=== PATIENT | male | born 1960 | race African-American/Black ===

== ENCOUNTER → 2017-01-24 | Outpatient (CLI) | payer OTHER ==
[2017-01-24 12:46] LABS: CHOLESTEROL 147.03 mg/dL (0-200); Direct HDL 52 mg/dL (>40); TRIGLYCERIDES 119 mg/dL (<150)
[2017-01-24 12:57] LABS: DIRECT LDL 60 mg/dL (<100)
== END ==
LOC: OD 10:57
PROVIDERS: ATTEND Family Medicine
DX: E11.9 Type 2 diabetes mellitus without complications (principal); R79.9 Abnormal finding of blood chemistry, unspecified; E78.00 Pure hypercholesterolemia, unspecified; E03.4 Atrophy of thyroid (acquired)
CPT/HCPCS: 36415; 80061; 82565; 83036; 84443

== ENCOUNTER → 2017-06-09 | Outpatient (CLI) | payer OTHER ==
[2017-06-09 13:18] LABS: HEMATOCRIT 37.1 % (37.9-51.0); HEMOGLOBIN 12.5 g/dL (13.5-17.0); MEAN CORPUSCULAR HGB CONC 33.7 g/dL (32.0-36.0); MEAN CORPUSCULAR VOLUME 89 fl (80-97); PLATELET COUNT 119 10^3/uL (150-450); RED BLOOD COUNT 4.17 10^6/uL (4.35-5.55); RED CELL DISTRIBUTION WIDTH 15.3 % (11.5-14.0); WHITE BLOOD COUNT 6.4 10^3/uL (4.0-10.5)
== END ==
LOC: OD 12:20
PROVIDERS: ATTEND Family Medicine
DX: E11.9 Type 2 diabetes mellitus without complications (principal); R79.9 Abnormal finding of blood chemistry, unspecified
CPT/HCPCS: 36415; 83036; 85027

== ENCOUNTER → 2018-04-17 | Outpatient (CLI) | payer OTHER ==
[2018-04-17 08:41] LABS: ALANINE AMINOTRANSFERASE 27 U/L (21-72); ALBUMIN 3.3 g/dL (3.5-5.0); ALKALINE PHOSPHATASE 92 U/L (38-126); ANION GAP 8 (5-19); ASPARTATE AMINO TRANSFERASE 41 U/L (17-59); BILIRUBIN,DIRECT 0.4 mg/dL (0.0-0.4); BILIRUBIN,TOTAL 0.4 mg/dL (0.2-1.3); BLOOD UREA NITROGEN 18 mg/dL (7-20); CARBON DIOXIDE 24 mmol/L (22-30); CHLORIDE 112 mmol/L (98-107); CHOLESTEROL 134.43 mg/dL (0-200); GLUCOSE 48 mg/dL (75-110); POTASSIUM 4.7 mmol/L (3.6-5.0); SODIUM 143.7 mmol/L (137-145); TOTAL PROTEIN 6.9 g/dL (6.3-8.2); TRIGLYCERIDES 88 mg/dL (<150)
[2018-04-17 08:52] LABS: DIRECT LDL 58 mg/dL (<100)
== END ==
LOC: OD 07:22
PROVIDERS: ATTEND Family Medicine
DX: E11.22 Type 2 diabetes mellitus with diabetic chronic kidney disease (principal)
CPT/HCPCS: 36415; 80053; 80061; 83036

== ENCOUNTER 2018-11-17 09:16 | Emergency (ER) | payer OTHER ==
[2018-11-17] MEDS ORDERED: DEXAMETHASONE SOD PHOS INJ 10 MG/1 ML VIAL IM ONE (10:03)
[2018-11-17] MEDS ORDERED: KETOROLAC TROMETHAMINE 60 MG/2 ML SDV IM ONE (10:03)
--- NOTE | 2018-11-17 10:29 | ER Document Report ---
HPI - HPI Time Seen by Provider: 11/17/18 09:28 Pain Level: 5 Context: Patient is a 58-year-old male who presents the emergency department with a chief complaint of pain in his sacral area, left hip, left knee, and left ankle pain. He states that he has had his symptoms for the past week, but dated to the nursing staff that he has had this for the past 2 days. Denies any injury. He states that it is a pulling and burning sensation. 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 He does not use his legs to pick things up. He is currently on insulin, lisinopril, gabapentin, and pantoprazole. Denies any loss of bladder or bowel function. He does have a history of IV drug abuse, but this was 30 years ago. He has not had any problems since. - ROS Systems Reviewed and Negative: Yes All other systems reviewed and negative - CONSTITUTIONAL Constitutional: DENIES: Fever, Chills - RESPIRATORY Respiratory: DENIES: Trouble Breathing - GASTROINTESTINAL Gastrointestinal: DENIES: Abdominal Pain - REPRODUCTIVE Reproductive: DENIES: : - MUSCULOSKELETAL Musculoskeletal: REPORTS: Extremity pain - Left hip, left knee, left ankl. DENIES: Back Pain - DERM Skin Color: Normal Skin Problems: None Past Medical History - Social History Smoking Status: Current Every Day Smoker Frequency of alcohol use: None Drug Abuse: None Family History: Arthritis, CAD, DM, Hyperlipidemia, Hypertension, Malignancy Patient has suicidal ideation: No Patient has homicidal ideation: No - Past Medical History Cardiac Medical History: Reports: Hx Hypertension, Hx Heart Murmur Endocrine Medical History: Reports: Hx Diabetes Mellitus Type 2 Renal/ Medical History: Reports: Hx Renal Insufficiency. Denies: Hx Peritoneal Dialysis GI Medical History: Reports: Hx Gastroesophageal Reflux Disease, Hx Irritable Bowel - with constipation linzess works but $ jeff be-, Hx Colonoscopy, Hx Endoscopy Musculoskeletal Medical History: Denies Hx Systemic Lupus Erythematosus Psychiatric Medical History: Reports: Hx Depression Past Surgical History: Reports: Hx Appendectomy, Hx Cholecystectomy. Denies: Hx Pacemaker - Immunizations Hx Diphtheria, Pertussis, Tetanus Vaccination: Yes Vertical Provider Document - CONSTITUTIONAL Agree With Documented VS: Yes Exam Limitations: No Limitations General Appearance: No Apparent Distress - INFECTION CONTROL TRAVEL OUTSIDE OF THE [place] IN LAST 30 DAYS: No - HEENT HEENT: Atraumatic, Normocephalic, PERRLA - NECK Neck: Normal Inspection - RESPIRATORY Respiratory: No Respiratory Distress - CARDIOVASCULAR Cardiovascular: Regular Rate, Regular Rhythm Pulses: Normal: Radial - MUSCULOSKELETAL/EXTREMETIES Musculoskeletal/Extremeties: FROM, Tender - Left knee, left sacral area - NEURO Level of Consciousness: Awake, Alert, Appropriate Motor/Sensory: No Motor Deficit, No Sensory Deficit - DERM Integumentary: Warm, Dry, No Rash Course - Re-evaluation Re-evalutation: 11/17/18 The patient's x-ray of his hip shows arthrosis. He does have arthritis, therefore this is the most likely cause of his pain. His pain may be shooting down his left leg down to his knee and his foot. He will follow-up with orthopedics. I have advised him to take Tylenol 1000 mg every 6 hours. He will follow-up with his primary care provider. No vascular compromise noted. Capillary refill less than 3 seconds. I have a very low suspicion for a ep idural abscess, as the patient has not used IV drugs for a very long time. I do not suspect suspect cancer. X-rays are consistent with the patient's pain that he is feeling. His pain is most likely due to his arthritis. Follow-up precautions were given. Verbal discharge instructions were given to the patient. They verbalized understanding. They are stable for discharge. - Vital Signs Vital signs: Temp Pulse Resp BP Pulse Ox 98.5 F 78 18 154/73 H 100 11/17/18 09:20 11/17/18 09:20 11/17/18 09:20 11/17/18 09:20 11/17/18 09:20 Discharge - Discharge Clinical Impression: Arthritis, Left hip pain Left knee pain Qualifiers: Chronicity: acute Qualified Code(s): M25.562 - Pain in left knee Left ankle pain Qualifiers: Chronicity: acute Qualified Code(s): M25.572 - Pain in left ankle and joints of left foot Condition: Stable Disposition: HOME, SELF-CARE Instructions: Pain Medication Injection ([facility]) Additional Instructions: You were seen today in the emergency department for pain in your left hip, left knee, and left ankle. Your pain in your hip is related to your arthritis. Your left knee and left ankle x-rays are normal. Please follow-up with orthopedic doctor below. You can take Tylenol 1000 mg every 6 hours for your pain. Please follow-up with your primary care provider to see if you have other options for pain medication. Forms: Return to Work Referrals: GERALD HAMILTON MD [Primary Care Provider] - Follow up in 3-5 days MARIN TORO MD [ACTIVE STAFF] - Follow up in 3-5 days
--- NOTE | 2018-11-17 10:47 | RADIOLOGY REPORT (SQ) ---
EXAM DESCRIPTION: ANKLE LEFT COMPLETE COMPLETED DATE/TIME: 11/17/2018 10:37 am REASON FOR STUDY: ankle pain COMPARISON: None. NUMBER OF VIEWS: Three views. TECHNIQUE: AP, lateral, and oblique radiographic images acquired of the left ankle. LIMITATIONS: None. FINDINGS: MINERALIZATION: Normal. BONES: No acute fracture or dislocation. No worrisome bone lesions. JOINTS: No effusions. SOFT TISSUES: No soft tissue swelling. No foreign body. OTHER: No other significant finding. IMPRESSION: NEGATIVE STUDY OF THE LEFT ANKLE. NO RADIOGRAPHIC EVIDENCE OF ACUTE INJURY. TECHNICAL DOCUMENTATION: JOB ID: [id number] [email or web address] All Rights Reserved Reading location - IP/workstation name: [email or web address]
--- NOTE | 2018-11-17 10:48 | RADIOLOGY REPORT (SQ) ---
EXAM DESCRIPTION: KNEE LEFT 4 VIEW COMPLETED DATE/TIME: 11/17/2018 10:37 am REASON FOR STUDY: knee pain COMPARISON: None. NUMBER OF VIEWS: Four views. TECHNIQUE: AP, lateral, and both oblique radiographic images acquired of the left knee. LIMITATIONS: None. FINDINGS: MINERALIZATION: Normal. BONES: No acute fracture or dislocation. No worrisome bone lesions. JOINT: No effusion. SOFT TISSUES: No soft tissue swelling. No radio-opaque foreign body. OTHER: No other significant finding. IMPRESSION: No fracture or dislocation of the left knee. Joint spaces are preserved. TECHNICAL DOCUMENTATION: JOB ID: [id number] [employer]- All Rights Reserved Reading location - IP/workstation name: [email or web address]
--- NOTE | 2018-11-17 10:56 | RADIOLOGY REPORT (SQ) ---
EXAM DESCRIPTION: HIP LEFT AP/LATERAL COMPLETED DATE/TIME: 11/17/2018 10:37 am REASON FOR STUDY: hip pain COMPARISON: None. NUMBER OF VIEWS: Two views. TECHNIQUE: AP pelvis and additional frog-leg view of the left hip. LIMITATIONS: None. FINDINGS: MINERALIZATION: Normal. LEFT HIP: No fracture or dislocation. No worrisome bone lesions. Corticated ossicles about the supe rior acetabular margin. RIGHT HIP: No fracture or dislocation. No worrisome bone lesions. PUBIS AND ISCHIUM: No fracture. PELVIS: No fracture. SACRUM: No fracture or dislocation. No worrisome bone lesions. SOFT TISSUES: No findings. OTHER: No other significant finding. IMPRESSION: No fracture or dislocation of the left hip. Corticated ossicles about the superior acet abular margin, likely degenerative in nature and related to mild arthrosis. Please note that plain r adiographs are insensitive for hip or pelvic fracture; recommend CT or MRI to more sensitively evalua te if fracture is suspected. TECHNICAL DOCUMENTATION: JOB ID: [id number] [employer]- All Rights Reserved Reading location - IP/workstation name: [email or web address]
[2018-11-17 11:14] VITALS: BP 159/84
== END 2018-11-17 11:14 | disposition home or self-care (01) ==
LOC: ER 09:16
DX: M16.12 Unilateral primary osteoarthritis, left hip (principal); M25.562 Pain in left knee; M25.572 Pain in left ankle and joints of left foot; M25.552 Pain in left hip; M53.3 Sacrococcygeal disorders, not elsewhere classified; E11.9 Type 2 diabetes mellitus without complications; Z79.4 Long term (current) use of insulin; I10 Essential (primary) hypertension; K21.9 Gastro-esophageal reflux disease without esophagitis; Z79.899 Other long term (current) drug therapy; F17.200 Nicotine dependence, unspecified, uncomplicated
CPT/HCPCS: 99283; 96372; 73610; 73502; 73564; J1885; J1100

== ENCOUNTER 2019-02-03 09:58 | Outpatient (CLI) | payer OTHER ==
[~2019-02-03 09:58] MED LIST: FERUMOXYTOL 510 MG in NORMAL SALINE 100 ML IV PRN; NORMAL SALINE 250 ML IV PRN
[2019-02-03 11:35] VITALS: BP 172/80
== END 2019-02-03 11:36 | disposition home or self-care (01) ==
LOC: II 09:58 → 5TH 10:01 → II 11:36
PROVIDERS: ATTEND Internal Medicine Hematology & Oncology
PROC: 3E033GC Introduction of Other Therapeutic Substance into Peripheral Vein, Percutaneous Approach (ICD-10-PCS; principal; 2019-02-03)
DX: D50.9 Iron deficiency anemia, unspecified (principal); K90.9 Intestinal malabsorption, unspecified
CPT/HCPCS: 96365; Q0138; J7050

== ENCOUNTER 2019-02-10 09:47 | Outpatient (CLI) | payer OTHER ==
[~2019-02-10 09:47] MED LIST changes: +FERUMOXYTOL (NON-ESRD) 510 MG/NS 100 ML IV PRN; -FERUMOXYTOL 510 MG in NORMAL SALINE 100 ML IV PRN
[2019-02-10 10:32] VITALS: BP 160/80
== END 2019-02-10 11:07 | disposition home or self-care (01) ==
LOC: II 09:47 → 5TH 09:48 → II 11:07
PROVIDERS: ATTEND Internal Medicine Hematology & Oncology
PROC: 3E033GC Introduction of Other Therapeutic Substance into Peripheral Vein, Percutaneous Approach (ICD-10-PCS; principal; 2019-02-10)
DX: D50.9 Iron deficiency anemia, unspecified (principal); K90.9 Intestinal malabsorption, unspecified
CPT/HCPCS: 96365; Q0138; J7050

== ENCOUNTER → 2019-05-20 | Outpatient (CLI) | payer OTHER ==
[2019-05-20 09:24] LABS: ALBUMIN 3.5 g/dL (3.5-5.0); ALKALINE PHOSPHATASE 90 U/L (38-126); ANION GAP 12 (5-19); ASPARTATE AMINO TRANSFERASE 58 U/L (17-59); BILIRUBIN,DIRECT 0.4 mg/dL (0.0-0.4); BILIRUBIN,TOTAL 0.5 mg/dL (0.2-1.3); BLOOD UREA NITROGEN 26 mg/dL (7-20); CALCIUM 9.3 mg/dL (8.4-10.2); CARBON DIOXIDE 18 mmol/L (22-30); CHLORIDE 110 mmol/L (98-107); POTASSIUM 4.7 mmol/L (3.6-5.0); TOTAL PROTEIN 7.1 g/dL (6.3-8.2)
[2019-05-20 09:28] LABS: GLUCOSE 56 mg/dL (75-110)
== END ==
LOC: OD 08:13
PROVIDERS: ATTEND Family Medicine
DX: B18.2 Chronic viral hepatitis C (principal); I10 Essential (primary) hypertension; E11.9 Type 2 diabetes mellitus without complications
CPT/HCPCS: 36415; 80053; 83036

== ENCOUNTER 2019-05-29 10:53 | Emergency (ER) | payer OTHER ==
[2019-05-29] MEDS ORDERED: PROCHLORPERAZINE EDISYLATE INJ 10 MG/2 ML VIAL IV ONE (11:07)
[2019-05-29] MEDS ORDERED: KETOROLAC TROMETHAMINE INJ/PF 30 MG/1 ML SDV IV ONE (11:08)
[2019-05-29] MEDS ORDERED: NORMAL SALINE 1000 ML 1,000 ML IV ONE (11:08)
--- NOTE | 2019-05-29 11:09 | ER Document Report ---
ED Medical Screen (RME) - General Chief Complaint: Abdominal Pain Stated Complaint: HEADACHE, ABDOMINAL PAIN Time Seen by Provider: 05/29/19 11:03 Primary Care Provider: GERALD HAMILTON MD [Primary Care Provider] - Follow up as needed Mode of Arrival: Ambulatory Information source: Patient Notes: 5-year-old male patient presents emergency department chief complaint of headache and abdominal cramping. Patient reports symptoms have been ongoing for the last 2 to 3 days. Reports headache has been intermittent. States this morning it came on with a gradual onset and is located across the front of his head. He denies any photophobia or phonophobia. He denies any nausea, vomiting but reports occasional diarrhea. Exam: Patient alert, oriented, answering all questions appropriately, no acute distress noted. Abdomen soft, nontender. I have greeted and performed a rapid initial assessment of this patient. A comprehensive ED assessment and evaluation of the patient, analysis of test results and completion of the medical decision making process will be conducted by additional ED providers. I have specifically instructed the patient or family members with the patient to immediately return to any nursing staff should anything change in the patient's condition or with their chief complaint. TRAVEL OUTSIDE OF THE [place] IN LAST 30 DAYS: No - Related Data Allergies/Adverse Reactions: shellfish derived [Shellfish Derived] Allergy (Unknown, Verified 11/17/18 09:16) michael Allergy (Uncoded 11/17/18 09:16) Home Medications: Metformin, Lisinopril, insulin novalin 70/30, prednisone, meloxicam, gabapentin, atorvastatin Past Medical History - Past Medical History Cardiac Medical History: Reports: Hx Hypertension, Hx Heart Murmur Pulmonary Medical History: Denies: Hx Tuberculosis Neurological Medical History: Denies: Hx Seizures Endocrine Medical History: Reports: Hx Diabetes Mellitus Type 2 Renal/ Medical History: Reports: Hx Renal Insufficiency. Denies: Hx Peritoneal Dialysis GI Medical History: Reports: Hx Gastroesophageal Reflux Disease, Hx Irritable Joseph wel - with constipation linzess works but $ may be-, Hx Colonoscopy, Hx Endoscopy Musculoskeltal Medical History: Denies Hx Systemic Lupus Erythematosus Psychiatric Medical History: Reports: Hx Depression Past Surgical History: Reports: Hx Appendectomy, Hx Cholecystectomy. Denies: Hx Pacemaker - Immunizations Hx Diphtheria, Pertussis, Tetanus Vaccination: Yes Physical Exam - Vital signs Vitals: Temp Pulse Resp BP Pulse Ox 97.8 F 74 20 176/78 H 99 05/29/19 11:01 05/29/19 11:01 05/29/19 11:01 05/29/19 11:01 05/29/19 11:01 Course - Vital Signs Vital signs: Temp Pulse Resp BP Pulse Ox 97.8 F 74 20 176/78 H 99 05/29/19 11:01 05/29/19 11:01 05/29/19 11:01 05/29/19 11:01 05/29/19 11:01 Doctor's Discharge - Discharge Referrals: GERALD HAMILTON MD [Primary Care Provider] - Follow up as needed
[2019-05-29 11:48] LABS: ABSOLUTE EOSINOPHILS # (AUTO) 0.1 10^3/uL (0.0-0.6); ABSOLUTE LYMPHOCYTES (AUTO) 1.8 10^3/uL (0.5-4.7); ABSOLUTE MONOCYTES (AUTO) 0.3 10^3/uL (0.1-1.4); ABSOLUTE NEUT (AUTO) 1.8 10^3/uL (1.7-8.2); EOSINOPHILS % (AUTO) 2.8 % (0-6); HEMATOCRIT 33.6 % (37.9-51.0); HEMOGLOBIN 11.2 g/dL (13.5-17.0); LYMPHOCYTES % (AUTO) 43.9 % (13-45); MEAN CORPUSCULAR HEMOGLOBIN 30.7 pg (27.0-33.4); MEAN CORPUSCULAR HGB CONC 33.3 g/dL (32.0-36.0); MEAN CORPUSCULAR VOLUME 92 fl (80-97); MONOCYTES % (AUTO) 7.8 % (3-13); PLATELET COUNT 119 10^3/uL (150-450); RED BLOOD COUNT 3.65 10^6/uL (4.35-5.55); RED CELL DISTRIBUTION WIDTH 14.3 % (11.5-14.0); SEGMENTED NEUTROPHILS % (AUTO) 44.5 % (42-78); TOTAL CELLS COUNTED % (AUTO) 100 %
[2019-05-29 12:04] LABS: ALBUMIN 3.3 g/dL (3.5-5.0); ALKALINE PHOSPHATASE 91 U/L (38-126); ANION GAP 8 (5-19); ASPARTATE AMINO TRANSFERASE 49 U/L (17-59); BILIRUBIN,DIRECT 0.4 mg/dL (0.0-0.4); BILIRUBIN,TOTAL 0.4 mg/dL (0.2-1.3); BLOOD UREA NITROGEN 20 mg/dL (7-20); CALCIUM 8.6 mg/dL (8.4-10.2); CARBON DIOXIDE 21 mmol/L (22-30); CHLORIDE 111 mmol/L (98-107); GLUCOSE 86 mg/dL (75-110); POTASSIUM 4.1 mmol/L (3.6-5.0)
--- NOTE | 2019-05-29 12:24 | RADIOLOGY REPORT (SQ) ---
EXAM DESCRIPTION: CT HEAD WITHOUT COMPLETED DATE/TIME: 05/29/2019 11:59 am REASON FOR STUDY: headache COMPARISON: 2015 TECHNIQUE: Axial images acquired through the brain without intravenous contrast. Images reviewed wi th bone, brain and subdural windows. Additional sagittal and coronal reconstructions were generated. Images stored on PACS. All CT scanners at this facility use dose modulation, iterative reconstruction, and/or weight based d osing when appropriate to reduce radiation dose to as low as reasonably achievable (ALARA). [facility]: Dose Right [facility]: CareDose [facility]: Dose Right [facility]: Teradose 4D [facility]: Smart B[facility] RADIATION DOSE: CT Rad equipment meets quality standard of care and radiation dose reduction techniq ues were employed. CTDIvol: 53.2 mGy. DLP: 991 mGy-cm. mGy. LIMITATIONS: None. FINDINGS: VENTRICLES: Slight progressive dilatation of the ventricles. This may be related atrophy. No extra-axial hemorrhage or mass, however. CEREBRUM: No masses. No hemorrhage. No midline shift. No evidence for acute infarction. Mild small vessel disease is likely present. CEREBELLUM: No masses. No hemorrhage. No alteration of density. No evidence for acute infarction. EXTRAAXIAL SPACES: No fluid collections. No masses. ORBITS AND GLOBE: No intra- or extraconal masses. Normal contour of globe without masses. CALVARIUM: No fracture. PARANASAL SINUSES: No fluid or mucosal thickening. SOFT TISSUES: No mass or hematoma. OTHER: No other significant finding. IMPRESSION: 1. Suspect mild atrophy and small vessel disease having developed since 2014. No acute intracranial abnormality evident. EVIDENCE OF ACUTE STROKE: NO. COMMENT: Quality ID # [id number]: Final reports with documentation of one or more dose reduction techniques (e.g., Automated exposure control, adjustment of the mA and/or kV according to patient size, use of iterative reconstruction technique) TECHNICAL DOCUMENTATION: JOB ID: [id number] [email or web address]- All Rights Reserved Reading location - IP/workstation name: [email or web address]
[2019-05-29 12:56] LABS: APPEARANCE,URINE CLEAR; BILIRUBIN,URINE NEGATIVE (NEGATIVE); COLOR,URINE YELLOW; GLUCOSE, URINE NEGATIVE (NEGATIVE); KETONES,URINE NEGATIVE (NEGATIVE); LEUKOCYTE ESTERASE,URINE NEGATIVE (NEGATIVE); NITRITE,URINE NEGATIVE (NEGATIVE); PROTEIN,URINE >=500 mg/dL (NEGATIVE); URINE SPECIFIC GRAVITY 1.014; UROBILINOGEN,URINE NEGATIVE mg/dL (<2.0)
--- NOTE | 2019-05-29 13:35 | ER Document Report ---
ED General - General Chief Complaint: Headache Stated Complaint: HEADACHE, ABDOMINAL PAIN Time Seen by Provider: 05/29/19 11:03 Primary Care Provider: GERALD HAMILTON MD [Primary Care Provider] - Follow up in 3-5 days Mode of Arrival: Ambulatory Notes: 59-year-old male with history of hypertension presents with frontal headache and abdominal cramping since yesterday. Patient describes headache as gradual in onset and intermittent. Associated photophobia. Patient also states he had "a little bit of diarrhea." Patient denies nausea/vomiting, constipation, fever, chest pain, shortness of breath, visual changes, abdominal pain. TRAVEL OUTSIDE OF THE [place] IN LAST 30 DAYS: No - Related Data Allergies/Adverse Reactions: shellfish derived [Shellfish Derived] Allergy (Unknown, Verified 11/17/18 09:16) michael Allergy (Uncoded 11/17/18 09:16) Home Medications: Metformin, Lisinopril, insulin novalin 70/30, prednisone, meloxicam, gabapentin, atorvastatin Past Medical History - General Information source: Patient - Social History Smoking Status: Unknown if Ever Smoked Family History: Arthritis, CAD, DM, Hyperlipidemia, Hypertension, Malignancy Patient has suicidal ideation: No Patient has homicidal ideation: No - Past Medical History Cardiac Medical History: Reports: Hx Hypertension, Hx Heart Murmur Pulmonary Medical History: Denies: Hx Tuberculosis Neurological Medical History: Denies: Hx Seizures Endocrine Medical History: Reports: Hx Diabetes Mellitus Type 2 Renal/ Medical History: Reports: Hx Renal Insufficiency. Denies: Hx Peritoneal Dialysis GI Medical History: Reports: Hx Gastroesophageal Reflux Disease, Hx Irritable Bowel - with constipation linzess works but $ may-, Hx Colonoscopy, Hx Endoscopy Musculoskeletal Medical History: Denies Hx Systemic Lupus Erythematosus Psychiatric Medical History: Reports: Hx Depression Past Surgical History: Reports: Hx Appendectomy, Hx Cholecystectomy. Denies: Hx Pacemaker - Immunizations Hx Diphtheria, Pertussis, Tetanus Vaccination: Yes Review of Systems - Review of Systems Notes: Constitutional: Negative for fever. HENT: Negative for sore throat. Eyes: Negative for visual changes. Cardiovascular: Negative for chest pain. Respiratory: Negative for shortness of breath. Gastrointestinal: Positive for abdominal cramping and diarrhea. Negative for abdominal pain, vomiting or constipation. Genitourinary: Negative for dysuria. Musculoskeletal: Negative for back pain. Skin: Negative for rash. Neurological: Positive for headaches. Negative for weakness or numbness. 10 point ROS negative except as marked above and in HPI. Physical Exam - Vital signs Vitals: Temp Pulse Resp BP Pulse Ox 97.8 F 74 20 176/78 H 99 05/29/19 11:01 05/29/19 11:01 05/29/19 11:01 05/29/19 11:01 05/29/19 11:01 - Notes Notes: GENERAL: Well-appearing, well-nourished and in no acute distress. HEAD: Atraumatic, normocephalic. EYES: Pupils equal round and reactive to light, extraocular movements intact, sclera anicteric, conjunctiva are normal. NECK: Normal range of motion, supple without lymphadenopathy or JVD. LUNGS: Breath sounds clear to auscultation bilaterally and equal. No wheezes rales or rhonchi. HEART: Regular rate and rhythm without murmurs, rubs or gallops. ABDOMEN: Soft, nontender. No guarding, no rebound. No masses appreciated. EXTREMITIES: Normal range of motion, no pitting or edema. No clubbing or cyanosis. NEUROLOGICAL: Cranial nerves II through XII grossly intact. Normal speech, normal gait. PERRLA. EOM intact. No facial droop. No tongue deviation. [place] Applicator strength equal bilaterally. Sensory intact bilaterally. Upper and lower extremity strength equal bilaterally. PSYCH: Normal mood, normal affect. SKIN: Warm, Dry, normal turgor, no rashes or lesions noted. Course - Re-evaluation Re-evalutation: 05/29/19 15-year-old male presents with frontal headache and abdominal cramping with diarrhea that started yesterday. Presentation of headache that appears to be most consistent with tension versus migrainous type headache. Headache was not maximal in onset, patient has no focal neurologic deficits, no nuchal rigidity, vital signs within normal limits, no papilledema, and patient is overall well in appearance. Based on clinical history and examination I do not suspect an acute subarachnoid hemorrhage, dural venous sinus thrombosis, acute meningitis, or intercranial mass. CT head neg for acute pathology. Given my low clinical suspicion for any acute life-threatening etiology, I do not feel advanced neuro imaging or laboratory testing is indicated at this time. Will proceed with headache cocktail and reassess. Abdomen soft, nontender, no guarding, no rebound. CBC, CMP, lipase reassuring. Pt is nontoxic, well appearing. Pt's headache resolved with headache cocktail. Pt was hypertensive. Discussed all results with pt. Strict return precautions given. Pt voices understanding and agrees with plan of care. - Vital Signs Vital signs: Temp Pulse Resp BP Pulse Ox 97.5 F 62 14 174/94 H 98 05/29/19 13:44 05/29/19 13:44 05/29/19 13:44 05/29/19 13:44 05/29/19 13:44 - Laboratory Result Diagrams: 05/29/19 11:34 05/29/19 11:34 Laboratory results interpreted by me: 05/29/19 05/29/19 05/29/19 11:34 11:34 12:38 RBC 3.65 L Hgb 11.2 L Hct 33.6 L RDW 14.3 H Plt Count 119 L Chloride 111 H Carbon Dioxide 21 L Creatinine 1.26 H Est GFR (MDRD) Non-Af 58 L Albumin 3.3 L Lipase 308.2 H Urine Protein >=500 H Urine Blood SMALL H Discharge - Discharge Clinical Impression: Abdominal cramping Headache Qualifiers: Headache type: unspecified Headache chronicity pattern: acute headache Intractability: not intractable Qualified Code(s): R51 - Headache Diarrhea Qualifiers: Diarrhea type: unspecified type Qualified Code(s): R19.7 - Diarrhea, unspecified Condition: Stable Disposition: HOME, SELF-CARE Instructions: Abdominal Pain ([facility]), Intravenous Compazine for Headaches ([facility]), Headache ([facility]), Toradol Injection ([facility]) Additional Instructions: Your work-up today was reassuring. Please follow-up with your primary care doctor in 3 to 5 days. Your blood pressure was high today. Return to ER for any worsening symptoms, including worsening headache, abdominal pain, nausea/vomiting, diarrhea, constipation, blood in your vomit or in stool, burning well pain, back pain, visual changes, chest pain, shortness of breath, or any other symptoms that are concerning to you. Forms: Return to Work Referrals: GERALD HAMILTON MD [Primary Care Provider] - Follow up in 3-5 days
[2019-05-29 13:48] VITALS: BP 174/94
== END 2019-05-29 13:50 | disposition home or self-care (01) ==
LOC: ER 10:53
DX: R10.9 Unspecified abdominal pain (principal); R51 Headache; R19.7 Diarrhea, unspecified; H53.149 Visual discomfort, unspecified; Z79.899 Other long term (current) drug therapy; I10 Essential (primary) hypertension; E11.9 Type 2 diabetes mellitus without complications
CPT/HCPCS: 99284; 96361; 96374; 96375; 36415; 83690; 85025; 80053; 81001; 70450; J1885; J0780; J7030

== ENCOUNTER 2019-06-15 00:34 | Inpatient (IN) | payer OTHER ==
[2019-06-15] MEDS ORDERED: NORMAL SALINE 1000 ML 1,000 ML IV ONE ×4 (00:50→04:02)
--- NOTE | 2019-06-15 00:59 | ER Document Report ---
ED General - General Chief Complaint: High Blood Sugar Stated Complaint: HIGH BLOOD SUGAR Time Seen by Provider: 06/15/19 00:50 Primary Care Provider: GERALD HAMILTON MD [Primary Care Provider] - Follow up as needed TRAVEL OUTSIDE OF THE [place] IN LAST 30 DAYS: No - HPI Notes: Patient is a 59-year-old male with a known history of diabetes who presents to the emergency department for evaluation of altered mental status. He was last seen well at 6 PM. He was found later combative and nearly unresponsive. EMS picked him up, he was found to have a high blood sugar at that time. There is some question as to whether or not the patient has been taking his medications. The patient is unable to offer me any sort of history at this time. - Related Data Allergies/Adverse Reactions: shellfish derived [Shellfish Derived] Allergy (Unknown, Verified 11/17/18 09:16) michael Allergy (Uncoded 11/17/18 09:16) Home Medications: List reviewed from last visit Past Medical History - General Information source: [facility] Records - Social History Smoking Status: Unknown if Ever Smoked Family History: Arthritis, CAD, DM, Hyperlipidemia, Hypertension, Malignancy - Past Medical History Cardiac Medical History: Reports: Hx Hypercholesterolemia, Hx Hypertension, Hx Heart Murmur Pulmonary Medical History: Denies: Hx Tuberculosis Neurological Medical History: Denies: Hx Seizures Endocrine Medical History: Reports: Hx Diabetes Mellitus Type 2 Renal/ Medical History: Reports: Hx Renal Insufficiency. Denies: Hx Peritoneal Dialysis GI Medical History: Reports: Hx Gastroesophageal Reflux Disease, Hx Irritable Bowel - with constipation linzess works but $ may-, Hx Colonoscopy, Hx Endoscopy Musculoskeletal Medical History: Denies Hx Systemic Lupus Erythematosus Psychiatric Medical History: Reports: Hx Depression Past Surgical History: Reports: Hx Appendectomy, Hx Cholecystectomy. Denies: Hx Pacemaker - Immunizations Hx Diphtheria, Pertussis, Tetanus Vaccination: Yes Review of Systems - Review of Systems -: Yes ROS unobtainable due to patient's medical condition Physical Exam - Vital signs Vitals: Pulse Ox 100 06/15/19 00:55 - Notes Notes: This is a 59-year-old male who appears his stated age in a mild amount of distress. He is agitated and altered. GCS 10. Vital signs reviewed, please refer to chart. Head is normocephalic, atraumatic. Pupils equal round, reactive to light. Tongue is dry. Neck is supple without meningismus. Heart is regular rate and rhythm. Lungs are clear to auscultation bilaterally. Abdomen is soft, nontender, normoactive bowel sounds throughout. Extremities without cyanosis, clubbing. Posterior calves are nontender. Peripheral pulses are equal. Skin is warm and dry. Course - Re-evaluation Re-evalutation: 06/15/19 00:57 Patient presents to the emergency department for evaluation. He has a history of diabetes, there is some concern about whether or not he is being compliant with his medications. I am concerned about the possibility of DKA. The patient is very altered, would not keep still. Decision was made to start with soft restraints. Order was placed. We will continue to monitor. 06/15/19 04:54 Laboratory investigations were obtained. Patient's blood sugar was over 900. He is not acidotic, and his findings are most consistent with hyperosmolar hyperglycemic state. He continues to be altered. He was found to be febrile. Cultures and lactic were ordered. He is given IV fluids. Urinalysis unremarkable for signs of infection. Influenza swab negative. Chest x-ray int erpreted by myself without the radiologist showing a left lingular pneumonia. However, given this patient's altered mental status and fever, I was concerned about the possibility of meningitis. Lumbar puncture was attempted. Please see separate procedure note. CSF was not obtained, but patient was started empirically on antibiotics to cover for this. During the course of his stay the patient's heart rate would intermittently spike. He started in the 80s and 90s. He would have progressively longer periods of sinus tachycardia. I do not have a clear etiology for this. In regards to his blood pressure, the patient was treated with labetalol with little effect. He was then started on hydralazine with little effect. At this point I do not have a clear etiology for this either. I will speak with filing machine operator regarding admission. 06/15/19 05:20 At this juncture I do not have a clear etiology in regards to this patient's symptoms. Despite my interpretation of a lingular pneumonia on this patient, radiology disagrees. He is otherwise covered for pneumonia with ceftriaxone and Zithromax. He is further given vancomycin. He is covered for dosing of meningitis, CSF was not obtained. I spoke with Fernando Lozano, then Dr. Emelyn Myers in regards to this patient. He was accepted to the ICU. - Vital Signs Vital signs: Temp Pulse Resp BP Pulse Ox 102.3 F H 155 H 21 H 207/101 H 96 06/15/19 03:49 06/15/19 03:35 06/15/19 03:49 06/15/19 03:49 06/15/19 03:49 - Laboratory Result Diagrams: 06/15/19 02:27 06/15/19 02:27 Laboratory results interpreted by me: 06/15/19 06/15/19 06/15/19 02:27 02:27 02:27 RBC 3.86 L Hgb 11.9 L Hct 36.4 L Plt Count 125 L Seg Neutrophils % 80.7 H VBG HCO3 19.8 L Sodium 130.8 L Potassium 5.3 H Chloride 96 L Carbon Dioxide 20 L BUN 21 H Creatinine 1.81 H Est GFR ( Amer) 47 L Est GFR (MDRD) Non-Af 38 L Glucose 929 H* Serum Osmolality Urine Protein Urine Glucose (UA) Urine Ketones Urine Blood 06/15/19 06/15/19 02:27 03:59 RBC Hgb Hct Plt Count Seg Neutrophils % VBG HCO3 Sodium Potassium Chloride Carbon Dioxide BUN Creatinine Est GFR ( Amer) Est GFR (MDRD) Non-Af Glucose Serum Osmolality 323 H Urine Protein >=500 H Urine Glucose (UA) >=500 H Urine Ketones TRACE H Urine Blood SMALL H - Diagnostic Test Radiology reviewed: Image reviewed Radiology results interpreted by me: 06/15/19 04:58 Interpreted by myself, without the aid of a radiologist, showing a left lingular pneumonia - EKG Interpretation by Me Additional EKG results interpreted by me: 06/15/19 04:59 Initial EKG shows sinus mechanism with rate of 79 bpm. Normal axis and intervals. LVH with strain versus lateral ischemia. This is different from prior study performed in September 2014. Repeat EKG revealed a sinus tachycardia with LVH and T wave changes in the lateral leads concerning for ischemia versus strain. Procedures - Central Line Left Femoral Time completed: 02:00 Consent obtained: No - No family present, emergency override Central line pre-insertion: Sterile PPE donned, Chloraprep applied, Sterile drapes applied Central line lumen type: Triple Anesthetic type: 1% Lidocaine mL's of anesthesia: 4 Ultrasound guided: Yes Line secured with sutures: Yes Central line post-insertion: Blood return from lumens, Biopatch applied, Joaquin tured, Sterile dressing applied Number of attempts: 1 Complications: No Notes: 06/15/19 02:23 The area was prepped and draped in the usual sterile fashion. Ultrasound guidance was used, sterilely, to identify both the femoral artery and femoral vein. The ideal place for cannulation was noted. The area was anesthetized with 1% lidocaine. The femoral vein was cannulated, syringe was withdrawn. Guidewire was advanced. A small triston at the skin was made at the site of the guidewire. This was done using an 11 blade. Dilator was advanced and good venous blood return came back. The central line was placed over the guidewire, maintaining hands on the guidewire during the course of this process. He to lumen was flushed and tested, there was a small adjustment as there was difficulty obtaining blood from the central lumen. After adjustment all lumens april and flushed clearly. Ultrasound was then reapplied to verify venous placement. No pulsatile blood. The skin was further anesthetized with another 1% lidocaine injection of 1 mL, then using 0 silk, the line was sewn into place. Biopatch and sterile dressing applied. - Lumbar Puncture Lumbar puncture Consent obtained: No Lumbar puncture pre-procedure: Sterile PPE donned, Chloraprep applied, Sterile drapes applied Patient position: Lying Needle size: 22 Lumbar puncture location: L3-L4 Anesthetic type: 1% Lidocaine mL's of anesthetic: 4 Number of attempts: 2 Complications: No Notes: 06/15/19 05:19 Area was prepped and draped in usual sterile fashion. The top of the iliac crest was palpated, the L3-L4 space identified. The area was anesthetized with 1% lidocaine. Using a 22-gauge Quincke spinal needle, I did attempt to enter the space. On first attempt I did encounter bone. The needle was withdrawn. On second attempt I do believe I entered the space, but there was blood noted at the hub of the needle, no fluid was obtained. The stylette was in place for all placements and removal of the spinal needle. The needle was withdrawn without difficulty. The area was bandaged. No significant bleeding. Patient patient tolerated well. Critical Care Note - Critical Care Note Total time excluding time spent on procedures (mins): 65 Discharge - Discharge Clinical Impression: Hyperosmolar (nonketotic) coma, Fever, Altered mental status, Hypertension, intermittent tachydardia Condition: Stable Disposition: ADMITTED INPATIENT Admitting Provider: Dr. Myers Unit Admitted: ICU Referrals: GERALD HAMILTON MD [Primary Care Provider] - Follow up as needed
[2019-06-15] MEDS ORDERED: ACETAMINOPHEN 650 MG SUPP.RECT PR ONE (02:43)
[2019-06-15] MEDS ORDERED: LABETALOL HCL INJ 20 MG/4 ML DISP.SYRIN IV ONE ×2 (02:43→03:31)
[2019-06-15] MEDS ORDERED: ONDANSETRON HCL INJ/PF 4 MG/2 ML SDV IV ONE ×2 (02:48→06:00)
[2019-06-15] MEDS ORDERED: ONDANSETRON HCL INJ/PF 4 MG/2 ML SDV ONE (02:48)
[2019-06-15 03:13] LABS: ABSOLUTE BASOPHILS # (AUTO) 0.1 10^3/uL (0.0-0.2); ABSOLUTE LYMPHOCYTES (AUTO) 1.2 10^3/uL (0.5-4.7); ABSOLUTE MONOCYTES (AUTO) 0.3 10^3/uL (0.1-1.4); ABSOLUTE NEUT (AUTO) 6.9 10^3/uL (1.7-8.2); BASOPHILS % (AUTO) 0.9 % (0-2); EOSINOPHILS % (AUTO) 0.3 % (0-6); HEMATOCRIT 36.4 % (37.9-51.0); HEMOGLOBIN 11.9 g/dL (13.5-17.0); LYMPHOCYTES % (AUTO) 14.3 % (13-45); MEAN CORPUSCULAR HEMOGLOBIN 30.8 pg (27.0-33.4); MEAN CORPUSCULAR HGB CONC 32.6 g/dL (32.0-36.0); MEAN CORPUSCULAR VOLUME 94 fl (80-97); MONOCYTES % (AUTO) 3.8 % (3-13); PLATELET COUNT 125 10^3/uL (150-450); RED BLOOD COUNT 3.86 10^6/uL (4.35-5.55); SEGMENTED NEUTROPHILS % (AUTO) 80.7 % (42-78); TOTAL CELLS COUNTED % (AUTO) 100 %; VENOUS BLOOD BASE EXCESS -5.7 mmol/L; VENOUS BLOOD HCO3 19.8 mmol/L (20-32); VENOUS BLOOD PH 7.32 (7.30-7.42); WHITE BLOOD COUNT 8.6 10^3/uL (4.0-10.5)
[2019-06-15 03:25] LABS: ALBUMIN 3.5 g/dL (3.5-5.0); ALKALINE PHOSPHATASE 117 U/L (38-126); ANION GAP 15 (5-19); ASPARTATE AMINO TRANSFERASE 30 U/L (17-59); BILIRUBIN,DIRECT 0.3 mg/dL (0.0-0.4); BILIRUBIN,TOTAL 0.6 mg/dL (0.2-1.3); BLOOD UREA NITROGEN 21 mg/dL (7-20); CALCIUM 9.1 mg/dL (8.4-10.2); CARBON DIOXIDE 20 mmol/L (22-30); CHLORIDE 96 mmol/L (98-107); POTASSIUM 5.3 mmol/L (3.6-5.0); TOTAL PROTEIN 6.6 g/dL (6.3-8.2)
[2019-06-15 03:26] LABS: APPEARANCE,URINE CLEAR; BILIRUBIN,URINE NEGATIVE (NEGATIVE); COLOR,URINE STRAW; GLUCOSE, URINE >=500 mg/dL (NEGATIVE); KETONES,URINE TRACE mg/dL (NEGATIVE); LEUKOCYTE ESTERASE,URINE NEGATIVE (NEGATIVE); NITRITE,URINE NEGATIVE (NEGATIVE); PROTEIN,URINE >=500 mg/dL (NEGATIVE); URINE SPECIFIC GRAVITY 1.021; UROBILINOGEN,URINE NEGATIVE mg/dL (<2.0)
[2019-06-15 03:32] LABS: ALCOHOL < 10 mg/dL (NONE DETECTED)
[2019-06-15] MEDS ORDERED: METOCLOPRAMIDE HCL INJ/PF 10 MG/2 ML SDV IV ONE (03:35)
[2019-06-15 03:43] LABS: A TYPE INFLUENZA AG NEGATIVE (NEGATIVE); B INFLUENZA AG NEGATIVE (NEGATIVE)
[2019-06-15 03:49] LABS: URINE AMPHETAMINES SCREEN NEGATIVE; URINE BARBITURATES SCREEN NEGATIVE; URINE BENZODIAZEPINES SCREEN NEGATIVE; URINE COCAINE SCREEN NEGATIVE; URINE MARIJUANA (THC) SCREEN NEGATIVE; URINE METHADONE SCREEN NEGATIVE; URINE PHENCYCLIDINE SCREEN NEGATIVE
[2019-06-15 03:58] LABS: GLUCOSE 929 mg/dL (75-110)
[2019-06-15] MEDS ORDERED: NORMAL SALINE 100 ML with INSULIN REGULAR, HUMAN 100 UNIT IV PRN ×2 (04:05)
[2019-06-15] MEDS ORDERED: LIDOCAINE 1% INJ-PF (10 MG/ML) 30 ML SDV INJ ONE (04:07)
[2019-06-15] MEDS ORDERED: KETOROLAC TROMETHAMINE INJ/PF 30 MG/1 ML SDV IV ONE (04:16)
[2019-06-15] MEDS ORDERED: HYDRALAZINE HCL INJ/PF 20 MG/1 ML SDV IV ONE (04:16)
[2019-06-15] MEDS ORDERED: LORAZEPAM INJ 2 MG/1 ML VIAL IV ONE ×2 (04:19→15:00)
[2019-06-15] MEDS ORDERED: INSULIN REG, HUMAN 100 UNIT/ML 3 ML VIAL (PYX) ONE (04:23)
--- NOTE | 2019-06-15 04:49 | RADIOLOGY REPORT (SQ) ---
Chest single view on 06/15/2019 at 3:36 AM CLINICAL INDICATION: Fever, altered mental status, vomiting COMPARISON: 04/24/2015 FINDINGS: Mild cardiomegaly is noted. Mild vascular congestion is noted. The lungs are otherwise clear. Hilar and mediastinal contours are within normal limits. No bony abnormality is noted. IMPRESSION: Mild cardiomegaly with very mild vascular congestion.
[2019-06-15] MEDS ORDERED: AZITHROMYCIN INJ 500 MG VIAL IV ONE (04:53)
[2019-06-15] MEDS ORDERED: VANCOMYCIN HCL INJ 1000 MG VIAL IV ONE (04:53)
[2019-06-15] MEDS ORDERED: CEFTRIAXONE 2 GM/D5W RTU 2 GM/50 ML RTUPB IV ONE (04:53)
[2019-06-15] MEDS ORDERED: NITROPRUSSIDE SODIUM 2 ML IV ONE ×3 (05:19→23:24)
[2019-06-15] MEDS: DEXTROSE 5%-WATER 250 ML with NITROPRUSSIDE SODIUM 50 MG IV PRN ×10 (05:46→23:28)
[2019-06-15] MEDS ORDERED: PROMETHAZINE HCL INJ 25 MG/1 ML VIAL IM ONE (06:00)
[2019-06-15] MEDS: NORMAL SALINE 100 ML with INSULIN REGULAR, HUMAN 100 UNIT IV PRN ×4 (07:10→15:40)
[2019-06-15] MEDS: NORMAL SALINE 1000 ML 1,000 ML IV PRN ×2 (07:10→17:30)
[2019-06-15] MEDS ORDERED: DEXTROSE 40% GEL 15 GM TUBE PO PRN ×2 (07:51)
[2019-06-15] MEDS ORDERED: DEXTROSE 50%-WATER 25 GM/50 ML DISP.SYRIN IV PRN ×2 (07:51)
[2019-06-15] MEDS ORDERED: GLUCAGON,HUMAN RECOMB 1 MG INJ IM PRN (07:51)
[2019-06-15] MEDS ORDERED: INFLUENZA QUAD (6MOS+) 2019-20 VAC 0.5 ML SYR IM ONE (08:00)
[2019-06-15] MEDS ORDERED: VANCOMYCIN HCL 0 MG in DEXTROSE 5%-WATER 250 ML IV NR (08:00)
[2019-06-15] MEDS ORDERED: PHARMACY COMMUNICATION ORDER MC NR (08:00)
--- NOTE | 2019-06-15 08:21 | CRITICAL CARE ADMISSION REPORT ---
HPI Date:: 06/15/19 - Critical Care Attending Time:: 08:06 Reason for ICU Reason:: HONK, fever, AMS, hypertensive urgency HPI: Pt is a 59 yo man with Type II DM, HTN, CKD who presented to the ED via EMS after being found confused at home. His blood sugar read as " high". In the ED he was found to have a blood sugar of 929. He was also found to be very hypertensive with and SBP in the 230s. He also have a fever of 102.7. Pt was given IVF, started on an insulin drip, and was started on a nipride drip. He was also given vanc, rocephin, and azithromycin. The ED physician attempted an LP, but was unsuccessful. Upon my assessment in the ICU, he is lethargic, but arous able and moves all extremities. - Diagnosis/Plan (1) Hyperosmolar (nonketotic) coma Is this a current diagnosis for this admission?: Yes (2) Type II diabetes mellitus Qualifiers: Diabetes mellitus fpc insulin use: unspecified terminal clerk insulin use status Is this a current diagnosis for this admission?: Yes (3) KARIE (acute kidney injury) Is this a current diagnosis for this admission?: Yes (4) CKD (chronic kidney disease) Qualifiers: Chronic kidney disease stage: unspecified stage Qualified Code(s): N18.9 - Chronic kidney disease, unspecified Is this a current diagnosis for this admission?: Yes (5) Hypertensive urgency Is this a current diagnosis for this admission?: Yes (6) Encephalopathy Is this a current diagnosis for this admission?: Yes Past Medical History Cardiac Medical History: Reports: Hyperlipidema, Hypertension, Heart Murmur Pulmonary Medical History: Denies: Tuberculosis Neurological Medical History: Denies: Seizures Endocrine Medical History: Reports: Diabetes Mellitus Type 2 GI Medical History: Reports: Gastroesophageal Reflux Disease Psychiatric Medical History: Reports: Depression Past Surgical History Past Surgical History: Reports: Appendectomy, Cholecystectomy Denies: Pacemaker Social/Family History - Social History Smoking Status: Unknown if Ever Smoked Frequency of Alcohol Use: None Hx Recreational Drug Use: Yes Drugs: Cocaine, Heroin, Marijuana Hx Prescription Drug Abuse: Yes - Medication/Allergies Allergies/Adverse Reactions: shellfish derived [Shellfish Derived] Allergy (Unknown, Verified 11/17/18 09:16) michael Allergy (Uncoded 11/17/18 09:16) Review of Systems ROS unobtainable: Due to mental status Physical Exam Vital Signs: Temp Pulse Resp BP Pulse Ox 102.6 F H 106 H 21 H 161/79 H 95 06/15/19 07:45 06/15/19 07:45 06/15/19 07:45 06/15/19 07:45 06/15/19 07:45 Intake & Output 06/14/19 06/15/19 06/16/19 06:59 06:59 06:59 Intake Total 3056 Balance 3056 Weight 63.6 kg 66.1 kg Weight/Height Weight 66.1 kg Height 5 ft 11 in General appearance: PRESENT: well-developed, well-nourished, other - lethargic but arousable Head exam: PRESENT: atraumatic, normocephalic Respiratory exam: PRESENT: clear to auscultation jodi, unlabored Cardiovascular exam: PRESENT: RRR GI/Abdominal exam: PRESENT: soft, other - NTND Gentrourinary exam: PRESENT: indwelling catheter Musculoskeletal exam: PRESENT: normal inspection Neurological exam: PRESENT: altered, other - moves all extremities Laboratory/Radiographs Laboratory Results: 06/15/19 02:27 06/15/19 06/15/19 06/15/19 02:27 02:27 02:27 WBC 8.6 RBC 3.86 L Hgb 11.9 L Hct 36.4 L MCV 94 MCH 30.8 MCHC 32.6 RDW 14.0 Plt Count 125 L Seg Neutrophils % 80.7 H VBG pH 7.32 VBG pCO2 39.0 VBG HCO3 19.8 L VBG Base Excess -5.7 Sodium 130.8 L Potassium 5.3 H Chloride 96 L Carbon Dioxide 20 L Anion Gap 15 BUN 21 H Creatinine 1.81 H Est GFR ( Amer) 47 L Glucose 929 H* Serum Osmolality Lactic Acid Calcium 9.1 Magnesium 1.6 Total Bilirubin 0.6 AST 30 Alkaline Phosphatase 117 Total Protein 6.6 Albumin 3.5 Urine Color Urine Appearance Urine pH Ur Specific [place] Urine Protein Urine Glucose (UA) Urine Ketones Urine Blood Urine Nitrite Ur Leukocyte Esterase Urine WBC (Auto) Urine RBC (Auto) 06/15/19 06/15/19 06/15/19 02:27 02:27 03:59 WBC RBC Hgb Hct MCV MCH MCHC RDW Plt Count Seg Neutrophils % VBG pH VBG pCO2 VBG HCO3 VBG Base Excess Sodium Potassium Chloride Carbon Dioxide Anion Gap BUN Creatinine Est GFR ( Amer) Glucose Serum Osmolality 323 H Lactic Acid 2.0 Calcium Magnesium Total Bilirubin AST Alkaline Phosphatase Total Protein Albumin Urine Color STRAW Urine Appearance CLEAR Urine pH 7.0 Ur Specific [place] 1.021 Urine Protein >=500 H Urine Glucose (UA) >=500 H Urine Ketones TRACE H Urine Blood SMALL H Urine Nitrite NEGATIVE Ur Leukocyte Esterase NEGATIVE Urine WBC (Auto) 1 Urine RBC (Auto) 4 06/15/19 02:27 Troponin I < 0.012 Impressions: Chest X-Ray 06/15/19 02:21 IMPRESSION: Mild cardiomegaly with very mild vascular congestion. EKG: SR] . SINUS RHYTHM [PLAA] . PROBABLE LEFT ATRIAL ABNORMALITY [LVHREP] . LVH WITH SECONDARY REPOLARIZATION ABNORMALITY [STELVH] . ANTERIOR ST ELEVATION, PROBABLY DUE TO LVH Critical Time Critical Time (minutes): 60 -: The care of a critically ill patient is dynamic. This note represents a static moment in the admission process. Orders and treatments may be given simultaneously and urgently, and time is not account development representative of the treatment process. This patient requires Critical Care secondary to life threatening organ or limb dysfunction. Without Critical Care services, the patient is at risk for increased mortality and morbidity. Provider Note Provider Note: Assessment: Critically ill 59 yo man with hypertensive urgency, HONK, fever, encephalopathy, KARIE, CKD, Type II DM. Plan: 1. Respiratory: pt is protecting his airway. Stable on nasal cannula 2. CV: hypertensive urgency. Continue nipride. Prn labetalol and hydralazine. Repeat EKG. Follow troponins 3. Neuro: encephalopathy, fever. LP attempted by ED physician without success. Will order LP under fluoro. 4. ID: fever, encephalopathy. Cultures pending. Vanc, rocephin, ampicillin, for empiric meningitis tx. 5. Endocrine: type II DM, HONK. Continue insulin drip and IVF 6. Renal: AK/CKD. Continue IVF 7. Nutrition: insert NGT. NPO. Dietary consult for tube feeds 8. Prophylaxis: scds. No pharmacologic DVT prophylaxis due to LP.
[2019-06-15] MEDS ORDERED: VANCOMYCIN HCL 1,500 MG in DEXTROSE 5%-WATER 250 ML IV ONE (09:00)
[2019-06-15] MEDS: HYDRALAZINE HCL INJ/PF 20 MG/1 ML SDV IV PRN (09:18)
[2019-06-15] MEDS: FAMOTIDINE INJ/PF 20 MG/2 ML SDV IV SCH (09:18)
[2019-06-15] MEDS: AMPICILLIN SODIUM 2 GM in NORMAL SALINE 100 ML IV SCH ×3 (09:41→21:11)
--- NOTE | 2019-06-15 09:45 | EKG REPORT ---
SEVERITY:- ABNORMAL ECG - SINUS RHYTHM VENTRICULAR PREMATURE COMPLEX PROBABLE LEFT ATRIAL ABNORMALITY RIGHT AXIS DEVIATION LOW VOLTAGE IN FRONTAL LEADS CONSIDER LEFT VENTRICULAR HYPERTROPHY PROLONGED QT INTERVAL : Confirmed by: Russ Branch 15-Jun-2019 09:45:05
--- NOTE | 2019-06-15 09:46 | EKG REPORT ---
SEVERITY:- ABNORMAL ECG - SINUS RHYTHM PROBABLE LEFT ATRIAL ABNORMALITY LVH WITH SECONDARY REPOLARIZATION ABNORMALITY ANTERIOR ST ELEVATION, PROBABLY DUE TO LVH : Confirmed by: Russ Branch 15-Jun-2019 09:45:16
--- NOTE | 2019-06-15 10:45 | RADIOLOGY REPORT (SQ) ---
EXAM DESCRIPTION: CT HEAD WITHOUT COMPLETED DATE/TIME: 06/15/2019 10:29 am REASON FOR STUDY: altered mental status COMPARISON: 05/29/2019 TECHNIQUE: Axial images acquired through the brain without intravenous contrast. Images reviewed wi th bone, brain and subdural windows. Additional sagittal and coronal reconstructions were generated. Images stored on PACS. All CT scanners at this facility use dose modulation, iterative reconstruction, and/or weight based d osing when appropriate to reduce radiation dose to as low as reasonably achievable (ALARA). [facility]: Dose Right [facility]: CareDose [facility]: Dose Right [facility]: Teradose 4D [facility]: Bubble & Balm RADIATION DOSE: CT Rad equipment meets quality standard of care and radiation dose reduction techniq ues were employed. CTDIvol: 48.6 mGy. DLP: 905 mGy-cm.mGy. LIMITATIONS: None. FINDINGS: VENTRICLES: Prominent. CEREBRUM: No masses. No hemorrhage. No midline shift. Areas of low density in the white matter mos t likely due to chronic micro-vascular ischemic change. No evidence for acute infarction. CEREBELLUM: No masses. No hemorrhage. No alteration of density. No evidence for acute infarction. EXTRAAXIAL SPACES: Age-related involutional change. No fluid collections. No masses. ORBITS AND GLOBE: No intra- or extraconal masses. Normal contour of globe without masses. CALVARIUM: No fracture. PARANASAL SINUSES: No fluid or mucosal thickening. SOFT TISSUES: No mass or hematoma. OTHER: No other significant finding. IMPRESSION: CHRONIC CHANGES OF ATROPHY AND MICROVASCULAR ISCHEMIA. NO ACUTE PROCESS. EVIDENCE OF ACUTE STROKE: NO. TECHNICAL DOCUMENTATION: JOB ID: [id number] Quality ID # [id number]: Final reports with documentation of one or more dose reduction techniques (e.g., Au tomated exposure control, adjustment of the mA and/or kV according to patient size, use of iterative reconstruction technique) 2010 [email or web address]- All Rights Reserved Reading location - IP/workstation name: [email or web address]
--- NOTE | 2019-06-15 11:21 | RADIOLOGY REPORT (SQ) ---
EXAM DESCRIPTION: KUB/ABDOMEN (SINGLE VIEW) COMPLETED DATE/TIME: 06/15/2019 9:42 am REASON FOR STUDY: Check Placement of NG Tube COMPARISON: None. NUMBER OF VIEWS: One view. TECHNIQUE: Supine radiographic image of the abdomen acquired. LIMITATIONS: None. FINDINGS: Nasogastric tube tip overlying stomach. IMPRESSION: Nasogastric tube in the stomach. TECHNICAL DOCUMENTATION: JOB ID: [id number] [employer]- All Rights Reserved Reading location - IP/workstation name: [email or web address]
[2019-06-15 11:25] LABS: INTERNATIONAL RATION (INR) 1.25; PROTHROMBIN TIME 15.8 SEC (11.4-15.4)
[2019-06-15] MEDS ORDERED: REGADENOSON INJ 0.4 MG/5 ML DISP.SYRIN IV ONE (12:36)
[2019-06-15] MEDS ORDERED: LORAZEPAM INJ 2 MG/1 ML VIAL ONE (14:43)
[2019-06-15] MEDS ORDERED: NORMAL SALINE INJ/PF 0.9% 10 ML SDV IV PRN (14:55)
[2019-06-15] MEDS: CEFTRIAXONE 2 GM/D5W RTU 2 GM/50 ML RTUPB IV SCH (17:14)
--- NOTE | 2019-06-15 18:24 | XCELERA REPORT ---
[address] [address] Transthoracic Echocardiogram Report Name: STEVE ALDANA Age: 59 yrs Gender: Male : 1960 Patient Status: Inpatient Patient Location: ICU^2^A Study Date: 06/15/2019 02:47 PM Height: 71 in Weight: 145 lb BSA: 1.8 m2 Procedure: A complete two-dimensional transthoracic echocardiogram was performed (2D, M-mode, spectral and color flow Doppler). The study was technically adequate with some images being suboptimal in quality. Reason For Study: HTN, elevated troponin Ordering Physician: LINDSEY CROCKETT Performed By: Margaret Son Interpretation Summary Left ventricular systolic function is normal. There is moderate to severe concentric left ventricular hypertrophy. The left ventricle is grossly normal size. Doppler measurements suggest pseudonormalized left ventricular relaxation, which is associated with grade II/IV or mild to moderate diastolic dysfunction [place] not well visualised. Probable apical wall mild hypokinesis. Increased apical tarabeculations. The right ventricular systolic function is normal. The left atrium is moderately dilated. The right atrium is normal in size There is a trace to mild amount of mitral regurgitation There is no mitral valve stenosis. No aortic regurgitation is present. There is no aortic valve stenosis There is a trace amount of tricuspid regurgitation Tricuspid regurgitation jet envelope not well defined to measure RV systolic pressure accurately. The aortic root is not well visualized but is probably normal size. The inferior vena cava appeared normal and decreased > 50% with respiration (RAP 5-10 mmHg) Minimal pericardial effusion. MMode/2D Measurements & Calculations RVDd: 3.8 cm LVIDd: 5.5 cm FS: 27.4 % Ao root diam: 3.1 cm IVSd: 1.2 cm LVIDs: 4.0 cm EDV(Teich): 145.5 ml Ao root area: 7.4 cm2 LVPWd: 1.2 cm ESV(Teich): 68.8 ml EF(Teich): 52.7 % Doppler Measurements & Calculations MV E max francisco: MV dec slope: Ao V2 max: LV V1 max P.9 cm/sec 144.4 cm/sec2 157.9 cm/sec 3.8 mmHg MV A max francisco: MV dec time: 0.25 sec Ao max PG: LV V1 max: 91.2 cm/sec 10.0 mmHg 97.3 cm/sec MV E/A: 0.39 PA V2 max: TR max francisco: 152.1 cm/sec 221.9 cm/sec PA max P.3 mmHg TR max P.7 mmHg Left Ventricle The left ventricle is grossly normal size. There is moderate to severe concentric left ventricular hypertrophy. Left ventricular systolic function is normal. Doppler measurements suggest pseudonormalized left ventricular relaxation, which is associated with grade II/IV or mild to moderate diastolic dysfunction. There is apical wall mild hypokinesis. Right Ventricle The right ventricle is grossly normal size. There is normal right ventricular wall thickness. The right ventricular systolic function is normal. Atria The right atrium is normal in size. The left atrium is moderately dilated. Mitral Valve The mitral valve leaflets are sclerotic, but show no functional abnormalities. There is no mitral valve stenosis. There is a trace to mild amount of mitral regurgitation. Aortic Valve The aortic valve is grossly normal. There is no aortic valve stenosis. No aortic regurgitation is present. Tricuspid Valve The tricuspid valve is not well visualized, but is grossly normal. There is no tricuspid stenosis. There is a trace amount of tricuspid regurgitation. Tricuspid regurgitation jet envelope not well defined to measure RV systolic pressure accurately. Pulmonic Valve The pulmonic valve is not well visualized. Great Vessels The aortic root is not well visualized but is probably normal size. The inferior vena cava appeared normal and decreased > 50% with respiration (RAP 5-10 mmHg). Effusions Minimal pericardial effusion. : LINDSEY CROCKETT Shyamal
[2019-06-15] MEDS: INSULIN REG, HUMAN 100 UNIT/ML 3 ML VIAL (PYX) SUBCUT SCH ×2 (21:11→23:35)
[2019-06-15] MEDS: VANCOMYCIN HCL 500 MG in DEXTROSE 5%-WATER 100 ML IV SCH (22:02)
[2019-06-16] MEDS ORDERED: NITROPRUSSIDE SODIUM 2 ML IV ONE ×3 (03:03→13:12)
[2019-06-16] MEDS: DEXTROSE 5%-WATER 250 ML with NITROPRUSSIDE SODIUM 50 MG IV PRN ×6 (03:13→13:58)
[2019-06-16] MEDS: AMPICILLIN SODIUM 2 GM in NORMAL SALINE 100 ML IV SCH ×4 (03:17→21:19)
[2019-06-16 04:56] LABS: HEMATOCRIT 31.3 % (37.9-51.0); HEMOGLOBIN 10.4 g/dL (13.5-17.0); MEAN CORPUSCULAR HEMOGLOBIN 30.5 pg (27.0-33.4); MEAN CORPUSCULAR HGB CONC 33.3 g/dL (32.0-36.0); MEAN CORPUSCULAR VOLUME 91 fl (80-97); PLATELET COUNT 164 10^3/uL (150-450); RED BLOOD COUNT 3.43 10^6/uL (4.35-5.55); RED CELL DISTRIBUTION WIDTH 14.6 % (11.5-14.0); WHITE BLOOD COUNT 15.2 10^3/uL (4.0-10.5)
[2019-06-16 05:46] LABS: ANION GAP 6 (5-19); BLOOD UREA NITROGEN 21 mg/dL (7-20); CALCIUM 7.8 mg/dL (8.4-10.2); CARBON DIOXIDE 19 mmol/L (22-30); CHLORIDE 113 mmol/L (98-107); GLUCOSE 298 mg/dL (75-110); POTASSIUM 3.5 mmol/L (3.6-5.0)
[2019-06-16] MEDS: CEFTRIAXONE 2 GM/D5W RTU 2 GM/50 ML RTUPB IV SCH ×2 (06:24→17:10)
[2019-06-16] MEDS: INSULIN REG, HUMAN 100 UNIT/ML 3 ML VIAL (PYX) SUBCUT SCH ×4 (06:24→23:23)
[2019-06-16 07:43] LABS: INTERNATIONAL RATION (INR) 1.21; PROTHROMBIN TIME 15.4 SEC (11.4-15.4)
[2019-06-16] MEDS ORDERED: FUROSEMIDE INJ/PF 40 MG/4 ML SDV IV ONE ×2 (09:30→12:30)
[2019-06-16] MEDS ORDERED: INSULIN GLARGINE,HUM.REC.ANLOG 1,000 UNIT/10 ML VIAL SUBCUT SCH (10:00)
[2019-06-16] MEDS: LORAZEPAM INJ 2 MG/1 ML VIAL ONE ×2 (10:00→11:45)
--- NOTE | 2019-06-16 10:36 | PDOC CRITICAL CARE PROG REPORT ---
General Date:: 06/16/19 - Critical Care Attending Resuscitation Status: Full Code Events in the past 12 to 24 Hours:: Pt is awake and alert this am. He is complaining about his NGT, central line, and cueva. Reason for ICU Addmission:: HONK, fever, AMS, hypertensive urgency Physical Exam Vital Signs: Temp Pulse Resp BP Pulse Ox 100.0 F 103 H 19 164/88 H 100 06/16/19 08:00 06/16/19 08:00 06/16/19 08:00 06/16/19 08:00 06/16/19 08:00 Intake & Output 06/15/19 06/16/19 06/17/19 06:59 06:59 06:59 Intake Total 3056 4769 135 Output Total 1800 1305 20 Balance 1256 3464 115 Weight 63.6 kg 67.1 kg Weight/Height Weight 67.1 kg Height 5 ft 11 in General appearance: PRESENT: no acute distress, well-developed, well-nourished, other - awake,alert, conversant, agitated at times Head exam: PRESENT: atraumatic, normocephalic Respiratory exam: PRESENT: clear to auscultation jodi, unlabored Cardiovascular exam: PRESENT: irregular rhythm GI/Abdominal exam: PRESENT: soft Gentrourinary exam: PRESENT: indwelling catheter Extremities exam: PRESENT: other - no edema Musculoskeletal exam: PRESENT: normal inspection Neurological exam: PRESENT: alert, awake, CN II-XII grossly intact, other - moves all extremities Laboratory/Radiographs Laboratory Results: 06/16/19 04:45 06/16/19 05:15 06/15/19 06/15/19 06/16/19 10:59 13:25 04:45 WBC RBC Hgb Hct MCV MCH MCHC RDW Plt Count Sodium Potassium Chloride Carbon Dioxide Anion Gap BUN Creatinine Est GFR ( Amer) Est GFR (Non-Af Amer) Glucose 611 H* 446 H* Calcium Ammonia < 8.7 L TSH 06/16/19 06/16/19 06/16/19 04:45 04:45 04:45 WBC 15.2 H RBC 3.43 L Hgb 10.4 L Hct 31.3 L MCV 91 MCH 30.5 MCHC 33.3 RDW 14.6 H Plt Count 164 Sodium Cancelled Potassium Cancelled Chloride Cancelled Carbon Dioxide Cancelled Anion Gap Cancelled BUN Cancelled Creatinine Cancelled Est GFR ( Amer) Cancelled Est GFR (Non-Af Amer) Cancelled Glucose Cancelled Calcium Cancelled Ammonia TSH Cancelled 06/16/19 06/16/19 05:15 05:15 WBC RBC Hgb Hct MCV MCH MCHC RDW Plt Count Sodium 137.9 Potassium 3.5 L Chloride 113 H Carbon Dioxide 19 L Anion Gap 6 BUN 21 H Creatinine 1.59 H Est GFR ( Amer) 54 L Est GFR (Non-Af Amer) Glucose 298 H Calcium 7.8 L Ammonia TSH 2.84 06/15/19 06/15/19 06/15/19 02:27 08:15 15:15 Troponin I < 0.012 0.477 0.723 06/15/19 20:44 Troponin I 0.670 Impressions: Head CT 06/15/19 00:00 IMPRESSION: CHRONIC CHANGES OF ATROPHY AND MICROVASCULAR ISCHEMIA. NO ACUTE PROCESS. EVIDENCE OF ACUTE STROKE: NO. Chest X-Ray 06/15/19 02:21 IMPRESSION: Mild cardiomegaly with very mild vascular congestion. KUB X-Ray 06/15/19 07:47 IMPRESSION: Nasogastric tube in the stomach. EKG: ST] . SINUS TACHYCARDIA [PVPC] . PAIRED VENTRICULAR PREMATURE COMPLEXES [PLAA] . PROBABLE LEFT ATRIAL ABNORMALITY [LVOLF] . LOW VOLTAGE IN FRONTAL LEADS [LVHCNP] . PROBABLE LEFT VENTRICULAR HYPERTROPHY [T6LA] . ABNORMAL T, PROBABLE ISCHEMIA, LATERAL LEADS [LQTB] . BORDERLINE PROLONGED QT INTERVAL This EKG was obtained on at 2:24 am. I did not order this EKG nor was I notified of the results. Assessment and Plan - Diagnosis (1) Hyperosmolar (nonketotic) coma Is this a current diagnosis for this admission?: Yes (2) Type II diabetes mellitus Qualifiers: Diabetes mellitus terminal clerk insulin use: unspecified terminal clerk insulin use status Is this a current diagnosis for this admission?: Yes (3) KARIE (acute kidney injury) Is this a current diagnosis for this admission?: Yes (4) CKD (chronic kidney disease) Qualifiers: Chronic kidney disease stage: unspecified stage Qualified Code(s): N18.9 - Chronic kidney disease, unspecified Is this a current diagnosis for this admission?: Yes (5) Hypertensive urgency Is this a current diagnosis for this admission?: Yes (6) Encephalopathy Is this a current diagnosis for this admission?: Yes (8) Elevated troponin Is this a current diagnosis for this admission?: Yes Plan Summary: Assessment: Critically ill 59 yo man with hypertensive urgency, HONK, fever, encephalopathy, KARIE, CKD, Type II DM. Plan: 1. Respiratory: stable on nasal cannula. Wean to RA as tolerated 2. CV: hypertensive urgency. Continue nipride and wean as tolerated. D/C IVF. Give lasix. Start lopressor. Continue prn labetalol and hydralazine. Pt with elevated troponin. EKG obtained at 2 am this shows lateral T wave inversions. Peak troponin level was 0.73. It is 0.67 this am. Pt denies chest pain. Echo shows normal EF with apical hypokinesis. Will repeat troponin. Will repeat EKG.Will consult cardiology. Will start ASA. No systemic anticoagulation b/c pt is getting LP today. 3. Neuro: toxic metabolic encephalopathy-resolving, fever. LP attempted by ED physician without success. For LP today under fluoro. 4. ID: fever, encephalopathy. Cultures pending. Day Vanc, rocephin, ampicillin, for empiric meningitis tx. LP today 5. Endocrine: type II DM. HONK, resolved. Pt is off insulin drip. Is on SSI. Hyperglycemia this am. Will start lantus 6. Renal: KARIE/CKD. KARIE, resolving. Cr has decreased to 1.59. Will d/c IVF and give lasix today 7. Nutrition: cardiac diet 8. Prophylaxis: scds. No pharmacologic DVT prophylaxis due to LP. Critical Time Critical Time (minutes): 50 Level of Care: ICU -: 1. The care of a critical patient is a dynamic process. This note is a motor vehicle field representative synopsis but static in nature. The timeframe for treatments given in order is not necessarily the actual time these treatments may have been done. 2. This patient requires critical care secondary to ongoing requirements for therapy not offered or safe outside the critical care environment. Transfer to a lower level of care will result in altered life or limb morbidity and mortality. 3. Multidisciplinary rounds completed. 4. ABCDE bundle addressed.
[2019-06-16] MEDS ORDERED: ASPIRIN 81 MG TABLET, ENT COATED PO SCH (11:00)
[2019-06-16] MEDS: VANCOMYCIN HCL 500 MG in DEXTROSE 5%-WATER 100 ML IV SCH ×2 (11:42→22:50)
[2019-06-16] MEDS: METOPROLOL TARTRATE 25 MG TABLET PO SCH ×2 (11:43→21:18)
[2019-06-16] MEDS: FAMOTIDINE INJ/PF 20 MG/2 ML SDV IV SCH (11:45)
[2019-06-16] MEDS: ASPIRIN 81 MG TABLET, CHEWABLE NG SCH (11:46)
--- NOTE | 2019-06-16 11:53 | RADIOLOGY REPORT (SQ) ---
EXAM DESCRIPTION: LUMBAR PUNCTURE COMPLETED DATE/TIME: 06/16/2019 11:10 am REASON FOR STUDY: AMS, fever COMPARISON: None. FLUOROSCOPY TIME: 50 seconds 3 images saved to PACS. TECHNIQUE: Fluoroscopic guided lumbar puncture. LIMITATIONS: None. PROCEDURE: After written consent and assessment were obtained, the patient was brought into the fluo roscopy room and placed prone on the table. The patient's lower back was prepped in a sterile fashio n and an entry site was selected under live fluoroscopic guidance. The entry site was anesthetized wi th 1% lidocaine. A 20 gauge needle was advanced through the skin and into the thecal sac at the level of L2-L3. An opening pressure was not taken due to patient agitation, which would provide a false r eading. After approximately 0.5 ml was drained, the patient became combative and the procedure was a borted. Specimen was sent to the lab for testing. A fluoroscopic spot image was saved to PACS confi rming level access. FINDINGS: Clear CSF, only obtained 0.5 mL of fluid due to patient agitation. IMPRESSION: Lumbar puncture under fluoroscopy. No immediate complication. COMMENT: Patient medication list reviewed: Yes- Quality ID# [id number]:Eligible professional attests to doc umenting in the medical record they obtained, updated, or reviewed the patient's current medications. . Quality ID [id number]: Final reports for procedures using fluoroscopy that document radiation exposure pavan racheal, or exposure time and number of fluorographic images (if radiation exposure indices are not avail able) TECHNICAL DOCUMENTATION: JOB ID: [id number] [employer]- All Rights Reserved Reading location - IP/workstation name: [email or web address] [id number]
--- NOTE | 2019-06-16 13:00 | Progress Note ---
Provider Note Provider Note: came to see the pt. He recommended medical management: asa, plavix,lipitor. Will do stress test prior to discharge.
--- NOTE | 2019-06-16 14:21 | EKG REPORT ---
SEVERITY:- ABNORMAL ECG - SINUS TACHYCARDIA PAIRED VENTRICULAR PREMATURE COMPLEXES PROBABLE LEFT ATRIAL ABNORMALITY LOW VOLTAGE IN FRONTAL LEADS PROBABLE LEFT VENTRICULAR HYPERTROPHY ABNORMAL T, PROBABLE ISCHEMIA, LATERAL LEADS BORDERLINE PROLONGED QT INTERVAL : Confirmed by: Russ Branch 16-Jun-2019 14:21:25
--- NOTE | 2019-06-16 18:37 | PDOC CONSULTATION ---
Consultation Consult Date: 06/16/19 Attending physician:: LINDSEY CROCKETT Provider Consulted: CARLOS DEJESUS Consult reason:: Abnormal troponin I and abnormal echocardiogram and abnormal EKG History of Present Illness Admission Date/PCP: 06/15/19 06:03 GERALD HAMILTON MD Patient complains of: Admitted with hyperosmolar diabetic coma. History of Present Illness: STEVE ALDANA is a 59 year old male with Type II DM, HTN, CKD who presented to the ED via EMS after being found confused at home. His blood sugar read as " high". In the ED he was found to have a blood sugar of 929. He was also found to be very hypertensive with and SBP in the 230s. He also have a fever of 102.7. Pt was given IVF, started on an insulin drip, and was started on a nipride drip. He was also given vanc, rocephin, and azithromycin. The ED physician attempted an LP, but was unsuccessful. Upon my assessment in the ICU, he is lethargic, but arousable and moves all extremities. This history obtained by the coppersmith helper was reviewed. Patient was noted to be confused when I saw him today. His female standards analyst and another female friend in the room. History was collaborated with them. They denied any known history of prior heart problem. There is questionable history of recent chest pain but there is chronic history of indigestion. As noted above patient was admitted with very high blood sugar. Consultation is for high troponin I. Past Medical History Cardiac Medical History: Reports: Hyperlipidema, Hypertension, Heart Murmur Pulmonary Medical History: Denies: Tuberculosis Neurological Medical History: Denies: Seizures Endocrine Medical History: Reports: Diabetes Mellitus Type 2 GI Medical History: Reports: Gastroesophageal Reflux Disease Psychiatric Medical History: Reports: Depression Past Surgical History Past Surgical History: Reports: Appendectomy, Cholecystectomy Denies: Pacemaker Social History Information Source: Friend Smoking Status: Unknown if Ever Smoked Frequency of Alcohol Use: None Hx Recreational Drug Use: Yes Drugs: Cocaine, Heroin, Marijuana Hx Prescription Drug Abuse: Yes - Advance Directive Resuscitation Status: Full Code Family History Family History: Arthritis, CAD, DM, Hyperlipidemia, Hypertension, Malignancy Parental Family History Reviewed: Yes Children Family History Reviewed: Yes Sibling(s) Family History Reviewed.: Yes Medication/Allergy Home Medications: Citalopram Hydrobromide [Celexa 20 mg Tablet] 20 mg PO DAILY 06/15/19 Gabapentin [Neurontin] 600 mg PO Q8 06/15/19 Lisinopril/Hydrochlorothiazide [Zestoretic 20-25 mg Tablet] 1 tab PO DAILY 06/15/19 Meloxicam [Mobic] 15 mg PO DAILY 06/15/19 Metformin HCl [Metformin HCl ER] 2,000 mg PO QPM 06/15/19 Tadalafil [Adcirca] 20 mg PO PRN PRN 06/15/19 Allergies/Adverse Reactions: shellfish derived [Shellfish Derived] Allergy (Unknown, Verified 11/17/18 09:16) michael Allergy (Uncoded 11/17/18 09:16) Review of Systems ROS unobtainable: Due to mental status Physical Exam Vital Signs: Temp Pulse Resp BP Pulse Ox 97.8 F 76 21 H 177/105 H 98 06/16/19 16:00 06/16/19 16:00 06/16/19 18:00 06/16/19 17:46 06/16/19 18:00 Intake & Output 06/15/19 06/16/19 06/17/19 06:59 06:59 06:59 Intake Total 3056 4819 835 Output Total 1800 1305 770 Balance 1256 3514 65 Weight 63.6 kg 67.1 kg 67.1 kg Exam: GENERAL: well-nourished and in no acute distress. Patient is alert but not noted to be very drowsy and confused. HEAD: Atraumatic, normocephalic. EYES: Pupils equal round and reactive to light, extraocular movements intact, sclera anicteric, conjunctiva are normal. ENT: TMs normal, nares patent, oropharynx clear without exudates. Moist mucous membranes. No oral ulcerations or bleeding gums noted NECK: supple without lymphadenopathy or JVD. Trachea is central. No cervical or axillary lymphadenopathy noted. Carotids are 2+ LUNGS: Breath sounds bibasilar fine crackles at bases. No significant dullness noted. CHEST: Palpation of chest wall shows no significant chest wall tenderness. HEART: [place], No PSH, 2/6 LOI aortic area, 1/6 rogers systolic murmur mitral area, rubs or gallops. ABDOMEN: Soft, no significant tenderness appreciated, normoactive bowel sounds. No guarding, no rebound. No rigidity noted . No masses appreciated. EXTREMITIES: Pedal pulses are 1-2+, no calf tenderness noted, Trace + pedal edema noted. No clubbing or cyanosis. NEUROLOGICAL: Patient is alert but is not able to participate in neurological exam because of patient's current mental status PSYCH: Patient cannot participate in a neurologic and psych exam because of the patient's current mental status SKIN: No significant ecchymosis, rash, ulcerations or signs of pruritus noted. MUSCULOSKELETAL EXAM: No significant joint swelling noted. Results Laboratory Results: 06/16/19 04:45 06/16/19 05:15 06/16/19 06/16/19 06/16/19 04:45 04:45 04:45 WBC 15.2 H RBC 3.43 L Hgb 10.4 L Hct 31.3 L MCV 91 MCH 30.5 MCHC 33.3 RDW 14.6 H Plt Count 164 Sodium Cancelled Potassium Cancelled Chloride Cancelled Carbon Dioxide Cancelled Anion Gap Cancelled BUN Cancelled Creatinine Cancelled Est GFR ( Amer) Cancelled Est GFR (Non-Af Amer) Cancelled Glucose Cancelled Calcium Cancelled Ammonia < 8.7 L TSH Fluid Tube Number CSF Volume CSF Appearance CSF Color CSF WBC CSF RBC CSF Color (1) CSF Appearance (1) CSF Color (2) CSF Appearance (2) CSF Color (3) CSF Appearance (3) CSF Color (4) CSF Appearance (4) CSF Polymorphonuclear CSF Glucose CSF Total Protein 06/16/19 06/16/19 06/16/19 04:45 05:15 05:15 WBC RBC Hgb Hct MCV MCH MCHC RDW Plt Count Sodium 137.9 Potassium 3.5 L Chloride 113 H Carbon Dioxide 19 L Anion Gap 6 BUN 21 H Creatinine 1.59 H Est GFR ( Amer) 54 L Est GFR (Non-Af Amer) Glucose 298 H Calcium 7.8 L Ammonia TSH Cancelled 2.84 Fluid Tube Number CSF Volume CSF Appearance CSF Color CSF WBC CSF RBC CSF Color (1) CSF Appearance (1) CSF Color (2) CSF Appearance (2) CSF Color (3) CSF Appearance (3) CSF Color (4) CSF Appearance (4) CSF Polymorphonuclear CSF Glucose CSF Total Protein 06/16/19 06/16/19 10:55 10:55 WBC RBC Hgb Hct MCV MCH MCHC RDW Plt Count Sodium Potassium Chloride Carbon Dioxide Anion Gap BUN Creatinine Est GFR ( Amer) Est GFR (Non-Af Amer) Glucose Calcium Ammonia TSH Fluid Tube Number Cancelled CSF Volume Cancelled CSF Appearance Cancelled CSF Color Cancelled CSF WBC Cancelled CSF RBC Cancelled CSF Color (1) Cancelled CSF Appearance (1) Cancelled CSF Color (2) Cancelled CSF Appearance (2) Cancelled CSF Color (3) Cancelled CSF Appearance (3) Cancelled CSF Color (4) Cancelled CSF Appearance (4) Cancelled CSF Polymorphonuclear Cancelled CSF Glucose Cancelled CSF Total Protein Cancelled 06/15/19 06/15/19 06/15/19 02:27 08:15 15:15 Troponin I < 0.012 0.477 0.723 06/15/19 06/16/19 20:44 14:39 Troponin I 0.670 0.442 EKG Comments: Twelve-lead EKG shows a deep T wave inversion anterior precordial leads consistent with ischemia. Impressions: Head CT 06/15/19 00:00 IMPRESSION: CHRONIC CHANGES OF ATROPHY AND MICROVASCULAR ISCHEMIA. NO ACUTE PROCESS. EVIDENCE OF ACUTE STROKE: NO. Chest X-Ray 06/15/19 02:21 IMPRESSION: Mild cardiomegaly with very mild vascular congestion. KUB X-Ray 06/15/19 07:47 IMPRESSION: Nasogastric tube in the stomach. Lumbar Puncture 06/16/19 00:00 IMPRESSION: Lumbar puncture under fluoroscopy. No immediate complication. Assessment & Plan - Diagnosis (1) Non-STEMI (non-ST elevated myocardial infarction) Is this a current diagnosis for this admission?: Yes (2) KARIE (acute kidney injury) Is this a current diagnosis for this admission?: Yes (3) Altered mental status Qualifiers: Altered mental status type: delirium Qualified Code(s): R41.0 - Disorientation, unspecified Is this a current diagnosis for this admission?: Yes (4) Elevated troponin Is this a current diagnosis for this admission?: Yes (5) Hyperosmolar (nonketotic) coma Is this a current diagnosis for this admission?: Yes (6) Hypertensive urgency Is this a current diagnosis for this admission?: Yes (7) Type II diabetes mellitus Qualifiers: Diabetes mellitus termite control technician insulin use: unspecified termite control technician insulin use status Is this a current diagnosis for this admission?: Yes - Notes Notes: I was consulted for abnormal echocardiogram and elevated troponin I. EKG performed this morning was also noted to be abnormal. Based on troponin I elevation, abnormal EKG and also wall motion abnormalities on echocardiogram, it is quite certain that patient has sustained a myocardial infarction. Feel that myocardial infarction could be type II SC but cannot rule out type I. Also when it occurred is not clear. Patient does have significant LVH therefore EKG changes could well be just surgical sales representative of LVH. At this point however it is prudent to treat patient as a non-STEMI. Patient's non-STEMI could be brought on by hyperviscosity related to hyperosmolar nonketotic state and could well be from severe hypertension. At this point will recommend dual antiplatelet therapy, high potency statin therapy, beta-sanjay, ARB/JORDAN inhibitor therapy. I normally prefer ARB in -[place]. Patient has numerous cardiac risk factors. Unfortunately he is a poor historian and currently not in a good state to give any history at this point. Would [facility] consider doing a stress test prior to discharge or some other kind of ischemia work-up. Have discussed this with hospitalist. I will be happy to provide follow-up cardiology care as an outpatient and will follow him while he is inpatient. - Time Time Spent: 30 to 50 Minutes Medications reviewed and adjusted accordingly: Yes - Management plans and medication changes discussed with hospitalist.
[2019-06-16] MEDS: HYDRALAZINE HCL INJ/PF 20 MG/1 ML SDV IV PRN (19:53)
[2019-06-16] MEDS: ATORVASTATIN CALCIUM 80 MG TABLET PO SCH (21:18)
[2019-06-17] MEDS ORDERED: NITROPRUSSIDE SODIUM 2 ML IV ONE ×4 (00:47→22:37)
[2019-06-17] MEDS: DEXTROSE 5%-WATER 250 ML with NITROPRUSSIDE SODIUM 50 MG IV PRN ×8 (00:52→22:57)
[2019-06-17] MEDS: HYDRALAZINE HCL INJ/PF 20 MG/1 ML SDV IV PRN ×3 (01:00→20:17)
[2019-06-17] MEDS: AMPICILLIN SODIUM 2 GM in NORMAL SALINE 100 ML IV SCH ×4 (02:41→20:17)
[2019-06-17] MEDS: LABETALOL HCL INJ 20 MG/4 ML DISP.SYRIN IV PRN ×2 (02:42→21:12)
[2019-06-17] MEDS: CEFTRIAXONE 2 GM/D5W RTU 2 GM/50 ML RTUPB IV SCH ×2 (05:06→17:06)
[2019-06-17] MEDS: INSULIN REG, HUMAN 100 UNIT/ML 3 ML VIAL (PYX) SUBCUT SCH ×4 (05:14→23:52)
[2019-06-17 07:06] LABS: HEMATOCRIT 30.6 % (37.9-51.0); HEMOGLOBIN 10.4 g/dL (13.5-17.0); MEAN CORPUSCULAR HEMOGLOBIN 30.9 pg (27.0-33.4); MEAN CORPUSCULAR VOLUME 91 fl (80-97); PLATELET COUNT 172 10^3/uL (150-450); RED BLOOD COUNT 3.37 10^6/uL (4.35-5.55); RED CELL DISTRIBUTION WIDTH 14.5 % (11.5-14.0); WHITE BLOOD COUNT 11.5 10^3/uL (4.0-10.5)
[2019-06-17 07:24] LABS: ANION GAP 10 (5-19); BLOOD UREA NITROGEN 22 mg/dL (7-20); CALCIUM 7.9 mg/dL (8.4-10.2); CARBON DIOXIDE 16 mmol/L (22-30); CHLORIDE 113 mmol/L (98-107); GLUCOSE 240 mg/dL (75-110); POTASSIUM 3.3 mmol/L (3.6-5.0)
[2019-06-17] MEDS: ONDANSETRON HCL INJ/PF 4 MG/2 ML SDV IV PRN ×2 (08:26→21:12)
[2019-06-17] MEDS ORDERED: POTASSIUM CHLORIDE 10 MEQ TABLET.ER PO ONE (08:50)
--- NOTE | 2019-06-17 09:15 | EKG REPORT ---
SEVERITY:- ABNORMAL ECG - SINUS RHYTHM VENTRICULAR PREMATURE COMPLEX PROBABLE LEFT ATRIAL ABNORMALITY LOW VOLTAGE IN FRONTAL LEADS ABNORMAL T, PROBABLE ISCHEMIA, WIDESPREAD PROLONGED QT INTERVAL : Confirmed by: Russ Branch 17-Jun-2019 09:14:57
--- NOTE | 2019-06-17 09:20 | RADIOLOGY REPORT (SQ) ---
EXAM DESCRIPTION: DUPLEX ART/GRIS FLOW COMPLETE COMPLETED DATE/TIME: 06/16/2019 6:24 pm REASON FOR STUDY: severe HTN, eval for renal artery stenosis COMPARISON: None. TECHNIQUE: Realtime and static grayscale images acquired. Selected color Doppler, velocities and spe ctral images recorded. LIMITATIONS: None. FINDINGS: RIGHT KIDNEY: RENAL ARTERY VELOCITIES: Origin 105 cm/sec. Mid 55 Cm/sec. Hilum 78 cm/sec. Segmental artery velocit y 62 cm/sec. RENAL VEIN: Color doppler flow present, patent. VELOCITY RATIO: 0.55. Normal waveforms. KIDNEY: Normal in size measuring 10 cm. No significant pathology. LEFT KIDNEY: RENAL ARTERY VELOCITIES: Origin 120 cm/sec. Mid not visualized. 64 cm/sec. Segmental artery veloci ty 48 cm/sec. RENAL VEIN: Color doppler flow present, patent. VELOCITY RATIO: 0.46. Normal waveforms. KIDNEY: 11.1 cm No significant pathology. BLADDER: Unremarkable. OTHER: Aorta 190 cm/sec. IMPRESSION: NO DOPPLER EVIDENCE OF HEMODYNAMICALLY SIGNIFICANT RENAL ARTERY STENOSIS. COMMENT: NORMAL RENAL ARTERY/AORTA VELOCITY RATIO IS LESS THAN OR EQUAL TO 3.5. TECHNICAL DOCUMENTATION: JOB ID: [id number] [employer]- All Rights Reserved Reading location - IP/workstation name: [email or web address]
[2019-06-17] MEDS: ASPIRIN 81 MG TABLET, CHEWABLE NG SCH (09:24)
[2019-06-17] MEDS: METOPROLOL TARTRATE 50 MG TABLET PO SCH ×2 (09:24→21:13)
[2019-06-17] MEDS: VANCOMYCIN HCL 500 MG in DEXTROSE 5%-WATER 100 ML IV SCH ×2 (09:29→22:15)
[2019-06-17] MEDS: LOSARTAN POTASSIUM 25 MG TABLET PO SCH (09:50)
[2019-06-17 10:28] LABS: VANCOMYCIN,TROUGH 20.1 ug/mL (5.0-20.0)
[2019-06-17] MEDS: ACETAMINOPHEN 325 MG TABLET PO PRN ×2 (11:18→21:16)
[2019-06-17] MEDS: INSULIN GLARGINE,HUM.REC.ANLOG 1,000 UNIT/10 ML VIAL SUBCUT SCH (11:32)
[2019-06-17] MEDS: CLOPIDOGREL BISULFATE 75 MG TABLET PO SCH (11:33)
--- NOTE | 2019-06-17 12:41 | PDOC CRITICAL CARE PROG REPORT ---
General Date:: 06/17/19 - Critical Care Attending Resuscitation Status: Full Code Events in the past 12 to 24 Hours:: Pt remains on nipride. Continues to be pleasantly confused at times. Has no c omplaints. Reason for ICU Addmission:: HONK, fever, AMS, hypertensive urgency - Medications: Medications reviewed and adjusted accordingly: Yes Physical Exam Vital Signs: Temp Pulse Resp BP Pulse Ox 100.6 F H 104 H 18 156/65 H 98 06/17/19 08:00 06/17/19 10:00 06/17/19 10:16 06/17/19 10:16 06/17/19 10:16 Intake & Output 06/16/19 06/17/19 06/18/19 06:59 06:59 06:59 Intake Total 4819 1649 327 Output Total 1305 1220 230 Balance 3514 429 97 Weight 67.1 kg 66.1 kg Weight/Height Weight 66.1 kg Height 5 ft 11 in General appearance: PRESENT: no acute distress, well-developed, well-nourished - awake, alert, NAD, pleasantly confused at times Head exam: PRESENT: atraumatic, normocephalic Cardiovascular exam: PRESENT: RRR GI/Abdominal exam: PRESENT: soft Extremities exam: PRESENT: other - no edema Neurological exam: PRESENT: alert, awake Psychiatric exam: PRESENT: appropriate affect Laboratory/Radiographs Laboratory Results: 06/17/19 06:50 06/17/19 09:35 06/17/19 06/17/19 06/17/19 06:50 06:50 09:35 WBC 11.5 H RBC 3.37 L Hgb 10.4 L Hct 30.6 L MCV 91 MCH 30.9 MCHC 34.0 RDW 14.5 H Plt Count 172 Sodium 138.5 Potassium 3.3 L Chloride 113 H Carbon Dioxide 16 L Anion Gap 10 BUN 22 H Creatinine 1.62 H 1.81 H Est GFR ( Amer) 53 L 47 L Glucose 240 H Calcium 7.9 L 06/15/19 06/15/19 06/15/19 02:27 08:15 15:15 Troponin I < 0.012 0.477 0.723 06/15/19 06/16/19 20:44 14:39 Troponin I 0.670 0.442 Impressions: Head CT 06/15/19 00:00 IMPRESSION: CHRONIC CHANGES OF ATROPHY AND MICROVASCULAR ISCHEMIA. NO ACUTE PROCESS. EVIDENCE OF ACUTE STROKE: NO. Chest X-Ray 06/15/19 02:21 IMPRESSION: Mild cardiomegaly with very mild vascular congestion. KUB X-Ray 06/15/19 07:47 IMPRESSION: Nasogastric tube in the stomach. Lumbar Puncture 06/16/19 00:00 IMPRESSION: Lumbar puncture under fluoroscopy. No immediate complication. Renal Artery Duplex 06/16/19 00:00 IMPRESSION: NO DOPPLER EVIDENCE OF HEMODYNAMICALLY SIGNIFICANT RENAL ARTERY STENOSIS. All labs, radiographs, diagnostic studies and EKGs were personally reviewed: Yes Assessment and Plan - Diagnosis (1) Hyperosmolar (nonketotic) coma Is this a current diagnosis for this admission?: Yes (2) Type II diabetes mellitus Qualifiers: Diabetes mellitus halfway insulin use: unspecified terminal operations manager insulin use status Is this a current diagnosis for this admission?: Yes (3) KARIE (acute kidney injury) Is this a current diagnosis for this admission?: Yes (4) CKD (chronic kidney disease) Qualifiers: Chronic kidney disease stage: unspecified stage Qualified Code(s): N18.9 - Chronic kidney disease, unspecified Is this a current diagnosis for this admission?: Yes (5) Hypertensive urgency Is this a current diagnosis for this admission?: Yes (6) Encephalopathy Is this a current diagnosis for this admission?: Yes (8) Elevated troponin Is this a current diagnosis for this admission?: Yes Plan Summary: Assessment: Critically ill 59 yo man with hypertensive urgency, HONK, fever, encephalopathy, KARIE, CKD, Type II DM. Plan: 1. Respiratory: stable on RA 2. CV: hypertensive urgency. Remains on nipride. Will increase lopressor today.. Continue prn labetalol and hydralazine. NSTEMI. Cardiology following. On asa and plavix. Systemic anticoagulation not started b/c pt had LP yesterday. Troponin trending down. Pt without CP. 3. Neuro: toxic metabolic encephalopathy-resolving, fever. LP attempted by ED physician without success. s/p LP under fluoro 06/16/2019. Only enough CSF collected to be sent for culture. 4. ID: fever, encephalopathy. Cultures pending. Day 3 Vanc, rocephin, ampicillin, for empiric meningitis tx. LP 06/16/2019 5. Endocrine: type II DM. HONK, resolved. Still with hyperglycemia. Will increase Lantus to 20 units daily. 6. Renal: KARIE/CKD. Unsure of what his baseline Cr is. Cr is 1.62 today up from 1.55. Will start JORDAN/ARB tmw if renal function continues to be statble. 7. Nutrition: cardiac diet 8. Prophylaxis: scds. sq heparin. 9. Consult PT/OT Critical Time Critical Time (minutes): 40 Level of Care: ICU -: 1. The care of a critical patient is a dynamic process. This note is a rental representative synopsis but static in nature. The timeframe for treatments given in order is not necessarily the actual time these treatments may have been done. 2. This patient requires critical care secondary to ongoing requirements for therapy not offered or safe outside the critical care environment. Transfer to a lower level of care will result in altered life or limb morbidity and mortality. 3. Multidisciplinary rounds completed. 4. ABCDE bundle addressed.
[2019-06-17] MEDS ORDERED: ISOSORBIDE MONONITRATE 30 MG TAB.ER.24H PO SCH (18:15)
--- NOTE | 2019-06-17 19:08 | PDOC PROGRESS REPORT ---
Subjective Progress Note for:: 06/17/19 Subjective:: Patient seems to be doing better with gradual improvement. Pt is denying any chest arm or neck discomfort. Patient denying any PND, orthopnea. Patient denied any sustained palpitations, dizziness, syncope, near syncope. Patient denying any fever chills. Patient denying any other significant discomfort. Patient however remains somewhat confused and lethargic. Patient is maintaining sinus rhythm. Review of systems: Rest review of systems negative. Medications: Medications have been reviewed. Reason For Visit: HONK,ENCEPHALOPATHY,SEPSIS Physical Exam Vital Signs: Temp Pulse Resp BP Pulse Ox 100.6 F H 95 18 156/65 H 98 06/17/19 08:00 06/17/19 08:00 06/17/19 10:16 06/17/19 10:16 06/17/19 10:16 Intake & Output 06/16/19 06/17/19 06/18/19 06:59 06:59 06:59 Intake Total 4819 1649 327 Output Total 1305 1220 Balance 3514 429 327 Weight 67.1 kg 66.1 kg Exam: GENERAL: well-nourished and in no acute distress. Alert and but confused and lethargic. HEAD: Atraumatic, normocephalic. EYES: NAKUL, sclera anicteric, conjunctiva are normal. ENT: Moist mucous membranes. No oral ulcerations or bleeding gums noted. No obvious ear, nose or throat abnormalities noted. NECK: supple without lymphadenopathy. Trachea is central. No cervical or axillary lymphadenopathy noted. Carotids are 2+, JVD WNL LUNGS: Breath sounds clear bilaterally. No wheezes rales or rhonchi noted. No significant dullness noted on percussion. CHEST: Palpation of the chest wall shows no significant chest wall tenderness. 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 ABDOMEN: Soft, no significant tenderness appreciated, normoactive bowel sounds. No guarding, no rebound. No rigidity noted . No masses appreciated. EXTREMITIES: Pedal pulses are 1-2+, no calf tenderness noted. No clubbing or cyanosis. negative pedal edema noted NEUROLOGICAL: Focused neurological exam showed no significant neurologic deficit. Normal speech except being somewhat slurred, no focal weakness appreciated. PSYCH: Could not be examined. SKIN: No significant ecchymosis, skin is noted to be warm. MUSCULOSKELETAL EXAM: No significant acute joint swelling noted. Results Laboratory Results: 06/17/19 06:50 06/16/19 06/16/19 06/17/19 10:55 10:55 06:50 WBC 11.5 H RBC 3.37 L Hgb 10.4 L Hct 30.6 L MCV 91 MCH 30.9 MCHC 34.0 RDW 14.5 H Plt Count 172 Sodium Potassium Chloride Carbon Dioxide Anion Gap BUN Creatinine Est GFR ( Amer) Glucose Calcium Fluid Tube Number Cancelled CSF Volume Cancelled CSF Appearance Cancelled CSF Color Cancelled CSF WBC Cancelled CSF RBC Cancelled CSF Color (1) Cancelled CSF Appearance (1) Cancelled CSF Color (2) Cancelled CSF Appearance (2) Cancelled CSF Color (3) Cancelled CSF Appearance (3) Cancelled CSF Color (4) Cancelled CSF Appearance (4) Cancelled CSF Polymorphonuclear Cancelled CSF Glucose Cancelled CSF Total Protein Cancelled 06/17/19 06:50 WBC RBC Hgb Hct MCV MCH MCHC RDW Plt Count Sodium 138.5 Potassium 3.3 L Chloride 113 H Carbon Dioxide 16 L Anion Gap 10 BUN 22 H Creatinine 1.62 H Est GFR ( Amer) 53 L Glucose 240 H Calcium 7.9 L Fluid Tube Number CSF Volume CSF Appearance CSF Color CSF WBC CSF RBC CSF Color (1) CSF Appearance (1) CSF Color (2) CSF Appearance (2) CSF Color (3) CSF Appearance (3) CSF Color (4) CSF Appearance (4) CSF Polymorphonuclear CSF Glucose CSF Total Protein 06/15/19 06/15/19 06/15/19 02:27 08:15 15:15 Troponin I < 0.012 0.477 0.723 06/15/19 06/16/19 20:44 14:39 Troponin I 0.670 0.442 EKG Comments: Showed sinus rhythm without any tachycardia or bradycardia. Impressions: Head CT 06/15/19 00:00 IMPRESSION: CHRONIC CHANGES OF ATROPHY AND MICROVASCULAR ISCHEMIA. NO ACUTE PROCESS. EVIDENCE OF ACUTE STROKE: NO. Chest X-Ray 06/15/19 02:21 IMPRESSION: Mild cardiomegaly with very mild vascular congestion. KUB X-Ray 06/15/19 07:47 IMPRESSION: Nasogastric tube in the stomach. Lumbar Puncture 06/16/19 00:00 IMPRESSION: Lumbar puncture under fluoroscopy. No immediate complication. Renal Artery Duplex 06/16/19 00:00 IMPRESSION: NO DOPPLER EVIDENCE OF HEMODYNAMICALLY SIGNIFICANT RENAL ARTERY STENOSIS. Assessment & Plan - Diagnosis (1) Non-STEMI (non-ST elevated myocardial infarction) Is this a current diagnosis for this admission?: Yes (2) KARIE (acute kidney injury) Is this a current diagnosis for this admission?: Yes (3) Altered mental status Qualifiers: Altered mental status type: delirium Qualified Code(s): R41.0 - Disorientation, unspecified Is this a current diagnosis for this admission?: Yes (4) Elevated troponin Is this a current diagnosis for this admission?: Yes (5) Hyperosmolar (nonketotic) coma Is this a current diagnosis for this admission?: Yes (6) Hypertensive urgency Is this a current diagnosis for this admission?: Yes (7) Type II diabetes mellitus Qualifiers: Diabetes mellitus meterman insulin use: unspecified halfway insulin use status Is this a current diagnosis for this admission?: Yes - Notes Notes: Patient noted to have intermittently severely elevated blood pressure. He needed nipride drip last night. This is being tapered off. Antihypertensive regimen is being optimized. Added losartan to the regimen. Patient currently being treated with beta-blockers, statins, dual antiplatelet therapy for his CAD. Once patient noted to be mentally stable, will consider scheduling for a pharmacologic nuclear stress test. Hospitalist and solution mixer, managing the patient very well otherwise. - Time Time with patient: Greater than 35 minutes Medications reviewed and adjusted accordingly: Yes
[2019-06-17] MEDS: ATORVASTATIN CALCIUM 80 MG TABLET PO SCH (21:13)
[2019-06-17 21:57] LABS: VANCOMYCIN,TROUGH 16.6 ug/mL (5.0-20.0)
[2019-06-17] MEDS: HEPARIN SOD (PORCINE) 5,000 UNIT/ML 1 ML VIAL SUBCUT SCH (22:12)
[2019-06-18] MEDS: AMPICILLIN SODIUM 2 GM in NORMAL SALINE 100 ML IV SCH ×4 (03:05→21:16)
[2019-06-18] MEDS: ACETAMINOPHEN 325 MG TABLET PO PRN ×4 (03:43→21:10)
[2019-06-18] MEDS: CEFTRIAXONE 2 GM/D5W RTU 2 GM/50 ML RTUPB IV SCH ×2 (05:55→18:39)
[2019-06-18] MEDS: INSULIN REG, HUMAN 100 UNIT/ML 3 ML VIAL (PYX) SUBCUT SCH ×4 (05:55→23:45)
[2019-06-18] MEDS ORDERED: NITROPRUSSIDE SODIUM 2 ML IV ONE (07:06)
[2019-06-18] MEDS: HYDRALAZINE HCL INJ/PF 20 MG/1 ML SDV IV PRN ×2 (07:19→21:16)
[2019-06-18] MEDS: DEXTROSE 5%-WATER 250 ML with NITROPRUSSIDE SODIUM 50 MG IV PRN ×2 (08:33)
[2019-06-18] MEDS ORDERED: NITROGLYCERIN/D5W 50 MG/250 ML RTUINJ IV PRN (08:56)
[2019-06-18 09:30] LABS: HEMOGLOBIN 9.8 g/dL (13.5-17.0); MEAN CORPUSCULAR HEMOGLOBIN 31.2 pg (27.0-33.4); MEAN CORPUSCULAR VOLUME 92 fl (80-97); PLATELET COUNT 140 10^3/uL (150-450); RED BLOOD COUNT 3.15 10^6/uL (4.35-5.55); RED CELL DISTRIBUTION WIDTH 14.1 % (11.5-14.0); WHITE BLOOD COUNT 8.6 10^3/uL (4.0-10.5)
[2019-06-18] MEDS: ASPIRIN 81 MG TABLET, CHEWABLE NG SCH (09:45)
[2019-06-18] MEDS: LOSARTAN POTASSIUM 25 MG TABLET PO SCH (09:45)
[2019-06-18] MEDS: CLOPIDOGREL BISULFATE 75 MG TABLET PO SCH (09:45)
[2019-06-18] MEDS: ISOSORBIDE MONONITRATE 60 MG TAB.ER.24H PO SCH (09:46)
[2019-06-18] MEDS: HEPARIN SOD (PORCINE) 5,000 UNIT/ML 1 ML VIAL SUBCUT SCH ×2 (09:46→21:16)
[2019-06-18 09:47] LABS: ANION GAP 10 (5-19); BLOOD UREA NITROGEN 23 mg/dL (7-20); CALCIUM 8.2 mg/dL (8.4-10.2); CARBON DIOXIDE 15 mmol/L (22-30); CHLORIDE 114 mmol/L (98-107); GLUCOSE 136 mg/dL (75-110); POTASSIUM 3.3 mmol/L (3.6-5.0)
[2019-06-18] MEDS: INSULIN GLARGINE,HUM.REC.ANLOG 1,000 UNIT/10 ML VIAL SUBCUT SCH (09:58)
[2019-06-18] MEDS ORDERED: METOPROLOL TARTRATE 50 MG TABLET PO SCH (10:00)
[2019-06-18] MEDS: ONDANSETRON HCL INJ/PF 4 MG/2 ML SDV IV PRN (10:17)
[2019-06-18] MEDS: LABETALOL HCL INJ 20 MG/4 ML DISP.SYRIN IV PRN ×4 (10:29→23:02)
--- NOTE | 2019-06-18 12:03 | PDOC CRITICAL CARE PROG REPORT ---
General Date:: 06/18/19 - Critical Care Attending Note Resuscitation Status: Full Code Events in the past 12 to 24 Hours:: Pt still with elevated BPs. Remains on nipride drip. Is pleasant. c/o headache. Reason for ICU Addmission:: HONK, fever, AMS, hypertensive urgency - Medications: Medications reviewed and adjusted accordingly: Yes Physical Exam Vital Signs: Temp Pulse Resp BP Pulse Ox 98.0 F 70 21 H 165/74 H 92 06/18/19 10:00 06/18/19 10:00 06/18/19 11:20 06/18/19 11:20 06/18/19 11:20 Intake & Output 06/17/19 06/18/19 06/19/19 06:59 06:59 06:59 Intake Total 1699 1384 114 Output Total 1220 330 0 Balance 479 1054 114 Weight 66.1 kg 69.2 kg Weight/Height Weight 69.2 kg Height 5 ft 11 in General appearance: PRESENT: no acute distress, well-developed, well-nourished Head exam: PRESENT: atraumatic, normocephalic Respiratory exam: PRESENT: clear to auscultation jodi, unlabored Cardiovascular exam: PRESENT: RRR GI/Abdominal exam: PRESENT: soft Rectal exam: PRESENT: normal inspection Laboratory/Radiographs Laboratory Results: 06/18/19 09:07 06/18/19 09:07 06/18/19 06/18/19 09:07 09:07 WBC 8.6 RBC 3.15 L Hgb 9.8 L Hct 29.0 L MCV 92 MCH 31.2 MCHC 34.0 RDW 14.1 H Plt Count 140 L Sodium 138.6 Potassium 3.3 L Chloride 114 H Carbon Dioxide 15 L Anion Gap 10 BUN 23 H Creatinine 1.75 H Est GFR ( Amer) 48 L Glucose 136 H Calcium 8.2 L Magnesium 1.7 06/15/19 06/15/19 06/15/19 02:27 08:15 15:15 Troponin I < 0.012 0.477 0.723 06/15/19 06/16/19 20:44 14:39 Troponin I 0.670 0.442 Impressions: Head CT 06/15/19 00:00 IMPRESSION: CHRONIC CHANGES OF ATROPHY AND MICROVASCULAR ISCHEMIA. NO ACUTE PROCESS. EVIDENCE OF ACUTE STROKE: NO. Chest X-Ray 06/15/19 02:21 IMPRESSION: Mild cardiomegaly with very mild vascular congestion. KUB X-Ray 06/15/19 07:47 IMPRESSION: Nasogastric tube in the stomach. Lumbar Puncture 06/16/19 00:00 IMPRESSION: Lumbar puncture under fluoroscopy. No immediate complication. Renal Artery Duplex 06/16/19 00:00 IMPRESSION: NO DOPPLER EVIDENCE OF HEMODYNAMICALLY SIGNIFICANT RENAL ARTERY STENOSIS. All labs, radiographs, diagnostic studies and EKGs were personally reviewed: Yes Assessment and Plan - Diagnosis (1) Hyperosmolar (nonketotic) coma Is this a current diagnosis for this admission?: Yes (2) Type II diabetes mellitus Qualifiers: Diabetes mellitus exterminator termite insulin use: unspecified exterminator termite insulin use status Is this a current diagnosis for this admission?: Yes (3) KARIE (acute kidney injury) Is this a current diagnosis for this admission?: Yes (4) CKD (chronic kidney disease) Qualifiers: Chronic kidney disease stage: unspecified stage Qualified Code(s): N18.9 - Chronic kidney disease, unspecified Is this a current diagnosis for this admission?: Yes (5) Hypertensive urgency Is this a current diagnosis for this admission?: Yes (6) Encephalopathy Is this a current diagnosis for this admission?: Yes (8) Elevated troponin Is this a current diagnosis for this admission?: Yes Plan Summary: Assessment: Critically ill 59 yo man with hypertensive urgency, HONK, fever, encephalopathy, KARIE, CKD, Type II DM. Plan: 1. Respiratory: stable on RA 2. CV: hypertensive urgency. Will d/c nipride due to KARIE/CKD. Will start NTG drip. Hospital is out of Cardene. Will increase lopressor to 100 mg BID. Is on losartan. Will start imdur. Continue prn labetalol and hydralazine. NSTEMI. Cardiology following. On asa and plavix. 3. Neuro: toxic metabolic encephalopathy-resolved. s/p LP under fluoro 06/16/2019. Only enough CSF collected to be sent for culture. CSF fluid is negative. 4. ID: fever, encephalopathy. Cultures NGTD Day 3 Vanc, rocephin, ampicillin, for empiric meningitis tx. LP 06/16/2019 5. Endocrine: type II DM. HONK, resolved. Blood sugars acceptable. On lantus 20 units daily 6. Renal: KARIE/CKD. Unsure of what his baseline Cr is. Cr is 1.75 today. 7. Nutrition: cardiac diet 8. Prophylaxis: scds. sq heparin. 9. Consult PT/OT Critical care time= 40 min, excluding procedures Critical Time Critical Time (minutes): 40 Level of Care: ICU -: 1. The care of a critical patient is a dynamic process. This note is a policy services representative synopsis but static in nature. The timeframe for treatments given in order is not necessarily the actual time these treatments may have been done. 2. This patient requires critical care secondary to ongoing requirements for therapy not offered or safe outside the critical care environment. Transfer to a lower level of care will result in altered life or limb morbidity and mortality. 3. Multidisciplinary rounds completed. 4. ABCDE bundle addressed.
--- NOTE | 2019-06-18 12:55 | EKG REPORT ---
SEVERITY:- ABNORMAL ECG - SINUS RHYTHM MULTIPLE VENTRICULAR PREMATURE COMPLEXES LOW VOLTAGE IN FRONTAL LEADS REPOL ABNRM SUGGESTS ISCHEMIA, ANT-LAT LEADS BORDERLINE PROLONGED QT INTERVAL : Confirmed by: Russ Branch 18-Jun-2019 12:55:28
[2019-06-18] MEDS: VANCOMYCIN HCL 500 MG in DEXTROSE 5%-WATER 100 ML IV SCH ×2 (14:48→21:11)
[2019-06-18] MEDS: DOCUSATE SODIUM 100 MG CAPSULE PO SCH (18:55)
[2019-06-18] MEDS: CARVEDILOL 12.5 MG TABLET PO SCH (19:00)
[2019-06-18] MEDS: ATORVASTATIN CALCIUM 80 MG TABLET PO SCH (21:11)
[2019-06-18] MEDS: GUAIFENESIN 600 MG TABLET.SA PO SCH (23:01)
[2019-06-18] MEDS ORDERED: KETOROLAC TROMETHAMINE INJ/PF 30 MG/1 ML SDV IV PRN (23:33)
[2019-06-19] MEDS: AMPICILLIN SODIUM 2 GM in NORMAL SALINE 100 ML IV SCH ×4 (02:36→20:35)
[2019-06-19] MEDS: LABETALOL HCL INJ 20 MG/4 ML DISP.SYRIN IV PRN ×2 (03:26→20:35)
[2019-06-19 04:38] LABS: HEMATOCRIT 25.5 % (37.9-51.0); HEMOGLOBIN 8.7 g/dL (13.5-17.0); MEAN CORPUSCULAR HEMOGLOBIN 31.5 pg (27.0-33.4); MEAN CORPUSCULAR HGB CONC 34.1 g/dL (32.0-36.0); MEAN CORPUSCULAR VOLUME 92 fl (80-97); PLATELET COUNT 123 10^3/uL (150-450); RED BLOOD COUNT 2.76 10^6/uL (4.35-5.55); RED CELL DISTRIBUTION WIDTH 13.6 % (11.5-14.0); WHITE BLOOD COUNT 5.6 10^3/uL (4.0-10.5)
[2019-06-19 04:57] LABS: ANION GAP 5 (5-19); BLOOD UREA NITROGEN 20 mg/dL (7-20); CARBON DIOXIDE 17 mmol/L (22-30); CHLORIDE 116 mmol/L (98-107); GLUCOSE 94 mg/dL (75-110); POTASSIUM 3.5 mmol/L (3.6-5.0)
[2019-06-19] MEDS: GUAIFENESIN 600 MG TABLET.SA PO SCH ×4 (05:31→23:19)
[2019-06-19] MEDS: CARVEDILOL 12.5 MG TABLET PO SCH ×2 (05:31→17:57)
[2019-06-19] MEDS: CEFTRIAXONE 2 GM/D5W RTU 2 GM/50 ML RTUPB IV SCH ×2 (05:31→17:57)
[2019-06-19] MEDS: INSULIN REG, HUMAN 100 UNIT/ML 3 ML VIAL (PYX) SUBCUT SCH ×4 (05:45→21:22)
[2019-06-19] MEDS: ACETAMINOPHEN 325 MG TABLET PO PRN (09:00)
[2019-06-19] MEDS: HEPARIN SOD (PORCINE) 5,000 UNIT/ML 1 ML VIAL SUBCUT SCH ×2 (09:01→21:22)
[2019-06-19] MEDS: ISOSORBIDE MONONITRATE 60 MG TAB.ER.24H PO SCH (09:01)
[2019-06-19] MEDS: LOSARTAN POTASSIUM 25 MG TABLET PO SCH (09:01)
[2019-06-19] MEDS: DOCUSATE SODIUM 100 MG CAPSULE PO SCH ×2 (09:01→17:57)
[2019-06-19] MEDS: CLOPIDOGREL BISULFATE 75 MG TABLET PO SCH (09:01)
[2019-06-19] MEDS: ASPIRIN 81 MG TABLET, CHEWABLE NG SCH (09:01)
[2019-06-19] MEDS: VANCOMYCIN HCL 500 MG in DEXTROSE 5%-WATER 100 ML IV SCH ×2 (09:02→21:29)
[2019-06-19] MEDS: INSULIN GLARGINE,HUM.REC.ANLOG 1,000 UNIT/10 ML VIAL SUBCUT SCH (09:04)
--- NOTE | 2019-06-19 10:32 | PDOC CRITICAL CARE PROG REPORT ---
General Date:: 06/19/19 - Critical Care Attending Note Resuscitation Status: Full Code Events in the past 12 to 24 Hours:: Pt is off NTG drip. He wants to go home. Reason for ICU Addmission:: HONK, fever, AMS, hypertensive urgency - Medications: Medications reviewed and adjusted accordingly: Yes Physical Exam Vital Signs: Temp Pulse Resp BP Pulse Ox 98.6 F 67 13 156/68 H 92 06/19/19 08:00 06/19/19 08:00 06/19/19 08:00 06/19/19 08:00 06/19/19 08:00 Intake & Output 06/18/19 06/19/19 06/20/19 06:59 06:59 06:59 Intake Total 1384 758 50 Output Total 330 200 Balance 1054 558 50 Weight 69.2 kg 71.3 kg Weight/Height Weight 71.3 kg Height 5 ft 11 in General appearance: PRESENT: no acute distress, well-developed, well-nourished Respiratory exam: PRESENT: clear to auscultation jodi, unlabored Cardiovascular exam: PRESENT: RRR GI/Abdominal exam: PRESENT: soft Extremities exam: PRESENT: other - no edema Musculoskeletal exam: PRESENT: normal inspection Neurological exam: PRESENT: alert, awake, CN II-XII grossly intact Psychiatric exam: PRESENT: appropriate affect, normal mood Laboratory/Radiographs Laboratory Results: 06/19/19 04:11 06/19/19 04:11 06/19/19 06/19/19 04:11 04:11 WBC 5.6 RBC 2.76 L Hgb 8.7 L Hct 25.5 L MCV 92 MCH 31.5 MCHC 34.1 RDW 13.6 Plt Count 123 L Sodium 138.2 Potassium 3.5 L Chloride 116 H Carbon Dioxide 17 L Anion Gap 5 BUN 20 Creatinine 1.49 H Est GFR ( Amer) 58 L Glucose 94 Calcium 8.0 L Magnesium 1.7 06/16/19 10:55 Cerebral Spinal Fluid - Csf Gram Stain - Final 06/16/19 10:55 Cerebral Spinal Fluid - Csf CSF Culture - Final NO GROWTH 3 DAYS 06/15/19 06/15/19 06/15/19 02:27 08:15 15:15 Troponin I < 0.012 0.477 0.723 06/15/19 06/16/19 20:44 14:39 Troponin I 0.670 0.442 Impressions: Head CT 06/15/19 00:00 IMPRESSION: CHRONIC CHANGES OF ATROPHY AND MICROVASCULAR ISCHEMIA. NO ACUTE PROCESS. EVIDENCE OF ACUTE STROKE: NO. Chest X-Ray 06/15/19 02:21 IMPRESSION: Mild cardiomegaly with very mild vascular congestion. KUB X-Ray 06/15/19 07:47 IMPRESSION: Nasogastric tube in the stomach. Lumbar Puncture 06/16/19 00:00 IMPRESSION: Lumbar puncture under fluoroscopy. No immediate complication. Renal Artery Duplex 06/16/19 00:00 IMPRESSION: NO DOPPLER EVIDENCE OF HEMODYNAMICALLY SIGNIFICANT RENAL ARTERY STENOSIS. All labs, radiographs, diagnostic studies and EKGs were personally reviewed: Yes Assessment and Plan - Diagnosis (1) Hyperosmolar (nonketotic) coma Is this a current diagnosis for this admission?: Yes (2) Type II diabetes mellitus Qualifiers: Diabetes mellitus residential insulin use: unspecified residential insulin use st atus Is this a current diagnosis for this admission?: Yes (3) KARIE (acute kidney injury) Is this a current diagnosis for this admission?: Yes (4) CKD (chronic kidney disease) Qualifiers: Chronic kidney disease stage: unspecified stage Qualified Code(s): N18.9 - Chronic kidney disease, unspecified Is this a current diagnosis for this admission?: Yes (5) Hypertensive urgency Is this a current diagnosis for this admission?: Yes (6) Encephalopathy Is this a current diagnosis for this admission?: Yes (8) Elevated troponin Is this a current diagnosis for this admission?: Yes Plan Summary: Assessment: Critically ill 59 yo man with hypertensive urgency, HONK, fever, encephalopathy, KARIE, CKD, Type II DM, NSTEMI Plan: 1. Respiratory: stable on RA 2. CV: hypertensive urgency,resolved.Off NTG drip. NSTEMI. On coreg, imdur,losartan. Will start lasix. On asa and plavix. Dr. Branch following. Planning for stress prior to discharge. 3. Neuro: toxic metabolic encephalopathy-resolved. s/p LP under fluoro 06/16/2019. Only enough CSF collected to be sent for culture. CSF fluid is negative. 4. ID: fever-resolved, encephalopathy-resolved. Cultures NGTD Day 4 Vanc, rocephin, ampicillin, for empiric meningitis tx. LP 06/16/2019, cultures negative. Meningitis unlikely 5. Endocrine: type II DM. HONK, resolved. Blood sugars acceptable. On lantus 20 units daily and SSI 6. Renal: KARIE/CKD. Cr had decreased ti 1.45 today. 7. Nutrition: cardiac diet 8. Prophylaxis: scds. sq heparin. 9. PT/OT consulted 10. Stable for transfer to [facility] Critical Time Critical Time (minutes): 0 Level of Care: [facility] -: 1. The care of a critical patient is a dynamic process. This note is a financial services representative synopsis but static in nature. The timeframe for treatments given in order is not necessarily the actual time these treatments may have been done. 2. This patient requires critical care secondary to ongoing requirements for therapy not offered or safe outside the critical care environment. Transfer to a lower level of care will result in altered life or limb morbidity and mortality. 3. Multidisciplinary rounds completed. 4. ABCDE bundle addressed.
[2019-06-19] MEDS: FUROSEMIDE 40 MG TABLET PO SCH (11:17)
[2019-06-19] MEDS ORDERED: POTASSIUM CHLORIDE 10 MEQ TABLET.ER PO ONE (16:30)
[2019-06-19] MEDS: ATORVASTATIN CALCIUM 80 MG TABLET PO SCH (21:29)
[2019-06-20] MEDS: HYDRALAZINE HCL INJ/PF 20 MG/1 ML SDV IV PRN (00:16)
[2019-06-20] MEDS: AMPICILLIN SODIUM 2 GM in NORMAL SALINE 100 ML IV SCH ×4 (02:05→21:09)
[2019-06-20] MEDS: GUAIFENESIN 600 MG TABLET.SA PO SCH ×3 (05:15→17:06)
[2019-06-20] MEDS: CEFTRIAXONE 2 GM/D5W RTU 2 GM/50 ML RTUPB IV SCH ×2 (05:15→17:06)
[2019-06-20] MEDS: CARVEDILOL 12.5 MG TABLET PO SCH ×2 (05:15→17:07)
[2019-06-20 05:58] LABS: HEMATOCRIT 25.2 % (37.9-51.0); HEMOGLOBIN 8.6 g/dL (13.5-17.0); MEAN CORPUSCULAR HEMOGLOBIN 31.8 pg (27.0-33.4); MEAN CORPUSCULAR HGB CONC 33.9 g/dL (32.0-36.0); MEAN CORPUSCULAR VOLUME 94 fl (80-97); PLATELET COUNT 149 10^3/uL (150-450); RED BLOOD COUNT 2.69 10^6/uL (4.35-5.55); RED CELL DISTRIBUTION WIDTH 13.6 % (11.5-14.0); WHITE BLOOD COUNT 5.3 10^3/uL (4.0-10.5)
[2019-06-20 06:21] LABS: ANION GAP 5 (5-19); BLOOD UREA NITROGEN 19 mg/dL (7-20); CALCIUM 8.1 mg/dL (8.4-10.2); CARBON DIOXIDE 18 mmol/L (22-30); CHLORIDE 115 mmol/L (98-107); GLUCOSE 72 mg/dL (75-110); POTASSIUM 3.5 mmol/L (3.6-5.0)
[2019-06-20] MEDS: INSULIN REG, HUMAN 100 UNIT/ML 3 ML VIAL (PYX) SUBCUT SCH ×4 (08:51→21:33)
[2019-06-20] MEDS: FUROSEMIDE 40 MG TABLET PO SCH (09:15)
[2019-06-20] MEDS: LOSARTAN POTASSIUM 25 MG TABLET PO SCH (09:15)
[2019-06-20] MEDS: ASPIRIN 81 MG TABLET, CHEWABLE NG SCH (09:15)
[2019-06-20] MEDS: DOCUSATE SODIUM 100 MG CAPSULE PO SCH ×2 (09:15→17:06)
[2019-06-20] MEDS: CLOPIDOGREL BISULFATE 75 MG TABLET PO SCH (09:16)
[2019-06-20] MEDS: HEPARIN SOD (PORCINE) 5,000 UNIT/ML 1 ML VIAL SUBCUT SCH (09:16)
[2019-06-20] MEDS: ISOSORBIDE MONONITRATE 60 MG TAB.ER.24H PO SCH (09:16)
--- NOTE | 2019-06-20 10:25 | RADIOLOGY REPORT (SQ) ---
EXAM DESCRIPTION: CHEST SINGLE VIEW COMPLETED DATE/TIME: 06/20/2019 10:05 am REASON FOR STUDY: cough COMPARISON: 06/15/2019. EXAM PARAMETERS: NUMBER OF VIEWS: One view. TECHNIQUE: Single frontal radiographic view of the chest acquired. RADIATION DOSE: NA LIMITATIONS: None. FINDINGS: LUNGS AND PLEURA: No opacities, masses or pneumothorax. No pleural effusion. MEDIASTINUM AND HILAR STRUCTURES: No masses. Contour normal. HEART AND VASCULAR STRUCTURES: Heart normal in size. Normal vasculature. BONES: No acute findings. HARDWARE: None in the chest. OTHER: No other significant finding. IMPRESSION: NO ACUTE RADIOGRAPHIC FINDING IN THE CHEST. TECHNICAL DOCUMENTATION: JOB ID: [id number] [employer]- All Rights Reserved Reading location - IP/workstation name: [email or web address]
[2019-06-20] MEDS: VANCOMYCIN HCL 500 MG in DEXTROSE 5%-WATER 100 ML IV SCH (10:36)
[2019-06-20] MEDS: INSULIN GLARGINE,HUM.REC.ANLOG 1,000 UNIT/10 ML VIAL SUBCUT SCH (11:50)
--- NOTE | 2019-06-20 13:47 | Progress Note ---
Provider Note Provider Note: Patient was downgraded to the floor. Case discussed with soil chemist. Chart reviewed. This is a 59-year-old male who was brought in and admitted for acute encephalopathy, HHS, acute renal failure and NSTEMI. Patient was initially on insulin drip and was also placed on nitroprusside drip. He was initially also c overed for possible meningitis as a definite cause of encephalopathy along with fever was uncertain. Patient has returned to his baseline. Blood sugars are well controlled. Blood pressures are close to goal. Upon encounter, he denies acute complaints per denies chest pain or shortness of breath. Recheck labs tomorrow. Patient will be scheduled for a stress testing prior to discharge per cardiology recommendations.
--- NOTE | 2019-06-20 14:07 | PDOC PROGRESS REPORT ---
Subjective Progress Note for:: 06/20/19 Subjective:: 06/19: Patient was downgraded to the floor. Case discussed with optician apprentice dispensing. Chart reviewed. This is a 59-year-old male who was brought in and admitted for acute encephalopathy, HHS, acute renal failure and NSTEMI. Patient was initially on insulin drip and was also placed on nitroprusside drip. He was initially also covered for possible meningitis as a definite cause of encephalopathy along with fever was uncertain. Patient has returned to his baseline. 06/20: No acute event overnight. Patient denies acute complaints. Denies chest pain shortness of breath. Blood sugars remain well controlled. Blood pressures running in the 160 systolic. Patient will be scheduled for stress testing tomorrow. Reason For Visit: HONK,ENCEPHALOPATHY,SEPSIS Physical Exam Vital Signs: Temp Pulse Resp BP Pulse Ox 98.1 F 70 16 151/77 H 96 06/20/19 07:34 06/20/19 07:34 06/20/19 07:34 06/20/19 07:34 06/20/19 07:34 Intake & Output 06/19/19 06/20/19 06/21/19 06:59 06:59 06:59 Intake Total 758 2294 Output Total 200 Balance 558 2294 Weight 157 lb 3.033 oz 159 lb 6.307 oz General appearance: PRESENT: no acute distress, well-developed, well-nourished Head exam: PRESENT: atraumatic, normocephalic Eye exam: PRESENT: conjunctiva pink, EOMI, PERRLA. ABSENT: scleral icterus Ear exam: PRESENT: normal external ear exam Mouth exam: PRESENT: moist, tongue midline Neck exam: ABSENT: carotid bruit, JVD, lymphadenopathy, thyromegaly Respiratory exam: PRESENT: clear to auscultation jodi. ABSENT: rales, rhonchi, wheezes Cardiovascular exam: PRESENT: RRR. ABSENT: diastolic murmur, rubs, systolic murmur Pulses: PRESENT: normal dorsalis pedis pul GI/Abdominal exam: PRESENT: normal bowel sounds, soft. ABSENT: distended, guarding, mass, organolmegaly, rebound, tenderness Rectal exam: PRESENT: deferred Extremities exam: PRESENT: full ROM. ABSENT: calf tenderness, clubbing, pedal edema Neurological exam: PRESENT: alert, awake, oriented to person, oriented to place, oriented to time, oriented to situation, CN II-XII grossly intact. ABSENT: motor sensory deficit Results Laboratory Results: 06/20/19 05:12 06/20/19 05:12 06/20/19 06/20/19 05:12 05:12 WBC 5.3 RBC 2.69 L Hgb 8.6 L Hct 25.2 L MCV 94 MCH 31.8 MCHC 33.9 RDW 13.6 Plt Count 149 L Sodium 137.9 Potassium 3.5 L Chloride 115 H Carbon Dioxide 18 L Anion Gap 5 BUN 19 Creatinine 1.40 H Est GFR ( Amer) > 60 Glucose 72 L Calcium 8.1 L Magnesium 1.5 L 06/15/19 03:59 Blood Blood Culture - Final NO GROWTH IN 5 DAYS 06/15/19 02:27 Blood Blood Culture - Final NO GROWTH IN 5 DAYS 06/16/19 10:55 Cerebral Spinal Fluid - Csf Gram Stain - Final 06/16/19 10:55 Cerebral Spinal Fluid - Csf CSF Culture - Final NO GROWTH 3 DAYS 06/15/19 06/15/19 06/15/19 02:27 08:15 15:15 Troponin I < 0.012 0.477 0.723 06/15/19 06/16/19 06/20/19 20:44 14:39 05:12 Troponin I 0.670 0.442 0.070 Impressions: Head CT 06/15/19 00:00 IMPRESSION: CHRONIC CHANGES OF ATROPHY AND MICROVASCULAR ISCHEMIA. NO ACUTE PROCESS. EVIDENCE OF ACUTE STROKE: NO. KUB X-Ray 06/15/19 07:47 IMPRESSION: Nasogastric tube in the stomach. Lumbar Puncture 06/16/19 00:00 IMPRESSION: Lumbar puncture under fluoroscopy. No immediate complication. Renal Artery Duplex 06/16/19 00:00 IMPRESSION: NO DOPPLER EVIDENCE OF HEMODYNAMICALLY SIGNIFICANT RENAL ARTERY STENOSIS. Assessment and Plan - Diagnosis (1) Acute metabolic encephalopathy Is this a current diagnosis for this admission?: Yes Plan: Multifactorial from HHS, acute renal failure and questionable meningitis. Upon chart review, appears patient did not present with nuchal rigidity. There was no leukocytosis on initial CBC. Lumbar puncture was unfortunately unsuccessful. Blood cultures have been negative. Appears his encephalopathy resolved with resolution of HHS. My clinical suspicion that he had bacterial meningitis is low. Plan to discontinue IV antibiotics tomorrow. (2) Hyperosmolar (nonketotic) coma Is this a current diagnosis for this admission?: Yes Plan: Resolved. Continue Lantus and sliding scale. (3) KARIE (acute kidney injury) Is this a current diagnosis for this admission?: Yes Plan: Improved with IV fluids. (4) Elevated troponin Is this a current diagnosis for this admission?: Yes Plan: Possible NSTEMI. Will be scheduled for stress testing. Cardiology following. Continue dual antiplatelet and statin. (5) Hypertensive urgency Is this a current diagnosis for this admission?: Yes Plan: Resolved. Off drips. Continue losartan, carvedilol and Imdur. Reduce Lasix to 20 mg daily. (6) Non-STEMI (non-ST elevated myocardial infarction) Is this a current diagnosis for this admission?: Yes - Time Time Spent with patient: 25-34 minutes
[2019-06-20] MEDS ORDERED: MAG HYDROX/AL HYDROX/SIMETH SUSP 30 ML UDCUP PO ONE (14:15)
--- NOTE | 2019-06-20 19:52 | PDOC PROGRESS REPORT ---
Subjective Progress Note for:: 06/18/19 Subjective:: Patient seems to be doing better with gradual improvement. Pt is denying any chest arm or neck discomfort. Patient denying any PND, orthopnea. Patient denied any sustained palpitations, dizziness, syncope, near syncope. Patient denying any fever chills. Patient denying any other significant discomfort. Patient however remains somewhat confused and lethargic. Patient noted to have marked intermittent elevation of blood pressure needing IV hydralazine and also IV nitroglycerin. Previously needed IV night pride. Patient is maintaining sinus rhythm. Review of systems: Rest review of systems negative. Medications: Medications have been reviewed. Reason For Visit: HONK,ENCEPHALOPATHY,SEPSIS Physical Exam Vital Signs: Temp Pulse Resp BP Pulse Ox 98.1 F 66 22 H 165/65 H 96 06/19/19 20:05 06/19/19 22:12 06/19/19 20:05 06/19/19 22:12 06/19/19 20:05 Intake & Output 06/18/19 06/19/19 06/20/19 06:59 06:59 06:59 Intake Total 2935 804 4874 Output Total 330 200 Balance 4639 029 6975 Weight 69.2 kg 71.3 kg 71.3 kg Exam: GENERAL: well-nourished and in no acute distress. Alert and orientation not checked. HEAD: Atraumatic, normocephalic. EYES: NAKUL, sclera anicteric, conjunctiva are normal. ENT: Moist mucous membranes. No oral ulcerations or bleeding gums noted. No obvious ear, nose or throat abnormalities noted. NECK: supple without lymphadenopathy. Trachea is central. No cervical or axillary lymphadenopathy noted. Carotids are 2+, JVD WNL LUNGS: Breath sounds clear bilaterally. No wheezes rales or rhonchi noted. No significant dullness noted on percussion. CHEST: Palpation of the chest wall shows no significant chest wall tenderness. 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 ABDOMEN: Soft, no significant tenderness appreciated, normoactive bowel sounds. No guarding, no rebound. No rigidity noted . No masses appreciated. EXTREMITIES: Pedal pulses are 1-2+, no calf tenderness noted. No clubbing or cyanosis. negative pedal edema noted NEUROLOGICAL: Focused neurological exam showed no significant neurologic deficit. Normal speech, no focal weakness appreciated. PSYCH: Normal mood, normal affect. Judgment and insight not checked due to intermittent confusion SKIN: No significant ecchymosis, skin is noted to be warm. MUSCULOSKELETAL EXAM: No significant acute joint swelling noted. Results Laboratory Results: 06/19/19 04:11 06/19/19 04:11 06/19/19 06/19/19 04:11 04:11 WBC 5.6 RBC 2.76 L Hgb 8.7 L Hct 25.5 L MCV 92 MCH 31.5 MCHC 34.1 RDW 13.6 Plt Count 123 L Sodium 138.2 Potassium 3.5 L Chloride 116 H Carbon Dioxide 17 L Anion Gap 5 BUN 20 Creatinine 1.49 H Est GFR ( Amer) 58 L Glucose 94 Calcium 8.0 L Magnesium 1.7 06/16/19 10:55 Cerebral Spinal Fluid - Csf Gram Stain - Final 06/16/19 10:55 Cerebral Spinal Fluid - Csf CSF Culture - Final NO GROWTH 3 DAYS 06/15/19 06/15/19 06/15/19 02:27 08:15 15:15 Troponin I < 0.012 0.477 0.723 06/15/19 06/16/19 20:44 14:39 Troponin I 0.670 0.442 EKG Comments: Telemetry shows sinus rhythm. No sustained tachyarrhythmia or bradycardia arrhythmia noted. Occasional VPCs noted. Impressions: Head CT 06/15/19 00:00 IMPRESSION: CHRONIC CHANGES OF ATROPHY AND MICROVASCULAR ISCHEMIA. NO ACUTE PROCESS. EVIDENCE OF ACUTE STROKE: NO. Chest X-Ray 06/15/19 02:21 IMPRESSION: Mild cardiomegaly with very mild vascular congestion. KUB X-Ray 06/15/19 07:47 IMPRESSION: Nasogastric tube in the stomach. Lumbar Puncture 06/16/19 00:00 IMPRESSION: Lumbar puncture under fluoroscopy. No immediate complication. Renal Artery Duplex 06/16/19 00:00 IMPRESSION: NO DOPPLER EVIDENCE OF HEMODYNAMICALLY SIGNIFICANT RENAL ARTERY STENOSIS. Assessment & Plan - Diagnosis (1) Non-STEMI (non-ST elevated myocardial infarction) Is this a current diagnosis for this admission?: Yes (2) KARIE (acute kidney injury) Is this a current diagnosis for this admission?: Yes (3) Altered mental status Qualifiers: Altered mental status type: delirium Qualified Code(s): R41.0 - Disor ientation, unspecified Is this a current diagnosis for this admission?: Yes (4) Elevated troponin Is this a current diagnosis for this admission?: Yes (5) Hyperosmolar (nonketotic) coma Is this a current diagnosis for this admission?: Yes (6) Hypertensive urgency Is this a current diagnosis for this admission?: Yes (7) Type II diabetes mellitus Qualifiers: Diabetes mellitus 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 Patient had diabetic ketoacidosis and severe hypertension therefore may not be type I NH. Could be type II. Patient would benefit from ischemia evaluation. Due to other comorbid diagnosis, a pharmacologic nuclear stress test will be scheduled when patient able to consent to it. At this point patient is intermittently confused. Severe hypertension: Patient blood pressure has been difficult to control. Deliverer Outside is trying to get blood pressure under control and is gradually optimizing medical control. Would recommend switch to carvedilol since I am told by 1 of the nurse that he did respond to labetalol very well. This was recommended to the hospitalist. Diabetic hyperosmolar state: Possibly related to noncompliance. This is being well managed. Chronic kidney disease: Continue to follow. Patient will benefit from angiotensin receptor sanjay and other therapy to maintain good blood pressure. At this point continue with dual antiplatelet therapy, high potency statin therapy, beta-sanjay, ARB/JORDAN inhibitor therapy. I normally prefer ARB in -[place]. - Time Time with patient: Greater than 35 minutes - More than 50% of the time spent coordinating care, discussing management plans with involved caregivers. Management plans discussed with involved personnels. Medical decision making was of moderate to high complexity, patient's has multiple comorbidities.
--- NOTE | 2019-06-20 19:54 | PDOC PROGRESS REPORT ---
Subjective Progress Note for:: 06/19/19 Subjective:: Patient seems to be doing better with gradual improvement. Pt is denying any chest arm or neck discomfort. Patient denying any PND, orthopnea. Patient denied any sustained palpitations, dizziness, syncope, near syncope. Patient denying any fever chills. Patient denying any other significant discomfort. Patient however remains somewhat confused and lethargic but with significant improvement. Patient is maintaining sinus rhythm. Occasional ventricular ectopy noted. Blood pressure is still intermittently high but the trend is improving. Review of systems: Rest review of systems negative. Medications: Medications have been reviewed. Reason For Visit: HONK,ENCEPHALOPATHY,SEPSIS Physical Exam Vital Signs: Temp Pulse Resp BP Pulse Ox 98.1 F 66 22 H 165/65 H 96 06/19/19 20:05 06/19/19 22:12 06/19/19 20:05 06/19/19 22:12 06/19/19 20:05 Intake & Output 06/18/19 06/19/19 06/20/19 06:59 06:59 06:59 Intake Total 4146 924 8008 Output Total 330 200 Balance 7893 291 7100 Weight 69.2 kg 71.3 kg 71.3 kg Exam: GENERAL: well-nourished and in no acute distress. Alert and oriented x2 HEAD: Atraumatic, normocephalic. EYES: NAKUL, sclera anicteric, conjunctiva are normal. ENT: Moist mucous membranes. No oral ulcerations or bleeding gums noted. No obvious ear, nose or throat abnormalities noted. NECK: supple without lymphadenopathy. Trachea is central. No cervical or axillary lymphadenopathy noted. Carotids are 2+, JVD WNL LUNGS: Breath sounds clear bilaterally. No wheezes rales or rhonchi noted. No significant dullness noted on percussion. CHEST: Palpation of the chest wall shows no significant chest wall tenderness. 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 ABDOMEN: Soft, no significant tenderness appreciated, normoactive bowel sounds. No guarding, no rebound. No rigidity noted . No masses appreciated. EXTREMITIES: Pedal pulses are 1-2+, no calf tenderness noted. No clubbing or cyanosis. negative pedal edema noted NEUROLOGICAL: Focused neurological exam showed no significant neurologic deficit. Normal speech, no focal weakness appreciated. PSYCH: Normal mood, normal affect. Judgment and insight within normal limits. SKIN: No significant ecchymosis, skin is noted to be warm. MUSCULOSKELETAL EXAM: No significant acute joint swelling noted. Results Laboratory Results: 06/19/19 04:11 06/19/19 04:11 06/19/19 06/19/19 04:11 04:11 WBC 5.6 RBC 2.76 L Hgb 8.7 L Hct 25.5 L MCV 92 MCH 31.5 MCHC 34.1 RDW 13.6 Plt Count 123 L Sodium 138.2 Potassium 3.5 L Chloride 116 H Carbon Dioxide 17 L Anion Gap 5 BUN 20 Creatinine 1.49 H Est GFR ( Amer) 58 L Glucose 94 Calcium 8.0 L Magnesium 1.7 06/16/19 10:55 Cerebral Spinal Fluid - Csf Gram Stain - Final 06/16/19 10:55 Cerebral Spinal Fluid - Csf CSF Culture - Final NO GROWTH 3 DAYS 06/15/19 06/15/19 06/15/19 02:27 08:15 15:15 Troponin I < 0.012 0.477 0.723 06/15/19 06/16/19 20:44 14:39 Troponin I 0.670 0.442 Impressions: Head CT 06/15/19 00:00 IMPRESSION: CHRONIC CHANGES OF ATROPHY AND MICROVASCULAR ISCHEMIA. NO ACUTE PROCESS. EVIDENCE OF ACUTE STROKE: NO. Chest X-Ray 06/15/19 02:21 IMPRESSION: Mild cardiomegaly with very mild vascular congestion. KUB X-Ray 06/15/19 07:47 IMPRESSION: Nasogastric tube in the stomach. Lumbar Puncture 06/16/19 00:00 IMPRESSION: Lumbar puncture under fluoroscopy. No immediate complication. Renal Artery Duplex 06/16/19 00:00 IMPRESSION: NO DOPPLER EVIDENCE OF HEMODYNAMICALLY SIGNIFICANT RENAL ARTERY STENOSIS. Assessment & Plan - Diagnosis (1) Non-STEMI (non-ST elevated myocardial infarction) Is this a current diagnosis for this admission?: Yes (2) KARIE (acute kidney injury) Is this a current diagnosis for this admission?: Yes (3) Altered mental status Qualifiers: Altered mental status type: delirium Qualified Code(s): R41.0 - Disorien tation, unspecified Is this a current diagnosis for this admission?: Yes (4) Elevated troponin Is this a current diagnosis for this admission?: Yes (5) Hyperosmolar (nonketotic) coma Is this a current diagnosis for this admission?: Yes (6) Hypertensive urgency Is this a current diagnosis for this admission?: Yes (7) Type II diabetes mellitus Qualifiers: Diabetes mellitus mcc insulin use: unspecified mcc insulin use status Is this a current diagnosis for this admission?: Yes - Notes Notes: No new recommendations today. Blood pressure continuing to improve. Patient is being transferred to the floor. Hopefully his mental status will improve to consent for further noninvasive evaluation of his heart. Continue with previous recommendations. We will continue to follow. - Time Time with patient: 15-25 minutes Medications reviewed and adjusted accordingly: Yes
--- NOTE | 2019-06-20 19:57 | PDOC PROGRESS REPORT ---
Subjective Progress Note for:: 06/20/19 Subjective:: Patient seems to be doing better with gradual improvement. Pt is denying any chest arm or neck discomfort. Patient denying any PND, orthopnea. Patient denied any sustained palpitations, dizziness, syncope, near syncope. Patient denying any fever chills. Patient denying any other significant discomfort. Patient is showing marked improvement in his mental status and is noted to be alert oriented x3. Patient is maintaining sinus rhythm. Occasional ventricular ectopy noted. Blood pressure is still intermittently high but the trend is improving. Review of systems: Rest review of systems negative. Medications: Medications have been reviewed. Reason For Visit: HONK,ENCEPHALOPATHY,SEPSIS Physical Exam Vital Signs: Temp Pulse Resp BP Pulse Ox 97.9 F 70 16 161/67 H 96 06/20/19 15:55 06/20/19 19:00 06/20/19 15:55 06/20/19 15:55 06/20/19 15:55 Intake & Output 06/19/19 06/20/19 06/21/19 06:59 06:59 06:59 Intake Total 758 2294 1090 Output Total 200 Balance 558 2294 1090 Weight 71.3 kg 72.3 kg Exam: GENERAL: well-nourished and in no acute distress. Alert and oriented x3 HEAD: Atraumatic, normocephalic. EYES: NAKUL, sclera anicteric, conjunctiva are normal. ENT: Moist mucous membranes. No oral ulcerations or bleeding gums noted. No obvious ear, nose or throat abnormalities noted. NECK: supple without lymphadenopathy. Trachea is central. No cervical or axillary lymphadenopathy noted. Carotids are 2+, JVD WNL LUNGS: Breath sounds clear bilaterally. No wheezes rales or rhonchi noted. No significant dullness noted on percussion. CHEST: Palpation of the chest wall shows no significant chest wall tenderness. 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 ABDOMEN: Soft, no significant tenderness appreciated, normoactive bowel sounds. No guarding, no rebound. No rigidity noted . No masses appreciated. EXTREMITIES: Pedal pulses are 1-2+, no calf tenderness noted. No clubbing or cyanosis. negative pedal edema noted NEUROLOGICAL: Focused neurological exam showed no significant neurologic deficit. Normal speech, no focal weakness appreciated. PSYCH: Normal mood, normal affect. Judgment and insight within normal limits. SKIN: No significant ecchymosis, skin is noted to be warm. MUSCULOSKELETAL EXAM: No significant acute joint swelling noted. Results Laboratory Results: 06/20/19 05:12 06/20/19 05:12 06/20/19 06/20/19 05:12 05:12 WBC 5.3 RBC 2.69 L Hgb 8.6 L Hct 25.2 L MCV 94 MCH 31.8 MCHC 33.9 RDW 13.6 Plt Count 149 L Sodium 137.9 Potassium 3.5 L Chloride 115 H Carbon Dioxide 18 L Anion Gap 5 BUN 19 Creatinine 1.40 H Est GFR ( Amer) > 60 Glucose 72 L Calcium 8.1 L Magnesium 1.5 L 06/15/19 03:59 Blood Blood Culture - Final NO GROWTH IN 5 DAYS 06/15/19 02:27 Blood Blood Culture - Final NO GROWTH IN 5 DAYS 06/15/19 06/15/19 06/15/19 02:27 08:15 15:15 Troponin I < 0.012 0.477 0.723 06/15/19 06/16/19 06/20/19 20:44 14:39 05:12 Troponin I 0.670 0.442 0.070 EKG Comments: Shows sinus rhythm without any sustained tachycardia or bradycardia. Occasional VPCs are noted. Impressions: Head CT 06/15/19 00:00 IMPRESSION: CHRONIC CHANGES OF ATROPHY AND MICROVASCULAR ISCHEMIA. NO ACUTE PROCESS. EVIDENCE OF ACUTE STROKE: NO. KUB X-Ray 06/15/19 07:47 IMPRESSION: Nasogastric tube in the stomach. Lumbar Puncture 06/16/19 00:00 IMPRESSION: Lumbar puncture under fluoroscopy. No immediate complication. Renal Artery Duplex 06/16/19 00:00 IMPRESSION: NO DOPPLER EVIDENCE OF HEMODYNAMICALLY SIGNIFICANT RENAL ARTERY STENOSIS. Chest X-Ray 06/20/19 08:09 IMPRESSION: NO ACUTE RADIOGRAPHIC FINDING IN THE CHEST. Assessment & Plan - Diagnosis (1) Non-STEMI (non-ST elevated myocardial infarction) Is this a current diagnosis for this admission?: Yes (2) KARIE (acute kidney injury) Is this a current diagnosis for this admission?: Yes (3) Altered mental status Qualifiers: Altered mental status type: delirium Qualified Code(s): R41.0 - Disorientation, unspecified Is this a current diagnosis for this admission?: Yes (4) Elevated troponin Is this a current diagnosis for this admission?: Yes (5) Hyperosmolar (nonketotic) coma Is this a current diagnosis for this admission?: Yes (6) Hypertensive urgency Is this a current diagnosis for this admission?: Yes (7) Type II diabetes mellitus Qualifiers: Diabetes mellitus 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 Have added hydralazine nitrate combination. Patient to continue with carvedilol, angiotensin receptor blockers, amlodipine etc. for heart rate and blood pressure control. Nuclear stress test procedure, complications etc. discussed with the patient in detail. Prognosis and management plan discussed with the patient in detail. - Time Time with patient: Greater than 35 minutes Medications reviewed and adjusted accordingly: Yes
[2019-06-20] MEDS: ISOSORB DINIT/HYDRALAZINE HCL 20-37.5 MG TABLET PO SCH (20:27)
[2019-06-20] MEDS: ATORVASTATIN CALCIUM 80 MG TABLET PO SCH (21:06)
[2019-06-20] MEDS: FAMOTIDINE INJ/PF 20 MG/2 ML SDV IV SCH (21:07)
[2019-06-21] MEDS: HEPARIN SOD (PORCINE) 5,000 UNIT/ML 1 ML VIAL SUBCUT SCH ×3 (00:26→22:04)
[2019-06-21] MEDS: GUAIFENESIN 600 MG TABLET.SA PO SCH ×4 (00:39→17:20)
[2019-06-21] MEDS: VANCOMYCIN HCL 500 MG in DEXTROSE 5%-WATER 100 ML IV SCH ×3 (00:39→22:02)
[2019-06-21] MEDS: AMPICILLIN SODIUM 2 GM in NORMAL SALINE 100 ML IV SCH ×4 (03:11→20:47)
[2019-06-21] MEDS: HYDRALAZINE HCL INJ/PF 20 MG/1 ML SDV IV PRN (03:35)
[2019-06-21] MEDS: CARVEDILOL 12.5 MG TABLET PO SCH ×2 (06:20→17:20)
[2019-06-21] MEDS: CEFTRIAXONE 2 GM/D5W RTU 2 GM/50 ML RTUPB IV SCH ×2 (06:30→17:20)
[2019-06-21 07:09] LABS: HEMATOCRIT 25.1 % (37.9-51.0); HEMOGLOBIN 8.5 g/dL (13.5-17.0); MEAN CORPUSCULAR HGB CONC 33.9 g/dL (32.0-36.0); MEAN CORPUSCULAR VOLUME 94 fl (80-97); PLATELET COUNT 152 10^3/uL (150-450); RED BLOOD COUNT 2.66 10^6/uL (4.35-5.55); RED CELL DISTRIBUTION WIDTH 13.6 % (11.5-14.0); WHITE BLOOD COUNT 6.3 10^3/uL (4.0-10.5)
[2019-06-21 07:34] LABS: ANION GAP 6 (5-19); BLOOD UREA NITROGEN 17 mg/dL (7-20); CARBON DIOXIDE 18 mmol/L (22-30); CHLORIDE 114 mmol/L (98-107); GLUCOSE 101 mg/dL (75-110); POTASSIUM 3.5 mmol/L (3.6-5.0)
[2019-06-21] MEDS ORDERED: FUROSEMIDE 40 MG TABLET PO SCH (10:00)
[2019-06-21] MEDS: INSULIN GLARGINE,HUM.REC.ANLOG 1,000 UNIT/10 ML VIAL SUBCUT SCH (10:24)
[2019-06-21] MEDS: MAGNESIUM SULFATE/D5W 1 GM/100 ML RTUPB IV SCH ×2 (10:24→13:12)
[2019-06-21] MEDS: FAMOTIDINE INJ/PF 20 MG/2 ML SDV IV SCH ×2 (10:25→22:02)
[2019-06-21] MEDS: FUROSEMIDE 20 MG TABLET PO SCH (10:25)
[2019-06-21] MEDS: ISOSORB DINIT/HYDRALAZINE HCL 20-37.5 MG TABLET PO SCH ×3 (10:26→17:20)
[2019-06-21] MEDS: DOCUSATE SODIUM 100 MG CAPSULE PO SCH ×2 (10:26→17:20)
[2019-06-21] MEDS: CLOPIDOGREL BISULFATE 75 MG TABLET PO SCH (10:26)
[2019-06-21] MEDS: ASPIRIN 81 MG TABLET, CHEWABLE NG SCH (10:26)
[2019-06-21] MEDS: LOSARTAN POTASSIUM 25 MG TABLET PO SCH (10:26)
[2019-06-21] MEDS: ISOSORBIDE MONONITRATE 60 MG TAB.ER.24H PO SCH (10:27)
[2019-06-21] MEDS: INSULIN REG, HUMAN 100 UNIT/ML 3 ML VIAL (PYX) SUBCUT SCH ×4 (10:27→21:22)
--- NOTE | 2019-06-21 13:05 | PDOC PROGRESS REPORT ---
Subjective Progress Note for:: 06/21/19 Subjective:: 06/19: Patient was downgraded to the floor. Case discussed with medicare specialist. Chart reviewed. This is a 59-year-old male who was brought in and admitted for acute encephalopathy, HHS, acute renal failure and NSTEMI. Patient was initially on insulin drip and was also placed on nitroprusside drip. He was initially also covered for possible meningitis as a definite cause of encephalopathy along with fever was uncertain. Patient has returned to his baseline. 06/20: No acute event overnight. Patient denies acute complaints. Denies chest pain shortness of breath. Blood sugars remain well controlled. Blood pressures running in the 160 systolic. Patient will be scheduled for stress testing tomorrow. 06/21: No acute issues overnight. Patient is at his baseline. Denies chest pain shortness of breath. Patient is scheduled for stress testing today. Currently on day 6 of IV antibiotics. Discussed with ID. Clinical suspicion for bacterial meningitis is low as mentioned previously. Will give last dose of IV antibiotics tomorrow. Reason For Visit: HONK,ENCEPHALOPATHY,SEPSIS Physical Exam Vital Signs: Temp Pulse Resp BP Pulse Ox 98.4 F 36 L 21 H 148/49 H 98 06/21/19 10:55 06/21/19 10:55 06/21/19 10:55 06/21/19 10:55 06/21/19 10:55 Intake & Output 06/20/19 06/21/19 06/22/19 06:59 06:59 06:59 Intake Total 2294 1440 240 Balance 2294 1440 240 Weight 159 lb 6.307 oz 158 lb 4.67 oz General appearance: PRESENT: no acute distress, well-developed, well-nourished Head exam: PRESENT: atraumatic, normocephalic Eye exam: PRESENT: conjunctiva pink, EOMI, PERRLA. ABSENT: scleral icterus Ear exam: PRESENT: normal external ear exam Mouth exam: PRESENT: moist, tongue midline Neck exam: ABSENT: carotid bruit, JVD, lymphadenopathy, thyromegaly Respiratory exam: PRESENT: clear to auscultation jodi. ABSENT: rales, rhonchi, wheezes Cardiovascular exam: PRESENT: RRR. ABSENT: diastolic murmur, rubs, systolic murmur Pulses: PRESENT: normal dorsalis pedis pul GI/Abdominal exam: PRESENT: normal bowel sounds, soft. ABSENT: distended, guarding, mass, organolmegaly, rebound, tenderness Rectal exam: PRESENT: deferred Extremities exam: PRESENT: full ROM. ABSENT: calf tenderness, clubbing, pedal edema Neurological exam: PRESENT: alert, awake, oriented to person, oriented to place, oriented to time, oriented to situation, CN II-XII grossly intact. ABSENT: motor sensory deficit Results Laboratory Results: 06/21/19 06:22 06/21/19 06:22 06/21/19 06/21/19 06:22 06:22 WBC 6.3 RBC 2.66 L Hgb 8.5 L Hct 25.1 L MCV 94 MCH 32.0 MCHC 33.9 RDW 13.6 Plt Count 152 Sodium 137.6 Potassium 3.5 L Chloride 114 H Carbon Dioxide 18 L Anion Gap 6 BUN 17 Creatinine 1.34 H Est GFR ( Amer) > 60 Glucose 101 Calcium 8.0 L Magnesium 1.5 L 06/15/19 06/15/19 06/15/19 02:27 08:15 15:15 Troponin I < 0.012 0.477 0.723 06/15/19 06/16/19 06/20/19 20:44 14:39 05:12 Troponin I 0.670 0.442 0.070 Impressions: Head CT 06/15/19 00:00 IMPRESSION: CHRONIC CHANGES OF ATROPHY AND MICROVASCULAR ISCHEMIA. NO ACUTE P ROCESS. EVIDENCE OF ACUTE STROKE: NO. KUB X-Ray 06/15/19 07:47 IMPRESSION: Nasogastric tube in the stomach. Lumbar Puncture 06/16/19 00:00 IMPRESSION: Lumbar puncture under fluoroscopy. No immediate complication. Renal Artery Duplex 06/16/19 00:00 IMPRESSION: NO DOPPLER EVIDENCE OF HEMODYNAMICALLY SIGNIFICANT RENAL ARTERY STENOSIS. Chest X-Ray 06/20/19 08:09 IMPRESSION: NO ACUTE RADIOGRAPHIC FINDING IN THE CHEST. Assessment and Plan - Diagnosis (1) Acute metabolic encephalopathy Is this a current diagnosis for this admission?: Yes Plan: Multifactorial from HHS, acute renal failure and questionable meningitis. Upon chart review, appears patient did not present with nuchal rigidity. There was no leukocytosis on initial CBC. Lumbar puncture was unfortunately unsuccessful. Blood cultures have been negative. Appears his encephalopathy resolved with re solution of HHS. My clinical suspicion that he had bacterial meningitis is low. Discussed with ID. Plan to discontinue IV antibiotics tomorrow. (2) Hyperosmolar (nonketotic) coma Is this a current diagnosis for this admission?: Yes Plan: Resolved. Continue Lantus and sliding scale. (3) KARIE (acute kidney injury) Is this a current diagnosis for this admission?: Yes Plan: Improved with IV fluids. (4) Elevated troponin Is this a current diagnosis for this admission?: Yes Plan: Possible NSTEMI. Scheduled for stress testing today. Cardiology following. Continue dual antiplatelet and statin. (5) Hypertensive urgency Is this a current diagnosis for this admission?: Yes Plan: Resolved. Off drips. /: Continue losartan, carvedilol and Imdur. Reduce Lasix to 20 mg daily. (6) Non-STEMI (non-ST elevated myocardial infarction) Is this a current diagnosis for this admission?: Yes - Time Time Spent with patient: 25-34 minutes
--- NOTE | 2019-06-21 19:03 | DRAGON STRESS TEST REPORT ---
INTRAVENOUS LEXISCAN CARDIOLITE STRESS TEST USING SINGLE PHOTON EMMISION COMPUTERIZED TOMOGRAPHIC. DATE OF PROCEDURE: June 21, 2019. INDICATION : Non-STEMI CARDIAC RISK FACTORS: Hypertension, diabetes, hyperlipidemia, abnormal EKG RESTING EKG: Sinus rhythm with APCs, deep T wave inversion lateral chest leads STRESS EKG: No significant ST segment changes noted with LexiScan bolus REASON FOR TERMINATION: Protocol. PROCEDURE REPORT: Baseline heart rate 71 beats per minute with blood pressure of 145/79. Patient had no significant complaints. Patient was bolused with Lexiscan 0.4 mg intravenously followed by saline bolus. Heart rate at 2 minutes post bolus 83 with a blood pressure of 140/8700. 3 minutes post bolus heart rate 74 with blood pressure of 139/82. No significant EKG changes were noted. Patient had no significant complaints during the procedure or postprocedure. CONCLUSIONS: Normal EKG and hemodynamic response to IV LexiScan. NUCLEAR DATA: At rest the patient was given 10.74 millicuries of technetium 99 sestamibi injected intravenously. As per protocol rest gated SPECT images were obtained. On day of stress test, the patient was given intravenous LexiScan at a dose of 0.4 mg in 5 mL intravenously, followed by flush with normal saline. Subsequently the stress dose of 31.7 millicuries of technetium 99 sestamibi was injected intravenously. As per protocol stress gated images were obtained. NUCLEAR INTERPRETATION: Both raw and processed data were used for interpretation. Visual, qualitative, computer-generated quantitative data was used. There was good myocardial uptake of technetium compound. Motion artifact and soft tissue attenuations were noted. Increased visceral uptake was noted. No definitive areas of transient perfusion defect noted, No definitive areas of fixed perfusion defect or scars noted except for a small area of mild fixed defect noted in the inferoapex consistent with mild scar.. EKG gated imaging showed LV EF at 39 %, rest and stress gated EF similar visually. T. I D. ratio was 1.12. Lung heart ratio noted to be within normal limits 0.31. No significant extracardiac and abnormal radiotracer activities were noted. RV free wall uptake was noted to be WNL. IMPRESSION: Also refer to comments under nuclear interpretation. Also test results needs to be interpreted in the context of pretest probability. 1. No definitive areas of transient perfusion defect noted. 2. Small area of mild fixed defect noted in the inferoapex consistent with mild scar. 3. EKG gated imaging shows left ventricular ejection fraction of approx. 39 %. 4. Clinical correlation requested as worse disease and or balanced ischemia could be missed. In approximately 10% of the cases Lexiscan may not cause adequate vasodilatory stress. RECOMMENDATIONS: Aggressive risk factor modification and medical management. Further evaluation may be needed if continued symptoms or other high risk indicators are noted on clinical evaluation. Close cardiology follow-up is also recommended. Clinical correlation with echocardiogram derived ejection fraction. Inability to exercise by itself can lead to increased cardiovascular event risks. Consider cardiology consultation and or follow-up if clinically indicated. I am available for cardiology evaluation and consultation if requested by the cleaner carpet and upholstery, unless patient already has a director of exhibit development. Dr. Jenn Branch. MRCP Board certified in cardiology and sleep medicine. Board certified in nuclear cardiology, adult echocardiography. BAO
--- NOTE | 2019-06-21 19:09 | PDOC PROGRESS REPORT ---
Subjective Progress Note for:: 06/21/19 Subjective:: Nuclear stress test procedure, risk benefits were discussed with the patient. Patient underwent nuclear stress test without any complications. Patient seems to be doing better with gradual improvement. Pt is denying any chest arm or neck discomfort. Patient denying any PND, orthopnea. Patient denied any sustained palpitations, dizziness, syncope, near syncope. Patient denying any fever chills. Patient denying any other significant discomfort. Patient is showing marked improvement in his mental status and is noted to be alert oriented x3. Patient is maintaining sinus rhythm. Occasional ventricular ectopy noted. APCs are noted. Blood pressure is still intermittently high but mostly reasonably well controlled. Review of systems: Rest review of systems negative. Medications: Medications have been reviewed. Reason For Visit: HONK,ENCEPHALOPATHY,SEPSIS Physical Exam Vital Signs: Temp Pulse Resp BP Pulse Ox 97.7 F 68 18 143/65 H 98 06/21/19 15:25 06/21/19 15:25 06/21/19 15:25 06/21/19 15:25 06/21/19 15:25 Intake & Output 06/20/19 06/21/19 06/22/19 06:59 06:59 06:59 Intake Total 2294 1440 390 Balance 2294 1440 390 Weight 72.3 kg 71.8 kg Exam: GENERAL: well-nourished and in no acute distress. Alert and oriented x3 HEAD: Atraumatic, normocephalic. EYES: NAKUL, sclera anicteric, conjunctiva are normal. ENT: Moist mucous membranes. No oral ulcerations or bleeding gums noted. No o bvious ear, nose or throat abnormalities noted. NECK: supple without lymphadenopathy. Trachea is central. No cervical or axillary lymphadenopathy noted. Carotids are 2+, JVD WNL LUNGS: Breath sounds clear bilaterally. No wheezes rales or rhonchi noted. No significant dullness noted on percussion. CHEST: Palpation of the chest wall shows no significant chest wall tenderness. 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 ABDOMEN: Soft, no significant tenderness appreciated, normoactive bowel sounds. No guarding, no rebound. No rigidity noted . No masses appreciated. EXTREMITIES: Pedal pulses are 1-2+, no calf tenderness noted. No clubbing or cyanosis. negative pedal edema noted NEUROLOGICAL: Focused neurological exam showed no significant neurologic deficit. Normal speech, no focal weakness appreciated. PSYCH: Normal mood, normal affect. Judgment and insight within normal limits. SKIN: No significant ecchymosis, skin is noted to be warm. MUSCULOSKELETAL EXAM: No significant acute joint swelling noted. Results Laboratory Results: 06/21/19 06:22 06/21/19 06:22 06/21/19 06/21/19 06:22 06:22 WBC 6.3 RBC 2.66 L Hgb 8.5 L Hct 25.1 L MCV 94 MCH 32.0 MCHC 33.9 RDW 13.6 Plt Count 152 Sodium 137.6 Potassium 3.5 L Chloride 114 H Carbon Dioxide 18 L Anion Gap 6 BUN 17 Creatinine 1.34 H Est GFR ( Amer) > 60 Glucose 101 Calcium 8.0 L Magnesium 1.5 L 06/15/19 06/15/19 06/15/19 02:27 08:15 15:15 Troponin I < 0.012 0.477 0.723 06/15/19 06/16/19 06/20/19 20:44 14:39 05:12 Troponin I 0.670 0.442 0.070 EKG Comments: Showed sinus rhythm with APCs and VPCs. No sustained tachycardia or bradycardia arrhythmias noted. Impressions: Head CT 06/15/19 00:00 IMPRESSION: CHRONIC CHANGES OF ATROPHY AND MICROVASCULAR ISCHEMIA. NO ACUTE PROCESS. EVIDENCE OF ACUTE STROKE: NO. KUB X-Ray 06/15/19 07:47 IMPRESSION: Nasogastric tube in the stomach. Lumbar Puncture 06/16/19 00:00 IMPRESSION: Lumbar puncture under fluoroscopy. No immediate complication. Renal Artery Duplex 06/16/19 00:00 IMPRESSION: NO DOPPLER EVIDENCE OF HEMODYNAMICALLY SIGNIFICANT RENAL ARTERY STENOSIS. Chest X-Ray 06/20/19 08:09 IMPRESSION: NO ACUTE RADIOGRAPHIC FINDING IN THE CHEST. Assessment & Plan - Diagnosis (1) Non-STEMI (non-ST elevated myocardial infarction) Is this a current diagnosis for this admission?: Yes (2) KARIE (acute kidney injury) Is this a current diagnosis for this admission?: Yes (3) Altered mental status Qualifiers: Altered mental status type: delirium Qualified Code(s): R41.0 - Disorientation, unspecified Is this a current diagnosis for this admission?: Yes (4) Elevated troponin Is this a current diagnosis for this admission?: Yes (5) Hyperosmolar (nonketotic) coma Is this a current diagnosis for this admission?: Yes (6) Hypertensive urgency Is this a current diagnosis for this admission?: Yes (7) Type II diabetes mellitus 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 Patient was noted to have severe metabolic abnormalities but he has made a good recovery. Today patient underwent nuclear stress test without any complications. Nuclear stress test did show a small area of mild fixed defect. Overall EF is noted to be somewhat low but could well be related to LVH. At this point would recommend medical management. Patient would benefit from a sleep study as an outpatient and also close cardiology follow-up which I am happy to provide. At this point continue with beta-sanjay therapy, ARB therapy, dual platelet t herapy for at least a month, high potency antiplatelet therapy. Patient knows to follow-up with me. - Time Time with patient: Greater than 35 minutes Medications reviewed and adjusted accordingly: Yes
[2019-06-21] MEDS: ATORVASTATIN CALCIUM 80 MG TABLET PO SCH (22:02)
[2019-06-22] MEDS: GUAIFENESIN 600 MG TABLET.SA PO SCH ×3 (00:07→15:14)
[2019-06-22] MEDS: AMPICILLIN SODIUM 2 GM in NORMAL SALINE 100 ML IV SCH ×2 (03:12→08:59)
[2019-06-22] MEDS: CARVEDILOL 12.5 MG TABLET PO SCH ×2 (06:20→17:54)
[2019-06-22] MEDS: CEFTRIAXONE 2 GM/D5W RTU 2 GM/50 ML RTUPB IV SCH (06:21)
[2019-06-22 07:00] LABS: ANION GAP 10 (5-19); BLOOD UREA NITROGEN 18 mg/dL (7-20); CALCIUM 8.4 mg/dL (8.4-10.2); CARBON DIOXIDE 16 mmol/L (22-30); CHLORIDE 113 mmol/L (98-107); GLUCOSE 92 mg/dL (75-110); POTASSIUM 3.5 mmol/L (3.6-5.0)
--- NOTE | 2019-06-22 08:41 | Progress Note ---
Provider Note Provider Note: [facility] ID Telephone Advice Consultation Chart reviewed. Patient is a 59yo man with history of DM, hypertension, CKD, who was admitted due to altered mental status. Patient was confused at home and EMS was called. Blood glucose was very high, but unable to read it with glucomter. In the ED it was 929. Patient's blood pressure was elevated as well with SBP above 200 with elevated troponins. He had fever of 102. With these findings, patient was transferred to the ICU, started on antibiotics for suspected menintgitis (vancomycin, ceftriaxone, ampicillin). A lumbar puncture was attempted but it was unsuccessful. He required fluoroscopy guided LP but csf was only sent for cultures as the procedure was aborted prematurely as patient became combative. He was evaluated by cardiology. He was started on insulin drip, nitroprusside drip and antibiotics. Patient had clinically improved, mental status rapidly recovered as patient's BP and blood glucose improved. ID consulted for recommendations regarding antibiotic therapy. PMH: Hypertension DM CKD Allergies: shellfish derived [Shellfish Derived] Allergy (Unknown, Verified 11/17/18 09:16) michael Allergy (Uncoded 11/17/18 09:16) Medications: Citalopram Hydrobromide [Celexa 20 mg Tablet] 20 mg PO DAILY 06/15/19 Gabapentin [Neurontin] 600 mg PO Q8 06/15/19 Lisinopril/Hydrochlorothiazide [Zestoretic 20-25 mg Tablet] 1 tab PO DAILY 06/15/19 Meloxicam [Mobic] 15 mg PO DAILY 06/15/19 Metformin HCl [Metformin HCl ER] 2,000 mg PO QPM 06/15/19 Tadalafil [Adcirca] 20 mg PO PRN PRN 06/15/19 Vital Signs: Temp Pulse Resp BP Pulse Ox 98.0 F 65 16 152/87 H 99 06/22/19 07:34 06/22/19 07:34 06/22/19 07:34 06/22/19 07:34 06/22/19 07:34 Intake & Output 06/21/19 06/22/19 06/23/19 06:59 06:59 06:59 Intake Total 1440 1560 Balance 1440 1560 Weight 71.8 kg 75.7 kg Weight/Height Weight 75.7 kg Height 5 ft 11 in Laboratories: 06/21/19 06:22 06/22/19 06:00 MCV 94 fl (80-97) 06/21/19 06:22 MCH 32.0 pg (27.0-33.4) 06/21/19 06:22 MCHC 33.9 g/dL (32.0-36.0) 06/21/19 06:22 RDW 13.6 % (11.5-14.0) 06/21/19 06:22 Seg Neutrophils % 80.7 % (42-78) H 06/15/19 02:27 VBG pH 7.32 (7.30-7.42) 06/15/19 02:27 VBG pCO2 39.0 mmHg (35-63) 06/15/19 02:27 VBG HCO3 19.8 mmol/L (20-32) L 06/15/19 02:27 VBG Base Excess -5.7 mmol/L 06/15/19 02:27 Chloride 113 mmol/L (98-107) H 06/22/19 06:00 Carbon Dioxide 16 mmol/L (22-30) L 06/22/19 06:00 Anion Gap 10 (5-19) 06/22/19 06:00 Est GFR ( Amer) > 60 (>60) 06/22/19 06:00 Est GFR (Non-Af Amer) Cancelled 06/16/19 04:45 Glucose 92 mg/dL (75-110) 06/22/19 06:00 Serum Osmolality 323 mOsm/kg (275-301) H 06/15/19 03:59 Lactic Acid 2.0 mmol/L (0.7-2.1) 06/15/19 02:27 Calcium 8.4 mg/dL (8.4-10.2) 06/22/19 06:00 Magnesium 1.8 mg/dL (1.6-2.3) 06/22/19 06:00 Total Bilirubin 0.6 mg/dL (0.2-1.3) 06/15/19 02:27 AST 30 U/L (17-59) 06/15/19 02:27 Alkaline Phosphatase 117 U/L (38-126) 06/15/19 02:27 Ammonia < 8.7 umol/L (9-33) L 06/16/19 04:45 Total Protein 6.6 g/dL (6.3-8.2) 06/15/19 02:27 Albumin 3.5 g/dL (3.5-5.0) 06/15/19 02:27 TSH 2.84 uIU/mL (0.47-4.68) 06/16/19 05:15 Urine Color STRAW 06/15/19 02:27 Urine Appearance CLEAR 06/15/19 02:27 Urine pH 7.0 (5.0-9.0) 06/15/19 02:27 Ur Specific [place] 1.021 06/15/19 02:27 Urine Protein >=500 mg/dL (NEGATIVE) H 06/15/19 02:27 Urine Glucose (UA) >=500 mg/dL (NEGATIVE) H 06/15/19 02:27 Urine Ketones TRACE mg/dL (NEGATIVE) H 06/15/19 02:27 Urine Blood SMALL (NEGATIVE) H 06/15/19 02:27 Urine Nitrite NEGATIVE (NEGATIVE) 06/15/19 02:27 Ur Leukocyte Esterase NEGATIVE (NEGATIVE) 06/15/19 02:27 Urine WBC (Auto) 1 /HPF 06/15/19 02:27 Urine RBC (Auto) 4 /HPF 06/15/19 02:27 Fluid Tube Number Cancelled 06/16/19 10:55 CSF Volume Cancelled 06/16/19 10:55 CSF Appearance Cancelled 06/16/19 10:55 CSF Color Cancelled 06/16/19 10:55 CSF WBC Cancelled 06/16/19 10:55 CSF RBC Cancelled 06/16/19 10:55 CSF Color (1) Cancelled 06/16/19 10:55 CSF Appearance (1) Cancelled 06/16/19 10:55 CSF Color (2) Cancelled 06/16/19 10:55 CSF Appearance (2) Cancelled 06/16/19 10:55 CSF Color (3) Cancelled 06/16/19 10:55 CSF Appearance (3) Cancelled 06/16/19 10:55 CSF Color (4) Cancelled 06/16/19 10:55 CSF Appearance (4) Cancelled 06/16/19 10:55 CSF Polymorphonuclear Cancelled 06/16/19 10:55 CSF Glucose Cancelled 06/16/19 10:55 CSF Total Protein Cancelled 06/16/19 10:55 06/15/19 06/15/19 06/15/19 02:27 08:15 15:15 Troponin I < 0.012 0.477 0.723 06/15/19 06/16/19 06/20/19 20:44 14:39 05:12 Troponin I 0.670 0.442 0.070 Microbiology: Blood cultures: 06/15 NGTD CSF culture: 06/16 NGTD Radiology: Head CT 06/15/19 00:00 IMPRESSION: CHRONIC CHANGES OF ATROPHY AND MICROVASCULAR ISCHEMIA. NO ACUTE PROCESS. EVIDENCE OF ACUTE STROKE: NO. KUB X-Ray 06/15/19 07:47 IMPRESSION: Nasogastric tube in the stomach. Lumbar Puncture 06/16/19 00:00 IMPRESSION: Lumbar puncture under fluoroscopy. No immediate complication. Renal Artery Duplex 06/16/19 00:00 IMPRESSION: NO DOPPLER EVIDENCE OF HEMODYNAMICALLY SIGNIFICANT RENAL ARTERY STENOSIS. Chest X-Ray 06/20/19 08:09 IMPRESSION: NO ACUTE RADIOGRAPHIC FINDING IN THE CHEST. Assessment and Recommendations: Patient admitted due to hypertensive emergency, hyperglycemic hyperosmolar syndrome and fever. As there was no explanation for the fever, he was started on empiric therapy for meningitis. He had metabolic encephalopathy which resolved after correction of glucose and BP. He has received 7 days of antibiotics, which is a reasonable course for meningitis, even though very low suspicion for meningitis. Can discontinue antibiotics today. Please call back if questions. Claire Jewell MD u ID [phone]
[2019-06-22] MEDS: INSULIN REG, HUMAN 100 UNIT/ML 3 ML VIAL (PYX) SUBCUT SCH ×4 (08:54→23:02)
[2019-06-22] MEDS: ISOSORB DINIT/HYDRALAZINE HCL 20-37.5 MG TABLET PO SCH ×3 (09:44→17:54)
[2019-06-22] MEDS: ASPIRIN 81 MG TABLET, CHEWABLE NG SCH (09:44)
[2019-06-22] MEDS: LOSARTAN POTASSIUM 25 MG TABLET PO SCH (09:44)
[2019-06-22] MEDS: FUROSEMIDE 20 MG TABLET PO SCH (09:45)
[2019-06-22] MEDS: CLOPIDOGREL BISULFATE 75 MG TABLET PO SCH (09:45)
[2019-06-22] MEDS: DOCUSATE SODIUM 100 MG CAPSULE PO SCH ×2 (09:45→17:52)
[2019-06-22] MEDS: VANCOMYCIN HCL 500 MG in DEXTROSE 5%-WATER 100 ML IV SCH (09:46)
[2019-06-22] MEDS: HEPARIN SOD (PORCINE) 5,000 UNIT/ML 1 ML VIAL SUBCUT SCH ×2 (09:50→22:12)
[2019-06-22] MEDS: FAMOTIDINE INJ/PF 20 MG/2 ML SDV IV SCH ×2 (09:51→22:12)
[2019-06-22] MEDS: INSULIN GLARGINE,HUM.REC.ANLOG 1,000 UNIT/10 ML VIAL SUBCUT SCH (09:52)
[2019-06-22] MEDS: ISOSORBIDE MONONITRATE 60 MG TAB.ER.24H PO SCH (09:53)
--- NOTE | 2019-06-22 12:15 | PDOC PROGRESS REPORT ---
Subjective Progress Note for:: 06/22/19 Reason For Visit: HONK,ENCEPHALOPATHY,SEPSIS 06/22/2019 Patient was originally admitted for altered mental status, fever, elevated troponins. Patient went to the ICU. Physical Exam Vital Signs: Temp Pulse Resp BP Pulse Ox 98.0 F 65 16 152/87 H 99 06/22/19 07:34 06/22/19 07:34 06/22/19 07:34 06/22/19 07:34 06/22/19 07:34 Intake & Output 06/21/19 06/22/19 06/23/19 06:59 06:59 06:59 Intake Total 1440 1560 Balance 1440 1560 Weight 71.8 kg 75.7 kg General appearance: PRESENT: no acute distress, other - Patient is sitting up in bed laughing talking in no distress Respiratory exam: PRESENT: clear to auscultation jodi. ABSENT: rales, rhonchi, wheezes Cardiovascular exam: PRESENT: RRR. ABSENT: diastolic murmur, rubs, systolic murmur Neurological exam: PRESENT: alert, awake, oriented to person, oriented to place, oriented to time, oriented to situation, CN II-XII grossly intact. ABSENT: motor sensory deficit Psychiatric exam: PRESENT: appropriate affect, normal mood. ABSENT: homicidal ideation, suicidal ideation Results Laboratory Results: 06/21/19 06:22 06/22/19 06:00 06/22/19 06:00 Sodium 138.9 Potassium 3.5 L Chloride 113 H Carbon Dioxide 16 L Anion Gap 10 BUN 18 Creatinine 1.41 H Est GFR ( Amer) > 60 Glucose 92 Calcium 8.4 Magnesium 1.8 06/15/19 06/15/19 06/15/19 02:27 08:15 15:15 Troponin I < 0.012 0.477 0.723 06/15/19 06/16/19 06/20/19 20:44 14:39 05:12 Troponin I 0.670 0.442 0.070 Impressions: Head CT 06/15/19 00:00 IMPRESSION: CHRONIC CHANGES OF ATROPHY AND MICROVASCULAR ISCHEMIA. NO ACUTE PROCESS. EVIDENCE OF ACUTE STROKE: NO. KUB X-Ray 06/15/19 07:47 IMPRESSION: Nasogastric tube in the stomach. Lumbar Puncture 06/16/19 00:00 IMPRESSION: Lumbar puncture under fluoroscopy. No immediate complication. Renal Artery Duplex 06/16/19 00:00 IMPRESSION: NO DOPPLER EVIDENCE OF HEMODYNAMICALLY SIGNIFICANT RENAL ARTERY STENOSIS. Chest X-Ray 06/20/19 08:09 IMPRESSION: NO ACUTE RADIOGRAPHIC FINDING IN THE CHEST. Assessment and Plan - Diagnosis (1) KARIE (acute kidney injury) Is this a current diagnosis for this admission?: Yes (2) Acute metabolic encephalopathy Is this a current diagnosis for this admission?: Yes (3) Altered mental status Qualifiers: Altered mental status type: delirium Qualified Code(s): R41.0 - Disorientation, unspecified Is this a current diagnosis for this admission?: Yes (4) Elevated troponin Is this a current diagnosis for this admission?: Yes (5) Fever Qualifiers: Fever type: unspecified Is this a current diagnosis for this admission?: Yes - Plan Summary Summary: 06/22/2019 Temperature 98 pulse 65, blood pressure 152/87 O2 sat 99% on room air. Glucose on admission was 929. His hemoglobin A1c was 8.8 Patient tells me at home he took 70 units of NovoLog in the morning and 70 units at night as well as metformin 2000 mg a day Was originally admitted with a suspicion of meningitis and placed on the pin Rocephin and vancomycin She was seen by infectious disease and recommended discontinuing antibiotics today, low suspicion of meningitis. Effie the patient's altered mental status was on the basis of his glucose and his fever. Is currently on Lantus 20 units daily. His blood pressures currently under good control with a serum glucose of about 92, fingersticks in the low 100s. Continue the Lantus We will discharge patient home tomorrow if his diabetes is stable Blood culture, CSF fluid is all negative - Time Time Spent with patient: 25-34 minutes
--- NOTE | 2019-06-22 20:15 | PDOC PROGRESS REPORT ---
Subjective Progress Note for:: 06/22/19 Subjective:: Nuclear stress test results reviewed with the patient. A only small area of inferoapical fixed defect noted suggestive of mild scar. This was discussed with the patient. In the absence of significant angina or angina equivalent symptoms, medical management is being recommended. Patient of course will benefit from continued aggressive management. Patient seems to be doing better with gradual improvement. Pt is denying any chest arm or neck discomfort. Patient denying any PND, orthopnea. Patient denied any sustained palpitations, dizziness, syncope, near syncope. Patient denying any fever chills. Patient denying any other significant discomfort. Patient is maintaining sinus rhythm. Occasional ventricular ectopy noted. APCs are noted. Blood pressure is still intermittently high but mostly reasonably well controlled. Review of systems: Rest review of systems negative. Medications: Medications have been reviewed. Reason For Visit: HONK,ENCEPHALOPATHY,SEPSIS Physical Exam Vital Signs: Temp Pulse Resp BP Pulse Ox 98.4 F 71 20 139/86 H 99 06/22/19 19:33 06/22/19 19:33 06/22/19 19:33 06/22/19 19:33 06/22/19 19:33 Intake & Output 06/21/19 06/22/19 06/23/19 06:59 06:59 06:59 Intake Total 1440 1560 1195 Balance 1440 1560 1195 Weight 71.8 kg 75.7 kg 75.7 kg Exam: GENERAL: well-nourished and in no acute distress. Alert and oriented x3 HEAD: Atraumatic, normocephalic. EYES: NAKUL, sclera anicteric, conjunctiva are normal. ENT: Moist mucous membranes. No oral ulcerations or bleeding gums noted. No obvious ear, nose or throat abnormalities noted. NECK: supple without lymphadenopathy. Trachea is central. No cervical or axillary lymphadenopathy noted. Carotids are 2+, JVD WNL LUNGS: Breath sounds clear bilaterally. No wheezes rales or rhonchi noted. No significant dullness noted on percussion. CHEST: Palpation of the chest wall shows no significant chest wall tenderness. 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 ABDOMEN: Soft, no significant tenderness appreciated, normoactive bowel sounds. No guarding, no rebound. No rigidity noted . No masses appreciated. EXTREMITIES: Pedal pulses are 1-2+, no calf tenderness noted. No clubbing or cyanosis. negative pedal edema noted NEUROLOGICAL: Focused neurological exam showed no significant neurologic deficit. Normal speech, no focal weakness appreciated. PSYCH: Normal mood, normal affect. Judgment and insight within normal limits. SKIN: No significant ecchymosis, skin is noted to be warm. MUSCULOSKELETAL EXAM: No significant acute joint swelling noted. Results Laboratory Results: 06/21/19 06:22 06/22/19 06:00 06/22/19 06:00 Sodium 138.9 Potassium 3.5 L Chloride 113 H Carbon Dioxide 16 L Anion Gap 10 BUN 18 Creatinine 1.41 H Est GFR ( Amer) > 60 Glucose 92 Calcium 8.4 Magnesium 1.8 06/15/19 06/15/19 06/15/19 02:27 08:15 15:15 Troponin I < 0.012 0.477 0.723 06/15/19 06/16/19 06/20/19 20:44 14:39 05:12 Troponin I 0.670 0.442 0.070 EKG Comments: Sinus rhythm, no significant bradycardia or tach. Arrhythmia noted. Impressions: Head CT 06/15/19 00:00 IMPRESSION: CHRONIC CHANGES OF ATROPHY AND MICROVASCULAR ISCHEMIA. NO ACUTE PROCESS. EVIDENCE OF ACUTE STROKE: NO. KUB X-Ray 06/15/19 07:47 IMPRESSION: Nasogastric tube in the stomach. Lumbar Puncture 06/16/19 00:00 IMPRESSION: Lumbar puncture under fluoroscopy. No immediate complication. Renal Artery Duplex 06/16/19 00:00 IMPRESSION: NO DOPPLER EVIDENCE OF HEMODYNAMICALLY SIGNIFICANT RENAL ARTERY ST ENOSIS. Chest X-Ray 06/20/19 08:09 IMPRESSION: NO ACUTE RADIOGRAPHIC FINDING IN THE CHEST. Assessment & Plan - Diagnosis (1) Non-STEMI (non-ST elevated myocardial infarction) Is this a current diagnosis for this admission?: Yes (2) KARIE (acute kidney injury) Is this a current diagnosis for this admission?: Yes (3) Altered mental status Qualifiers: Altered mental status type: delirium Qualified Code(s): R41.0 - Disorientation, unspecified Is this a current diagnosis for this admission?: Yes (4) Elevated troponin Is this a current diagnosis for this admission?: Yes (5) Hyperosmolar (nonketotic) coma Is this a current diagnosis for this admission?: Yes (6) Hypertensive urgency Is this a current diagnosis for this admission?: Yes (7) Type II diabetes mellitus Qualifiers: Diabetes mellitus 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 At this point recommend aggressive risk factor modification and medical management. Recommend dual antiplatelet therapy for at least 1 month if not longer. Continue with ARB, beta-sanjay, nitrate therapy. Will follow patient in the office. Patient may benefit from a PSG as an outpatient. Patient to report any further problems. We will continue to follow patient until discharge in view of significant and multiple medical issues. However all of these are being well managed by the hospitalist. - Time Time with patient: 15-25 minutes - More than 50% of the time spent coordinating care, discussing management plans with involved caregivers. Management plans discussed with involved personnels. Medical decision making was of moderate to high complexity, patient's has multiple comorbidities. Medications reviewed and adjusted accordingly: Yes
[2019-06-22] MEDS: ATORVASTATIN CALCIUM 80 MG TABLET PO SCH (22:12)
[2019-06-23] MEDS: GUAIFENESIN 600 MG TABLET.SA PO SCH ×3 (00:42→06:11)
[2019-06-23] MEDS: CARVEDILOL 12.5 MG TABLET PO SCH (06:11)
[2019-06-23] MEDS: INSULIN REG, HUMAN 100 UNIT/ML 3 ML VIAL (PYX) SUBCUT SCH ×2 (08:40→12:10)
[2019-06-23] MEDS: DOCUSATE SODIUM 100 MG CAPSULE PO SCH (09:44)
[2019-06-23] MEDS: FUROSEMIDE 20 MG TABLET PO SCH (09:45)
[2019-06-23] MEDS: CLOPIDOGREL BISULFATE 75 MG TABLET PO SCH (09:45)
[2019-06-23] MEDS: ASPIRIN 81 MG TABLET, CHEWABLE NG SCH (09:45)
[2019-06-23] MEDS: INSULIN GLARGINE,HUM.REC.ANLOG 1,000 UNIT/10 ML VIAL SUBCUT SCH (09:45)
[2019-06-23] MEDS: FAMOTIDINE INJ/PF 20 MG/2 ML SDV IV SCH (09:45)
[2019-06-23] MEDS: ISOSORB DINIT/HYDRALAZINE HCL 20-37.5 MG TABLET PO SCH (09:45)
[2019-06-23] MEDS: HEPARIN SOD (PORCINE) 5,000 UNIT/ML 1 ML VIAL SUBCUT SCH (09:45)
[2019-06-23] MEDS: LOSARTAN POTASSIUM 25 MG TABLET PO SCH (09:45)
[2019-06-23] MEDS: ISOSORBIDE MONONITRATE 60 MG TAB.ER.24H PO SCH (09:46)
[2019-06-23 10:09] LABS: VANCOMYCIN,TROUGH 10.7 ug/mL (5.0-20.0)
[2019-06-23 12:13] VITALS: BP 167/68
--- NOTE | 2019-06-23 13:31 | PDOC DISCHARGE SUMMARY ---
Impression - Admit/DC Date/PCP Admission Date/Primary Care Provider: 06/15/19 06:03 GERALD HAMILTON MD Discharge Date: 06/23/19 - Discharge Diagnosis (1) KARIE (acute kidney injury) Is this a current diagnosis for this admission?: Yes (2) Acute metabolic encephalopathy Is this a current diagnosis for this admission?: Yes (3) Altered mental status Is this a current diagnosis for this admission?: Yes (4) Elevated troponin Is this a current diagnosis for this admission?: Yes (5) Fever Is this a current diagnosis for this admission?: Yes - Assessment Summary: 06/22/2019 Temperature 98 pulse 65, blood pressure 152/87 O2 sat 99% on room air. Glucose on admission was 929. His hemoglobin A1c was 8.8 Patient tells me at home he took 70 units of NovoLog in the morning and 70 units at night as well as metformin 2000 mg a day Was originally admitted with a suspicion of meningitis and placed on the pin Rocephin and vancomycin She was seen by infectious disease and recommended discontinuing antibiotics t kitty, low suspicion of meningitis. [place] the patient's altered mental status was on the basis of his glucose and his fever. Is currently on Lantus 20 units daily. His blood pressures currently under good control with a serum glucose of about 92, fingersticks in the low 100s. Continue the Lantus We will discharge patient home tomorrow if his diabetes is stable Blood culture, CSF fluid is all negative 06/23/2019 He is medically stable for discharge. Glucoses ranges anywhere from 99 up to 259. Patient had multiple prescriptions written to take at home. Today patient was seen by cardiology who recommended continuing ARB, beta blockers and nitrates. Also patient may benefit from PSG as an outpatient Patient also had infectious disease consult done yesterday who recommended discontinuing antibiotics after yesterday's treatment Patient's diabetes was treated with Lantus 20 units subcu daily plus normal metformin Patient was satisfied with his care. - Additional Information Resuscitation Status: Full Code Discharge Diet: Diabetic Discharge Activity: Activity As Tolerated Referrals: GERALD HAMILTON MD [Primary Care Provider] - 06/28/19 3:00 pm CARLOS DEJESUS MD [ACTIVE STAFF] - Prescriptions: Isosorb Dinit/Hydralazine HCl [Bidil 20-37.5 mg Tablet] 1 tab PO TID 30 Days #90 tablet Carvedilol [Coreg 12.5 mg Tablet] 25 mg PO Q12A 30 Days #60 tablet Losartan Potassium [Cozaar 25 mg Tablet] 25 mg PO DAILY 30 Days #30 tablet Isosorbide Mononitrate [Imdur 60 mg Tablet.er] 60 mg PO DAILY 30 Days #30 tab.er.24h Insulin Glargine,Hum.rec.anlog [Lantus Insulin 100 Unit/1 ml 10 ml] 20 unit SUBCUT DAILY 30 Days #1 unit Furosemide [Lasix 20 mg Tablet] 20 mg PO DAILY 30 Days #30 tablet Atorvastatin Calcium [Lipitor 80 mg Tablet] 80 mg PO QHS 30 Days #30 tablet Clopidogrel Bisulfate [Plavix 75 mg Tablet] 75 mg PO DAILY 30 Days #30 tablet Home Medications: Citalopram Hydrobromide [Celexa 20 mg Tablet] 20 mg PO DAILY 06/15/19 Gabapentin [Neurontin] 600 mg PO Q8 06/15/19 Lisinopril/Hydrochlorothiazide [Zestoretic 20-25 mg Tablet] 1 tab PO DAILY 06/15/19 Meloxicam [Mobic] 15 mg PO DAILY 06/15/19 Metformin HCl [Metformin HCl ER] 2,000 mg PO QPM 06/15/19 Tadalafil [Adcirca] 20 mg PO PRN PRN 06/15/19 Aspirin [Aspirin 81 mg Chewable Tablet] 81 mg NG DAILY tab.chew 06/23/19 Atorvastatin Calcium [Lipitor 80 mg Tablet] 80 mg PO QHS 30 Days #30 tablet 06/23/19 Carvedilol [Coreg 12.5 mg Tablet] 25 mg PO Q12A 30 Days #60 tablet 06/23/19 Clopidogrel Bisulfate [Plavix 75 mg Tablet] 75 mg PO DAILY 30 Days #30 tablet 06/23/19 Furosemide [Lasix 20 mg Tablet] 20 mg PO DAILY 30 Days #30 tablet 06/23/19 Insulin Glargine,Hum.rec.anlog [Lantus Insulin 100 Unit/1 ml 10 ml] 20 unit SUBCUT DAILY 30 Days #1 unit 06/23/19 Isosorb Dinit/Hydralazine HCl [Bidil 20-37.5 mg Tablet] 1 tab PO TID 30 Days #90 tablet 06/23/19 Isosorbide Mononitrate [Imdur 60 mg Tablet.er] 60 mg PO DAILY 30 Days #30 tab.er.24h 06/23/19 Losartan Potassium [Cozaar 25 mg Tablet] 25 mg PO DAILY 30 Days #30 tablet 06/23/19 History of Present Illiness History of Present Illness: STEVE ALDANA is a 59 year old male Physical Exam Vital Signs: Temp Pulse Resp BP Pulse Ox 98.3 F 33 L 18 167/68 H 100 06/23/19 12:12 06/23/19 12:12 06/23/19 12:12 06/23/19 12:12 06/23/19 12:12 Intake & Output 06/22/19 06/23/19 06/24/19 06:59 06:59 06:59 Intake Total 1560 1467 Balance 1560 1467 Weight 75.7 kg 74.6 kg Results Laboratory Results: WBC 6.3 10^3/uL (4.0-10.5) 06/21/19 06:22 RBC 2.66 10^6/uL (4.35-5.55) L 06/21/19 06:22 Hgb 8.5 g/dL (13.5-17.0) L 06/21/19 06:22 Hct 25.1 % (37.9-51.0) L 06/21/19 06:22 MCV 94 fl (80-97) 06/21/19 06:22 MCH 32.0 pg (27.0-33.4) 06/21/19 06:22 MCHC 33.9 g/dL (32.0-36.0) 06/21/19 06:22 RDW 13.6 % (11.5-14.0) 06/21/19 06:22 Plt Count 152 10^3/uL (150-450) 06/21/19 06:22 Lymph % (Auto) 14.3 % (13-45) 06/15/19 02:27 [place] % (Auto) 3.8 % (3-13) 06/15/19 02:27 Eos % (Auto) 0.3 % (0-6) 06/15/19 02:27 Baso % (Auto) 0.9 % (0-2) 06/15/19 02:27 Absolute Neuts (auto) 6.9 10^3/uL (1.7-8.2) 06/15/19 02:27 Absolute Lymphs (auto) 1.2 10^3/uL (0.5-4.7) 06/15/19 02:27 Absolute Monos (auto) 0.3 10^3/uL (0.1-1.4) 06/15/19 02:27 Absolute Eos (auto) 0.0 10^3/uL (0.0-0.6) 06/15/19 02:27 Absolute Basos (auto) 0.1 10^3/uL (0.0-0.2) 06/15/19 02:27 Seg Neutrophils % 80.7 % (42-78) H 06/15/19 02:27 PT 15.4 SEC (11.4-15.4) 06/16/19 07:20 INR 1.21 06/16/19 07:20 VBG pH 7.32 (7.30-7.42) 06/15/19 02:27 VBG pCO2 39.0 mmHg (35-63) 06/15/19 02:27 VBG HCO3 19.8 mmol/L (20-32) L 06/15/19 02:27 VBG Base Excess -5.7 mmol/L 06/15/19 02:27 Sodium 138.9 mmol/L (137-145) 06/22/19 06:00 Potassium 3.5 mmol/L (3.6-5.0) L 06/22/19 06:00 Chloride 113 mmol/L (98-107) H 06/22/19 06:00 Carbon Dioxide 16 mmol/L (22-30) L 06/22/19 06:00 Anion Gap 10 (5-19) 06/22/19 06:00 BUN 18 mg/dL (7-20) 06/22/19 06:00 Creatinine 1.41 mg/dL (0.52-1.25) H 06/22/19 06:00 Est GFR ( Amer) > 60 (>60) 06/22/19 06:00 Est GFR (Non-Af Amer) Cancelled 06/16/19 04:45 Est GFR (MDRD) Non-Af 51 (>60) L 06/22/19 06:00 Glucose 92 mg/dL (75-110) 06/22/19 06:00 POC Glucose 232 mg/dL (70-110) H 06/23/19 11:59 Hemoglobin A1c % 8.8 % (4.7-6.0) H 06/19/19 04:11 Serum Osmolality 323 mOsm/kg (275-301) H 06/15/19 03:59 Lactic Acid 2.0 mmol/L (0.7-2.1) 06/15/19 02:27 Calcium 8.4 mg/dL (8.4-10.2) 06/22/19 06:00 Magnesium 1.8 mg/dL (1.6-2.3) 06/22/19 06:00 Total Bilirubin 0.6 mg/dL (0.2-1.3) 06/15/19 02:27 Direct Bilirubin 0.3 mg/dL (0.0-0.4) 06/15/19 02:27 Neonat Total Bilirubin Not Reportable 06/15/19 02:27 Neonat Direct Bilirubin Not Reportable 06/15/19 02:27 Neonat Indirect Bili Not Reportable 06/15/19 02:27 AST 30 U/L (17-59) 06/15/19 02:27 ALT 27 U/L (<50) 06/15/19 02:27 Alkaline Phosphatase 117 U/L (38-126) 06/15/19 02:27 Ammonia < 8.7 umol/L (9-33) L 06/16/19 04:45 Troponin I 0.070 ng/mL 06/20/19 05:12 Total Protein 6.6 g/dL (6.3-8.2) 06/15/19 02:27 Albumin 3.5 g/dL (3.5-5.0) 06/15/19 02:27 EGFR Cancelled 06/16/19 04:45 TSH 2.84 uIU/mL (0.47-4.68) 06/16/19 05:15 Urine Color STRAW 06/15/19 02:27 Urine Appearance CLEAR 06/15/19 02:27 Urine pH 7.0 (5.0-9.0) 06/15/19 02:27 Ur Specific [place] 1.021 06/15/19 02:27 Urine Protein >=500 mg/dL (NEGATIVE) H 06/15/19 02:27 Urine Glucose (UA) >=500 mg/dL (NEGATIVE) H 06/15/19 02:27 Urine Ketones TRACE mg/dL (NEGATIVE) H 06/15/19 02:27 Urine Blood SMALL (NEGATIVE) H 06/15/19 02:27 Urine Nitrite NEGATIVE (NEGATIVE) 06/15/19 02:27 Urine Bilirubin NEGATIVE (NEGATIVE) 06/15/19 02:27 Urine Urobilinogen NEGATIVE mg/dL (<2.0) 06/15/19 02:27 Ur Leukocyte Esterase NEGATIVE (NEGATIVE) 06/15/19 02:27 Urine WBC (Auto) 1 /HPF 06/15/19 02:27 Urine RBC (Auto) 4 /HPF 06/15/19 02:27 Urine Bacteria (Auto) TRACE /HPF 06/15/19 02:27 Urine Mucus (Auto) RARE /LPF 06/15/19 02:27 Urine Ascorbic Acid NEGATIVE (NEGATIVE) 06/15/19 02:27 Fluid Tube Number Cancelled 06/16/19 10:55 CSF Volume Cancelled 06/16/19 10:55 CSF Appearance Cancelled 06/16/19 10:55 CSF Color Cancelled 06/16/19 10:55 CSF WBC Cancelled 06/16/19 10:55 CSF RBC Cancelled 06/16/19 10:55 CSF Color (1) Cancelled 06/16/19 10:55 CSF Appearance (1) Cancelled 06/16/19 10:55 CSF Color (2) Cancelled 06/16/19 10:55 CSF Appearance (2) Cancelled 06/16/19 10:55 CSF Color (3) Cancelled 06/16/19 10:55 CSF Appearance (3) Cancelled 06/16/19 10:55 CSF Color (4) Cancelled 06/16/19 10:55 CSF Appearance (4) Cancelled 06/16/19 10:55 CSF Mononuclear Cells Cancelled 06/16/19 10:55 CSF Polymorphonuclear Cancelled 06/16/19 10:55 CSF Glucose Cancelled 06/16/19 10:55 CSF Total Protein Cancelled 06/16/19 10:55 Time Trough Drawn 0936 06/23/19 09:36 Vancomycin Trough 10.7 ug/mL (5.0-20.0) 06/23/19 09:36 Urine Opiates Screen NEGATIVE 06/15/19 02:27 Urine Methadone Screen NEGATIVE 01/28/20 02:27 Ur Barbiturates Screen NEGATIVE 06/15/19 02:27 Ur Phencyclidine Scrn NEGATIVE 06/15/19 02:27 Ur Amphetamines Screen NEGATIVE 06/15/19 02:27 U Benzodiazepines Scrn NEGATIVE 06/15/19 02:27 Urine Cocaine Screen NEGATIVE 06/15/19 02:27 U Marijuana (THC) Screen NEGATIVE 06/15/19 02:27 Serum Alcohol < 10 mg/dL (NONE DETECTED) 06/15/19 02:27 Influenza A (Rapid) NEGATIVE (NEGATIVE) 06/15/19 02:27 Influenza B (Rapid) NEGATIVE (NEGATIVE) 06/15/19 02:27 Slides for Path Review Cancelled 06/16/19 10:55 06/15/19 06/15/19 06/15/19 02:27 08:15 15:15 Troponin I < 0.012 0.477 0.723 06/15/19 06/16/19 06/20/19 20:44 14:39 05:12 Troponin I 0.670 0.442 0.070 Impressions: Head CT 06/15/19 00:00 IMPRESSION: CHRONIC CHANGES OF ATROPHY AND MICROVASCULAR ISCHEMIA. NO ACUTE PROCESS. EVIDENCE OF ACUTE STROKE: NO. Chest X-Ray 06/15/19 02:21 IMPRESSION: Mild cardiomegaly with very mild vascular congestion. KUB X-Ray 06/15/19 07:47 IMPRESSION: Nasogastric tube in the stomach. Lumbar Puncture 06/16/19 00:00 IMPRESSION: Lumbar puncture under fluoroscopy. No immediate complication. Renal Artery Duplex 06/16/19 00:00 IMPRESSION: NO DOPPLER EVIDENCE OF HEMODYNAMICALLY SIGNIFICANT RENAL ARTERY STENOSIS. Chest X-Ray 06/20/19 08:09 IMPRESSION: NO ACUTE RADIOGRAPHIC FINDING IN THE CHEST. Stroke Is this a Stroke Patient?: No Acute Heart Failure - Is this a Heart Failure Patient?: No
--- NOTE | 2019-06-23 23:42 | PDOC PROGRESS REPORT ---
Subjective Progress Note for:: 06/23/19 Subjective:: Nuclear stress test results reviewed with the patient. A only small area of inferoapical fixed defect noted suggestive of mild scar. This was discussed with the patient. In the absence of significant angina or angina equivalent symptoms, medical management is being recommended. Patient of course will benefit from continued aggressive management. Patient seems to be doing better with gradual improvement. Pt is denying any chest arm or neck discomfort. Patient denying any PND, orthopnea. Patient denied any sustained palpitations, dizziness, syncope, near syncope. Patient denying any fever chills. Patient denying any other significant discomfort. Patient is maintaining sinus rhythm. Occasional ventricular ectopy noted. APCs are noted. Blood pressure is still intermittently high but mostly reasonably well controlled. Review of systems: Rest review of systems negative. 06/23/2019: Patient was seen prior to discharge. Medications were reviewed with the patient. Benefits of risk factor modifications were discussed. Patient has ambulated without any difficulty. Patient is getting discharged later today. Medications: Medications have been reviewed. Reason For Visit: HONK,ENCEPHALOPATHY,SEPSIS Physical Exam Vital Signs: Temp Pulse Resp BP Pulse Ox 98.3 F 33 L 18 167/68 H 100 06/23/19 12:12 06/23/19 12:12 06/23/19 12:12 06/23/19 12:12 06/23/19 12:12 Intake & Output 06/22/19 06/23/19 06/24/19 06:59 06:59 06:59 Intake Total 1560 1467 Balance 1560 1467 Weight 75.7 kg 74.6 kg Exam: GENERAL: well-nourished and in no acute distress. Alert and oriented x3 HEAD: Atraumatic, normocephalic. EYES: NAKUL, sclera anicteric, conjunctiva are normal. ENT: Moist mucous membranes. No oral ulcerations or bleeding gums noted. No obvious ear, nose or throat abnormalities noted. NECK: supple without lymphadenopathy. Trachea is central. No cervical or axillary lymphadenopathy noted. Carotids are 2+, JVD WNL LUNGS: Breath sounds clear bilaterally. No wheezes rales or rhonchi noted. No significant dullness noted on percussion. CHEST: Palpation of the chest wall shows no significant chest wall tenderness. 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 ABDOMEN: Soft, no significant tenderness appreciated, normoactive bowel sounds. No guarding, no rebound. No rigidity noted . No masses appreciated. EXTREMITIES: Pedal pulses are 1-2+, no calf tenderness noted. No clubbing or cyanosis. negative pedal edema noted NEUROLOGICAL: Focused neurological exam showed no significant neurologic deficit. Normal speech, no focal weakness appreciated. PSYCH: Normal mood, normal affect. Judgment and insight within normal limits. SKIN: No significant ecchymosis, skin is noted to be warm. MUSCULOSKELETAL EXAM: No significant acute joint swelling noted. Results Laboratory Results: 06/21/19 06:22 06/22/19 06:00 06/15/19 06/15/19 06/15/19 02:27 08:15 15:15 Troponin I < 0.012 0.477 0.723 06/15/19 06/16/19 06/20/19 20:44 14:39 05:12 Troponin I 0.670 0.442 0.070 Impressions: Head CT 06/15/19 00:00 IMPRESSION: CHRONIC CHANGES OF ATROPHY AND MICROVASCULAR ISCHEMIA. NO ACUTE PROCESS. EVIDENCE OF ACUTE STROKE: NO. KUB X-Ray 06/15/19 07:47 IMPRESSION: Nasogastric tube in the stomach. Lumbar Puncture 06/16/19 00:00 IMPRESSION: Lumbar puncture under fluoroscopy. No immediate complication. Renal Artery Duplex 06/16/19 00:00 IMPRESSION: NO DOPPLER EVIDENCE OF HEMODYNAMICALLY SIGNIFICANT RENAL ARTERY STENOSIS. Chest X-Ray 06/20/19 08:09 IMPRESSION: NO ACUTE RADIOGRAPHIC FINDING IN THE CHEST. Assessment & Plan - Diagnosis (1) Non-STEMI (non-ST elevated myocardial infarction) Is this a current diagnosis for this admission?: Yes (2) KARIE (acute kidney injury) Is this a current diagnosis for this admission?: Yes (3) Altered mental status Qualifiers: Altered mental status type: delirium Qualified Code(s): R41.0 - Disorientation, unspecified Is this a current diagnosis for this admission?: Yes (4) Elevated troponin Is this a current diagnosis for this admission?: Yes (5) Hyperosmolar (nonketotic) coma Is this a current diagnosis for this admission?: Yes (6) Hypertensive urgency Is this a current diagnosis for this admission?: Yes (7) Type II diabetes mellitus Qualifiers: Diabetes mellitus snf insulin use: unspecified snf insulin use status Is this a current diagnosis for this admission?: Yes - Notes Notes: Patient has made significant recovery both in his metabolic status and cardiac status. Patient should continue with high high potency statin therapy, beta- sanjay therapy, statin therapy, angiotensin receptor sanjay therapy and dual antiplatelet therapy for at least a month and then single antiplatelet agent preferably Plavix for at least a year. These were discussed with the patient. Patient can follow-up with me in the office. - Time Time with patient: 15-25 minutes Medications reviewed and adjusted accordingly: Yes
== END 2019-06-23 12:45 | disposition home or self-care (01) | DRG 637 ==
LOC: ER 00:34 → EH 06:03 → ICU 07:07 → 3S 06-19 11:34
PROVIDERS: ADMIT Internal Medicine; ATTEND Internal Medicine
PROC: 009U3ZX Drainage of Spinal Canal, Percutaneous Approach, Diagnostic (ICD-10-PCS; principal; 2019-06-16)
PROC: 00JU3ZZ Inspection of Spinal Canal, Percutaneous Approach (ICD-10-PCS; 2019-06-16)
PROC: 3E02340 Introduction of Influenza Vaccine into Muscle, Percutaneous Approach (ICD-10-PCS; 2019-06-23)
DX: E11.01 Type 2 diabetes mellitus with hyperosmolarity with coma (principal); I21.4 Non-ST elevation (NSTEMI) myocardial infarction; G93.41 Metabolic encephalopathy; N18.4 Chronic kidney disease, stage 4 (severe); N17.9 Acute kidney failure, unspecified; I16.0 Hypertensive urgency; E78.5 Hyperlipidemia, unspecified; I12.9 Hypertensive chronic kidney disease with stage 1 through stage 4 chronic kidney disease, or unspecified chronic kidney disease; E11.22 Type 2 diabetes mellitus with diabetic chronic kidney disease; K21.9 Gastro-esophageal reflux disease without esophagitis; E78.00 Pure hypercholesterolemia, unspecified; K58.1 Irritable bowel syndrome with constipation; F32.9 Major depressive disorder, single episode, unspecified; Z78.1 Physical restraint status; Z23 Encounter for immunization; Z79.4 Long term (current) use of insulin; Z79.899 Other long term (current) drug therapy; Z79.82 Long term (current) use of aspirin; Z91.013 Allergy to seafood; Z91.018 Allergy to other foods; Z83.3 Family history of diabetes mellitus; Z82.49 Family history of ischemic heart disease and other diseases of the circulatory system
CPT/HCPCS: 36415; 51702; 62328; 70450; 71045; 74018; 78452; 80048; 80053; 80202; 80307; 81001; 82140; 82565; 82803; 82947; 82962; 83036; 83605; 83735; 83930; 84443; 84484; 85025; 85027; 85610; 87040; 87070; 87205; 87804; 90686; 93005; 93010; 93017; 93306; 93975; 96361; 96365; 96367; 96375; 96376; 99291; A9500; C1751; C1769; J0290; J0360; J0456; J0696; J1642; J1644; J1815; J1885; J1940; J2060; J2405; J2550; J2765; J2785; J3370; J3475; J3490; J7030; J7050; J7060; Q9969; S0028

== ENCOUNTER 2019-06-26 20:51 | Inpatient (IN) | payer OTHER ==
[2019-06-26 22:58] LABS: HEMATOCRIT 29.8 % (37.9-51.0); HEMOGLOBIN 9.7 g/dL (13.5-17.0); MEAN CORPUSCULAR HEMOGLOBIN 31.9 pg (27.0-33.4); MEAN CORPUSCULAR HGB CONC 32.5 g/dL (32.0-36.0); PLATELET COUNT 141 10^3/uL (150-450); RED BLOOD COUNT 3.04 10^6/uL (4.35-5.55); RED CELL DISTRIBUTION WIDTH 16.2 % (11.5-14.0); WHITE BLOOD COUNT 7.2 10^3/uL (4.0-10.5)
[2019-06-26 22:59] LABS: MEAN CORPUSCULAR VOLUME 98 fl (80-97)
--- NOTE | 2019-06-26 23:08 | RADIOLOGY REPORT (SQ) ---
EXAM DESCRIPTION: AP portable view of the chest CLINICAL HISTORY: 59 years Male, SOB, chest pain COMPARISON: 06/20/2019 FINDINGS: Lungs: There is been interval development of multifocal groundglass opacification and consolidation in a patchy distribution throughout the lungs bilaterally. This is most pronounced in the left midlung and the right lower lobe. Mediastinum: Heart size is at upper limits of normal Bones: Osseous structures are normal. IMPRESSION: Interval development of multifocal patchy opacification bilaterally consistent with pneumonia. Borderline cardiomegaly.
[2019-06-26 23:12] LABS: ABSOLUTE LYMPHOCYTES# (MANUAL) 2.4 10^3/uL (0.5-4.7); ABSOLUTE MONOCYTES # (MANUAL) 0.6 10^3/uL (0.1-1.4); ANISOCYTOSIS 1+; BAND NEUTROPHILS % (MANUAL) 2 % (3-5); BASOPHILS % (MANUAL) 0 % (0-2); EOSINOPHILS % (MANUAL) 1 % (0-6); LYMPHOCYTES % (MANUAL) 33 % (13-45); MONOCYTES % (MANUAL) 8 % (3-13); SEGMENTED NEUTROPHILS % (MAN) 56 % (42-78); TOTAL CELLS COUNTED 100
[2019-06-26 23:13] LABS: PLATELET COMMENT DECREASED
[2019-06-26 23:22] LABS: ALBUMIN 3.2 g/dL (3.5-5.0); ALKALINE PHOSPHATASE 77 U/L (38-126); ANION GAP 10 (5-19); ASPARTATE AMINO TRANSFERASE 43 U/L (17-59); BILIRUBIN,DIRECT 0.4 mg/dL (0.0-0.4); BILIRUBIN,TOTAL 0.5 mg/dL (0.2-1.3); BLOOD UREA NITROGEN 15 mg/dL (7-20); CALCIUM 8.4 mg/dL (8.4-10.2); CARBON DIOXIDE 18 mmol/L (22-30); CHLORIDE 112 mmol/L (98-107); CREATINE KINASE 86 U/L (55-170); CREATINE KINASE MB 1.2 ng/mL (<4.55); GLUCOSE 339 mg/dL (75-110); POTASSIUM 4.3 mmol/L (3.6-5.0); TOTAL PROTEIN 6.6 g/dL (6.3-8.2)
[2019-06-26] MEDS ORDERED: LABETALOL HCL INJ 20 MG/4 ML DISP.SYRIN IV ONE (23:33)
[2019-06-26 23:39] LABS: TROPONIN I 0.039 ng/mL
[2019-06-26] MEDS ORDERED: NORMAL SALINE IV ONE (23:40)
[2019-06-26] MEDS ORDERED: LEVOFLOXACIN 750 MG/D5W RTU 750 MG/150 ML RTUPB IV ONE (23:40)
--- NOTE | 2019-06-27 00:44 | ER Document Report ---
Entered by DEVYN ACE SCRIBE 06/26/19 0529 Acting as scribe for:WALLY WHITAKER IV, MD ED General - General Chief Complaint: Shortness Of Breath Stated Complaint: SHORTNESS OF BREATH Time Seen by Provider: 06/26/19 23:18 Primary Care Provider: GERALD HAMILTON MD [Primary Care Provider] - Follow up as needed Mode of Arrival: Ambulatory Information source: Patient Notes: This 59 year old male patient presents to the ED today with complaints of shortness of breath for the past x3 days. Patient states that he was in the hospital x3 days ago for high blood pressure, high blood sugar, "some type of infection and a heart attack" and has been feeling bad ever since. Patient reports that while at the store he experienced some leg swelling. Patient states that after taking a medication he also experienced some reproducible chest pain and shortness of breath. Patient states "it feels like I'm drowning". Patient takes that he does take medication for blood pressure, but he didn't today. Patient denies fever, chills, nausea, vomiting, or a productive cough. TRAVEL OUTSIDE OF THE [place] IN LAST 30 DAYS: No - Related Data Allergies/Adverse Reactions: shellfish derived [Shellfish Derived] Allergy (Unknown, Verified 11/17/18 09:16) michael Allergy (Uncoded 11/17/18 09:16) Home Medications: Losartan, Carvedilol, Gabapentin Past Medical History - General Information source: [facility], [facility] - Social History Smoking Status: Current Every Day Smoker Cigarette use (# per day): Yes Chew tobacco use (# tins/day): No Smoking Education Provided: No Family History: Reviewed & Not Pertinent, Arthritis, CAD, DM, Hyperlipidemia, Hypertension, Malignancy Patient has suicidal ideation: No Patient has homicidal ideation: No - Past Medical History Cardiac Medical History: Reports: Hx Hypercholesterolemia, Hx Hypertension, Hx Heart Murmur Endocrine Medical History: Reports: Hx Diabetes Mellitus Type 2 Renal/ Medical History: Reports: Hx Renal Insufficiency GI Medical History: Reports: Hx Gastroesophageal Reflux Disease, Hx Irritable Bowel - with constipation linzess works but $ may-, Hx Colonoscopy, Hx Endoscopy Psychiatric Medical History: Reports: Hx Depression Past Surgical History: Reports: Hx Appendectomy, Hx Cholecystectomy - Immunizations Hx Diphtheria, Pertussis, Tetanus Vaccination: Yes Review of Systems - Review of Systems Constitutional: See HPI. denies: Chills, Fever EENT: No symptoms reported Cardiovascular: See HPI, Chest pain - reproducible Respiratory: No symptoms reported, Short of breath. denies: Cough Gastrointestinal: See HPI. denies: Nausea, Vomiting Genitourinary: No symptoms reported Male Genitourinary: No symptoms reported Musculoskeletal: See HPI, Leg swelling Skin: No symptoms reported Hematologic/Lymphatic: No symptoms reported Neurological/Psychological: No symptoms reported -: Yes All other systems reviewed and negative Physical Exam - Vital signs Vitals: Temp Pulse Resp BP Pulse Ox 98.2 F 41 L 24 H 179/90 H 93 06/26/19 21:45 06/26/19 21:45 06/26/19 21:45 06/26/19 21:45 06/26/19 21:45 Interpretation: Hypertensive - General General appearance: Alert - HEENT Head: Normocephalic, Atraumatic Eyes: Normal Pupils: PERRL - Respiratory Respiratory status: Respiratory distress - 95% on 2L O2 NC Chest status: Nontender Breath sounds: Wheezing, Other - Diminished breath sounds bilaterally Chest palpation: Normal - Cardiovascular Rhythm: Regular - 83 bpm Heart sounds: Normal auscultation Murmur: No - Abdominal Inspection: Normal Distension: No distension Bowel sounds: Normal Tenderness: Nontender Organomegaly: No organomegaly - Back Back: Normal, Nontender - Extremities General upper extremity: Normal inspection General lower extremity: Normal inspection. No: Edema - No peripheral edema - Neurological Neuro grossly intact: Yes - Psychological Associated symptoms: Normal affect, Normal mood - Skin Skin Temperature: Warm Skin Moisture: Dry Skin Color: Normal Course - Vital Signs Vital signs: Temp Pulse Resp BP Pulse Ox 98.9 F 41 L 16 201/106 H 100 06/27/19 03:15 06/26/19 21:45 06/27/19 05:14 06/27/19 05:14 06/27/19 05:14 - Laboratory Result Diagrams: 06/26/19 22:37 06/26/19 22:37 Laboratory results interpreted by me: 06/26/19 06/26/19 06/26/19 22:37 22:37 22:37 RBC 3.04 L Hgb 9.7 L Hct 29.8 L MCV 98 H D RDW 16.2 H Plt Count 141 L Band Neutrophils % 2 L Chloride 112 H Carbon Dioxide 18 L Glucose 339 H POC Glucose NT-Pro-B Natriuret Pep 81089 H Albumin 3.2 L Urine Protein Urine Glucose (UA) 06/27/19 06/27/19 00:15 04:11 RBC Hgb Hct MCV RDW Plt Count Band Neutrophils % Chloride Carbon Dioxide Glucose POC Glucose 302 H NT-Pro-B Natriuret Pep Albumin Urine Protein >=500 H Urine Glucose (UA) >=500 H - EKG Interpretation by Me Additional EKG results interpreted by me: 06/27/19 00:59 EKG performed on 06/26/2019 at 2136 hrs. was interpreted by this MD. Findings: Sinus rhythm, rate 68, there is some ectopy present and nonspecific ST segments. Impression: Nonspecific EKG - Consults dr. cardenas Time consulted: 00:50 - requested jessica garcia, population health manager, consult on pt Reason for consultation: 06/27/19 00:51 htn, dyspnea, abnormal cxr Critical Care Note - Critical Care Note Total time excluding time spent on procedures (mins): 60 Discharge - Discharge Clinical Impression: Hypertensive urgency Condition: Good Disposition: ADMITTED OBSERVATION Admitting Provider: Ino (Hospitalist) Unit Admitted: IMCU Referrals: GERALD HAMILTON MD [Primary Care Provider] - Follow up as needed I personally performed the services described in the documentation, reviewed and edited the documentation which was dictated to the scribe in my presence, and it accurately records my words and actions.
[2019-06-27 01:00] LABS: APPEARANCE,URINE SLIGHTLY-CLOUDY; BILIRUBIN,URINE NEGATIVE (NEGATIVE); COLOR,URINE YELLOW; GLUCOSE, URINE >=500 mg/dL (NEGATIVE); KETONES,URINE NEGATIVE (NEGATIVE); LEUKOCYTE ESTERASE,URINE NEGATIVE (NEGATIVE); NITRITE,URINE NEGATIVE (NEGATIVE); PROTEIN,URINE >=500 mg/dL (NEGATIVE); URINE SPECIFIC GRAVITY 1.017; UROBILINOGEN,URINE NEGATIVE mg/dL (<2.0)
[2019-06-27] MEDS ORDERED: IPRATROPIUM/ALBUTEROL 0.5-2.5 MG/3 ML AMPUL NEB STA (01:20)
[2019-06-27] MEDS ORDERED: ATORVASTATIN CALCIUM 80 MG TABLET PO STA (01:36)
[2019-06-27] MEDS ORDERED: FUROSEMIDE INJ/PF 20 MG/2 ML SDV IV STA (01:40)
[2019-06-27] MEDS ORDERED: LOSARTAN POTASSIUM 25 MG TABLET PO STA (01:41)
[2019-06-27] MEDS ORDERED: ISOSORBIDE MONONITRATE 60 MG TAB.ER.24H PO STA (01:42)
[2019-06-27] MEDS ORDERED: DEXTROSE 40% GEL 15 GM TUBE PO PRN ×2 (02:42)
[2019-06-27] MEDS ORDERED: DEXTROSE 50%-WATER 25 GM/50 ML DISP.SYRIN IV PRN ×2 (02:42)
[2019-06-27] MEDS ORDERED: GLUCAGON,HUMAN RECOMB 1 MG INJ IM PRN (02:42)
[2019-06-27] MEDS ORDERED: INSULIN REG, HUMAN 100 UNIT/ML 3 ML VIAL (PYX) SUBCUT ONE (03:00)
[2019-06-27 03:40] LABS: URINE AMPHETAMINES SCREEN NEGATIVE; URINE BARBITURATES SCREEN NEGATIVE; URINE BENZODIAZEPINES SCREEN NEGATIVE; URINE COCAINE SCREEN NEGATIVE; URINE MARIJUANA (THC) SCREEN NEGATIVE; URINE METHADONE SCREEN NEGATIVE; URINE PHENCYCLIDINE SCREEN NEGATIVE
[2019-06-27] MEDS ORDERED: HYDRALAZINE HCL INJ/PF 20 MG/1 ML SDV ONE (04:07)
[2019-06-27] MEDS ORDERED: HYDRALAZINE HCL INJ/PF 20 MG/1 ML SDV IV ONE ×2 (04:41→04:45)
[2019-06-27] MEDS ORDERED: NITROGLYCERIN/D5W 50 MG/250 ML RTUINJ IV PRN (05:31)
[2019-06-27] MEDS ORDERED: HYDROCHLOROTHIAZIDE 25 MG TABLET PO STA (05:49)
[2019-06-27] MEDS ORDERED: LISINOPRIL 10 MG TABLET PO STA (05:49)
--- NOTE | 2019-06-27 05:54 | PDOC H&P ---
History of Present Illness Admission Date/PCP: GERALD HAMILTON MD Patient complains of: Hypertensive emergency. Pulmonary edema. Diabetes mellitus type 2. Acute on chronic hypoxic respiratory failure. Acute on chronic diastolic heart failure History of Present Illness: STEVE ALDANA is a 59 year old male who was just discharged from the hospital on June 23. He comes back 3 days later with hypertensive emergency with systolic blood pressures occasionally over 220 and diastolic blood pressures over 110. He did not respond to initial therapy in the emergency department. He had increased work of breathing and required oxygen supplementation. He st ates that he has not taken his medications for the last day or 2 because they made him sick. He thinks the carvedilol gave him palpitations and caused chest pain which does not make sense. If he stopped all of his medicines then abruptly stopping his Celexa could cause many symptoms. He is on 2 different nitrate therapies and stopping these could certainly have caused chest pain. Regardless, it was unclear exactly where the patient would be admitted to. The electrical unit rebuilder provided some orders and early this morning it was decided that we would try nitroglycerin infusion and more of the patient's baseline medications and admit the patient to IMCU. Past Medical History Cardiac Medical History: Reports: Congestive Heart Failure - diastolic dysfunction, preserved EF, Myocardial Infarction - NSTEMI May 2019, Hyperlipidema, Hypertension, Heart Murmur Pulmonary Medical History: Denies: Tuberculosis Neurological Medical History: Denies: Seizures Endocrine Medical History: Reports: Diabetes Mellitus Type 2 Renal/ Medical History: Reports: Other - KARIE May 2019 GI Medical History: Reports: Gastroesophageal Reflux Disease Psychiatric Medical History: Reports: Depression Past Surgical History Past Surgical History: Reports: Appendectomy, Cholecystectomy Denies: Pacemaker Social History Information Source: Patient, [facility] Records Smoking Status: Current Every Day Smoker Frequency of Alcohol Use: None Hx Recreational Drug Use: Yes Drugs: Cocaine, Heroin, Marijuana Hx Prescription Drug Abuse: Yes - Advance Directive Resuscitation Status: Full Code Family History Family History: Arthritis, CAD, DM, Hyperlipidemia, Hypertension, Malignancy Parental Family History Reviewed: No Children Family History Reviewed: No Sibling(s) Family History Reviewed.: No Medication/Allergy Allergies/Adverse Reactions: shellfish derived [Shellfish Derived] Allergy (Unknown, Verified 11/17/18 09:16) michael Allergy (Uncoded 11/17/18 09:16) Review of Systems All systems: reviewed and no additional remarkable complaints except as stated Cardiovascular: PRESENT: dyspnea on exertion, edema, orthropnea Respiratory: PRESENT: dyspnea Physical Exam Vital Signs: Temp Pulse Resp BP Pulse Ox 98.9 F 41 L 16 201/106 H 100 06/27/19 03:15 06/26/19 21:45 06/27/19 05:14 06/27/19 05:14 06/27/19 05:14 Intake & Output 06/25/19 06/26/19 06/27/19 06:59 06:59 06:59 Intake Total 518 Output Total 600 Balance -82 Weight 73.8 kg General appearance: PRESENT: cooperative, mild distress - Mild to moderate distress, well-developed, other - Currently on CPAP Head exam: PRESENT: atraumatic, normocephalic Eye exam: PRESENT: conjunctiva pale, EOMI, PERRLA. ABSENT: scleral icterus Ear exam: PRESENT: normal external ear exam. ABSENT: bleeding, drainage Respiratory exam: PRESENT: prolonged expiratory phas, rales - Bilaterally, symmetrical, tachypnea, other - Increased work of breathing. ABSENT: accessory muscle use, chest wall tenderness, rhonchi, wheezes Cardiovascular exam: PRESENT: RRR, +S1, +S2. ABSENT: gallop GI/Abdominal exam: PRESENT: normal bowel sounds, soft. ABSENT: distended, guarding, mass, rebound, tenderness Rectal exam: PRESENT: deferred Gentrourinary exam: ABSENT: indwelling catheter Extremities exam: PRESENT: +1 edema Musculoskeletal exam: PRESENT: ambulatory, normal inspection. ABSENT: deformity Neurological exam: PRESENT: alert, awake, oriented to person, oriented to place, oriented to time, oriented to situation, CN II-XII grossly intact. ABSENT: motor sensory deficit Psychiatric exam: PRESENT: anxious. ABSENT: agitated, unusual affect Focused psych exam: ABSENT: delusional, restlessness Skin exam: PRESENT: dry, normal color, warm. ABSENT: rash Results Laboratory Results: 06/26/19 22:37 06/26/19 22:37 06/26/19 06/26/19 06/26/19 22:37 22:37 23:36 WBC 7.2 RBC 3.04 L Hgb 9.7 L Hct 29.8 L MCV 98 H D MCH 31.9 MCHC 32.5 RDW 16.2 H Plt Count 141 L Seg Neutrophils % Not Reportable Sodium 139.6 Potassium 4.3 Chloride 112 H Carbon Dioxide 18 L Anion Gap 10 BUN 15 Creatinine 1.20 Est GFR ( Amer) > 60 Glucose 339 H Lactic Acid 1.2 Calcium 8.4 Total Bilirubin 0.5 AST 43 Alkaline Phosphatase 77 Total Protein 6.6 Albumin 3.2 L Urine Color Urine Appearance Urine pH Ur Specific [place] Urine Protein Urine Glucose (UA) Urine Ketones Urine Blood Urine Nitrite Ur Leukocyte Esterase Urine WBC (Auto) Urine RBC (Auto) 06/27/19 00:15 WBC RBC Hgb Hct MCV MCH MCHC RDW Plt Count Seg Neutrophils % Sodium Potassium Chloride Carbon Dioxide Anion Gap BUN Creatinine Est GFR ( Amer) Glucose Lactic Acid Calcium Total Bilirubin AST Alkaline Phosphatase Total Protein Albumin Urine Color YELLOW Urine Appearance SLIGHTLY-CLOUDY Urine pH 6.0 Ur Specific [place] 1.017 Urine Protein >=500 H Urine Glucose (UA) >=500 H Urine Ketones NEGATIVE Urine Blood NEGATIVE Urine Nitrite NEGATIVE Ur Leukocyte Esterase NEGATIVE Urine WBC (Auto) 2 Urine RBC (Auto) 3 06/26/19 06/26/19 22:37 22:37 Creatine Kinase 86 CK-MB (CK-2) 1.20 Troponin I 0.039 NT-Pro-B Natriuret Pep 75647 H Impressions: Chest X-Ray 06/26/19 22:05 IMPRESSION: Interval development of multifocal patchy opacification bilaterally consistent with pneumonia. Borderline cardiomegaly. Assessment and Plan - Diagnosis (1) Hypertensive urgency Is this a current diagnosis for this admission?: Yes Plan: Multiple medications were tried including IV hydralazine, IV enalapril, Imdur, labetalol, IV furosemide and nitroglycerin infusion. Finally the patient's blood pressure began to come down. He will be admitted to the [facility] on low-dose nitroglycerin infusion and I have restarted his baseline medications with the exception of carvedilol. I will use metoprolol. I think it is worth a trial of carvedilol once everything else is stable as this is very good for heart failure. (2) Diastolic CHF, acute on chronic Is this a current diagnosis for this admission?: Yes Plan: The patient has a history of heart failure. Echocardiogram last month revealed grade 2/4 diastolic dysfunction. Continue medications as ordered. Monitor intake and output. He would benefit from establishing with cardiology. The patient did have a markedly elevated brain natruretic peptide (greater than 50,000) but this is consistent with his history. (3) Hypertension with fluid overload Is this a current diagnosis for this admission?: Yes Plan: On initial evaluation there was a concern for bilateral pneumonia and so the patient was given fluid boluses her the sepsis protocol. This created fluid overload with cephalization of vessels on chest x-ray. Combination of medications used including IV furosemide diurese the patient. His breathing is more comfortable although he still requires CPAP. Continue to manage hypertension and monitor intake and output with a goal of euvolemia. (4) Diabetes mellitus with hyperglycemia Qualifiers: Diabetes mellitus type: type 2 Diabetes mellitus alf insulin use: with alf use Qualified Code(s): E11.65 - Type 2 diabetes mellitus with hyperglycemia; Z79.4 - MCC (current) use of insulin Is this a current diagnosis for this admission?: Yes Plan: The patient's glucose was greater than 300 on admission. He was given one-time doses of insulin several times. I have resumed his Lantus and placed him on a sliding scale. We will review his insulin regimen from the last admission and make any changes as appropriate. Also I have split his metformin to 1000 mg in the morning and 1000 mg in the evening. (5) Anemia of chronic disease Is this a current diagnosis for this admission?: Yes Plan: The patient exhibits anemia which is consistent with previous hospitalizations. He might benefit from iron supplementation. We will continue to monitor hemoglobin. (6) Thrombocytopenia Is this a current diagnosis for this admission?: Yes Plan: The patient's platelet count was 146,000. We will continue to monitor. Despite the platelet count being low he is at no increased risk of bleeding at this time. (7) Depression Qualifiers: Depression Type: unspecified Qualified Code(s): F32.9 - Major depressive disorder, single episode, unspecified Is this a current diagnosis for this admission?: Yes Plan: Continue Celexa (8) Noncompliance Is this a current diagnosis for this admission?: Yes Plan: Some education may benefit the patient with regard to not stopping all of his medications. I have placed an order for the transitions of care soccer coach. - Time Time Spent with patient: 35 or more minutes Medications reviewed and adjusted accordingly: Yes Anticipated discharge: Home - Inpatient Certification Based on my medical assessment, after consideration of the patient's comorbidities, presenting symptoms, or acuity I expect that the services needed warrant INPATIENT care.: Yes I certify that my determination is in accordance with my understanding of Medicare's requirements for reasonable and necessary INPATIENT services [42 CFR 412.3e].: Yes Medical Necessity: Failure to Improve With Outpatient Therapy, Significant Comorbidiites Make Outpatient Treatment Too Risky, Risk of Complication if Not Cared For in Hospital Post Hospital Care: D/C Body Art Technician Documentation
[2019-06-27] MEDS ORDERED: ACETAMINOPHEN 325 MG TABLET PO PRN (06:28)
[2019-06-27] MEDS ORDERED: LEVALBUTEROL HCL NEB 1.25 MG/3 ML AMPUL NEB PRN (06:28)
--- NOTE | 2019-06-27 08:53 | PDOC CONSULTATION ---
Consultation Consult Date: 06/27/19 - Consulted at 00:44 am Provider Consulted: MARIN WARE Consult reason:: ICU evaluation for hypertensive urgency History of Present Illness Admission Date/PCP: GERALD HAMILTON MD Patient complains of: shortness of breath History of Present Illness: STEVE ALDANA is a 59 year old male with HTN, DM II, HLD, and recent Hypertensive Emergency with KARIE & NSTEMI who was recently discharged on 06/23/2019, now returns to [facility] today complaining of shortness of breath x3 days. Patient reports he filled his prescriptions upon discharge, took them for one day, then began experiencing the SOB so stopped taking them. He also reports the Carvedilol gives him chest pain and shortness of breath. Patient currently denies chest pain, reports "feels like I'm drowning," denies being around anyone sick with a respiratory infection, non-productive cough. Focused physical exam: A&Ox4, follows all commands, somewhat decent historian, mild distress from SOB Bilateral fine crackles with faint wheeze throughout, witnessed non-productive cough + JVD, s1s2 no M/R/G, peripheral pulses 2+ bilateral radial/DP/PT Abdomen soft, non-distended, non-tender, hypoactive CXR with pulmonary edema versus infiltrate, though I favor edema, especially knowing RLL increased density could be consistent with compression atelectasis from POCUS findings. POCUS performed by myself in ED demonstrates bilateral pleural effusions R>L with a small amount of RLL compression atelectasis, though effusions are not significant enough to consider thoracentesis at this time. Also noted are bilateral B lines, dilated atria, as well as an IVC that does not have any significant respirophasic diameter changes at this time. Home medications removed from patient bag which he confirmed he's supposed to be taking: Imdur 60 mg PO daily (recently prescribed 06/23/2019) Coreg 12.5 mg PO BID (pt reports causes CP/SOB) (recently prescribed 06/23/2019) Losartan 25 mg PO daily (recently prescribed 06/23/2019) Furosemide 20 mg PO daily (recently prescribed 06/23/2019) Clopidogrel 75 mg PO daily (recently prescribed 06/23/2019) Atorvastatin 80 mg PO daily (recently prescribed 06/23/2019) Lisinopril/HCTZ 20/25 mg PO daily Gabapentin 600 mg PO daily Ibuprofen prn Past Medical History Cardiac Medical History: Reports: Congestive Heart Failure - diastolic dysfunction, preserved EF, Myocardial Infarction - NSTEMI May 2019, Hyperlipidema, Hypertension, Heart Murmur Pulmonary Medical History: Denies: Tuberculosis Neurological Medical History: Denies: Seizures Endocrine Medical History: Reports: Diabetes Mellitus Type 2 Renal/ Medical History: Reports: Other - KARIE May 2019 GI Medical History: Reports: Gastroesophageal Reflux Disease Psychiatric Medical History: Reports: Depression Past Surgical History Past Surgical History: Reports: Appendectomy, Cholecystectomy Denies: Pacemaker Social History Smoking Status: Current Every Day Smoker Frequency of Alcohol Use: None Hx Recreational Drug Use: Yes Drugs: Cocaine, Heroin, Marijuana Hx Prescription Drug Abuse: Yes Family History Family History: Reviewed & Not Pertinent, Arthritis, CAD, DM, Hyperlipidemia, Hypertension, Malignancy Parental Family History Reviewed: Yes Children Family History Reviewed: Unknown Sibling(s) Family History Reviewed.: Unknown Medication/Allergy Allergies/Adverse Reactions: shellfish derived [Shellfish Derived] Allergy (Unknown, Verified 11/17/18 09:16) michael Allergy (Uncoded 11/17/18 09:16) Review of Systems Constitutional: PRESENT: as per HPI Physical Exam Vital Signs: Temp Pulse Resp BP Pulse Ox 99.1 F 41 L 24 H 219/83 H 93 06/27/19 00:36 06/26/19 21:45 06/27/19 01:02 06/27/19 01:02 06/27/19 01:02 Intake & Output 06/25/19 06/26/19 06/27/19 06:59 06:59 06:59 Intake Total 368 Balance 368 Weight 73.8 kg Physical Exam: see focused physical exam above Results Laboratory Results: 06/26/19 22:37 06/26/19 22:37 06/26/19 06/26/19 06/26/19 22:37 22:37 23:36 WBC 7.2 RBC 3.04 L Hgb 9.7 L Hct 29.8 L MCV 98 H D MCH 31.9 MCHC 32.5 RDW 16.2 H Plt Count 141 L Seg Neutrophils % Not Reportable Sodium 139.6 Potassium 4.3 Chloride 112 H Carbon Dioxide 18 L Anion Gap 10 BUN 15 Creatinine 1.20 Est GFR ( Amer) > 60 Glucose 339 H Lactic Acid 1.2 Calcium 8.4 Total Bilirubin 0.5 AST 43 Alkaline Phosphatase 77 Total Protein 6.6 Albumin 3.2 L Urine Color Urine Appearance Urine pH Ur Specific [place] Urine Protein Urine Glucose (UA) Urine Ketones Urine Blood Urine Nitrite Ur Leukocyte Esterase Urine WBC (Auto) Urine RBC (Auto) 06/27/19 00:15 WBC RBC Hgb Hct MCV MCH MCHC RDW Plt Count Seg Neutrophils % Sodium Potassium Chloride Carbon Dioxide Anion Gap BUN Creatinine Est GFR ( Amer) Glucose Lactic Acid Calcium Total Bilirubin AST Alkaline Phosphatase Total Protein Albumin Urine Color YELLOW Urine Appearance SLIGHTLY-CLOUDY Urine pH 6.0 Ur Specific [place] 1.017 Urine Protein >=500 H Urine Glucose (UA) >=500 H Urine Ketones NEGATIVE Urine Blood NEGATIVE Urine Nitrite NEGATIVE Ur Leukocyte Esterase NEGATIVE Urine WBC (Auto) 2 Urine RBC (Auto) 3 06/26/19 06/26/19 22:37 22:37 Creatine Kinase 86 CK-MB (CK-2) 1.20 Troponin I 0.039 NT-Pro-B Natriuret Pep 53734 H Impressions: Chest X-Ray 06/26/19 22:05 IMPRESSION: Interval development of multifocal patchy opacification bilaterally consistent with pneumonia. Borderline cardiomegaly. Assessment & Plan - Diagnosis (1) Hypertensive urgency Is this a current diagnosis for this admission?: Yes Plan: Furosemide 40 mg IV now. Resume home Imdur, Losartan now. Eventually resume Lisinopril/HCTZ after see effects of Lasix combined with other 2 meds above. If above meds fail, may need NTG infusion. (2) Diastolic CHF, acute on chronic Is this a current diagnosis for this admission?: Yes Plan: Echo 06/15/2019 with mild to moderate diastolic dysfunction, preserved EF Ideally patient resumes Imdur, Lasix, and Carvedilol (if will tolerate) to assist with diastolic dysfunction. 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 Administer 8 units SQ regular insulin x1 now. Start ISS AC/HS as anticipate pt will be on diet later this morning. (5) Anemia of chronic disease Is this a current diagnosis for this admission?: Yes Plan: Blood draws only as necessary to guide care. No concern for oxygen carrying capacity or bleeding at this time. - Time Time Spent with patient: 30 minutes Total Critical Time (Minutes): 50 - Total critical care time spent evaluating patient, performing POCUS, reviewing medical record, discussing case with ER physician/RN/patient. Medications reviewed and adjusted accordingly: Yes Disposition: Anticipated disposition: I feel the patient will respond favorably to the above therapies and be able to be admitted to the IMCU or floor after the medications are metabolized. - Plan Summary Plan Summary: Plan: Hold sepsis IV fluid bolus as pt does not appear toxic with normal wbc, lactate, afebrile. Symptoms more consistent with fluid overload. Administer 40 mg Furosemide now Administer recently prescribed Imdur 60 mg PO x1 Administer recently prescribed Losartan 25 mg PO x1 Support with BIPAP until status improves. Ordered to start at 40% IPAP 10/ EPAP 6 Duo-neb x1 now With his Hx of substance abuse, will check urine toxicology as well to determine if contributing to HTN as I would want to potentially avoid beta blockade. Recommend glucose control; will start home Lantus and add correctional ISS to assist Dr Sage. I will follow up approximately 90 minutes after medications have been administered to re-evaluate how patient is doing.
[2019-06-27] MEDS: INSULIN REG, HUMAN 100 UNIT/ML 3 ML VIAL (PYX) SUBCUT SCH ×4 (09:21→21:40)
[2019-06-27 09:41] LABS: ABSOLUTE BASOPHILS # (AUTO) 0.1 10^3/uL (0.0-0.2); ABSOLUTE EOSINOPHILS # (AUTO) 0.1 10^3/uL (0.0-0.6); ABSOLUTE LYMPHOCYTES (AUTO) 3.1 10^3/uL (0.5-4.7); ABSOLUTE MONOCYTES (AUTO) 1.1 10^3/uL (0.1-1.4); BASOPHILS % (AUTO) 0.9 % (0-2); EOSINOPHILS % (AUTO) 1.3 % (0-6); HEMATOCRIT 28.2 % (37.9-51.0); HEMOGLOBIN 9.3 g/dL (13.5-17.0); MEAN CORPUSCULAR HEMOGLOBIN 32.4 pg (27.0-33.4); MEAN CORPUSCULAR HGB CONC 33.1 g/dL (32.0-36.0); MEAN CORPUSCULAR VOLUME 98 fl (80-97); MONOCYTES % (AUTO) 11.4 % (3-13); PLATELET COUNT 155 10^3/uL (150-450); RED BLOOD COUNT 2.89 10^6/uL (4.35-5.55); RED CELL DISTRIBUTION WIDTH 16.1 % (11.5-14.0); SEGMENTED NEUTROPHILS % (AUTO) 53.4 % (42-78); TOTAL CELLS COUNTED % (AUTO) 100 %; WHITE BLOOD COUNT 9.4 10^3/uL (4.0-10.5)
[2019-06-27 09:43] LABS: ANION GAP 8 (5-19); BLOOD UREA NITROGEN 14 mg/dL (7-20); CALCIUM 8.3 mg/dL (8.4-10.2); CARBON DIOXIDE 18 mmol/L (22-30); CHLORIDE 113 mmol/L (98-107); GLUCOSE 181 mg/dL (75-110); POTASSIUM 3.8 mmol/L (3.6-5.0)
--- NOTE | 2019-06-27 10:26 | Progress Note ---
Provider Note Provider Note: Patient came in with extreme hypertension blood pressures 220/100. Now on nitro drip 186/84. Patient was hard to control when he was previously here in the hospital but once his medications were on a more dosing his blood pressures came down to approximately 150/80. Same thing with his glucose levels when he came in his hemoglobin A1c was 8.8 when he left his serum glucose levels were anywhere in the 90s to 1 low 100s. I feel that this is primarily a patient noncompliance issue and will try to regulate his medications again. Chest x-ray has been ordered for the morning. Labs in the morning as well
[2019-06-27] MEDS ORDERED: INSULIN GLARGINE,HUM.REC.ANLOG 1,000 UNIT/10 ML VIAL (PYX) SUBCUT ONE (11:30)
[2019-06-27] MEDS: ENOXAPARIN SODIUM INJ 40 MG/0.4 ML DISP.SYRIN SUBCUT SCH (11:36)
[2019-06-27] MEDS: LOSARTAN POTASSIUM 50 MG TABLET PO SCH ×2 (11:36→21:39)
[2019-06-27] MEDS: CLOPIDOGREL BISULFATE 75 MG TABLET PO SCH (11:36)
[2019-06-27] MEDS: FUROSEMIDE INJ/PF 20 MG/2 ML SDV IV SCH ×2 (11:36→21:40)
[2019-06-27] MEDS: INSULIN GLARGINE,HUM.REC.ANLOG 1,000 UNIT/10 ML VIAL SUBCUT SCH (11:37)
[2019-06-27] MEDS: METFORMIN HCL 500 MG TABLET PO SCH ×2 (12:48→16:38)
[2019-06-27] MEDS: CITALOPRAM HYDROBROMIDE 20 MG TABLET PO SCH (12:49)
[2019-06-27] MEDS: METOPROLOL SUCCINATE 25 MG TAB.SR.24H PO SCH ×2 (12:51→21:41)
[2019-06-27] MEDS ORDERED: ISOSORBIDE MONONITRATE 60 MG TAB.ER.24H PO SCH (13:00)
[2019-06-27] MEDS: ISOSORB DINIT/HYDRALAZINE HCL 20-37.5 MG TABLET PO SCH ×2 (13:28→17:11)
[2019-06-27] MEDS: GABAPENTIN 300 MG CAPSULE PO SCH ×2 (14:09→21:40)
[2019-06-27] MEDS: FERROUS SULFATE 325 MG TABLET PO SCH (17:11)
--- NOTE | 2019-06-27 20:32 | EKG REPORT ---
SEVERITY:- ABNORMAL ECG - SINUS RHYTHM VENTRICULAR BIGEMINY PROBABLE LEFT ATRIAL ABNORMALITY ABNORMAL T, CONSIDER ISCHEMIA, ANT-LAT LEADS : Confirmed by: Samantha Laird MD 27-Jun-2019 20:31:04
[2019-06-27] MEDS: NITROGLYCERIN/D5W 50 MG/250 ML RTUINJ IV PRN (20:59)
[2019-06-27] MEDS: ASPIRIN 81 MG TABLET, ENT COATED PO SCH (21:39)
[2019-06-27] MEDS: ATORVASTATIN CALCIUM 80 MG TABLET PO SCH (21:40)
[2019-06-28] MEDS: GABAPENTIN 300 MG CAPSULE PO SCH ×3 (06:06→22:09)
[2019-06-28 08:29] LABS: ABSOLUTE RETICS # 0.197 10^6/uL (0.028-0.122)
[2019-06-28] MEDS: INSULIN REG, HUMAN 100 UNIT/ML 3 ML VIAL (PYX) SUBCUT SCH ×4 (08:35→22:15)
--- NOTE | 2019-06-28 08:41 | RADIOLOGY REPORT (SQ) ---
EXAM DESCRIPTION: CHEST SINGLE VIEW COMPLETED DATE/TIME: 06/28/2019 6:31 am REASON FOR STUDY: CHF COMPARISON: AP view of the chest from 06/26/2019. EXAM PARAMETERS: NUMBER OF VIEWS: One view. TECHNIQUE: An AP view of the chest was obtained. RADIATION DOSE: NA LIMITATIONS: None. FINDINGS: LUNGS AND PLEURA: The multifocal opacities described on the radiograph from 06/26/2019 have improved with residual opacities present in the a medial inferior right hemithorax there is no pneumo thorax or sizable pleural effusion. MEDIASTINUM AND HILAR STRUCTURES: Stable mediastinal and hilar contours. HEART AND VASCULAR STRUCTURES: Stable cardiac silhouette. BONES: No acute findings. HARDWARE: None in the chest. OTHER: No other finding. IMPRESSION: Improved bilateral multifocal opacities. TECHNICAL DOCUMENTATION: JOB ID: [id number] 2010 [employer]- All Rights Reserved Reading location - IP/workstation name: [email or web address]
[2019-06-28 08:49] LABS: IRON(TIBC) 33.6 ug/dL (49-181)
[2019-06-28] MEDS: CLONIDINE HCL 0.1 MG TABLET PO SCH ×3 (09:03→22:08)
[2019-06-28] MEDS: METFORMIN HCL 500 MG TABLET PO SCH ×2 (09:03→17:12)
[2019-06-28] MEDS: INSULIN GLARGINE,HUM.REC.ANLOG 1,000 UNIT/10 ML VIAL SUBCUT SCH (09:04)
[2019-06-28] MEDS: FERROUS SULFATE 325 MG TABLET PO SCH ×2 (09:05→17:12)
[2019-06-28] MEDS: LOSARTAN POTASSIUM 50 MG TABLET PO SCH ×2 (09:06→22:09)
[2019-06-28] MEDS: CLOPIDOGREL BISULFATE 75 MG TABLET PO SCH (09:06)
[2019-06-28] MEDS: METOPROLOL SUCCINATE 25 MG TAB.SR.24H PO SCH ×2 (09:06→22:09)
[2019-06-28] MEDS: ISOSORB DINIT/HYDRALAZINE HCL 20-37.5 MG TABLET PO SCH ×3 (09:06→17:12)
[2019-06-28] MEDS: CITALOPRAM HYDROBROMIDE 20 MG TABLET PO SCH (09:06)
[2019-06-28] MEDS: ENOXAPARIN SODIUM INJ 40 MG/0.4 ML DISP.SYRIN SUBCUT SCH (09:06)
[2019-06-28] MEDS: FUROSEMIDE INJ/PF 20 MG/2 ML SDV IV SCH ×2 (09:06→22:09)
[2019-06-28] MEDS: ISOSORBIDE MONONITRATE 60 MG TAB.ER.24H PO SCH (09:07)
[2019-06-28] MEDS: NITROGLYCERIN/D5W 50 MG/250 ML RTUINJ IV PRN (09:12)
--- NOTE | 2019-06-28 11:24 | PDOC PROGRESS REPORT ---
Subjective Progress Note for:: 06/28/19 Reason For Visit: HYPERTENSIVE URGENCY 06/28/2019 She was admitted through the emergency room her just recently being discharged. Patient's primary diagnosis on this admission was hypertension, with resulting shortness of breath Physical Exam Vital Signs: Temp Pulse Resp BP Pulse Ox 97.7 F 81 16 173/55 H 97 06/28/19 07:43 06/28/19 07:45 06/28/19 07:43 06/28/19 10:00 06/28/19 07:44 Intake & Output 06/27/19 06/28/19 06/29/19 06:59 06:59 06:59 Intake Total 524 1324 220 Output Total 600 925 Balance -76 399 220 Weight 73.8 kg 72 kg General appearance: PRESENT: no acute distress - Patient is lying in bed in no distress speaking in full sentences Respiratory exam: PRESENT: rales - Slight rales in the right lung base Cardiovascular exam: PRESENT: RRR. ABSENT: diastolic murmur, rubs, systolic murmur Neurological exam: PRESENT: alert, awake, oriented to person, oriented to place, oriented to time, oriented to situation, CN II-XII grossly intact. ABSENT: motor sensory deficit Psychiatric exam: PRESENT: appropriate affect, normal mood. ABSENT: homicidal ideation, suicidal ideation Results Laboratory Results: 06/27/19 09:02 06/27/19 09:02 06/28/19 06/28/19 08:00 08:00 Retic Count (auto) 7.60 H Iron 33.6 L TIBC 312 % Saturation 11 Ferritin 62.60 Vitamin B12 > 1000.0 H Folate 14.50 06/26/19 06/26/19 06/27/19 22:37 22:37 09:02 Creatine Kinase 86 CK-MB (CK-2) 1.20 Troponin I 0.039 NT-Pro-B Natriuret Pep 81454 H 38786 H Impressions: Chest X-Ray 06/28/19 06:00 IMPRESSION: Improved bilateral multifocal opacities. Assessment and Plan - Diagnosis (1) Diastolic CHF, acute on chronic Is this a current diagnosis for this admission?: Yes (2) Hypertension with fluid overload Is this a current diagnosis for this admission?: Yes (3) Hypertensive urgency Is this a current diagnosis for this admission?: Yes (4) Noncompliance Is this a current diagnosis for this admission?: Yes (5) Pneumonia Is this a current diagnosis for this admission?: Yes - Plan Summary Summary: 06/28/2019 Patient was admitted through the emergency room for uncontrolled hypertension. Patient was just last in the hospital recently and at the time of discharge we did get his blood pressure down to about 150 over 80, however even then his pressure occasionally went back up to 175/90. Consistently though it was running in the 150s over 70. I think there is an element of patient noncompliance here as far as medications. Also he even told me the last time he was here that he had a lot of sweets such as cake and carbs such as rice that was making his diabetes difficult to control. Any rate on the nitro drip his systolic stays around 170 with diastolic around 70. I have reintroduced most of his blood pressure medicines by mouth to his regimen. Concerning the question of CHF versus pneumonia, patient was supposed to be taking Lasix 20 mg daily at home. Currently here in the hospital he is on Lasix 20 mg IV every 12 hours. Patient is on no antibiotics. Patient's BNP on admission was 50,500 yesterday was 59 500. Patient does not clinically have any evidence of being in florid pulmonary edema. I think patient probably does have an element of CHF, but I am not convinced he has active pneumonia. I am repeating his labs today. If patient's blood pressure comes down we can start weaning him off of the nitro. I am going to order a CT scan of the chest without contrast for better evaluation. Patient is stable and does not seem to be in any distress - Time Time Spent with patient: 25-34 minutes
[2019-06-28 11:53] LABS: ABSOLUTE EOSINOPHILS # (AUTO) 0.1 10^3/uL (0.0-0.6); ABSOLUTE LYMPHOCYTES (AUTO) 3.4 10^3/uL (0.5-4.7); ABSOLUTE MONOCYTES (AUTO) 0.6 10^3/uL (0.1-1.4); ABSOLUTE NEUT (AUTO) 3.1 10^3/uL (1.7-8.2); BASOPHILS % (AUTO) 0.7 % (0-2); EOSINOPHILS % (AUTO) 1.7 % (0-6); HEMATOCRIT 24.9 % (37.9-51.0); HEMOGLOBIN 8.3 g/dL (13.5-17.0); LYMPHOCYTES % (AUTO) 46.6 % (13-45); MEAN CORPUSCULAR HEMOGLOBIN 32.4 pg (27.0-33.4); MEAN CORPUSCULAR HGB CONC 33.4 g/dL (32.0-36.0); MEAN CORPUSCULAR VOLUME 97 fl (80-97); MONOCYTES % (AUTO) 8.7 % (3-13); PLATELET COUNT 139 10^3/uL (150-450); RED BLOOD COUNT 2.57 10^6/uL (4.35-5.55); RED CELL DISTRIBUTION WIDTH 16.3 % (11.5-14.0); SEGMENTED NEUTROPHILS % (AUTO) 42.3 % (42-78); TOTAL CELLS COUNTED % (AUTO) 100 %; WHITE BLOOD COUNT 7.2 10^3/uL (4.0-10.5)
[2019-06-28 11:55] LABS: BLOOD UREA NITROGEN 15 mg/dL (7-20); CALCIUM 8.2 mg/dL (8.4-10.2); GLUCOSE 149 mg/dL (75-110); POTASSIUM 3.8 mmol/L (3.6-5.0)
[2019-06-28 12:00] LABS: ANION GAP 6 (5-19); CARBON DIOXIDE 21 mmol/L (22-30); CHLORIDE 113 mmol/L (98-107)
--- NOTE | 2019-06-28 14:10 | RADIOLOGY REPORT (SQ) ---
EXAM DESCRIPTION: CT CHEST WITHOUT COMPLETED DATE/TIME: 06/28/2019 1:54 pm REASON FOR STUDY: Pneumonia versus CHF COMPARISON: Chest films 06/28/2019, 06/26/2019, 06/20/2019, 06/15/2019, 04/24/2015 TECHNIQUE: CT scan performed of the chest without intravenous contrast. Images reviewed with lung, soft tissue and bone windows. Reconstructed coronal and sagittal MPR images reviewed. All images st ored on PACS. All CT scanners at this facility use dose modulation, iterative reconstruction, and/or weight based d osing when appropriate to reduce radiation dose to as low as reasonably achievable (ALARA). [facility]: Dose Right [facility]: CareDose [facility]: Dose Right [facility]: Teradose 4D [facility]: [employer] RADIATION DOSE: CT Rad equipment meets quality standard of care and radiation dose reduction techniq ues were employed. CTDIvol: 7.5 mGy. DLP: 285 mGy-cm. mGy. LIMITATIONS: No technical limitations. FINDINGS: LUNGS AND PLEURA: Small right, trace left pleural effusion layers dependently in the chest . There is dependent consolidation in the posterior right lower lobe and posterior left lower lobe like ly atelectasis. Pneumonia could not entirely be excluded. In the lateral segment right middle lobe, bandlike bronchiectasis and volume loss is present on axial image 62 and 63, chronic in appearance In the right upper lobe, a 1 cm sub solid nodule is present on axial image 40 and coronal image 55. This has spiculated margins and irregular shape, this could be neoplastic or inflammatory. Multiple calcific pleural plaques are present bilaterally. HILAR AND MEDIASTINAL STRUCTURES: No identified masses or abnormal nodes. No obvious aneurysm. HEART AND VASCULAR STRUCTURES: Trace pericardial effusion. Heavily calcified left coronary. UPPER ABDOMEN: No significant findings. Limited exam. THYROID AND OTHER SOFT TISSUES: No masses. No adenopathy. BONES: No significant finding. HARDWARE: None in the chest. OTHER: No other significant findings. IMPRESSION: Small right, trace left pleural effusions Bibasilar consolidation atelectasis versus pneumonia 1 cm sub solid nodule right upper lobe, nonspecific. TECHNICAL DOCUMENTATION: JOB ID: [id number] Quality ID # [id number]: Final reports with documentation of one or more dose reduction techniques (e.g., Au tomated exposure control, adjustment of the mA and/or kV according to patient size, use of iterative reconstruction technique) 2010 [employer]- All Rights Reserved Reading location - IP/workstation name: [email or web address]
[2019-06-28] MEDS: ATORVASTATIN CALCIUM 80 MG TABLET PO SCH (22:08)
[2019-06-28] MEDS: ASPIRIN 81 MG TABLET, ENT COATED PO SCH (22:09)
[2019-06-29] MEDS: NITROGLYCERIN/D5W 50 MG/250 ML RTUINJ IV PRN ×2 (00:53→16:58)
[2019-06-29] MEDS: CLONIDINE HCL 0.1 MG TABLET PO SCH (05:06)
[2019-06-29] MEDS: GABAPENTIN 300 MG CAPSULE PO SCH ×3 (05:06→21:57)
[2019-06-29] MEDS ORDERED: CLONIDINE HCL 0.1 MG TABLET PO ONE (06:25)
[2019-06-29] MEDS ORDERED: METOPROLOL TARTRATE 50 MG TABLET PO ONE (06:27)
[2019-06-29] MEDS: INSULIN REG, HUMAN 100 UNIT/ML 3 ML VIAL (PYX) SUBCUT SCH ×4 (08:02→22:00)
[2019-06-29] MEDS: FERROUS SULFATE 325 MG TABLET PO SCH ×2 (08:30→17:14)
[2019-06-29] MEDS: METFORMIN HCL 500 MG TABLET PO SCH ×2 (08:30→15:32)
[2019-06-29] MEDS: FUROSEMIDE INJ/PF 20 MG/2 ML SDV IV SCH ×2 (09:17→21:57)
[2019-06-29] MEDS: CLOPIDOGREL BISULFATE 75 MG TABLET PO SCH (09:18)
[2019-06-29] MEDS: LOSARTAN POTASSIUM 50 MG TABLET PO SCH ×2 (09:18→21:57)
[2019-06-29] MEDS: ENOXAPARIN SODIUM INJ 40 MG/0.4 ML DISP.SYRIN SUBCUT SCH (09:18)
[2019-06-29] MEDS: ISOSORBIDE MONONITRATE 60 MG TAB.ER.24H PO SCH (09:18)
[2019-06-29] MEDS: ISOSORB DINIT/HYDRALAZINE HCL 20-37.5 MG TABLET PO SCH ×3 (09:18→17:14)
[2019-06-29] MEDS: CITALOPRAM HYDROBROMIDE 20 MG TABLET PO SCH (09:18)
[2019-06-29 09:28] LABS: ANION GAP 5 (5-19); BLOOD UREA NITROGEN 16 mg/dL (7-20); CALCIUM 8.5 mg/dL (8.4-10.2); CARBON DIOXIDE 23 mmol/L (22-30); CHLORIDE 112 mmol/L (98-107); GLUCOSE 73 mg/dL (75-110); POTASSIUM 3.7 mmol/L (3.6-5.0)
[2019-06-29] MEDS: INSULIN GLARGINE,HUM.REC.ANLOG 1,000 UNIT/10 ML VIAL SUBCUT SCH (10:49)
[2019-06-29] MEDS: AMLODIPINE BESYLATE 5 MG TABLET PO SCH (10:51)
[2019-06-29] MEDS: CLONIDINE HCL 0.2 MG TABLET PO SCH ×2 (14:06→21:58)
--- NOTE | 2019-06-29 14:17 | PDOC PROGRESS REPORT ---
Subjective Progress Note for:: 06/29/19 Subjective:: This is a 59-year-old male who presented increasing shortness of breath and was found to have severely elevated blood pressures. On review, patient appears to have had pulmonary edema likely related to severe hypertension. He was at one point requiring BiPAP for his hypoxia. Appears he was promptly switched to nasal cannula. He was given multiple IV antihyperten sives but eventually required initiation of nitroglycerin drip. No acute event overnight. Upon encounter this morning, he appears comfortable nasal cannula. He says that his shortness of breath has continued to improve. Denies chest pain. Currently on nitro drip at 10. Will continue to wean off on nitro drip. Continue home oral antihypertensives . Will also add amlodipine to his current regimen. Reason For Visit: HYPERTENSIVE URGENCY Physical Exam Vital Signs: Temp Pulse Resp BP Pulse Ox 98.2 F 66 20 115/71 98 06/29/19 12:00 06/29/19 13:00 06/29/19 12:00 06/29/19 13:22 06/29/19 12:00 Intake & Output 06/28/19 06/29/19 06/30/19 06:59 06:59 06:59 Intake Total 1324 434 Output Total 925 450 Balance 399 -16 Weight 158 lb 11.725 oz 158 lb 8.198 oz General appearance: PRESENT: no acute distress, well-developed, well-nourished Head exam: PRESENT: atraumatic, normocephalic Eye exam: PRESENT: conjunctiva pink, EOMI, PERRLA. ABSENT: scleral icterus Ear exam: PRESENT: normal external ear exam Mouth exam: PRESENT: moist, tongue midline Neck exam: ABSENT: carotid bruit, JVD, lymphadenopathy, thyromegaly Respiratory exam: PRESENT: clear to auscultation jodi. ABSENT: rales, rhonchi, wheezes Cardiovascular exam: PRESENT: RRR. ABSENT: diastolic murmur, rubs, systolic murmur Pulses: PRESENT: normal dorsalis pedis pul GI/Abdominal exam: PRESENT: normal bowel sounds, soft. ABSENT: distended, guar ding, mass, organolmegaly, rebound, tenderness Rectal exam: PRESENT: deferred Extremities exam: PRESENT: full ROM. ABSENT: calf tenderness, clubbing Neurological exam: PRESENT: alert, awake, oriented to person, oriented to place, oriented to time, oriented to situation, CN II-XII grossly intact. ABSENT: motor sensory deficit Results Laboratory Results: 06/28/19 08:00 06/29/19 08:53 06/29/19 08:53 Sodium 139.5 Potassium 3.7 Chloride 112 H Carbon Dioxide 23 Anion Gap 5 BUN 16 Creatinine 1.32 H Est GFR ( Amer) > 60 Glucose 73 L Calcium 8.5 06/26/19 06/26/19 06/27/19 22:37 22:37 09:02 Creatine Kinase 86 CK-MB (CK-2) 1.20 Troponin I 0.039 NT-Pro-B Natriuret Pep 25469 H 40923 H 06/28/19 08:00 Creatine Kinase CK-MB (CK-2) Troponin I NT-Pro-B Natriuret Pep 72485 H Impressions: Chest CT 06/28/19 00:00 IMPRESSION: Small right, trace left pleural effusions Bibasilar consolidation atelectasis versus pneumonia 1 cm sub solid nodule right upper lobe, nonspecific. Chest X-Ray 06/28/19 06:00 IMPRESSION: Improved bilateral multifocal opacities. Assessment and Plan - Diagnosis (1) Hypertensive emergency Is this a current diagnosis for this admission?: Yes Plan: On review, patient appears to have had pulmonary edema likely related to severe hypertension. He was at one point requiring BiPAP for his hypoxia. Currently on nitro drip at 10. Will continue to wean off on nitro drip. Continue home oral antihypertensives . Will also add amlodipine to his current regimen. (2) Acute respiratory failure with hypoxia Is this a current diagnosis for this admission?: Yes Plan: He was at one point requiring BiPAP for his hypoxia. Appears he was promptly switched to nasal cannula. Secondary to pulmonary edema. Question of some component of pneumonia with right lobe consolidation. WBC has been normal . He only reports of minimally productive cough. (3) Pulmonary nodule, right Is this a current diagnosis for this admission?: Yes Plan: CT findings noted. He does have a history of heavy smoking. Will set-up with pulmonology outpatient to pursue possible lung CA work-up. - Plan Summary Summary: 06/28/2019 Patient was admitted through the emergency room for uncontrolled hypertension. Patient was just last in the hospital recently and at the time of discharge we did get his blood pressure down to about 150 over 80, however even then his pressure occasionally went back up to 175/90. Consistently though it was running in the 150s over 70. I think there is an element of patient noncompliance here as far as medications. Also he even told me the last time he was here that he had a lot of sweets such as cake and carbs such as rice that was making his diabetes difficult to control. Any rate on the nitro drip his systolic stays around 170 with diastolic around 70. I have reintroduced most of his blood pressure medicines by mouth to his regimen. Concerning the question of CHF versus pneumonia, patient was supposed to be taking Lasix 20 mg daily at home. Currently here in the hospital he is on Lasix 20 mg IV every 12 hours. Patient is on no antibiotics. Patient's BNP on admission was 50,500 yesterday was 59 500. Patient does not clinically have any evidence of being in florid pulmonary edema. I think patient probably does have an element of CHF, but I am not convinced he has active pneumonia. I am repeating his labs today. If patient's blood pressure comes down we can start weaning him off of the nitro. I am going to order a CT scan of the chest without contrast for better evaluation. Patient is stable and does not seem to be in any distress Addendum CT scan shows probable atelectasis. She has no clinical indication that this is pneumonia. - Time Time Spent with patient: 25-34 minutes
[2019-06-29] MEDS: CEFTRIAXONE 1 GM/D5W RTU 1 GM/50 ML RTUPB IV SCH (15:33)
[2019-06-29] MEDS: ASPIRIN 81 MG TABLET, ENT COATED PO SCH (21:58)
[2019-06-29] MEDS: ATORVASTATIN CALCIUM 80 MG TABLET PO SCH (21:58)
[2019-06-29] MEDS: METOPROLOL SUCCINATE 50 MG TAB.SR.24H PO SCH (21:58)
[2019-06-30] MEDS: CLONIDINE HCL 0.2 MG TABLET PO SCH (05:03)
[2019-06-30] MEDS: GABAPENTIN 300 MG CAPSULE PO SCH (05:04)
[2019-06-30] MEDS: INSULIN REG, HUMAN 100 UNIT/ML 3 ML VIAL (PYX) SUBCUT SCH (08:51)
[2019-06-30] MEDS: METFORMIN HCL 500 MG TABLET PO SCH (08:53)
[2019-06-30] MEDS: FERROUS SULFATE 325 MG TABLET PO SCH (08:53)
[2019-06-30] MEDS: ISOSORBIDE MONONITRATE 60 MG TAB.ER.24H PO SCH (09:27)
[2019-06-30] MEDS: AMLODIPINE BESYLATE 5 MG TABLET PO SCH (09:27)
[2019-06-30] MEDS: FUROSEMIDE INJ/PF 20 MG/2 ML SDV IV SCH (09:27)
[2019-06-30] MEDS: CITALOPRAM HYDROBROMIDE 20 MG TABLET PO SCH (09:28)
[2019-06-30] MEDS: INSULIN GLARGINE,HUM.REC.ANLOG 1,000 UNIT/10 ML VIAL SUBCUT SCH (09:28)
[2019-06-30] MEDS: ISOSORB DINIT/HYDRALAZINE HCL 20-37.5 MG TABLET PO SCH (09:28)
[2019-06-30] MEDS: CLOPIDOGREL BISULFATE 75 MG TABLET PO SCH (09:28)
[2019-06-30] MEDS: LOSARTAN POTASSIUM 50 MG TABLET PO SCH (09:28)
[2019-06-30] MEDS: METOPROLOL SUCCINATE 50 MG TAB.SR.24H PO SCH (09:28)
[2019-06-30] MEDS: ENOXAPARIN SODIUM INJ 40 MG/0.4 ML DISP.SYRIN SUBCUT SCH (09:31)
[2019-06-30] MEDS: CEFTRIAXONE 1 GM/D5W RTU 1 GM/50 ML RTUPB IV SCH (09:32)
[2019-06-30 12:54] VITALS: BP 151/66
--- NOTE | 2019-07-01 10:46 | PDOC DISCHARGE SUMMARY ---
Impression - Admit/DC Date/PCP Admission Date/Primary Care Provider: 06/27/19 06:57 GERALD HAMILTON MD Discharge Date: 06/30/19 - Discharge Diagnosis (1) Hypertensive emergency Is this a current diagnosis for this admission?: Yes (2) Acute respiratory failure with hypoxia Is this a current diagnosis for this admission?: Yes (3) Pulmonary nodule, right Is this a current diagnosis for this admission?: Yes - Assessment Summary: 06/28/2019 Patient was admitted through the emergency room for uncontrolled hypertension. Patient was just last in the hospital recently and at the time of discharge we did get his blood pressure down to about 150 over 80, however even then his pressure occasionally went back up to 175/90. Consistently though it was running in the 150s over 70. I think there is an element of patient noncompliance here as far as medications. Also he even told me the last time he was here that he had a lot of sweets such as cake and carbs such as rice that was making his diabetes difficult to control. Any rate on the nitro drip his systolic stays around 170 with diastolic around 70. I have reintroduced most of his blood pressure medicines by mouth to his regimen. Concerning the question of CHF versus pneumonia, patient was supposed to be taking Lasix 20 mg daily at home. Currently here in the hospital he is on Lasix 20 mg IV every 12 hours. Patient is on no antibiotics. Patient's BNP on admission was 50,500 yesterday was 59 500. Patient does not clinically have any evidence of being in florid pulmonary edema. I think patient probably does have an element of CHF, but I am not convinced he has active pneumonia. I am repeating his labs today. If patient's blood pressure comes down we can start weaning him off of the nitro. I am going to order a CT scan of the chest without contrast for better evaluation. Patient is stable and does not seem to be in any distress Addendum CT scan shows probable atelectasis. She has no clinical indication that this is pneumonia. - Additional Information Resuscitation Status: Full Code Discharge Diet: As Tolerated, Cardiac, Diabetic Discharge Activity: Activity As Tolerated, Balance Activity w/Rest Referrals: ZEE MUSA MD [ACTIVE STAFF] - 07/22/19 9:45 am () GERALD HAMILTON MD [Primary Care Provider] - 07/05/19 3:15 pm Prescriptions: Isosorb Dinit/Hydralazine HCl [Bidil 20-37.5 mg Tablet] 1 tab PO TID #90 tablet Ferrous Sulfate [Feosol 325 mg Tablet] 325 mg PO BIDPCBS #60 tablet Losartan Potassium 100 mg PO DAILY #30 tablet Amlodipine Besylate [Norvasc 5 mg Tablet] 5 mg PO DAILY #30 tablet Metoprolol Succinate [Toprol Xl 50 mg Tab.sr] 100 mg PO Q12 #60 tab.sr.24h Home Medications: Aspirin [Ecotrin 81 mg EC Tablet] 81 mg PO DAILY 06/27/19 Atorvastatin Calcium [Lipitor 80 mg Tablet] 80 mg PO QHS 06/27/19 Clopidogrel Bisulfate [Plavix 75 mg Tablet] 75 mg PO DAILY 06/27/19 Furosemide [Lasix 20 mg Tablet] 20 mg PO DAILY 06/27/19 Gabapentin [Neurontin] 600 mg PO Q8 06/27/19 Insulin Glargine,Hum.rec.anlog [Lantus Insulin 100 Unit/1 ml 10 ml] 20 units SQ DAILY 06/27/19 Metformin HCl [Metformin HCl ER] 2,000 mg PO QPM 06/27/19 Tadalafil 20 mg PO PRN PRN 06/27/19 Amlodipine Besylate [Norvasc 5 mg Tablet] 5 mg PO DAILY #30 tablet 06/30/19 Ferrous Sulfate [Feosol 325 mg Tablet] 325 mg PO BIDPCBS #60 tablet 06/30/19 Isosorb Dinit/Hydralazine HCl [Bidil 20-37.5 mg Tablet] 1 tab PO TID #90 tablet 06/30/19 Losartan Potassium 100 mg PO DAILY #30 tablet 06/30/19 Metoprolol Succinate [Toprol Xl 50 mg Tab.sr] 100 mg PO Q12 #60 tab.sr.24h 06/30/19 History of Present Illiness History of Present Illness: Admitting hospitalist's H&P: STEVE ALDANA is a 59 year old male who was just discharged from the hospital on June 23. He comes back 3 days later with hypertensive emergency with systolic blood pressures occasionally over 220 and diastolic blood pressures over 110. He did not respond to initial therapy in the emergency department. He had increased work of breathing and required oxygen supplementation. He states that he has not taken his medications for the last day or 2 because they made him sick. He thinks the carvedilol gave him palpitations and caused chest pain which does not make sense. If he stopped all of his medicines then abrupt ly stopping his Celexa could cause many symptoms. He is on 2 different nitrate therapies and stopping these could certainly have caused chest pain. Hospital Course Hospital Course: This is a 59-year-old male who presented increasing shortness of breath and was found to have severely elevated blood pressures. Patient has not been compliant to his home medications. Patient appears to have had pulmonary edema likely related to severe hypertension. He was at one point requiring BiPAP for his hypoxia. Appears he was promptly switched to nasal cannula. He was given multiple IV antihypertensives but eventually required initiation of nitroglycerin drip. Patient was restarted on some of his home medications and was started on 2 new ones. He was weaned off nitroglycerin drip. Blood pressure is very optimized. He will be discharged now on a new regimen which includes losartan, amlodipine, metoprolol, BiDil and Lasix. He also has a right pulmonary nodule. He has a strong history of heavy smoking and will be set up with pulmonology for possible work-up to rule out lung CA. Physical Exam Vital Signs: Temp Pulse Resp BP Pulse Ox 98.6 F 54 L 18 151/66 H 96 06/30/19 12:50 06/30/19 12:50 06/30/19 12:50 06/30/19 12:50 06/30/19 12:50 Intake & Output 06/30/19 07/01/19 07/02/19 06:59 06:59 06:59 Intake Total 564 Output Total 275 Balance 289 Weight 152 lb 12.485 oz General appearance: PRESENT: no acute distress, well-developed, well-nourished Head exam: PRESENT: atraumatic, normocephalic Eye exam: PRESENT: conjunctiva pink, EOMI, PERRLA. ABSENT: scleral icterus Ear exam: PRESENT: normal external ear exam Mouth exam: PRESENT: moist, tongue midline Neck exam: ABSENT: carotid bruit, JVD, lymphadenopathy, thyromegaly Respiratory exam: PRESENT: clear to auscultation jodi. ABSENT: rales, rhonchi, wheezes Cardiovascular exam: PRESENT: RRR. ABSENT: diastolic murmur, rubs, systolic murmur Pulses: PRESENT: normal dorsalis pedis pul GI/Abdominal exam: PRESENT: normal bowel sounds, soft. ABSENT: distended, guarding, mass, organolmegaly, rebound, tenderness Rectal exam: PRESENT: deferred Extremities exam: PRESENT: full ROM. ABSENT: calf tenderness, clubbing, pedal edema Neurological exam: PRESENT: alert, awake, oriented to person, oriented to place, oriented to time, oriented to situation, CN II-XII grossly intact. ABSENT: motor sensory deficit Results Laboratory Results: WBC 7.2 10^3/uL (4.0-10.5) 06/28/19 08:00 RBC 2.57 10^6/uL (4.35-5.55) L 06/28/19 08:00 Hgb 8.3 g/dL (13.5-17.0) L 06/28/19 08:00 Hct 24.9 % (37.9-51.0) L 06/28/19 08:00 MCV 97 fl (80-97) 06/28/19 08:00 MCH 32.4 pg (27.0-33.4) 06/28/19 08:00 MCHC 33.4 g/dL (32.0-36.0) 06/28/19 08:00 RDW 16.3 % (11.5-14.0) H 06/28/19 08:00 Plt Count 139 10^3/uL (150-450) L 06/28/19 08:00 Lymph % (Auto) 46.6 % (13-45) H 06/28/19 08:00 [place] % (Auto) 8.7 % (3-13) 06/28/19 08:00 Eos % (Auto) 1.7 % (0-6) 06/28/19 08:00 Baso % (Auto) 0.7 % (0-2) 06/28/19 08:00 Reticulocyte # 0.197 10^6/uL (0.028-0.122) H 06/28/19 08:00 Absolute Neuts (auto) 3.1 10^3/uL (1.7-8.2) 06/28/19 08:00 Absolute Lymphs (auto) 3.4 10^3/uL (0.5-4.7) 06/28/19 08:00 Absolute Monos (auto) 0.6 10^3/uL (0.1-1.4) 06/28/19 08:00 Absolute Eos (auto) 0.1 10^3/uL (0.0-0.6) 06/28/19 08:00 Absolute Basos (auto) 0.0 10^3/uL (0.0-0.2) 06/28/19 08:00 Total Counted 100 06/26/19 22:37 Seg Neutrophils % 42.3 % (42-78) 06/28/19 08:00 Seg Neuts % (Manual) 56 % (42-78) 06/26/19 22:37 Band Neutrophils % 2 % (3-5) L 06/26/19 22:37 Lymphocytes % (Manual) 33 % (13-45) 06/26/19 22:37 Monocytes % (Manual) 8 % (3-13) 06/26/19 22:37 Eosinophils % (Manual) 1 % (0-6) 06/26/19 22:37 Basophils % (Manual) 0 % (0-2) 06/26/19 22:37 Abs Neuts (Manual) 4.2 10^3/uL (1.7-8.2) 06/26/19 22:37 Abs Lymphs (Manual) 2.4 10^3/uL (0.5-4.7) 06/26/19 22:37 Abs Monocytes (Manual) 0.6 10^3/uL (0.1-1.4) 06/26/19 22:37 Absolute Eos (Manual) 0.1 10^3/uL (0.0-0.6) 06/26/19 22:37 Abs Basophils (Manual) 0.0 10^3/uL (0.0-0.2) 06/26/19 22:37 Platelet Comment DECREASED 06/26/19 22:37 Anisocytosis 1+ 06/26/19 22:37 Macrocytosis SLIGHT 06/26/19 22:37 Retic Count (auto) 7.60 % (0.66-2.85) H 06/28/19 08:00 Sodium 139.5 mmol/L (137-145) 06/29/19 08:53 Potassium 3.7 mmol/L (3.6-5.0) 06/29/19 08:53 Chloride 112 mmol/L (98-107) H 06/29/19 08:53 Carbon Dioxide 23 mmol/L (22-30) 06/29/19 08:53 Anion Gap 5 (5-19) 06/29/19 08:53 BUN 16 mg/dL (7-20) 06/29/19 08:53 Creatinine 1.32 mg/dL (0.52-1.25) H 06/29/19 08:53 Est GFR ( Amer) > 60 (>60) 06/29/19 08:53 Est GFR (MDRD) Non-Af 55 (>60) L 06/29/19 08:53 Glucose 73 mg/dL (75-110) L 06/29/19 08:53 POC Glucose 83 mg/dL (70-110) 06/30/19 12:05 Lactic Acid 1.2 mmol/L (0.7-2.1) 06/26/19 23:36 Calcium 8.5 mg/dL (8.4-10.2) 06/29/19 08:53 Magnesium 1.6 mg/dL (1.6-2.3) 06/27/19 09:02 Iron 33.6 ug/dL (49-181) L 06/28/19 08:00 TIBC 312 ug/dL (250-450) 06/28/19 08:00 % Saturation 11 % 06/28/19 08:00 Ferritin 62.60 ng/mL (17.9-464.0) 06/28/19 08:00 Total Bilirubin 0.5 mg/dL (0.2-1.3) 06/26/19 22:37 Direct Bilirubin 0.4 mg/dL (0.0-0.4) 06/26/19 22:37 Neonat Total Bilirubin Not Reportable 06/26/19 22:37 Neonat Direct Bilirubin Not Reportable 06/26/19 22:37 Neonat Indirect Bili Not Reportable 06/26/19 22:37 AST 43 U/L (17-59) 06/26/19 22:37 ALT 36 U/L (<50) 06/26/19 22:37 Alkaline Phosphatase 77 U/L (38-126) 06/26/19 22:37 Creatine Kinase 86 U/L (55-170) 06/26/19 22:37 CK-MB (CK-2) 1.20 ng/mL (<4.55) 06/26/19 22:37 Troponin I 0.039 ng/mL 06/26/19 22:37 NT-Pro-B Natriuret Pep 73972 pg/mL (<125) H 06/28/19 08:00 Total Protein 6.6 g/dL (6.3-8.2) 06/26/19 22:37 Albumin 3.2 g/dL (3.5-5.0) L 06/26/19 22:37 Vitamin B12 > 1000.0 pg/mL (239-931) H 06/28/19 08:00 Folate 14.50 ng/mL (>2.76) 06/28/19 08:00 Urine Color YELLOW 06/27/19 00:15 Urine Appearance SLIGHTLY-CLOUDY 06/27/19 00:15 Urine pH 6.0 (5.0-9.0) 06/27/19 00:15 Ur Specific [place] 1.017 06/27/19 00:15 Urine Protein >=500 mg/dL (NEGATIVE) H 06/27/19 00:15 Urine Glucose (UA) >=500 mg/dL (NEGATIVE) H 06/27/19 00:15 Urine Ketones NEGATIVE mg/dL (NEGATIVE) 06/27/19 00:15 Urine Blood NEGATIVE (NEGATIVE) 06/27/19 00:15 Urine Nitrite NEGATIVE (NEGATIVE) 06/27/19 00:15 Urine Bilirubin NEGATIVE (NEGATIVE) 06/27/19 00:15 Urine Urobilinogen NEGATIVE mg/dL (<2.0) 06/27/19 00:15 Ur Leukocyte Esterase NEGATIVE (NEGATIVE) 06/27/19 00:15 Urine WBC (Auto) 2 /HPF 06/27/19 00:15 Urine RBC (Auto) 3 /HPF 06/27/19 00:15 U Hyaline Cast (Auto) 3 /LPF 06/27/19 00:15 Urine Mucus (Auto) RARE /LPF 06/27/19 00:15 Urine Ascorbic Acid NEGATIVE (NEGATIVE) 06/27/19 00:15 Urine Opiates Screen NEGATIVE 06/27/19 00:15 Urine Methadone Screen NEGATIVE 06/27/19 00:15 Ur Barbiturates Screen NEGATIVE 06/27/19 00:15 Ur Phencyclidine Scrn NEGATIVE 06/27/19 00:15 Ur Amphetamines Screen NEGATIVE 06/27/19 00:15 U Benzodiazepines Scrn NEGATIVE 06/27/19 00:15 Urine Cocaine Screen NEGATIVE 06/27/19 00:15 U Marijuana (THC) Screen NEGATIVE 06/27/19 00:15 06/26/19 06/27/19 06/28/19 22:37 09:02 08:00 CK-MB (CK-2) 1.20 Troponin I 0.039 NT-Pro-B Natriuret Pep 91458 H 06625 H 69282 H Impressions: Chest X-Ray 06/26/19 22:05 IMPRESSION: Interval development of multifocal patchy opacification bilaterally consistent with pneumonia. Borderline cardiomegaly. Chest CT 06/28/19 00:00 IMPRESSION: Small right, trace left pleural effusions Bibasilar consolidation atelectasis versus pneumonia 1 cm sub solid nodule right upper lobe, nonspecific. Chest X-Ray 06/28/19 06:00 IMPRESSION: Improved bilateral multifocal opacities. Stroke Is this a Stroke Patient?: No Acute Heart Failure - Is this a Heart Failure Patient?: No
== END 2019-06-30 13:32 | disposition home health service (06) | DRG 304 ==
LOC: ER 20:51 → OBSVTOIN 06-27 06:57 → EH 06-27 06:57 → 3S 06-27 08:15
PROVIDERS: ADMIT Hospitalist; ATTEND Hospitalist
PROC: 5A09357 Assistance with Respiratory Ventilation, Less than 24 Consecutive Hours, Continuous Positive Airway Pressure (ICD-10-PCS; principal; 2019-06-27)
DX: I16.1 Hypertensive emergency (principal); I50.33 Acute on chronic diastolic (congestive) heart failure; J96.01 Acute respiratory failure with hypoxia; I11.0 Hypertensive heart disease with heart failure; E78.5 Hyperlipidemia, unspecified; K21.9 Gastro-esophageal reflux disease without esophagitis; F17.200 Nicotine dependence, unspecified, uncomplicated; F32.9 Major depressive disorder, single episode, unspecified; D69.6 Thrombocytopenia, unspecified; T46.3X6A Underdosing of coronary vasodilators, initial encounter; E11.65 Type 2 diabetes mellitus with hyperglycemia; R91.1 Solitary pulmonary nodule; T44.7X6A Underdosing of beta-adrenoreceptor antagonists, initial encounter; T43.226A Underdosing of selective serotonin reuptake inhibitors, initial encounter; D64.9 Anemia, unspecified; Z91.013 Allergy to seafood; Z91.018 Allergy to other foods; Z83.3 Family history of diabetes mellitus; Z82.49 Family history of ischemic heart disease and other diseases of the circulatory system; Z79.4 Long term (current) use of insulin; Z79.899 Other long term (current) drug therapy; Z79.82 Long term (current) use of aspirin; I25.2 Old myocardial infarction; Z90.49 Acquired absence of other specified parts of digestive tract; Z91.138 Patient's unintentional underdosing of medication regimen for other reason; Z82.61 Family history of arthritis
CPT/HCPCS: 36415; 71045; 71250; 80048; 80053; 80307; 81001; 82550; 82553; 82607; 82728; 82746; 82962; 83540; 83550; 83605; 83735; 83880; 84484; 85025; 85045; 87040; 93005; 93010; 94640; 94660; 94799; 96365; 96366; 96367; 96375; 96376; 99291; J0360; J0696; J1650; J1815; J1940; J1956; J3490; J7030; J7620

== ENCOUNTER 2019-09-07 03:30 | Inpatient (IN) | payer SELFPAY ==
[2019-09-07] MEDS ORDERED: METHYLPREDNISOLONE INJ 125 MG/2 ML SDV IV ONE (03:51)
[2019-09-07] MEDS ORDERED: IPRATROPIUM/ALBUTEROL 0.5-2.5 MG/3 ML AMPUL NEB ONE (03:51)
--- NOTE | 2019-09-07 03:52 | ER Document Report ---
ED Respiratory Problem - General Chief Complaint: Shortness Of Breath Stated Complaint: SHORTNESS OF BREATH Time Seen by Provider: 09/07/19 03:38 Primary Care Provider: GERALD HAMILTON MD [Primary Care Provider] - Follow up as needed Notes: Patient is a 59-year-old male that comes emergency department for chief complai nt of 2 days of worsening shortness of breath with wheezing. He states he has an occasional cough. He denies fever/chills, congestion, sore throat. He reports some tightness in his chest. He denies nausea or vomiting, diarrhea. He does admit to current smoking although does not report a history of COPD. He states he is supposed to be on home oxygen but this was never supplied. He also has a history of diastolic CHF, NSTEMI, type 2 diabetes, hypertension, hyperlipidemia, GERD, cholecystectomy, appendectomy. TRAVEL OUTSIDE OF THE [place] IN LAST 30 DAYS: No - Related Data Allergies/Adverse Reactions: shellfish derived [Shellfish Derived] Allergy (Unknown, Verified 11/17/18 09:16) michael Allergy (Uncoded 11/17/18 09:16) Past Medical History - General Information source: Patient - Social History Smoking Status: Current Every Day Smoker Smoking Education Provided: Yes - <3 min Drug Abuse: None Family History: Arthritis, CAD, DM, Hyperlipidemia, Hypertension, Malignancy Patient has suicidal ideation: No Patient has homicidal ideation: No - Past Medical History Cardiac Medical History: Reports: Hx Congestive Heart Failure - diastolic dysfunction, preserved EF, Hx Heart Attack - NSTEMI May 2019, Hx Hypercholesterolemia, Hx Hypertension, Hx Heart Murmur Pulmonary Medical History: Denies: Hx Tuberculosis Neurological Medical History: Denies: Hx Seizures Endocrine Medical History: Reports: Hx Diabetes Mellitus Type 2 Renal/ Medical History: Reports: Hx Renal Insufficiency. Denies: Hx Peritoneal Dialysis GI Medical History: Reports: Hx Gastroesophageal Reflux Disease, Hx Irritable Bowel - with constipation linzess works but $ may-, Hx Colonoscopy, Hx Endoscopy Musculoskeletal Medical History: Denies Hx Systemic Lupus Erythematosus Psychiatric Medical History: Reports: Hx Depression Past Surgical History: Reports: Hx Appendectomy, Hx Cholecystectomy. Denies: Hx Pacemaker - Immunizations Hx Diphtheria, Pertussis, Tetanus Vaccination: Yes Review of Systems - Review of Systems Constitutional: No symptoms reported EENT: No symptoms reported Cardiovascular: See HPI Respiratory: See HPI Gastrointestinal: No symptoms reported Genitourinary: No symptoms reported Male Genitourinary: No symptoms reported Musculoskeletal: No symptoms reported Skin: No symptoms reported Hematologic/Lymphatic: No symptoms reported Neurological/Psychological: No symptoms reported Physical Exam - Vital signs Vitals: Temp Pulse Resp BP Pulse Ox 97.6 F 71 18 165/88 H 90 L 09/07/19 03:45 09/07/19 03:45 09/07/19 03:45 09/07/19 03:45 09/07/19 03:45 - Notes Notes: GENERAL: Alert, interactive HEAD: Normocephalic, atraumatic. EYES: Pupils equal, round, and reactive to light. Extraocular movements intact. ENT: Oral mucosa moist, tongue midline. Oropharynx unremarkable. Airway patent. NECK: Full range of motion. Supple. Trachea midline. No lymphadenopathy. LUNGS: Expiratory wheezes heard throughout, decreased breath sounds heard throughout as well. Patient is able to speak in full sentences. No respiratory distress. HEART: Regular rate and rhythm. No murmur ABDOMEN: Soft, non-tender. Non-distended. EXTREMITIES: Moves all 4 extremities spontaneously. No edema, normal radial and dorsalis pedis pulses bilaterally. No cyanosis. BACK: no cervical, thoracic, lumbar midline tenderness. No saddle anesthesia, normal distal neurovascular exam. Moves all extremities in full range of motion. NEUROLOGICAL: Alert and oriented x3. Normal speech. Cranial nerves II through XII grossly intact. Strength 5/5 in all extremities. PSYCH: Normal affect, normal mood. SKIN: Warm, dry, normal turgor. No rashes or lesions noted. Course - Re-evaluation Re-evalutation: 09/07/19 06:13 We have had a very significant delay in obtaining labs because of patient's difficult access, I am informed that phlebotomy from the lab will be getting these values. Chest x-ray has been completed and shows bilateral consolidations of atelectasis/pneumonia which could also be viral. Patient is being tested for the coronavirus. Initially patient was complaining of dyspnea and he was wheezing, on evaluation now he states that he has improved breathing but he still feels some shortness of breath. Now that the wheezing is resolved I can hear rales throughout. Patient still speaking in full sentences. Patient was initially hypoxic on room air into the upper 80s, on 3 L nasal cannula he is not hypoxic. EKG unchanged from prior. CBC without significant change from prior, chemistry nonspecific, troponin is negative. BNP is approximately 65,000 which is increased from prior. Patient appears to have a mixed picture including wheezing that resolved with nebs, rales on exam with elevated BNP, and asymmetrical opacities on chest x-ray which could be from pulmonary vascular congestion versus bacterial pneumonia versus viral pneumonia. Patient has been covered with cefepime and vancomycin with [facility] hospital admission. Patient is doing well on reevaluation on oxygen, patient's blood pressure is trending upwards but he is due for his morning medications, these will be given along with Lasix. I discussed with patient, will discuss with hospitalist for admission. 09/07/19 08:26 Spoke with Cherry Carmona FRAMER, patient admitted to Telemetry full admission. - Vital Signs Vital signs: Temp Pulse Resp BP Pulse Ox 97.6 F 71 14 165/88 H 95 09/07/19 03:45 09/07/19 03:45 09/07/19 04:54 09/07/19 03:45 09/07/19 04:54 - Laboratory Result Diagrams: 09/07/19 06:20 09/07/19 06:20 Laboratory results interpreted by me: 09/07/19 09/07/19 09/07/19 06:20 06:20 06:20 RBC 4.02 L Hgb 11.6 L Hct 33.8 L RDW 16.4 H Chloride 114 H Anion Gap 3 L Calcium 8.1 L NT-Pro-B Natriuret Pep 49546 H Total Protein 6.0 L Albumin 2.6 L - EKG Interpretation by Me Additional EKG results interpreted by me: EKG shows sinus rhythm at a rate of 83 with multiple PVCs. No overt T wave inversions or ST segment changes in consecutive leads. No significant change compared to prior. QTc 456. Discharge - Discharge Clinical Impression: Hypoxia, Wheezing, Shortness of breath Condition: Stable Disposition: ADMITTED INPATIENT Admitting Provider: Chyna (Hospitalist) - Cherry Carmona NP Unit Admitted: Telemetry Referrals: GERALD HAMILTON MD [Primary Care Provider] - Follow up as needed
--- NOTE | 2019-09-07 05:09 | RADIOLOGY REPORT (SQ) ---
CHEST 1 VIEW on 09/07/2019 at 4:18 AM CLINICAL INDICATION: Shortness of breath COMPARISON: 06/28/2019 FINDINGS: There are bilateral lower lung opacities consistent with atelectasis and/or pneumonia. Differential diagnosis would include viral infections. Heart is borderline in size. Hilar and mediastinal contours are within normal limits. Pulmonary vascularity is within normal limits. IMPRESSION: Right greater than left lower lung opacities consistent with atelectasis and/or pneumonia. Differential diagnosis would include viral infections.
[2019-09-07] MEDS ORDERED: CEFEPIME 2 GM/D5W RTU 2 GM/50 ML RTUPB IV ONE (05:26)
[2019-09-07] MEDS ORDERED: LOSARTAN POTASSIUM 50 MG TABLET PO ONE (06:34)
[2019-09-07] MEDS ORDERED: METOPROLOL SUCCINATE 50 MG TAB.SR.24H PO ONE (06:34)
[2019-09-07] MEDS ORDERED: ISOSORB DINIT/HYDRALAZINE HCL 20-37.5 MG TABLET PO ONE (06:36)
[2019-09-07] MEDS ORDERED: VANCOMYCIN HCL INJ 1000 MG VIAL IV ONE (07:02)
[2019-09-07 07:09] LABS: ABSOLUTE BASOPHILS # (AUTO) 0.1 10^3/uL (0.0-0.2); ABSOLUTE EOSINOPHILS # (AUTO) 0.2 10^3/uL (0.0-0.6); ABSOLUTE LYMPHOCYTES (AUTO) 3.2 10^3/uL (0.5-4.7); ABSOLUTE MONOCYTES (AUTO) 0.6 10^3/uL (0.1-1.4); ABSOLUTE NEUT (AUTO) 3.1 10^3/uL (1.7-8.2); BASOPHILS % (AUTO) 0.8 % (0-2); EOSINOPHILS % (AUTO) 2.6 % (0-6); HEMATOCRIT 33.8 % (37.9-51.0); HEMOGLOBIN 11.6 g/dL (13.5-17.0); LYMPHOCYTES % (AUTO) 44.4 % (13-45); MEAN CORPUSCULAR HEMOGLOBIN 28.7 pg (27.0-33.4); MEAN CORPUSCULAR HGB CONC 34.2 g/dL (32.0-36.0); MEAN CORPUSCULAR VOLUME 84 fl (80-97); MONOCYTES % (AUTO) 8.1 % (3-13); PLATELET COUNT 182 10^3/uL (150-450); RED BLOOD COUNT 4.02 10^6/uL (4.35-5.55); RED CELL DISTRIBUTION WIDTH 16.4 % (11.5-14.0); SEGMENTED NEUTROPHILS % (AUTO) 44.1 % (42-78); TOTAL CELLS COUNTED % (AUTO) 100 %; WHITE BLOOD COUNT 7.1 10^3/uL (4.0-10.5)
[2019-09-07 07:10] LABS: VENOUS BLOOD BASE EXCESS -2.6 mmol/L; VENOUS BLOOD HCO3 21.5 mmol/L (20-32); VENOUS BLOOD PCO2 35.3 mmHg (35-63); VENOUS BLOOD PH 7.4 (7.30-7.42)
[2019-09-07 07:29] LABS: ALBUMIN 2.6 g/dL (3.5-5.0); ALKALINE PHOSPHATASE 113 U/L (38-126); ASPARTATE AMINO TRANSFERASE 45 U/L (17-59); BILIRUBIN,TOTAL 0.6 mg/dL (0.2-1.3); BLOOD UREA NITROGEN 18 mg/dL (7-20); CALCIUM 8.1 mg/dL (8.4-10.2); GLUCOSE 82 mg/dL (75-110); POTASSIUM 4.2 mmol/L (3.6-5.0)
[2019-09-07 07:35] LABS: CARBON DIOXIDE 22 mmol/L (22-30); CHLORIDE 114 mmol/L (98-107)
[2019-09-07 07:40] LABS: ANION GAP 3 (5-19)
[2019-09-07 07:43] LABS: TROPONIN I < 0.012 ng/mL
[2019-09-07 07:59] LABS: NT PRO BNP 64900 pg/mL (<125)
[2019-09-07] MEDS ORDERED: FUROSEMIDE INJ/PF 20 MG/2 ML SDV IV ONE (08:00)
[2019-09-07] MEDS ORDERED: ONDANSETRON HCL INJ/PF 4 MG/2 ML SDV IV PRN (12:19)
[2019-09-07] MEDS ORDERED: MAG HYDROX/AL HYDROX/SIMETH SUSP 30 ML UDCUP PO PRN (12:19)
[2019-09-07] MEDS ORDERED: MAGNESIUM HYDROXIDE SUSP 30 ML UDCUP PO PRN (12:19)
[2019-09-07] MEDS ORDERED: ACETAMINOPHEN 325 MG TABLET PO PRN (12:19)
[2019-09-07] MEDS ORDERED: ALBUTEROL SULFATE HFA (90 MCG/PUFF) 8 GM MDI IH PRN (12:26)
[2019-09-07] MEDS ORDERED: ALBUTEROL SULFATE HFA (90 MCG/PUFF) 200 PUFF/8.5 GM MDI IH PRN (12:39)
--- NOTE | 2019-09-07 12:46 | PDOC H&P ---
History of Present Illness Admission Date/PCP: 09/07/19 09:29 GERALD HAMILTON MD Patient complains of: Shortness of breath History of Present Illness: STEVE ALDANA is a 59 year old male with a past medical history significant for chronic diastolic CHF, AK, hypertension, anemia, insulin-dependent diabetes, medication noncompliance, and tobacco dependence who presented to the emergency department today with a report of 2 days of progressively worsening shortness of breath with wheezing. Evaluation in the emergency department revealed hypertensive urgency (202/103) mild hypoxia (88% on room air), otherwise stable vital signs, unremarkable CBC, blood gas, and chemistry. Troponin is negative. proBNP is noted to be elevated to 64K. CXR revealed bilateral lung opacities; right greater than left. He was provided his home antihypertensive regiment, IV vancomycin and cefepime, and placed on supplemental oxygen. He is referred to the hospitalist service for admission and management of the above-stated complaints and findings. Past Medical History Cardiac Medical History: Reports: Congestive Heart Failure - diastolic dysfunction, preserved EF, Myocardial Infarction - NSTEMI May 2019, Hyperlipidema, Hypertension, Heart Murmur Pulmonary Medical History: Denies: Tuberculosis Neurological Medical History: Denies: Seizures Endocrine Medical History: Reports: Diabetes Mellitus Type 2 GI Medical History: Reports: Gastroesophageal Reflux Disease Psychiatric Medical History: Reports: Depression, Tobacco Dependency Past Surgical History Past Surgical History: Reports: Appendectomy, Cholecystectomy Denies: Pacemaker Social History Information Source: Patient Lives with: Alone Smoking Status: Current Every Day Smoker Cigarettes Packs Per Day: 0.5 Electronic Cigarette use?: No Frequency of Alcohol Use: None Hx Recreational Drug Use: Yes Drugs: Cocaine, Heroin, Marijuana Hx Prescription Drug Abuse: Yes - Advance Directive Resuscitation Status: Full Code Family History Family History: Arthritis, CAD, DM, Hyperlipidemia, Hypertension, Malignancy Parental Family History Reviewed: Yes Children Family History Reviewed: Yes Sibling(s) Family History Reviewed.: Yes Medication/Allergy Home Medications: Aspirin [Ecotrin 81 mg EC Tablet] 81 mg PO DAILY 06/27/19 Clopidogrel Bisulfate [Plavix 75 mg Tablet] 75 mg PO DAILY 06/27/19 Gabapentin [Neurontin] 600 mg PO Q8 06/27/19 Insulin Glargine,Hum.rec.anlog [Lantus Insulin 100 Unit/1 ml 10 ml] 20 units SQ DAILY 06/27/19 Metformin HCl [Metformin HCl ER] 2,000 mg PO QPM 06/27/19 Ferrous Sulfate [Feosol 325 mg Tablet] 325 mg PO BIDPCBS #60 tablet 06/30/19 Isosorb Dinit/Hydralazine HCl [Bidil 20-37.5 mg Tablet] 1 tab PO TID #90 tablet 06/30/19 Losartan Potassium 100 mg PO DAILY #30 tablet 06/30/19 Amlodipine Besylate [Norvasc 5 mg Tablet] 5 mg PO DAILY 09/07/19 Atorvastatin Calcium [Lipitor 80 mg Tablet] 80 mg PO QHS 09/07/19 Carvedilol [Coreg 12.5 mg Tablet] 12.5 mg PO Q12 09/07/19 Furosemide [Lasix 20 mg Tablet] 20 mg PO QAM 09/07/19 Glycopyrrolate/Formoterol Fum [Bevespi Aerosphere Inhaler] 2 puff IH BID 09/07/19 Levalbuterol Tartrate [Levalbuterol Tartrate Hfa] 1 puff IH Q4HP PRN 09/07/19 Metoprolol Succinate [Toprol Xl] 200 mg PO DAILY 09/07/19 Allergies/Adverse Reactions: shellfish derived [Shellfish Derived] Allergy (Unknown, Verified 11/17/18 09:16) michael Allergy (Uncoded 11/17/18 09:16) Review of Systems Constitutional: ABSENT: chills, fever(s), headache(s), weight gain, weight loss Eyes: ABSENT: visual disturbances Ears: ABSENT: hearing changes Cardiovascular: ABSENT: chest pain, dyspnea on exertion, edema, orthropnea, palpitations Respiratory: PRESENT: cough, dyspnea, sputum, other - wheezing. ABSENT: hemoptysis Gastrointestinal: ABSENT: abdominal pain, constipation, diarrhea, hematemesis, hematochezia, nausea, vomiting Genitourinary: ABSENT: dysuria, hematuria Musculoskeletal: ABSENT: joint swelling Integumentary: ABSENT: rash, wounds Neurological: ABSENT: abnormal gait, abnormal speech, confusion, dizziness, focal weakness, syncope Psychiatric: ABSENT: anxiety, depression, homidical ideation, suicidal ideation Endocrine: ABSENT: cold intolerance, heat intolerance, polydipsia, polyuria Hematologic/Lymphatic: ABSENT: easy bleeding, easy bruising Physical Exam Vital Signs: Temp Pulse Resp BP Pulse Ox 97.6 F 66 16 155/87 H 100 04/21/20 10:37 09/07/19 10:37 09/07/19 10:37 09/07/19 10:37 09/07/19 10:37 Intake & Output 09/06/19 09/07/19 09/08/19 06:59 06:59 06:59 Intake Total 50 Balance 50 Weight 68.039 kg 69.2 kg General appearance: PRESENT: no acute distress, cooperative, well-developed, well-nourished - overweight Head exam: PRESENT: atraumatic, normocephalic Eye exam: PRESENT: conjunctiva pink, EOMI, PERRLA. ABSENT: scleral icterus Ear exam: PRESENT: normal external ear exam Mouth exam: PRESENT: moist, tongue midline Respiratory exam: PRESENT: prolonged expiratory phas, rhonchi, symmetrical, unlabored, wheezes - scant, other - Supplemental oxygen via nasal cannula. ABSENT: rales Cardiovascular exam: PRESENT: RRR, +S1, +S2. ABSENT: diastolic murmur, rubs, systolic murmur Pulses: PRESENT: normal dorsalis pedis pul Vascular exam: PRESENT: normal capillary refill GI/Abdominal exam: PRESENT: normal bowel sounds, soft. ABSENT: distended, g uarding, mass, organolmegaly, rebound, tenderness Rectal exam: PRESENT: deferred Extremities exam: PRESENT: full ROM. ABSENT: calf tenderness, clubbing, pedal edema Musculoskeletal exam: PRESENT: ambulatory Neurological exam: PRESENT: alert, awake, oriented to person, oriented to place, oriented to time, oriented to situation, CN II-XII grossly intact. ABSENT: motor sensory deficit Psychiatric exam: PRESENT: appropriate affect, normal mood. ABSENT: homicidal ideation, suicidal ideation Skin exam: PRESENT: dry, intact, warm. ABSENT: cyanosis, rash Results Laboratory Results: 09/07/19 06:20 09/07/19 06:20 09/07/19 09/07/19 09/07/19 06:20 06:20 06:50 WBC 7.1 RBC 4.02 L Hgb 11.6 L Hct 33.8 L MCV 84 MCH 28.7 MCHC 34.2 RDW 16.4 H Plt Count 182 Seg Neutrophils % 44.1 VBG pH 7.40 VBG pCO2 35.3 VBG HCO3 21.5 VBG Base Excess -2.6 Sodium 139.0 Potassium 4.2 Chloride 114 H Carbon Dioxide 22 Anion Gap 3 L BUN 18 Creatinine 1.09 Est GFR ( Amer) > 60 Glucose 82 Calcium 8.1 L Total Bilirubin 0.6 AST 45 Alkaline Phosphatase 113 Total Protein 6.0 L Albumin 2.6 L 09/07/19 06:20 Troponin I < 0.012 NT-Pro-B Natriuret Pep [id number] H Impressions: Chest X-Ray 09/07/19 03:50 IMPRESSION: Right greater than left lower lung opacities consistent with atelectasis and/or pneumonia. Differential diagnosis would include viral infections. Assessment and Plan - Diagnosis (1) Pneumonia Qualifiers: Pneumonia type: due to unspecified organism Laterality: bilateral Is this a current diagnosis for this admission?: Yes Plan: Blood cultures pending. Sputum cultures pending. COVID testing pending. Patient is admitted to [facility] on continuous cardiac telemetry. We will provide supplemental oxygen as needed to maintain saturations greater than 89%. He is empirically placed on IV Rocephin and azithromycin for treatment of a c ommunity-acquired pneumonia. We will provide albuterol MDI for scheduled and as needed nebulizer treatments. Mucinex twice daily. Encourage pulmonary toilet with incentive spirometer, flutter valve, and early ambulation. (2) Diastolic CHF, acute on chronic Is this a current diagnosis for this admission?: Yes Plan: Echocardiogram (May 2019) normal LVEF with LVH, and grade 2 diastolic dysfunction. proBNP elevated to 64k Have resumed home dose amlodipine, carvedilol, isosorbide, hydralazine, losartan, aspirin and Plavix. We will diurese with IV furosemide. He is on a cardiac/fluid restricted diet. Daily weights, strict I&O's. (3) Acute respiratory failure with hypoxia Is this a current diagnosis for this admission?: Yes Plan: Secondary to #1 & 2. Evaluation and management as above. 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 A1c (06/19/2019) 8.8% Patient is placed on a consistent carb diet. Continue reduced dose Lantus; 14 units nightly (takes 20 units nightly at home) Accu-Cheks before meals and at bedtime with Humalog for sliding scale coverage. Hypoglycemia protocol in place. Registered dietitian art educator consulted. (5) Hypertensive urgency Is this a current diagnosis for this admission?: Yes Plan: Antihypertensives as above. Encourage medication compliance. Discharge planning is consulted as the patient reports he is having difficulty affording his medications. (6) Suspected COVID-19 virus infection Is this a current diagnosis for this admission?: Yes Plan: Low suspicion. COVID19 test pending. Contact and droplet precautions. Avoid aerosolized medications and procedures. - Time Time Spent with patient: 35 or more minutes Medications reviewed and adjusted accordingly: Yes Anticipated discharge: Home Within: within 72 hours - Inpatient Certification Based on my medical assessment, after consideration of the patient's comorbidities, presenting symptoms, or acuity I expect that the services needed warrant INPATIENT care.: Yes I certify that my determination is in accordance with my understanding of Medicare's requirements for reasonable and necessary INPATIENT services [42 CFR 412.3e].: Yes Medical Necessity: Significant Comorbidiites Make Outpatient Treatment Too Risky, Need For Continuous Telemetry Monitoring, Risk of Diagnosis Which Will Require Inpatient Eval/Care/Monitoring
[2019-09-07] MEDS: ISOSORB DINIT/HYDRALAZINE HCL 20-37.5 MG TABLET PO SCH ×2 (13:13→22:06)
[2019-09-07] MEDS: HEPARIN SOD (PORCINE) 5,000 UNIT/ML 1 ML VIAL SUBCUT SCH ×2 (13:13→22:05)
[2019-09-07] MEDS: AZITHROMYCIN 500 MG in DEXTROSE 5%-WATER 250 ML IV SCH (14:08)
[2019-09-07] MEDS: FERROUS SULFATE 325 MG TABLET PO SCH (17:07)
[2019-09-07] MEDS: ALBUTEROL SULFATE HFA (90 MCG/PUFF) 200 PUFF/8.5 GM MDI IH SCH ×2 (17:07→23:20)
[2019-09-07] MEDS ORDERED: DEXTROSE 40% GEL 15 GM TUBE PO PRN ×2 (17:20)
[2019-09-07] MEDS ORDERED: GLUCAGON,HUMAN RECOMB 1 MG INJ IM PRN (17:20)
[2019-09-07] MEDS ORDERED: DEXTROSE 50%-WATER 25 GM/50 ML DISP.SYRIN IV PRN ×2 (17:20)
[2019-09-07] MEDS ORDERED: ALBUTEROL SULFATE HFA (90 MCG/PUFF) 8 GM MDI IH SCH (18:00)
[2019-09-07] MEDS ORDERED: (PENDING PHARMACY ID) (Glycopyrrolate/Formoterol Fum [Bevespi Aerosphere Inhaler] 2 PUFF) IH SCH (18:00)
[2019-09-07] MEDS: INSULIN LISPRO 100 UNIT/ML 3 ML VIAL SUBCUT SCH ×2 (19:42→22:07)
[2019-09-07] MEDS: FUROSEMIDE INJ/PF 40 MG/4 ML SDV IV SCH (22:05)
[2019-09-07] MEDS: FAMOTIDINE 20 MG TABLET PO SCH (22:05)
[2019-09-07] MEDS: GUAIFENESIN 600 MG TABLET.SA PO SCH (22:06)
[2019-09-07] MEDS: CARVEDILOL 12.5 MG TABLET PO SCH (22:07)
[2019-09-08] MEDS: ISOSORB DINIT/HYDRALAZINE HCL 20-37.5 MG TABLET PO SCH ×3 (05:24→21:16)
[2019-09-08] MEDS: HEPARIN SOD (PORCINE) 5,000 UNIT/ML 1 ML VIAL SUBCUT SCH ×3 (05:25→21:17)
[2019-09-08] MEDS: ALBUTEROL SULFATE HFA (90 MCG/PUFF) 200 PUFF/8.5 GM MDI IH SCH ×4 (05:26→23:28)
--- NOTE | 2019-09-08 07:21 | EKG REPORT ---
SEVERITY:- ABNORMAL ECG - SINUS RHYTHM VENTRICULAR BIGEMINY NONSPECIFIC REPOL ABNORMALITY, DIFFUSE LEADS : Confirmed by: Russ Branch 08-Sep-2019 07:20:38
[2019-09-08 07:49] LABS: BLOOD UREA NITROGEN 30 mg/dL (7-20); CALCIUM 7.8 mg/dL (8.4-10.2); CARBON DIOXIDE 20 mmol/L (22-30); CHLORIDE 112 mmol/L (98-107)
[2019-09-08 07:52] LABS: ANION GAP 4 (5-19); GLUCOSE 67 mg/dL (75-110)
[2019-09-08] MEDS: INSULIN LISPRO 100 UNIT/ML 3 ML VIAL SUBCUT SCH ×4 (08:18→21:17)
[2019-09-08] MEDS ORDERED: (PENDING PHARMACY ID) (Losartan Potassium [Losartan Potassium] 100 MG) PO SCH (10:00)
[2019-09-08] MEDS ORDERED: LOSARTAN POTASSIUM 50 MG TABLET PO SCH (10:00)
[2019-09-08] MEDS: ASPIRIN 81 MG TABLET, ENT COATED PO SCH (10:19)
[2019-09-08] MEDS: CLOPIDOGREL BISULFATE 75 MG TABLET PO SCH (10:20)
[2019-09-08] MEDS: DOCUSATE SODIUM 100 MG CAPSULE PO SCH (10:20)
[2019-09-08] MEDS: FERROUS SULFATE 325 MG TABLET PO SCH ×2 (10:20→17:11)
[2019-09-08] MEDS: CARVEDILOL 12.5 MG TABLET PO SCH ×2 (10:20→21:17)
[2019-09-08] MEDS: FAMOTIDINE 20 MG TABLET PO SCH ×2 (10:20→21:18)
[2019-09-08] MEDS: FUROSEMIDE INJ/PF 40 MG/4 ML SDV IV SCH (10:20)
[2019-09-08] MEDS: GUAIFENESIN 600 MG TABLET.SA PO SCH ×2 (10:20→21:18)
[2019-09-08] MEDS: AMLODIPINE BESYLATE 5 MG TABLET PO SCH (10:20)
[2019-09-08] MEDS: CEFTRIAXONE 1 GM/D5W RTU 1 GM/50 ML RTUPB IV SCH (10:21)
[2019-09-08] MEDS: INSULIN GLARGINE,HUM.REC.ANLOG 1,000 UNIT/10 ML VIAL SUBCUT SCH (12:08)
[2019-09-08] MEDS: AZITHROMYCIN 500 MG in DEXTROSE 5%-WATER 250 ML IV SCH (13:50)
--- NOTE | 2019-09-08 14:53 | PDOC PROGRESS REPORT ---
Subjective Progress Note for:: 09/08/19 Reason For Visit: ACUTE RESPIRTORY FAILURE W/HYPOXIA,PNA,CHF EXACERB Physical Exam Vital Signs: Temp Pulse Resp BP Pulse Ox 98.8 F 68 18 139/60 H 100 09/08/19 11:55 09/08/19 14:00 09/08/19 11:55 09/08/19 11:55 09/08/19 11:55 Intake & Output 09/07/19 09/08/19 09/09/19 06:59 06:59 06:59 Intake Total 1250 410 Output Total 200 650 Balance 1050 -240 Weight 68.039 kg 73.7 kg General appearance: PRESENT: no acute distress, cooperative, well-developed, well-nourished Head exam: PRESENT: atraumatic, normocephalic Eye exam: PRESENT: conjunctiva pink, EOMI, PERRLA. ABSENT: scleral icterus Ear exam: PRESENT: normal external ear exam Mouth exam: PRESENT: moist, tongue midline Respiratory exam: PRESENT: clear to auscultation jodi, symmetrical, unlabored, other - With oxygen via nasal cannula. ABSENT: rales, rhonchi, wheezes Cardiovascular exam: PRESENT: RRR. ABSENT: diastolic murmur, rubs, systolic murmur Pulses: PRESENT: normal dorsalis pedis pul Vascular exam: PRESENT: normal capillary refill GI/Abdominal exam: PRESENT: normal bowel sounds, soft. ABSENT: distended, guarding, mass, organolmegaly, rebound, tenderness Rectal exam: PRESENT: deferred Extremities exam: PRESENT: full ROM. ABSENT: calf tenderness, clubbing, pedal edema, +1 edema Musculoskeletal exam: PRESENT: ambulatory Neurological exam: PRESENT: alert, awake, oriented to person, oriented to place, oriented to time, oriented to situation, CN II-XII grossly intact. ABSENT: motor sensory deficit Psychiatric exam: PRESENT: appropriate affect, normal mood. ABSENT: homicidal ideation, suicidal ideation Skin exam: PRESENT: dry, intact, warm. ABSENT: cyanosis, rash Results Laboratory Results: 09/07/19 06:20 09/08/19 06:47 09/08/19 06:47 Sodium 136.0 L Potassium 4.0 Chloride 112 H Carbon Dioxide 20 L Anion Gap 4 L BUN 30 H Creatinine 1.58 H Est GFR ( Amer) 54 L Glucose 67 L Calcium 7.8 L 09/07/19 06:20 Troponin I < 0.012 NT-Pro-B Natriuret Pep [id number] H Impressions: Chest X-Ray 09/07/19 03:50 IMPRESSION: Right greater than left lower lung opacities consistent with atelectasis and/or pneumonia. Differential diagnosis would include viral infections. Assessment and Plan - Diagnosis (1) Pneumonia Qualifiers: Pneumonia type: due to unspecified organism Laterality: bilateral Is this a current diagnosis for this admission?: Yes Plan: Blood cultures NGTD Sputum cultures not yet obtained; decreased sputum production per patient. COVID testing pending. Patient is admitted to [facility] on continuous cardiac telemetry. We will provide supplemental oxygen as needed to maintain saturations greater than 89%. He is empirically placed on IV Rocephin and azithromycin for treatment of a community-acquired pneumonia. We will provide albuterol MDI for scheduled and as needed treatments. Mucinex twice daily. Encourage pulmonary toilet with incentive spirometer, flutter valve, and early ambulation. (2) Diastolic CHF, acute on chronic Is this a current diagnosis for this admission?: Yes Plan: Acue exacerbation appears resolved; decreased dyspnea, clear lung sounds, no edema Echocardiogram (May 2019) normal LVEF with LVH, and grade 2 diastolic dysfunction. proBNP elevated to 64k Have resumed home dose amlodipine, isosorbide, hydralazine, losartan, aspirin and Plavix. Increased carvedilol r/t HTN and frequent PVCs Hold furosemide today r/t creatinine bump He is on a cardiac/fluid restricted diet. Daily weights, strict I&O's. (3) Acute respiratory failure with hypoxia Is this a current diagnosis for this admission?: Yes Plan: Improved. Secondary to #1 & 2. Evaluation and management as above. Begin weaning oxygen Pulmonary toilet encouraged. 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 A1c (06/19/2019) 8.8% Patient is placed on a consistent carb diet. Continue home dose Lantus; 20 units nightly Accu-Cheks before meals and at bedtime with Humalog for sliding scale coverage. Hypoglycemia protocol in place. Registered dietitian conservation educator consulted. (5) Hypertensive urgency Is this a current diagnosis for this admission?: Yes Plan: Antihypertensives as above. Encourage medication compliance. Discharge planning is consulted as the patient reports he is having difficulty affording his medications. (6) Suspected COVID-19 virus infection Is this a current diagnosis for this admission?: Yes Plan: Low suspicion. COVID19 test pending. Contact and droplet precautions. Avoid aerosolized medications and procedures. - Time Time Spent with patient: 15-24 minutes Medications reviewed and adjusted accordingly: Yes Anticipated discharge: Home Within: within 24 hours
[2019-09-09 04:07] LABS: HEMATOCRIT 28.3 % (37.9-51.0); HEMOGLOBIN 9.7 g/dL (13.5-17.0); MEAN CORPUSCULAR HEMOGLOBIN 29.2 pg (27.0-33.4); MEAN CORPUSCULAR HGB CONC 34.5 g/dL (32.0-36.0); MEAN CORPUSCULAR VOLUME 85 fl (80-97); PLATELET COUNT 133 10^3/uL (150-450); RED BLOOD COUNT 3.34 10^6/uL (4.35-5.55); RED CELL DISTRIBUTION WIDTH 16.5 % (11.5-14.0); WHITE BLOOD COUNT 5.5 10^3/uL (4.0-10.5)
[2019-09-09 04:20] LABS: BLOOD UREA NITROGEN 35 mg/dL (7-20); CALCIUM 8.1 mg/dL (8.4-10.2); CARBON DIOXIDE 21 mmol/L (22-30); CHLORIDE 111 mmol/L (98-107); GLUCOSE 93 mg/dL (75-110); POTASSIUM 4.1 mmol/L (3.6-5.0)
[2019-09-09 04:31] LABS: ANION GAP 3 (5-19)
[2019-09-09] MEDS: ISOSORB DINIT/HYDRALAZINE HCL 20-37.5 MG TABLET PO SCH ×3 (05:14→22:49)
[2019-09-09] MEDS: HEPARIN SOD (PORCINE) 5,000 UNIT/ML 1 ML VIAL SUBCUT SCH ×3 (05:15→22:43)
[2019-09-09] MEDS: ALBUTEROL SULFATE HFA (90 MCG/PUFF) 200 PUFF/8.5 GM MDI IH SCH ×4 (05:15→23:19)
[2019-09-09] MEDS ORDERED: ONDANSETRON HCL INJ/PF 4 MG/2 ML SDV IV PRN (08:00)
[2019-09-09] MEDS ORDERED: NORMAL SALINE 1000 ML 500 ML IV PRN (08:06)
[2019-09-09] MEDS: INSULIN LISPRO 100 UNIT/ML 3 ML VIAL SUBCUT SCH ×4 (08:27→22:44)
[2019-09-09] MEDS: ASPIRIN 81 MG TABLET, ENT COATED PO SCH (09:52)
[2019-09-09] MEDS: FERROUS SULFATE 325 MG TABLET PO SCH ×2 (09:57→18:00)
[2019-09-09] MEDS: GUAIFENESIN 600 MG TABLET.SA PO SCH ×2 (09:59→22:48)
[2019-09-09] MEDS: CARVEDILOL 12.5 MG TABLET PO SCH ×2 (09:59→22:49)
[2019-09-09] MEDS: AMLODIPINE BESYLATE 5 MG TABLET PO SCH (10:00)
[2019-09-09] MEDS: FAMOTIDINE 20 MG TABLET PO SCH ×2 (10:00→22:48)
[2019-09-09] MEDS: CEFTRIAXONE 1 GM/D5W RTU 1 GM/50 ML RTUPB IV SCH (10:00)
[2019-09-09] MEDS: INSULIN GLARGINE,HUM.REC.ANLOG 1,000 UNIT/10 ML VIAL SUBCUT SCH (10:00)
[2019-09-09] MEDS: DOCUSATE SODIUM 100 MG CAPSULE PO SCH (10:00)
[2019-09-09] MEDS: CLOPIDOGREL BISULFATE 75 MG TABLET PO SCH (10:01)
--- NOTE | 2019-09-09 13:19 | PDOC PROGRESS REPORT ---
Subjective Progress Note for:: 09/09/19 Subjective:: LYUDMILA ALDANA is a 59 year old male with a past medical history significant for chronic diastolic CHF, [place], hypertension, anemia, insulin-dependent diabetes, medication noncompliance, and tobacco dependence who was admitted 09/07/2019 with community-acquired pneumonia and mild CHF exacerbation. Patient was seen on afternoon rounds. He was found ambulating on room air in his room. He reports slight dyspnea but significantly improved from time of his presentation to the ED. He denies fever, chills, chest pain, palpitations, orthopnea, cough, sputum production, abdominal pain, nausea vomiting diarrhea. Looking forward to likely discharge home tomorrow; no other questions or concerns at this time. No concerns per nursing. Reason For Visit: ACUTE RESPIRTORY FAILURE W/HYPOXIA,PNA,CHF EXACERB Physical Exam Vital Signs: Temp Pulse Resp BP Pulse Ox 98.5 F 72 16 160/84 H 100 09/09/19 08:37 09/09/19 08:37 09/09/19 08:37 09/09/19 08:37 09/09/19 08:37 Intake & Output 09/08/19 09/09/19 09/10/19 06:59 06:59 06:59 Intake Total 1250 1580 Output Total 200 1150 Balance 1050 430 Weight 73.7 kg 73.3 kg General appearance: PRESENT: no acute distress, cooperative, well-developed, well-nourished Head exam: PRESENT: atraumatic, normocephalic Eye exam: PRESENT: conjunctiva pink, EOMI, PERRLA. ABSENT: scleral icterus Mouth exam: PRESENT: moist, tongue midline Respiratory exam: PRESENT: clear to auscultation jodi, symmetrical, unlabored. ABSENT: rales, rhonchi, wheezes Cardiovascular exam: PRESENT: RRR, +S1, +S2. ABSENT: diastolic murmur, rubs, systolic murmur Pulses: PRESENT: normal dorsalis pedis pul Vascular exam: PRESENT: normal capillary refill GI/Abdominal exam: PRESENT: normal bowel sounds, soft. ABSENT: distended, guarding, mass, organolmegaly, rebound, tenderness Rectal exam: PRESENT: deferred Extremities exam: PRESENT: full ROM. ABSENT: calf tenderness, clubbing, pedal edema, +1 edema Musculoskeletal exam: PRESENT: ambulatory Neurological exam: PRESENT: alert, awake, oriented to person, oriented to place, oriented to time, oriented to situation, CN II-XII grossly intact. ABSENT: motor sensory deficit Psychiatric exam: PRESENT: appropriate affect, normal mood. ABSENT: homicidal ideation, suicidal ideation Skin exam: PRESENT: dry, intact, warm. ABSENT: cyanosis, rash Results Laboratory Results: 09/09/19 03:40 09/09/19 03:40 09/09/19 09/09/19 03:40 03:40 WBC 5.5 RBC 3.34 L Hgb 9.7 L Hct 28.3 L MCV 85 MCH 29.2 MCHC 34.5 RDW 16.5 H Plt Count 133 L Sodium 135.4 L Potassium 4.1 Chloride 111 H Carbon Dioxide 21 L Anion Gap 3 L BUN 35 H Creatinine 1.74 H Est GFR ( Amer) 49 L Glucose 93 Calcium 8.1 L 09/07/19 06:20 Troponin I < 0.012 NT-Pro-B Natriuret Pep 13256 H Impressions: Chest X-Ray 09/07/19 03:50 IMPRESSION: Right greater than left lower lung opacities consistent with atelectasis and/or pneumonia. Differential diagnosis would include viral infections. Assessment and Plan - Diagnosis (1) Pneumonia Qualifiers: Pneumonia type: due to unspecified organism Laterality: bilateral Is this a current diagnosis for this admission?: Yes Plan: Improved; now maintaining oxygen saturations on room air and asymptomatic. Blood cultures NGTD Sputum cultures not yet obtained; decreased sputum production per patient. COVID testing negative Patient is admitted to telemetry on continuous cardiac telemetry. We will provide supplemental oxygen as needed to maintain saturations greater than 89%. He is empirically placed on IV Rocephin and azithromycin for treatment of a community-acquired pneumonia. Will discontinue Rocephin today. We will provide albuterol MDI for scheduled and as needed treatments. Mucinex twice daily. Encourage pulmonary toilet with incentive spirometer, flutter valve, and early ambulation. (2) Diastolic CHF, acute on chronic Is this a current diagnosis for this admission?: Yes Plan: Acue exacerbation appears resolved; decreased dyspnea, clear lung sounds, no edema Echocardiogram (May 2019) normal LVEF with LVH, and grade 2 diastolic dysfunction. proBNP elevated to 64k Have resumed home dose amlodipine, isosorbide, hydralazine, losartan, aspirin and Plavix. Increased carvedilol r/t HTN and frequent PVCs Hold furosemide today r/t creatinine bump He is on a cardiac/fluid restricted diet. Daily weights, strict I&O's. (3) Acute respiratory failure with hypoxia Is this a current diagnosis for this admission?: Yes Plan: Resolved Secondary to #1 & 2. Evaluation and management as above. Pulmonary toilet encouraged. (4) Diabetes Qualifiers: Diabetes mellitus type: type 2 Diabetes mellitus snf insulin use: with snf use Is this a current diagnosis for this admission?: Yes Plan: Holding oral medications while admitted. A1c (06/19/2019) 8.8% Patient is placed on a consistent carb diet. Continue home dose Lantus; 20 units nightly Accu-Cheks before meals and at bedtime with Humalog for sliding scale coverage. Hypoglycemia protocol in place. Registered dietitian asthma educator consulted. (5) Hypertensive urgency Is this a current diagnosis for this admission?: Yes Plan: Antihypertensives as above. Encourage medication compliance. Discharge planning is consulted as the patient reports he is having difficulty affording his medications. (6) Suspected COVID-19 virus infection Is this a current diagnosis for this admission?: Yes Plan: Ruled out COVID19 test negative (7) KARIE (acute kidney injury) Is this a current diagnosis for this admission?: Yes Plan: Likely secondary to IV furosemide for diuresis. Creatinine has bumped from baseline 1.09->1.74. Have discontinued IV furosemide. Provide 500 mL NS bolus. Have increased fluid restriction from 1200 mL's to 2000 mL's daily. Avoid nephrotoxic medications as able. Follow-up chemistry - Time Time Spent with patient: 25-34 minutes Medications reviewed and adjusted accordingly: Yes Anticipated discharge: Home Within: within 24 hours - pending renal function
[2019-09-09] MEDS: AZITHROMYCIN 500 MG in DEXTROSE 5%-WATER 250 ML IV SCH (14:00)
[2019-09-10] MEDS: HEPARIN SOD (PORCINE) 5,000 UNIT/ML 1 ML VIAL SUBCUT SCH ×2 (05:28→14:00)
[2019-09-10] MEDS: ALBUTEROL SULFATE HFA (90 MCG/PUFF) 200 PUFF/8.5 GM MDI IH SCH ×2 (05:30→12:00)
[2019-09-10] MEDS: ISOSORB DINIT/HYDRALAZINE HCL 20-37.5 MG TABLET PO SCH ×2 (05:30→14:00)
[2019-09-10 05:59] LABS: BLOOD UREA NITROGEN 30 mg/dL (7-20); CARBON DIOXIDE 19 mmol/L (22-30); CHLORIDE 113 mmol/L (98-107); POTASSIUM 3.8 mmol/L (3.6-5.0)
[2019-09-10 06:03] LABS: GLUCOSE 61 mg/dL (75-110)
[2019-09-10 06:05] LABS: ANION GAP 5 (5-19)
[2019-09-10] MEDS: INSULIN LISPRO 100 UNIT/ML 3 ML VIAL SUBCUT SCH ×2 (08:00→12:08)
[2019-09-10] MEDS: FERROUS SULFATE 325 MG TABLET PO SCH (08:45)
[2019-09-10] MEDS: AMLODIPINE BESYLATE 5 MG TABLET PO SCH (10:00)
[2019-09-10] MEDS: INSULIN GLARGINE,HUM.REC.ANLOG 1,000 UNIT/10 ML VIAL SUBCUT SCH (10:00)
[2019-09-10] MEDS: CARVEDILOL 12.5 MG TABLET PO SCH (10:00)
[2019-09-10] MEDS: CLOPIDOGREL BISULFATE 75 MG TABLET PO SCH (10:05)
[2019-09-10] MEDS: ASPIRIN 81 MG TABLET, ENT COATED PO SCH (10:05)
[2019-09-10] MEDS: FAMOTIDINE 20 MG TABLET PO SCH (10:05)
[2019-09-10] MEDS: DOCUSATE SODIUM 100 MG CAPSULE PO SCH (10:05)
[2019-09-10] MEDS: GUAIFENESIN 600 MG TABLET.SA PO SCH (10:06)
[2019-09-10] MEDS: AZITHROMYCIN 500 MG in DEXTROSE 5%-WATER 250 ML IV SCH (14:29)
[2019-09-10 14:30] VITALS: BP 165/88
--- NOTE | 2019-09-11 18:02 | PDOC DISCHARGE SUMMARY ---
Impression - Admit/DC Date/PCP Admission Date/Primary Care Provider: 09/07/19 09:29 GERALD HAMILTON MD Discharge Date: 09/10/19 - Discharge Diagnosis (1) Pneumonia Is this a current diagnosis for this admission?: Yes (2) Diastolic CHF, acute on chronic Is this a current diagnosis for this admission?: Yes (3) Acute respiratory failure with hypoxia Is this a current diagnosis for this admission?: Yes (4) Diabetes Is this a current diagnosis for this admission?: Yes (5) Hypertensive urgency Is this a current diagnosis for this admission?: Yes (6) Suspected COVID-19 virus infection Is this a current diagnosis for this admission?: Yes (7) KARIE (acute kidney injury) Is this a current diagnosis for this admission?: Yes - Additional Information Resuscitation Status: Full Code Discharge Diet: Cardiac, Diabetic Discharge Activity: Activity As Tolerated, Balance Activity w/Rest, Weigh Daily Referrals: [facility] [Outside] CARLOS DEJESUS MD [ACTIVE STAFF] - (Within 1 week.) Prescriptions: Guaifenesin [Mucinex Sr 600 mg Tablet.sa] 600 mg PO Q12 #14 tablet.sa Azithromycin [Zithromax 250 mg Tablet] 250 mg PO DAILY #4 tablet Home Medications: Aspirin [Ecotrin 81 mg EC Tablet] 81 mg PO DAILY 06/27/19 Clopidogrel Bisulfate [Plavix 75 mg Tablet] 75 mg PO DAILY 06/27/19 Gabapentin [Neurontin] 600 mg PO Q8 06/27/19 Insulin Glargine,Hum.rec.anlog [Lantus Insulin 100 Unit/1 ml 10 ml] 20 units SQ DAILY 06/27/19 Metformin HCl [Metformin HCl ER] 2,000 mg PO QPM 06/27/19 Ferrous Sulfate [Feosol 325 mg Tablet] 325 mg PO BIDPCBS #60 tablet 06/30/19 Isosorb Dinit/Hydralazine HCl [Bidil 20-37.5 mg Tablet] 1 tab PO TID #90 tablet 06/30/19 Losartan Potassium 100 mg PO DAILY #30 tablet 06/30/19 Amlodipine Besylate [Norvasc 5 mg Tablet] 5 mg PO DAILY 09/07/19 Atorvastatin Calcium [Lipitor 80 mg Tablet] 80 mg PO QHS 09/07/19 Carvedilol [Coreg 12.5 mg Tablet] 12.5 mg PO Q12 09/07/19 Furosemide [Lasix 20 mg Tablet] 20 mg PO QAM 09/07/19 Glycopyrrolate/Formoterol Fum [Bevespi Aerosphere Inhaler] 2 puff IH BID 09/07/19 Levalbuterol Tartrate [Levalbuterol Tartrate Hfa] 1 puff IH Q4HP PRN 09/07/19 Metoprolol Succinate [Toprol Xl] 200 mg PO DAILY 09/07/19 Acetaminophen [Tylenol 325 mg Tablet] 650 mg PO Q4HP PRN tablet 09/10/19 Aspirin [Ecotrin 81 mg EC Tablet] 81 mg PO DAILY #0 tabec 09/10/19 Azithromycin [Zithromax 250 mg Tablet] 250 mg PO DAILY #4 tablet 09/10/19 Guaifenesin [Mucinex Sr 600 mg Tablet.sa] 600 mg PO Q12 #14 tablet.sa 09/10/19 History of Present Illiness History of Present Illness: STEVE ALDANA is a 59 year old male with a past medical history significant for chronic diastolic CHF, [place], hypertension, anemia, insulin-dependent diabetes, medication noncompliance, and tobacco dependence who presented to the emergency department today with a report of 2 days of progressively worsening shortness of breath with wheezing. Evaluation in the emergency department revealed hypertensive urgency (202/103) mild hypoxia (88% on room air), otherwise stable vital signs, unremarkable CBC, blood gas, and chemistry. Troponin is negative. proBNP is noted to be elevated to 64K. CXR revealed bilateral lung opacities; right greater than left. He was provided his home antihypertensive regiment, IV vancomycin and cefepime, and placed on supplemental oxygen. He is referred to the hospitalist service for admission and management of the above-stated complaints and findings. Hospital Course Hospital Course: (1) Pneumonia Significantly improved; now maintaining oxygen saturations while ambulatory on room air and asymptomatic. Blood cultures NGTD Sputum cultures not obtained COVID testing negative Patient was admitted to telemetry on continuous cardiac telemetry and provided supplemental oxygen. He was empirically placed on IV Rocephin and azithromycin for treatment of a community-acquired pneumonia. Received 3 days of Rocephin. He was supported with albuterol MDI for scheduled and as needed treatments and Mucinex twice daily. Pulmonary toilet encouraged with incentive spirometer, flutter valve, and early ambulation. (2) Diastolic CHF, acute on chronic Acute exacerbation appears resolved; decreased dyspnea, clear lung sounds, no edema Echocardiogram (May 2019) normal LVEF with LVH, and grade 2 diastolic dysfunction. proBNP elevated to 64k Have resumed home dose amlodipine, isosorbide, hydralazine, losartan, aspirin and Plavix. Increased carvedilol r/t HTN and frequent PVCs Resume home dose furosemide at discharge. He was on a cardiac/fluid restricted diet. (3) Acute respiratory failure with hypoxia Resolved Secondary to #1 & 2. Evaluation and management as above. Pulmonary toilet encouraged. (4) Diabetes A1c (06/19/2019) 8.8% Patient is placed on a consistent carb diet. Registered dietitian and contract post office clerk consulted. At discharge he is to resume his prior medication regimen. Close PCP follow up. (5) Hypertensive urgency Resolved. Antihypertensives as above. Encourage medication compliance. Discharge planning was consulted as the patient reports he is having difficulty affording his medications. (6) Suspected COVID-19 virus infection Ruled out COVID19 test negative (7) KARIE (acute kidney injury) Resolved. Secondary to IV furosemide for diuresis. Creatinine has bumped from baseline 1.09->1.74. Discontinued IV furosemide, provide 500 mL NS bolus, and reduced fluid restriction. Follow up Creatinine 1.29 Physical Exam Vital Signs: Temp Pulse Resp BP Pulse Ox 97.9 F 67 12 165/88 H 100 09/10/19 14:28 09/10/19 14:28 09/10/19 14:28 09/10/19 14:28 09/10/19 14:28 Intake & Output 09/10/19 09/11/19 09/12/19 06:59 06:59 06:59 Intake Total 1294 480 Output Total 775 Balance 519 480 General appearance: PRESENT: no acute distress, well-developed, well-nourished Head exam: PRESENT: atraumatic, normocephalic Eye exam: PRESENT: conjunctiva pink, EOMI, PERRLA. ABSENT: scleral icterus Ear exam: PRESENT: normal external ear exam Mouth exam: PRESENT: moist, tongue midline Respiratory exam: PRESENT: clear to auscultation jodi, symmetrical, unlabored. ABSENT: rales, rhonchi, wheezes Cardiovascular exam: PRESENT: RRR. ABSENT: diastolic murmur, rubs, systolic murmur Pulses: PRESENT: normal dorsalis pedis pul Vascular exam: PRESENT: normal capillary refill GI/Abdominal exam: PRESENT: normal bowel sounds, soft. ABSENT: distended, guarding, mass, organolmegaly, rebound, tenderness Rectal exam: PRESENT: deferred Extremities exam: PRESENT: full ROM. ABSENT: calf tenderness, clubbing, pedal edema Musculoskeletal exam: PRESENT: ambulatory Neurological exam: PRESENT: alert, awake, oriented to person, oriented to place, oriented to time, oriented to situation, CN II-XII grossly intact. ABSENT: m otor sensory deficit Psychiatric exam: PRESENT: appropriate affect, normal mood. ABSENT: homicidal ideation, suicidal ideation Skin exam: PRESENT: dry, intact, warm. ABSENT: cyanosis, rash Results Laboratory Results: WBC 5.5 10^3/uL (4.0-10.5) 09/09/19 03:40 RBC 3.34 10^6/uL (4.35-5.55) L 09/09/19 03:40 Hgb 9.7 g/dL (13.5-17.0) L 09/09/19 03:40 Hct 28.3 % (37.9-51.0) L 09/09/19 03:40 MCV 85 fl (80-97) 09/09/19 03:40 MCH 29.2 pg (27.0-33.4) 09/09/19 03:40 MCHC 34.5 g/dL (32.0-36.0) 09/09/19 03:40 RDW 16.5 % (11.5-14.0) H 09/09/19 03:40 Plt Count 133 10^3/uL (150-450) L 09/09/19 03:40 Lymph % (Auto) 44.4 % (13-45) 09/07/19 06:20 [place] % (Auto) 8.1 % (3-13) 09/07/19 06:20 Eos % (Auto) 2.6 % (0-6) 09/07/19 06:20 Baso % (Auto) 0.8 % (0-2) 09/07/19 06:20 Absolute Neuts (auto) 3.1 10^3/uL (1.7-8.2) 09/07/19 06:20 Absolute Lymphs (auto) 3.2 10^3/uL (0.5-4.7) 09/07/19 06:20 Absolute Monos (auto) 0.6 10^3/uL (0.1-1.4) 09/07/19 06:20 Absolute Eos (auto) 0.2 10^3/uL (0.0-0.6) 09/07/19 06:20 Absolute Basos (auto) 0.1 10^3/uL (0.0-0.2) 09/07/19 06:20 Seg Neutrophils % 44.1 % (42-78) 09/07/19 06:20 VBG pH 7.40 (7.30-7.42) 09/07/19 06:50 VBG pCO2 35.3 mmHg (35-63) 09/07/19 06:50 VBG HCO3 21.5 mmol/L (20-32) 09/07/19 06:50 VBG Base Excess -2.6 mmol/L 09/07/19 06:50 Sodium 137.2 mmol/L (137-145) 09/10/19 05:20 Potassium 3.8 mmol/L (3.6-5.0) 09/10/19 05:20 Chloride 113 mmol/L (98-107) H 09/10/19 05:20 Carbon Dioxide 19 mmol/L (22-30) L 09/10/19 05:20 Anion Gap 5 (5-19) 09/10/19 05:20 BUN 30 mg/dL (7-20) H 09/10/19 05:20 Creatinine 1.29 mg/dL (0.52-1.25) H 09/10/19 05:20 Est GFR ( Amer) > 60 (>60) 09/10/19 05:20 Est GFR (MDRD) Non-Af 57 (>60) L 09/10/19 05:20 Glucose 61 mg/dL (75-110) L 09/10/19 05:20 POC Glucose 104 mg/dL (70-110) 09/10/19 11:44 Calcium 8.0 mg/dL (8.4-10.2) L 09/10/19 05:20 Total Bilirubin 0.6 mg/dL (0.2-1.3) 09/07/19 06:20 Direct Bilirubin 0.0 mg/dL (0.0-0.4) 09/07/19 06:20 Neonat Total Bilirubin Not Reportable 09/07/19 06:20 Neonat Direct Bilirubin Not Reportable 09/07/19 06:20 Neonat Indirect Bili Not Reportable 09/07/19 06:20 AST 45 U/L (17-59) 09/07/19 06:20 ALT 22 U/L (<50) 09/07/19 06:20 Alkaline Phosphatase 113 U/L (38-126) 09/07/19 06:20 Troponin I < 0.012 ng/mL 09/07/19 06:20 NT-Pro-B Natriuret Pep 03740 pg/mL (<125) H 09/07/19 06:20 Total Protein 6.0 g/dL (6.3-8.2) L 09/07/19 06:20 Albumin 2.6 g/dL (3.5-5.0) L 09/07/19 06:20 COVID-19 Source NASOPHARYNGEAL 09/07/19 07:35 COVID-19 (MARY) NOT DETECTED 09/07/19 07:35 09/07/19 06:20 Troponin I < 0.012 NT-Pro-B Natriuret Pep 29959 H Impressions: Chest X-Ray 09/07/19 03:50 IMPRESSION: Right greater than left lower lung opacities consistent with atelectasis and/or pneumonia. Differential diagnosis would include viral infections. Plan Plan of Treatment: Patient is discharged home in stable condition. He is advised to follow-up with his primary care provider within 1 week. He is instructed to follow-up with Dr. Dejesus next week. Complete course of antibiotics. He is encouraged to take his medications as prescribed. Continue eat a low-sodium diet. Return to the emergency department as needed for concerning symptoms. Time Spent: Greater than 30 Minutes Stroke Is this a Stroke Patient?: No Acute Heart Failure - Is this a Heart Failure Patient?: Yes Documentation of LVEF assessment?: Yes LVEF < 40%?: No- if no continue to question #3 3. Anticoagulant therapy for permanect/persistent/paraoxysmal Afib or Aflutter: N/A
== END 2019-09-10 14:39 | disposition home or self-care (01) | DRG 193 ==
LOC: ER 03:30 → EH 09:29 → 5 11:20 → 4N 09-09 08:41
PROVIDERS: ADMIT Internal Medicine; ATTEND Registered Nurse
DX: J18.9 Pneumonia, unspecified organism (principal); I50.33 Acute on chronic diastolic (congestive) heart failure; J96.21 Acute and chronic respiratory failure with hypoxia; N17.9 Acute kidney failure, unspecified; E11.9 Type 2 diabetes mellitus without complications; K21.9 Gastro-esophageal reflux disease without esophagitis; F32.9 Major depressive disorder, single episode, unspecified; I11.0 Hypertensive heart disease with heart failure; D64.9 Anemia, unspecified; I16.0 Hypertensive urgency; F17.210 Nicotine dependence, cigarettes, uncomplicated; Z91.013 Allergy to seafood; Z91.018 Allergy to other foods; Z82.61 Family history of arthritis; Z91.14 Patient's other noncompliance with medication regimen; Z83.438 Family history of other disorder of lipoprotein metabolism and other lipidemia; Z90.49 Acquired absence of other specified parts of digestive tract; Z79.4 Long term (current) use of insulin; Z80.9 Family history of malignant neoplasm, unspecified; Z82.49 Family history of ischemic heart disease and other diseases of the circulatory system; I25.2 Old myocardial infarction; Z79.82 Long term (current) use of aspirin; Z79.899 Other long term (current) drug therapy; Z03.818 Encounter for observation for suspected exposure to other biological agents ruled out
CPT/HCPCS: 36415; 71045; 80048; 80053; 82803; 82962; 83880; 84484; 85025; 85027; 87040; 87635; 93005; 93010; 94640; 94667; 94799; 96365; 96375; 99285; J0456; J0692; J0696; J1644; J1815; J1940; J2930; J3370; J3490; J7030; J7060; J7620

== ENCOUNTER 2019-11-04 12:41 | Inpatient (IN) | payer OTHER ==
[2019-11-04 14:36] LABS: ABSOLUTE BASOPHILS # (AUTO) 0.1 10^3/uL (0.0-0.2); ABSOLUTE EOSINOPHILS # (AUTO) 0.3 10^3/uL (0.0-0.6); ABSOLUTE LYMPHOCYTES (AUTO) 3.1 10^3/uL (0.5-4.7); ABSOLUTE MONOCYTES (AUTO) 0.5 10^3/uL (0.1-1.4); ABSOLUTE NEUT (AUTO) 3.2 10^3/uL (1.7-8.2); BASOPHILS % (AUTO) 1.3 % (0-2); HEMATOCRIT 36.4 % (37.9-51.0); HEMOGLOBIN 12.1 g/dL (13.5-17.0); LYMPHOCYTES % (AUTO) 43.2 % (13-45); MEAN CORPUSCULAR HEMOGLOBIN 28.8 pg (27.0-33.4); MEAN CORPUSCULAR HGB CONC 33.4 g/dL (32.0-36.0); MEAN CORPUSCULAR VOLUME 86 fl (80-97); MONOCYTES % (AUTO) 6.8 % (3-13); PLATELET COUNT 197 10^3/uL (150-450); RED BLOOD COUNT 4.22 10^6/uL (4.35-5.55); RED CELL DISTRIBUTION WIDTH 18.1 % (11.5-14.0); SEGMENTED NEUTROPHILS % (AUTO) 44.7 % (42-78); TOTAL CELLS COUNTED % (AUTO) 100 %; WHITE BLOOD COUNT 7.1 10^3/uL (4.0-10.5)
--- NOTE | 2019-11-04 14:53 | ER Document Report ---
Entered by THERESA NOEL SCRIBE 11/04/19 1409 Acting as scribe for:JGA DIEGO MD ED General - General Chief Complaint: Flu Symptoms Stated Complaint: COUGH,LOSS OF TASTE Time Seen by Provider: 11/04/19 13:47 Primary Care Provider: GERALD HAMILTON MD [Primary Care Provider] - Follow up as needed Mode of Arrival: Ambulatory Information source: Patient Notes: This 59 year old male patient presents to the emergency department today with complaints of "feeling like im going to drowned" when laying down to go to sleep for the last two days. Patient states that his shortness of breath has gotten worse since onset. Patient complains of a non-productive for x3 days as well. Patient complains that nothing seems to taste right to him either, but he has no change in smell. Patient denies leg swelling or fevers. TRAVEL OUTSIDE OF THE [place] IN LAST 30 DAYS: No - Related Data Allergies/Adverse Reactions: shellfish derived [Shellfish Derived] Allergy (Unknown, Verified 11/17/18 09:16) michael Allergy (Uncoded 11/17/18 09:16) Past Medical History - General Information source: Patient - Social History Smoking Status: Current Every Day Smoker Cigarette use (# per day): Yes Frequency of alcohol use: Heavy Drug Abuse: None Lives with: Family Family History: Reviewed & Not Pertinent, Arthritis, CAD, DM, Hyperlipidemia, Hypertension, Malignancy - Past Medical History Cardiac Medical History: Reports: Hx Congestive Heart Failure - diastolic dysfunction, preserved EF, Hx Heart Attack - NSTEMI May 2019, Hx Hypercholesterolemia, Hx Hypertension, Hx Heart Murmur Endocrine Medical History: Reports: Hx Diabetes Mellitus Type 2 Renal/ Medical History: Reports: Hx Renal Insufficiency GI Medical History: Reports: Hx Gastroesophageal Reflux Disease, Hx Irritable Bowel - with constipation linzess works but $ may-, Hx Colonoscopy, Hx Endoscopy Psychiatric Medical History: Reports: Hx Depression Past Surgical History: Reports: Hx Appendectomy, Hx Cholecystectomy - Immunizations Hx Diphtheria, Pertussis, Tetanus Vaccination: Yes Review of Systems - Review of Systems Constitutional: See HPI, Other - reports change in taste. no change in smell.. denies: Fever EENT: No symptoms reported Cardiovascular: No symptoms reported Respiratory: See HPI, Cough, Short of breath Gastrointestinal: No symptoms reported Genitourinary: No symptoms reported Male Genitourinary: No symptoms reported Musculoskeletal: denies: Leg swelling, Ankle swelling Skin: No symptoms reported Hematologic/Lymphatic: No symptoms reported Neurological/Psychological: No symptoms reported -: Yes All other systems reviewed and negative Physical Exam - Vital signs Vitals: Temp Pulse Resp BP Pulse Ox 98.4 F 65 18 181/96 H 100 11/04/19 13:09 11/04/19 13:09 11/04/19 13:09 11/04/19 13:09 11/04/19 13:09 - Notes Notes: Physical Exam: General: Alert, appears well. HEENT: Normocephalic. Atraumatic. PERRL. Extraocular movements intact. Oropharynx clear. Neck: Supple. Non-tender. Respiratory: No respiratory distress. Clear and equal breath sounds bilaterally. Cardiovascular: Regular rate and rhythm. Abdominal: Normal Inspection. Non-tender. No distension. Normal Bowel Sounds. Back: No gross abnormalities. Extremities: Moves all four extremities. Upper extremities: Normal inspection. Normal ROM. Lower extremities: Normal inspection. No edema. Normal ROM. Neurological: Normal cognition. AAOx4. Normal speech. Psychological: Normal affect. Normal Mood. Skin: Warm. Dry. Normal color. Course - Vital Signs Vital signs: Temp Pulse Resp BP Pulse Ox 98.4 F 65 18 181/96 H 100 11/04/19 14:00 11/04/19 13:09 11/04/19 13:09 11/04/19 13:09 11/04/19 13:09 - Laboratory Result Diagrams: 11/04/19 14:17 11/04/19 14:17 Laboratory results interpreted by me: 11/04/19 11/04/19 11/04/19 14:17 14:17 14:17 RBC 4.22 L Hgb 12.1 L Hct 36.4 L RDW 18.1 H Sodium 136.8 L Chloride 113 H Carbon Dioxide 21 L Anion Gap 3 L BUN 21 H Creatinine 1.56 H Est GFR ( Amer) 55 L Est GFR (MDRD) Non-Af 46 L Glucose 132 H NT-Pro-B Natriuret Pep 76534 H Albumin 2.8 L Urine Protein Urine Glucose (UA) Urine Blood Urine Urobilinogen 11/04/19 15:32 RBC Hgb Hct RDW Sodium Chloride Carbon Dioxide Anion Gap BUN Creatinine Est GFR ( Amer) Est GFR (MDRD) Non-Af Glucose NT-Pro-B Natriuret Pep Albumin Urine Protein >=500 H Urine Glucose (UA) 50 H Urine Blood SMALL H Urine Urobilinogen 4.0 H - Diagnostic Test Radiology reviewed: Reports reviewed - Chest x-ray shows cardiomegaly with bilateral lower lobe airspace disease, R>L. - Consults Dr. Kathleen Time consulted: 16:40 Consulted provider: will come to ER Discharge - Discharge Clinical Impression: Orthopnea, Dyspnea on exertion Congestive heart failure (CHF) Qualifiers: Heart failure type: unspecified Heart failure chronicity: acute on chronic Qualified Code(s): I50.9 - Heart failure, unspecified Condition: Stable Disposition: ADMITTED INPATIENT Admitting Provider: Frannie (Hospitalist) Unit Admitted: IMCU Referrals: GERALD HAMILTON MD [Primary Care Provider] - Follow up as needed I personally performed the services described in the documentation, reviewed and edited the documentation which was dictated to the scribe in my presence, and it accurately records my words and actions.
[2019-11-04 14:56] LABS: ALBUMIN 2.8 g/dL (3.5-5.0); ALKALINE PHOSPHATASE 91 U/L (38-126); ASPARTATE AMINO TRANSFERASE 37 U/L (17-59); BILIRUBIN,DIRECT 0.1 mg/dL (0.0-0.4); BILIRUBIN,TOTAL 0.6 mg/dL (0.2-1.3); BLOOD UREA NITROGEN 21 mg/dL (7-20); CALCIUM 8.7 mg/dL (8.4-10.2); CHLORIDE 113 mmol/L (98-107); CREATINE KINASE 121 U/L (55-170); GLUCOSE 132 mg/dL (75-110); POTASSIUM 4.5 mmol/L (3.6-5.0); TOTAL PROTEIN 6.3 g/dL (6.3-8.2)
[2019-11-04 15:01] LABS: ANION GAP 3 (5-19); CARBON DIOXIDE 21 mmol/L (22-30)
--- NOTE | 2019-11-04 15:14 | RADIOLOGY REPORT (SQ) ---
EXAM DESCRIPTION: CHEST SINGLE VIEW IMAGES COMPLETED DATE/TIME: 11/04/2019 3:02 pm REASON FOR STUDY: Orthopnea, history of CHF COMPARISON: 09/07/2019. EXAM PARAMETERS: NUMBER OF VIEWS: One view. TECHNIQUE: Single frontal radiographic view of the chest acquired. RADIATION DOSE: NA LIMITATIONS: None. FINDINGS: LUNGS AND PLEURA: Bilateral lower lobe airspace disease, right greater than left. Bilater al pleural effusions. MEDIASTINUM AND HILAR STRUCTURES: No masses. Contour normal. HEART AND VASCULAR STRUCTURES: Cardiomegaly. BONES: No acute findings. HARDWARE: None in the chest. OTHER: No other significant finding. IMPRESSION: CARDIOMEGALY WITH BILATERAL PLEURAL EFFUSIONS. BILATERAL LOWER LOBE AIRSPACE DISEASE, R IGHT GREATER THAN LEFT. MAY BE DUE TO PNEUMONIA, PARTICULARLY ON THE RIGHT. TECHNICAL DOCUMENTATION: JOB ID: [id number] 2010 [employer]- All Rights Reserved Reading location - IP/workstation name: [email or web address]
[2019-11-04 15:28] LABS: NT PRO BNP 81100 pg/mL (<125); TROPONIN I < 0.012 ng/mL
[2019-11-04 16:08] LABS: APPEARANCE,URINE CLEAR; BILIRUBIN,URINE NEGATIVE (NEGATIVE); COLOR,URINE YELLOW; GLUCOSE, URINE 50 mg/dL (NEGATIVE); KETONES,URINE NEGATIVE (NEGATIVE); LEUKOCYTE ESTERASE,URINE NEGATIVE (NEGATIVE); NITRITE,URINE NEGATIVE (NEGATIVE); PROTEIN,URINE >=500 mg/dL (NEGATIVE); URINE SPECIFIC GRAVITY 1.016
[2019-11-04] MEDS ORDERED: ZOLPIDEM TARTRATE 5 MG TABLET PO PRN (17:12)
[2019-11-04] MEDS ORDERED: ACETAMINOPHEN 325 MG TABLET PO PRN (17:12)
[2019-11-04] MEDS ORDERED: OXYCODONE-ACETAMINOPHEN 5-325 MG TABLET PO PRN (17:12)
[2019-11-04] MEDS ORDERED: IPRATROPIUM/ALBUTEROL 0.5-2.5 MG/3 ML AMPUL NEB PRN (17:12)
[2019-11-04] MEDS ORDERED: ONDANSETRON HCL INJ/PF 4 MG/2 ML SDV IV PRN (17:12)
[2019-11-04] MEDS ORDERED: LEVALBUTEROL HCL NEB 0.63 MG/3 ML AMPUL NEB PRN (17:12)
[2019-11-04] MEDS ORDERED: DEXTROSE 40% GEL 15 GM TUBE PO PRN ×2 (17:18)
[2019-11-04] MEDS ORDERED: GLUCAGON,HUMAN RECOMB 1 MG INJ IM PRN (17:18)
[2019-11-04] MEDS ORDERED: DEXTROSE 50%-WATER 25 GM/50 ML DISP.SYRIN IV PRN ×2 (17:18)
[2019-11-04] MEDS ORDERED: HYDRALAZINE HCL INJ/PF 20 MG/1 ML SDV IV PRN (17:38)
--- NOTE | 2019-11-04 17:38 | PDOC H&P ---
History of Present Illness Admission Date/PCP: 11/04/19 16:50 GERALD HAMILTON MD Patient complains of: Shortness of breath for the last 3 days History of Present Illness: STEVE ALDANA is a 59 year old male with history of chronic diastolic heart failure, diabetes mellitus, hypertension, osteoarthritis on prednisone came to the emergency room with complaints of shortness of breath for the last 3 days. Uses 2-3 pillows to sleep at night in proper position. Denies any chest pains denies any palpitations denies any nausea vomiting diarrhea or abdominal pain. Denies any headaches dizzy spells. Complaining of chronic dry cough denies any fever chills. Work-up in the ER indicates chest x-ray with bilateral pleural effusions and questionable pneumonia. Cardiomegaly present. BNP is 81,000. Cardiac enzymes are negative. Rest of the labs are stable. WBC count within normal limits. Blood pressure is elevated in the ER. Patient said he is not on any Lasix at home. Requesting to be DNR/DNI Past Medical History Cardiac Medical History: Reports: Congestive Heart Failure - diastolic dysfunction, preserved EF, Myocardial Infarction - NSTEMI May 2019, Hyperlipidema, Hypertension, Heart Murmur Pulmonary Medical History: Denies: Tuberculosis Neurological Medical History: Denies: Seizures Endocrine Medical History: Reports: Diabetes Mellitus Type 2 Malignancy Medical History: Reports: None GI Medical History: Reports: None, Gastroesophageal Reflux Disease Musculoskeltal Medical History: Reports: None Psychiatric Medical History: Reports: Depression Past Surgical History Past Surgical History: Reports: Appendectomy, Cholecystectomy Denies: Pacemaker Social History Lives with: Family Smoking Status: Current Every Day Smoker Electronic Cigarette use?: No Frequency of Alcohol Use: None Hx Recreational Drug Use: Yes Drugs: Cocaine, Heroin, Marijuana Hx Prescription Drug Abuse: Yes - Advance Directive Resuscitation Status: Do Not Resuscitate Family History Family History: Reviewed & Not Pertinent, Arthritis, CAD, DM, Hyperlipidemia, Hypertension, Malignancy Parental Family History Reviewed: Yes Children Family History Reviewed: Yes Sibling(s) Family History Reviewed.: Yes Medication/Allergy Home Medications: Aspirin [Ecotrin 81 mg EC Tablet] 81 mg PO DAILY 06/27/19 Clopidogrel Bisulfate [Plavix 75 mg Tablet] 75 mg PO DAILY 06/27/19 Gabapentin [Neurontin] 600 mg PO Q8 06/27/19 Insulin Glargine,Hum.rec.anlog [Lantus Insulin 100 Unit/1 ml 10 ml] 20 units SQ DAILY 06/27/19 Metformin HCl [Metformin HCl ER] 2,000 mg PO QPM 06/27/19 Ferrous Sulfate [Feosol 325 mg Tablet] 325 mg PO BIDPCBS #60 tablet 06/30/19 Isosorb Dinit/Hydralazine HCl [Bidil 20-37.5 mg Tablet] 1 tab PO TID #90 tablet 06/30/19 Losartan Potassium 100 mg PO DAILY #30 tablet 06/30/19 Amlodipine Besylate [Norvasc 5 mg Tablet] 5 mg PO DAILY 09/07/19 Atorvastatin Calcium [Lipitor 80 mg Tablet] 80 mg PO QHS 09/07/19 Carvedilol [Coreg 12.5 mg Tablet] 12.5 mg PO Q12 09/07/19 Furosemide [Lasix 20 mg Tablet] 20 mg PO QAM 09/07/19 Glycopyrrolate/Formoterol Fum [Bevespi Aerosphere Inhaler] 2 puff IH BID 09/06 Levalbuterol Tartrate [Levalbuterol Tartrate Hfa] 1 puff IH Q4HP PRN 09/07/19 Metoprolol Succinate [Toprol Xl] 200 mg PO DAILY 09/07/19 Acetaminophen [Tylenol 325 mg Tablet] 650 mg PO Q4HP PRN tablet 09/10/19 Aspirin [Ecotrin 81 mg EC Tablet] 81 mg PO DAILY #0 tabec 09/10/19 Azithromycin [Zithromax 250 mg Tablet] 250 mg PO DAILY #4 tablet 09/10/19 Guaifenesin [Mucinex Sr 600 mg Tablet.sa] 600 mg PO Q12 #14 tablet.sa 09/10/19 Allergies/Adverse Reactions: shellfish derived [Shellfish Derived] Allergy (Unknown, Verified 11/17/18 09:16) michael Allergy (Uncoded 11/17/18 09:16) Review of Systems Constitutional: PRESENT: fatigue, weakness. ABSENT: fever(s), headache(s) Eyes: ABSENT: visual disturbances Ears: ABSENT: hearing changes Nose, Mouth, and Throat: ABSENT: sore throat Cardiovascular: PRESENT: dyspnea on exertion Respiratory: PRESENT: dyspnea Gastrointestinal: ABSENT: abdominal pain, constipation, diarrhea, hematemesis, hematochezia, nausea, vomiting Musculoskeletal: ABSENT: joint swelling Integumentary: ABSENT: rash, wounds Neurological: ABSENT: abnormal gait, abnormal speech, confusion, dizziness, focal weakness, syncope Psychiatric: ABSENT: anxiety, depression, homidical ideation, suicidal ideation Endocrine: ABSENT: cold intolerance, heat intolerance, polydipsia, polyuria Physical Exam Vital Signs: Temp Pulse Resp BP Pulse Ox 98.4 F 65 18 181/96 H 100 11/04/19 14:00 11/04/19 13:09 11/04/19 13:09 11/04/19 13:09 11/04/19 13:09 Intake & Output 11/03/19 11/04/19 11/05/19 06:59 06:59 06:59 Weight 68.039 kg General appearance: PRESENT: no acute distress, well-developed Head exam: PRESENT: atraumatic Eye exam: PRESENT: PERRLA Ear exam: PRESENT: normal external ear exam Mouth exam: PRESENT: neck supple Neck exam: PRESENT: full ROM, JVD. ABSENT: carotid bruit, lymphadenopathy, thyromegaly Respiratory exam: PRESENT: crackles, decreased breath sounds Cardiovascular exam: PRESENT: RRR. ABSENT: diastolic murmur, rubs, systolic murmur Vascular exam: PRESENT: normal capillary refill GI/Abdominal exam: PRESENT: normal bowel sounds, soft. ABSENT: distended, guarding, mass, organolmegaly, rebound, tenderness Rectal exam: PRESENT: deferred Extremities exam: PRESENT: full ROM. ABSENT: calf tenderness, clubbing, pedal edema Neurological exam: PRESENT: alert Psychiatric exam: PRESENT: appropriate affect, normal mood. ABSENT: homicidal ideation, suicidal ideation Results Laboratory Results: 11/04/19 14:17 11/04/19 14:17 11/04/19 11/04/19 11/04/19 14:17 14:17 15:32 WBC 7.1 RBC 4.22 L Hgb 12.1 L Hct 36.4 L MCV 86 MCH 28.8 MCHC 33.4 RDW 18.1 H Plt Count 197 Seg Neutrophils % 44.7 Sodium 136.8 L Potassium 4.5 Chloride 113 H Carbon Dioxide 21 L Anion Gap 3 L BUN 21 H Creatinine 1.56 H Est GFR ( Amer) 55 L Glucose 132 H Calcium 8.7 Total Bilirubin 0.6 AST 37 Alkaline Phosphatase 91 Total Protein 6.3 Albumin 2.8 L Urine Color YELLOW Urine Appearance CLEAR Urine pH 6.0 Ur Specific [place] 1.016 Urine Protein >=500 H Urine Glucose (UA) 50 H Urine Ketones NEGATIVE Urine Blood SMALL H Urine Nitrite NEGATIVE Ur Leukocyte Esterase NEGATIVE Urine WBC (Auto) 1 Urine RBC (Auto) 3 11/04/19 11/04/19 14:17 14:17 Creatine Kinase 121 Troponin I < 0.012 NT-Pro-B Natriuret Pep [id number] H Impressions: Chest X-Ray 11/04/19 14:10 IMPRESSION: CARDIOMEGALY WITH BILATERAL PLEURAL EFFUSIONS. BILATERAL LOWER LOBE AIRSPACE DISEASE, RIGHT GREATER THAN LEFT. MAY BE DUE TO PNEUMONIA, PARTICULARLY ON THE RIGHT. Assessment and Plan - Diagnosis (1) Congestive heart failure (CHF) Qualifiers: Heart failure type: unspecified Heart failure chronicity: acute on chronic Qualified Code(s): I50.9 - Heart failure, unspecified Is this a current diagnosis for this admission?: Yes Plan: 11/04/2019-patient is going to be admitted to [facility] as an inpatient for acute on chronic exacerbation of diastolic heart failure. Patient is started on Lasix 40 mg IV twice a day, to continue amlodipine, Coreg, BiDil, losartan. Placed on fluid restriction 1500 cc/day. Restarted his aspirin and Plavix. GI prophylaxis DVT prophylaxis initiated. Admission BNP is 81,000 chest x-ray shows cardiomegaly with bilateral pleural effusions and plan is to repeat the BNP tomorrow. (2) CKD (chronic kidney disease) Qualifiers: Chronic kidney disease stage: unspecified stage Qualified Code(s): N18.9 - Chronic kidney disease, unspecified Is this a current diagnosis for this admission?: No Plan: 11/04/2019-patient has history of chronic kidney disease creatinine is 1.56. Stage II kidney disease. 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 He is to check hemoglobin A1c start him on insulin sliding scale before meals and at bedtime. To hold the Lantus and 70/30 insulin at this time. Blood sugars in the ER around 132. (4) HTN (hypertension) Is this a current diagnosis for this admission?: No Plan: 11/04/2019-blood pressure is more than 200 to give his BiDil now and plan is to continue his home medications losartan, Coreg, BiDil and started on Lasix 40 mg IV twice a day. Plan is to check the blood pressures on regular basis.
[2019-11-04 18:11] LABS: URINE AMPHETAMINES SCREEN NEGATIVE; URINE BARBITURATES SCREEN NEGATIVE; URINE BENZODIAZEPINES SCREEN NEGATIVE; URINE COCAINE SCREEN NEGATIVE; URINE MARIJUANA (THC) SCREEN NEGATIVE; URINE METHADONE SCREEN NEGATIVE; URINE PHENCYCLIDINE SCREEN NEGATIVE
[2019-11-04] MEDS: DOCUSATE SODIUM 100 MG/10 ML UDC PO SCH (18:11)
[2019-11-04] MEDS: ISOSORB DINIT/HYDRALAZINE HCL 20-37.5 MG TABLET PO SCH (18:11)
[2019-11-04] MEDS: HEPARIN SOD (PORCINE) 5,000 UNIT/ML 1 ML VIAL SUBCUT SCH (22:07)
[2019-11-04] MEDS: FAMOTIDINE 20 MG TABLET PO SCH (22:10)
[2019-11-04] MEDS: FUROSEMIDE INJ/PF 40 MG/4 ML SDV IV SCH (22:10)
[2019-11-04] MEDS: ATORVASTATIN CALCIUM 20 MG TABLET PO SCH (22:10)
[2019-11-04] MEDS: CARVEDILOL 12.5 MG TABLET PO SCH (22:10)
[2019-11-04] MEDS: AMLODIPINE BESYLATE 5 MG TABLET PO SCH (22:11)
[2019-11-04] MEDS: INSULIN REG, HUMAN 100 UNIT/ML 3 ML VIAL (PYX) SUBCUT SCH (22:14)
[2019-11-05] MEDS: HEPARIN SOD (PORCINE) 5,000 UNIT/ML 1 ML VIAL SUBCUT SCH ×3 (05:06→22:11)
--- NOTE | 2019-11-05 06:51 | EKG REPORT ---
SEVERITY:- ABNORMAL ECG - SINUS RHYTHM MULTIPLE VENTRICULAR PREMATURE COMPLEXES PROBABLE LEFT ATRIAL ABNORMALITY LVH WITH SECONDARY REPOLARIZATION ABNORMALITY PROLONGED QT INTERVAL : Confirmed by: Nick Stringer MD 05-Nov-2019 06:51:17
--- NOTE | 2019-11-05 06:52 | EKG REPORT ---
SEVERITY:- ABNORMAL ECG - SINUS RHYTHM MULTIFORM VENTRICULAR PREMATURE COMPLEXES PROBABLE LVH WITH SECONDARY REPOL ABNRM PROLONGED QT INTERVAL : Confirmed by: Nick Stringer MD 05-Nov-2019 06:51:55
[2019-11-05 06:54] LABS: INTERNATIONAL RATION (INR) 1.09; PROTHROMBIN TIME 14.2 SEC (11.4-15.4)
[2019-11-05 06:59] LABS: ABSOLUTE EOSINOPHILS # (AUTO) 0.1 10^3/uL (0.0-0.6); ABSOLUTE LYMPHOCYTES (AUTO) 2.8 10^3/uL (0.5-4.7); ABSOLUTE MONOCYTES (AUTO) 0.4 10^3/uL (0.1-1.4); ABSOLUTE NEUT (AUTO) 2.1 10^3/uL (1.7-8.2); BASOPHILS % (AUTO) 0.6 % (0-2); EOSINOPHILS % (AUTO) 2.5 % (0-6); HEMATOCRIT 30.8 % (37.9-51.0); HEMOGLOBIN 10.4 g/dL (13.5-17.0); LYMPHOCYTES % (AUTO) 51.4 % (13-45); MEAN CORPUSCULAR HEMOGLOBIN 29.4 pg (27.0-33.4); MEAN CORPUSCULAR HGB CONC 33.9 g/dL (32.0-36.0); MEAN CORPUSCULAR VOLUME 87 fl (80-97); PLATELET COUNT 148 10^3/uL (150-450); RED BLOOD COUNT 3.55 10^6/uL (4.35-5.55); RED CELL DISTRIBUTION WIDTH 17.5 % (11.5-14.0); SEGMENTED NEUTROPHILS % (AUTO) 37.5 % (42-78); TOTAL CELLS COUNTED % (AUTO) 100 %; WHITE BLOOD COUNT 5.6 10^3/uL (4.0-10.5)
[2019-11-05 07:12] LABS: ALBUMIN 2.2 g/dL (3.5-5.0); ALKALINE PHOSPHATASE 79 U/L (38-126); ASPARTATE AMINO TRANSFERASE 26 U/L (17-59); BILIRUBIN,TOTAL 0.3 mg/dL (0.2-1.3); BLOOD UREA NITROGEN 27 mg/dL (7-20); CALCIUM 8.3 mg/dL (8.4-10.2); CHOLESTEROL 152.76 mg/dL (0-200); GLUCOSE 260 mg/dL (75-110); TOTAL PROTEIN 5.2 g/dL (6.3-8.2); TRIGLYCERIDES 182 mg/dL (<150)
[2019-11-05 07:17] LABS: CARBON DIOXIDE 19 mmol/L (22-30); CHLORIDE 113 mmol/L (98-107)
[2019-11-05 07:23] LABS: DIRECT LDL 64 mg/dL (<100)
[2019-11-05 07:27] LABS: ANION GAP 3 (5-19); TROPONIN I < 0.012 ng/mL; VLDL CHOLESTEROL 36.4 mg/dL (10-31)
[2019-11-05 07:54] LABS: NT PRO BNP 57100 pg/mL (<125)
--- NOTE | 2019-11-05 09:35 | PDOC PROGRESS REPORT ---
Subjective Progress Note for:: 11/05/19 Subjective:: 59 year old male with history of chronic diastolic heart failure, diabetes mellitus, hypertension, osteoarthritis on prednisone came to the emergency room with complaints of shortness of breath for the last 3 days. Uses 2-3 pillows to sleep at night in proper position. Denies any chest pains denies any palpitations denies any nausea vomiting diarrhea or abdominal pain. Denies any headaches dizzy spells. Complaining of chronic dry cough denies any fever chills. Work-up in the ER indicates chest x-ray with bilateral pleural effusions and questionable pneumonia. Cardiomegaly present. BNP is 81,000. Cardiac enzymes are negative. Rest of the labs are stable. WBC count within normal limits. Blood pressure is elevated in the ER. Patient said he is not on any Lasix at home. Requesting to be DNR/DNI 11/05/2019-no acute events in the last 24 hours. Comfortably in the bed laying flat. As per the patient his breathing is much better. Denies any chest pains. No complaints concerns sexes as per the patient. Reason For Visit: CONGESTIVE HEART FAILURE Physical Exam Vital Signs: Temp Pulse Resp BP Pulse Ox 97.9 F 67 18 179/90 H 98 11/05/19 08:24 11/05/19 08:24 11/05/19 08:24 11/05/19 08:24 11/05/19 08:24 Intake & Output 11/04/19 11/05/19 11/06/19 06:59 06:59 06:59 Intake Total 421 Balance 421 Weight 70.7 kg General appearance: PRESENT: no acute distress, well-developed Head exam: PRESENT: atraumatic Eye exam: PRESENT: PERRLA Mouth exam: PRESENT: moist, tongue midline Teeth exam: PRESENT: poor dentation Neck exam: ABSENT: carotid bruit, JVD, lymphadenopathy, thyromegaly Respiratory exam: PRESENT: crackles, decreased breath sounds Cardiovascular exam: PRESENT: RRR. ABSENT: diastolic murmur, rubs, systolic murmur Pulses: PRESENT: normal dorsalis pedis pul GI/Abdominal exam: PRESENT: normal bowel sounds, soft. ABSENT: distended, guarding, mass, organolmegaly, rebound, tenderness Rectal exam: PRESENT: deferred Extremities exam: PRESENT: full ROM. ABSENT: calf tenderness, clubbing, pedal edema Neurological exam: PRESENT: alert, awake, oriented to person, oriented to place, oriented to time, oriented to situation, CN II-XII grossly intact. ABSENT: motor sensory deficit Psychiatric exam: PRESENT: appropriate affect, normal mood. ABSENT: homicidal ideation, suicidal ideation Results Laboratory Results: 11/05/19 06:09 11/05/19 06:09 11/04/19 11/04/19 11/04/19 14:17 14:17 15:32 WBC 7.1 RBC 4.22 L Hgb 12.1 L Hct 36.4 L MCV 86 MCH 28.8 MCHC 33.4 RDW 18.1 H Plt Count 197 Seg Neutrophils % 44.7 Sodium 136.8 L Potassium 4.5 Chloride 113 H Carbon Dioxide 21 L Anion Gap 3 L BUN 21 H Creatinine 1.56 H Est GFR ( Amer) 55 L Glucose 132 H Calcium 8.7 Magnesium Total Bilirubin 0.6 AST 37 Alkaline Phosphatase 91 Total Protein 6.3 Albumin 2.8 L Triglycerides Cholesterol LDL Cholesterol Direct VLDL Cholesterol HDL Cholesterol TSH Urine Color YELLOW Urine Appearance CLEAR Urine pH 6.0 Ur Specific [place] 1.016 Urine Protein >=500 H Urine Glucose (UA) 50 H Urine Ketones NEGATIVE Urine Blood SMALL H Urine Nitrite NEGATIVE Ur Leukocyte Esterase NEGATIVE Urine WBC (Auto) 1 Urine RBC (Auto) 3 11/05/19 11/05/19 11/05/19 06:09 06:09 06:09 WBC 5.6 RBC 3.55 L Hgb 10.4 L Hct 30.8 L MCV 87 MCH 29.4 MCHC 33.9 RDW 17.5 H Plt Count 148 L Seg Neutrophils % 37.5 L Sodium 135.4 L Potassium 4.0 Chloride 113 H Carbon Dioxide 19 L Anion Gap 3 L BUN 27 H Creatinine 1.75 H Est GFR ( Amer) 48 L Glucose 260 H Calcium 8.3 L Magnesium 1.6 Total Bilirubin 0.3 AST 26 Alkaline Phosphatase 79 Total Protein 5.2 L Albumin 2.2 L Triglycerides 182 H Cholesterol 152.76 LDL Cholesterol Direct 64 VLDL Cholesterol 36.4 H HDL Cholesterol 43 TSH 4.78 H Urine Color Urine Appearance Urine pH Ur Specific [place] Urine Protein Urine Glucose (UA) Urine Ketones Urine Blood Urine Nitrite Ur Leukocyte Esterase Urine WBC (Auto) Urine RBC (Auto) 11/04/19 11/04/19 11/04/19 14:17 14:17 17:55 Creatine Kinase 121 Troponin I < 0.012 0.022 NT-Pro-B Natriuret Pep [id number] H 11/04/19 11/05/19 23:33 06:09 Creatine Kinase Troponin I < 0.012 < 0.012 NT-Pro-B Natriuret Pep [id number] H Impressions: Chest X-Ray 11/04/19 14:10 IMPRESSION: CARDIOMEGALY WITH BILATERAL PLEURAL EFFUSIONS. BILATERAL LOWER LOBE AIRSPACE DISEASE, RIGHT GREATER THAN LEFT. MAY BE DUE TO PNEUMONIA, PARTI CULARLY ON THE RIGHT. Assessment and Plan - Diagnosis (1) Congestive heart failure (CHF) Qualifiers: Heart failure type: unspecified Heart failure chronicity: acute on chronic Qualified Code(s): I50.9 - Heart failure, unspecified Is this a current diagnosis for this admission?: Yes Plan: 11/04/2019-patient is going to be admitted to [facility] as an inpatient for acute on chronic exacerbation of diastolic heart failure. Patient is started on Lasix 40 mg IV twice a day, to continue amlodipine, Coreg, BiDil, losartan. Placed on fluid restriction 1500 cc/day. Restarted his aspirin and Plavix. GI prop hylaxis DVT prophylaxis initiated. Admission BNP is 81,000 chest x-ray shows cardiomegaly with bilateral pleural effusions and plan is to repeat the BNP tomorrow. 11/05/2019-admitted with acute on chronic diastolic heart failure. Echocardiogram done in June shows normal EF with diastolic dysfunction. Lasix 40 mg IV twice a day and that his shortness of breath is improving. BNP came down to 51,000. TSH is 4.78 within normal limits. Plan is to continue IV Lasix at this time. (2) CKD (chronic kidney disease) Qualifiers: Chronic kidney disease stage: unspecified stage Qualified Code(s): N18.9 - Chronic kidney disease, unspecified Is this a current diagnosis for this admission?: No Plan: 11/04/2019-patient has history of chronic kidney disease creatinine is 1.56. Stage II kidney disease. 11/05/2019-serum creatinine today is 1.75 patient has a stage II kidney disease. 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 He is to check hemoglobin A1c start him on insulin sliding scale before meals and at bedtime. To hold the Lantus and 70/30 insulin at this time. Blood sugars in the ER around 132. 11/05/19-hemoglobin A1c 7.0 blood sugar this morning is 200. Plan is to continue insulin sliding scale before meals and at bedtime at this time. lantus 10 unit bid (4) HTN (hypertension) Is this a current diagnosis for this admission?: No Plan: 11/04/2019-blood pressure is more than 200 to give his BiDil now and plan is to continue his home medications losartan, Coreg, BiDil and started on Lasix 40 mg IV twice a day. Plan is to check the blood pressures on regular basis. 11/05/19-blood pressure today is 167/78. Plan is to continue his home medications.
[2019-11-05] MEDS ORDERED: AZITHROMYCIN INJ 500 MG VIAL IV SCH (10:00)
[2019-11-05] MEDS ORDERED: AZITHROMYCIN 500 MG in DEXTROSE 5%-WATER 250 ML IV SCH (10:00)
[2019-11-05] MEDS ORDERED: CEFTRIAXONE 1 GM/D5W RTU 1 GM/50 ML RTUPB IV SCH (10:00)
[2019-11-05] MEDS: INSULIN REG, HUMAN 100 UNIT/ML 3 ML VIAL (PYX) SUBCUT SCH ×4 (10:09→22:13)
[2019-11-05] MEDS: CLOPIDOGREL BISULFATE 75 MG TABLET PO SCH (10:18)
[2019-11-05] MEDS: LOSARTAN POTASSIUM 50 MG TABLET PO SCH (10:18)
[2019-11-05] MEDS: CARVEDILOL 12.5 MG TABLET PO SCH ×2 (10:18→22:12)
[2019-11-05] MEDS: FAMOTIDINE 20 MG TABLET PO SCH ×2 (10:18→22:12)
[2019-11-05] MEDS: FUROSEMIDE INJ/PF 40 MG/4 ML SDV IV SCH ×2 (10:18→22:11)
[2019-11-05] MEDS: DOCUSATE SODIUM 100 MG/10 ML UDC PO SCH ×2 (10:18→17:16)
[2019-11-05] MEDS: ISOSORB DINIT/HYDRALAZINE HCL 20-37.5 MG TABLET PO SCH ×2 (10:18→17:16)
[2019-11-05] MEDS: PREDNISONE 10 MG TABLET PO SCH (10:18)
--- NOTE | 2019-11-05 10:45 | CDI QUERY ---
CDI Query CDI Review: Dear Provider, Please clarify and document in progress notes and D/C summary if you agree with the clinical findings: POSSIBLE PNEUMONIA? PROBABLE PNEUMONIA? SUSPECTED PNEUMONIA? INSIGNIFICANT FINDING? Clinical data: Progress notes state possible pneumonia in ER pt on antibiotics (azithromycin and rocephin) cxr details pleural effusions and possible pneumonia Thanks, Christine Chaves [phone]
[2019-11-05] MEDS: GABAPENTIN 300 MG CAPSULE PO SCH ×2 (13:56→22:11)
[2019-11-05] MEDS: ATORVASTATIN CALCIUM 20 MG TABLET PO SCH (22:12)
[2019-11-05] MEDS: AMLODIPINE BESYLATE 5 MG TABLET PO SCH (22:12)
[2019-11-06] MEDS: HEPARIN SOD (PORCINE) 5,000 UNIT/ML 1 ML VIAL SUBCUT SCH ×3 (05:36→21:02)
[2019-11-06] MEDS: GABAPENTIN 300 MG CAPSULE PO SCH ×3 (05:36→21:02)
[2019-11-06 06:49] LABS: ABSOLUTE EOSINOPHILS # (AUTO) 0.1 10^3/uL (0.0-0.6); ABSOLUTE LYMPHOCYTES (AUTO) 2.7 10^3/uL (0.5-4.7); ABSOLUTE MONOCYTES (AUTO) 0.5 10^3/uL (0.1-1.4); ABSOLUTE NEUT (AUTO) 2.4 10^3/uL (1.7-8.2); BASOPHILS % (AUTO) 0.4 % (0-2); EOSINOPHILS % (AUTO) 2.2 % (0-6); HEMATOCRIT 29.6 % (37.9-51.0); HEMOGLOBIN 10.1 g/dL (13.5-17.0); LYMPHOCYTES % (AUTO) 47.2 % (13-45); MEAN CORPUSCULAR HEMOGLOBIN 29.2 pg (27.0-33.4); MEAN CORPUSCULAR HGB CONC 34.1 g/dL (32.0-36.0); MEAN CORPUSCULAR VOLUME 86 fl (80-97); MONOCYTES % (AUTO) 8.5 % (3-13); PLATELET COUNT 141 10^3/uL (150-450); RED BLOOD COUNT 3.46 10^6/uL (4.35-5.55); RED CELL DISTRIBUTION WIDTH 17.5 % (11.5-14.0); SEGMENTED NEUTROPHILS % (AUTO) 41.7 % (42-78); TOTAL CELLS COUNTED % (AUTO) 100 %; WHITE BLOOD COUNT 5.8 10^3/uL (4.0-10.5)
[2019-11-06 07:15] LABS: ALBUMIN 2.3 g/dL (3.5-5.0); ALKALINE PHOSPHATASE 73 U/L (38-126); ASPARTATE AMINO TRANSFERASE 22 U/L (17-59); BILIRUBIN,TOTAL 0.2 mg/dL (0.2-1.3); BLOOD UREA NITROGEN 33 mg/dL (7-20); CALCIUM 8.2 mg/dL (8.4-10.2); CARBON DIOXIDE 20 mmol/L (22-30); CHLORIDE 113 mmol/L (98-107); GLUCOSE 193 mg/dL (75-110); POTASSIUM 3.9 mmol/L (3.6-5.0); TOTAL PROTEIN 5.3 g/dL (6.3-8.2)
[2019-11-06 07:22] LABS: ANION GAP 4 (5-19)
[2019-11-06] MEDS: INSULIN REG, HUMAN 100 UNIT/ML 3 ML VIAL (PYX) SUBCUT SCH ×4 (08:19→21:01)
--- NOTE | 2019-11-06 09:07 | PDOC PROGRESS REPORT ---
Subjective Progress Note for:: 11/06/19 Subjective:: 59 year old male with history of chronic diastolic heart failure, diabetes mellitus, hypertension, osteoarthritis on prednisone came to the emergency room with complaints of shortness of breath for the last 3 days. Uses 2-3 pillows to sleep at night in proper position. Denies any chest pains denies any palpitations denies any nausea vomiting diarrhea or abdominal pain. Denies any headaches dizzy spells. Complaining of chronic dry cough denies any fever chills. Work-up in the ER indicates chest x-ray with bilateral pleural effusions and questionable pneumonia. Cardiomegaly present. BNP is 81,000. Cardiac enzymes are negative. Rest of the labs are stable. WBC count within normal limits. Blood pressure is elevated in the ER. Patient said he is not on any Lasix at home. Requesting to be DNR/DNI 11/05/2019-no acute events in the last 24 hours. Comfortably in the bed laying flat. As per the patient his breathing is much better. Denies any chest pains. No complaints concerns sexes as per the patient. 11/06/[id number]-old male admitted for shortness of breath differential diagnosis at the time of admission pneumonia/CHF exacerbation. Patient is receiving IV antibiotics, IV Lasix shortness of breath is resolving. Pulse ox is 99% on 1.5 L this morning. Reason For Visit: CONGESTIVE HEART FAILURE Physical Exam Vital Signs: Temp Pulse Resp BP Pulse Ox 98.0 F 71 16 155/80 H 99 11/06/19 03:39 11/06/19 07:00 11/06/19 03:39 11/06/19 03:39 11/06/19 03:39 Intake & Output 11/05/19 11/06/19 11/07/19 06:59 06:59 06:59 Intake Total 421 1772 Balance 421 1772 Weight 70.7 kg 71.4 kg General appearance: PRESENT: no acute distress, well-developed Head exam: PRESENT: atraumatic Eye exam: PRESENT: PERRLA Mouth exam: PRESENT: moist, tongue midline Neck exam: ABSENT: carotid bruit, JVD, lymphadenopathy, thyromegaly Respiratory exam: PRESENT: decreased breath sounds Cardiovascular exam: PRESENT: RRR. ABSENT: diastolic murmur, rubs, systolic murmur GI/Abdominal exam: PRESENT: normal bowel sounds, soft. ABSENT: distended, guarding, mass, organolmegaly, rebound, tenderness Rectal exam: PRESENT: deferred Extremities exam: PRESENT: full ROM. ABSENT: calf tenderness, clubbing, pedal edema Neurological exam: PRESENT: alert, awake, oriented to person, oriented to place, oriented to time, oriented to situation, CN II-XII grossly intact. ABSENT: motor sensory deficit Psychiatric exam: PRESENT: appropriate affect, normal mood. ABSENT: homicidal ideation, suicidal ideation Results Laboratory Results: 11/06/19 06:17 11/06/19 06:17 11/06/19 11/06/19 06:17 06:17 WBC 5.8 RBC 3.46 L Hgb 10.1 L Hct 29.6 L MCV 86 MCH 29.2 MCHC 34.1 RDW 17.5 H Plt Count 141 L Seg Neutrophils % 41.7 L Sodium 136.5 L Potassium 3.9 Chloride 113 H Carbon Dioxide 20 L Anion Gap 4 L BUN 33 H Creatinine 1.96 H Est GFR ( Amer) 42 L Glucose 193 H Calcium 8.2 L Magnesium 1.7 Total Bilirubin 0.2 AST 22 Alkaline Phosphatase 73 Total Protein 5.3 L Albumin 2.3 L 11/04/19 11/04/19 11/04/19 14:17 14:17 17:55 Creatine Kinase 121 Troponin I < 0.012 0.022 NT-Pro-B Natriuret Pep [id number] H 11/04/19 11/05/19 11/06/19 23:33 06:09 06:17 Creatine Kinase Troponin I < 0.012 < 0.012 NT-Pro-B Natriuret Pep [id number] H 94311 H Impressions: Chest X-Ray 11/04/19 14:10 IMPRESSION: CARDIOMEGALY WITH BILATERAL PLEURAL EFFUSIONS. BILATERAL LOWER LOBE AIRSPACE DISEASE, RIGHT GREATER THAN LEFT. MAY BE DUE TO PNEUMONIA, PARTICULARLY ON THE RIGHT. Assessment and Plan - Diagnosis (1) Congestive heart failure (CHF) Qualifiers: Heart failure type: unspecified Heart failure chronicity: acute on chronic Qualified Code(s): I50.9 - Heart failure, unspecified Is this a current diagnosis for this admission?: Yes Plan: 11/04/2019-patient is going to be admitted to [facility] as an inpatient for acute on chronic exacerbation of diastolic heart failure. Patient is started on Lasix 40 mg IV twice a day, to continue amlodipine, Coreg, BiDil, losartan. Placed on fluid restriction 1500 cc/day. Restarted his aspirin and Plavix. GI prophylaxis DVT prophylaxis initiated. Admission BNP is 81,000 chest x-ray shows cardiomegaly with bilateral pleural effusions and plan is to repeat the BNP tomorrow. 11/05/2019-admitted with acute on chronic diastolic heart failure. Echocardiogram done in June shows normal EF with diastolic dysfunction. Lasix 40 mg IV twice a day and that his shortness of breath is improving. BNP came down to 51,000. TSH is 4.78 within normal limits. Plan is to continue IV Lasix at this time. 11/06/2019-patient has history of chronic diastolic heart failure. Receiving IV Lasix 40 mg twice a day he is creatinine is slowly bumping up. Plan is to decrease the Lasix to 40 mg IV once a day. Patient is on fluid restriction. BNP improved to 32,600. Pulse ox is 99% on 1.5 L oxygen. (2) CKD (chronic kidney disease) Qualifiers: Chronic kidney disease stage: unspecified stage Qualified Code(s): N18.9 - Chronic kidney disease, unspecified Is this a current diagnosis for this admission?: No Plan: 11/04/2019-patient has history of chronic kidney disease creatinine is 1.56. Stage II kidney disease. 11/05/2019-serum creatinine today is 1.75 patient has a stage II kidney disease. 11/06/2019-creatinine today is 1.96 receiving Lasix 40 mg IV twice a day plan is to decrease dose to 40 mg IV once a day. (3) Diabetes Qualifiers: Diabetes mellitus type: type 2 Diabetes mellitus detention insulin use: with intermission coordinator use Is this a current diagnosis for this admission?: No Plan: 11/04/2019-patient has history of type 2 diabetes mellitus as per the patient he is taking Lantus 20 units in the daytime and insulin 70/30 60 units twice a day. He is to check hemoglobin A1c start him on insulin sliding scale before meals and at bedtime. To hold the Lantus and 70/30 insulin at this time. Blood sugars in the ER around 132. 11/05/19-hemoglobin A1c 7.0 blood sugar this morning is 200. Plan is to continue insulin sliding scale before meals and at bedtime at this time. lantus 10 unit bid 11/06/2019-blood sugar is 193. On insulin sliding scale before meals and at bedtime. Hemoglobin A1c 7.0. Plan to start him on Lantus 10 units twice a day. (4) HTN (hypertension) Is this a current diagnosis for this admission?: No Plan: 11/04/2019-blood pressure is more than 200 to give his BiDil now and plan is to continue his home medications losartan, Coreg, BiDil and started on Lasix 40 mg IV twice a day. Plan is to check the blood pressures on regular basis. 11/05/19-blood pressure today is 167/78. Plan is to continue his home medications. 11/06/2019-blood pressure today is 155/80 improving. Plan is to continue the present management at this time.
[2019-11-06] MEDS ORDERED: FUROSEMIDE INJ/PF 40 MG/4 ML SDV IV SCH (10:00)
[2019-11-06] MEDS: INSULIN GLARGINE,HUM.REC.ANLOG 1,000 UNIT/10 ML VIAL SUBCUT SCH ×2 (10:03→21:00)
[2019-11-06] MEDS: CARVEDILOL 12.5 MG TABLET PO SCH ×2 (10:04→21:01)
[2019-11-06] MEDS: DOCUSATE SODIUM 100 MG/10 ML UDC PO SCH ×2 (10:04→17:06)
[2019-11-06] MEDS: PREDNISONE 10 MG TABLET PO SCH (10:04)
[2019-11-06] MEDS: ISOSORB DINIT/HYDRALAZINE HCL 20-37.5 MG TABLET PO SCH ×2 (10:04→17:06)
[2019-11-06] MEDS: LOSARTAN POTASSIUM 50 MG TABLET PO SCH (10:04)
[2019-11-06] MEDS: FAMOTIDINE 20 MG TABLET PO SCH ×2 (10:04→21:01)
[2019-11-06] MEDS: CLOPIDOGREL BISULFATE 75 MG TABLET PO SCH (10:04)
--- NOTE | 2019-11-06 13:52 | PDOC CONSULTATION ---
Consultation Consult Date: 11/05/19 Attending physician:: JARETH LANCASTER Provider Consulted: CARLOS DEJESUS Consult reason:: CHF History of Present Illness Admission Date/PCP: 11/04/19 16:50 GERALD HAMILTON MD Patient complains of: Shortness of breath and lower extremity edema History of Present Illness: STEVE ALDANA is a 59 year old male, who presents with several days history of progressive shortness of breath, abdominal bloating and mild pedal edema. Patient was noted to be off his diuretics. Patient presented to the emergency room because of shortness of breath and was noted to have congestive heart failure with bilateral pleural effusion. Patient did have an extensive cardiac evaluation during an earlier admission about 6 months ago. He chronically runs high BNP levels. Patient stress test 6 months ago had shown a small area of fixed defect. Patient did not undergo a heart catheterization at that time even though his enzymes were noted to be mildly abnormal. Patient on repeated questioning denying any chest pain, palpitations, syncope, near syncope. Patient has no health insurance and aberrantly have not been seen at [facility] he was [facility] to be seen. Past Medical History Cardiac Medical History: Reports: Congestive Heart Failure - diastolic dysfunction, preserved EF, Myocardial Infarction - NSTEMI May 2019, Hyperlipidema, Hypertension, Heart Murmur Pulmonary Medical History: Denies: Tuberculosis Neurological Medical History: Denies: Seizures Endocrine Medical History: Reports: Diabetes Mellitus Type 2 Malignancy Medical History: Reports: None GI Medical History: Reports: None, Gastroesophageal Reflux Disease Musculoskeltal Medical History: Reports: None Psychiatric Medical History: Reports: Depression Past Surgical History Past Surgical History: Reports: Appendectomy, Cholecystectomy Denies: Pacemaker Social History Information Source: Patient Lives with: Family Smoking Status: Current Every Day Smoker Cigarettes Packs Per Day: 0.5 Electronic Cigarette use?: No Last Time Smoked: 11/04/19 Frequency of Alcohol Use: Occasional Hx Recreational Drug Use: Yes Drugs: Cocaine, Heroin, Marijuana Hx Prescription Drug Abuse: Yes - Advance Directive Resuscitation Status: Do Not Resuscitate Family History Family History: Reviewed & Not Pertinent, Arthritis, CAD, DM, Hyperlipidemia, Hypertension, Malignancy Parental Family History Reviewed: Yes Children Family History Reviewed: Yes Sibling(s) Family History Reviewed.: Yes Medication/Allergy Home Medications: Gabapentin [Neurontin] 600 mg PO Q8 06/27/19 Insulin Glargine,Hum.rec.anlog [Lantus Insulin 100 Unit/1 ml 10 ml] 20 units SQ DAILY 06/27/19 Losartan Potassium 100 mg PO DAILY #30 tablet 06/30/19 Metoprolol Succinate [Toprol Xl] 200 mg PO DAILY 09/07/19 Allergies/Adverse Reactions: shellfish derived [Shellfish Derived] Allergy (Unknown, Verified 11/17/18 09:16) michael Allergy (Uncoded 11/17/18 09:16) Review of Systems Constitutional: ABSENT: chills, fever(s), headache(s), weight gain, weight loss Eyes: ABSENT: visual disturbances Ears: ABSENT: hearing changes Cardiovascular: ABSENT: chest pain, dyspnea on exertion, edema, orthropnea, palpitations Respiratory: PRESENT: dyspnea. ABSENT: cough, hemoptysis Gastrointestinal: ABSENT: abdominal pain, constipation, diarrhea, hematemesis, hematochezia, nausea, vomiting Genitourinary: ABSENT: dysuria, hematuria Musculoskeletal: ABSENT: joint swelling Integumentary: ABSENT: rash, wounds Neurological: ABSENT: abnormal gait, abnormal speech, confusion, dizziness, focal weakness, syncope Psychiatric: ABSENT: anxiety, depression, homidical ideation, suicidal ideation Endocrine: ABSENT: cold intolerance, heat intolerance, polydipsia, polyuria Hematologic/Lymphatic: ABSENT: easy bleeding, easy bruising Physical Exam Vital Signs: Temp Pulse Resp BP Pulse Ox 97.9 F 66 18 141/84 H 99 11/06/19 11:17 11/06/19 11:17 11/06/19 11:17 11/06/19 11:17 11/06/19 11:17 Intake & Output 11/05/19 11/06/19 11/07/19 06:59 06:59 06:59 Intake Total 421 1772 240 Balance 421 1772 240 Weight 70.7 kg 71.4 kg General appearance: PRESENT: no acute distress, well-developed, well-nourished Head exam: PRESENT: atraumatic, normocephalic Eye exam: PRESENT: conjunctiva pink, EOMI, PERRLA. ABSENT: scleral icterus Ear exam: PRESENT: normal external ear exam Mouth exam: PRESENT: moist, tongue midline Neck exam: ABSENT: carotid bruit, JVD, lymphadenopathy, thyromegaly Respiratory exam: PRESENT: clear to auscultation jodi. ABSENT: rales, rhonchi, wheezes Cardiovascular exam: PRESENT: RRR. ABSENT: diastolic murmur, rubs, systolic murmur Pulses: PRESENT: normal dorsalis pedis pul, +2 pedal pulses bilateral Vascular exam: PRESENT: normal capillary refill GI/Abdominal exam: PRESENT: normal bowel sounds, soft. ABSENT: distended, guarding, mass, organolmegaly, rebound, tenderness Rectal exam: PRESENT: deferred Extremities exam: PRESENT: full ROM, +1 edema. ABSENT: calf tenderness, clubbing, pedal edema Neurological exam: PRESENT: alert, awake, oriented to person, oriented to place, oriented to time, oriented to situation, CN II-XII grossly intact. ABSENT: motor sensory deficit Psychiatric exam: PRESENT: appropriate affect, normal mood. ABSENT: homicidal ideation, suicidal ideation Skin exam: PRESENT: dry, intact, warm. ABSENT: cyanosis, rash Results Laboratory Results: 11/06/19 06:17 11/06/19 06:17 11/06/19 11/06/19 06:17 06:17 WBC 5.8 RBC 3.46 L Hgb 10.1 L Hct 29.6 L MCV 86 MCH 29.2 MCHC 34.1 RDW 17.5 H Plt Count 141 L Seg Neutrophils % 41.7 L Sodium 136.5 L Potassium 3.9 Chloride 113 H Carbon Dioxide 20 L Anion Gap 4 L BUN 33 H Creatinine 1.96 H Est GFR ( Amer) 42 L Glucose 193 H Calcium 8.2 L Magnesium 1.7 Total Bilirubin 0.2 AST 22 Alkaline Phosphatase 73 Total Protein 5.3 L Albumin 2.3 L 11/04/19 15:32 Clean Catch Midstream Urine Culture - Final NO GROWTH 2 DAYS 11/04/19 11/04/19 11/04/19 14:17 14:17 17:55 Creatine Kinase 121 Troponin I < 0.012 0.022 NT-Pro-B Natriuret Pep [id number] H 11/04/19 11/05/19 11/06/19 23:33 06:09 06:17 Creatine Kinase Troponin I < 0.012 < 0.012 NT-Pro-B Natriuret Pep 37210 H 57882 H EKG Comments: Sinus rhythm, LVH, secondary ST-T wave changes, VPCs noted. Impressions: Chest X-Ray 11/04/19 14:10 IMPRESSION: CARDIOMEGALY WITH BILATERAL PLEURAL EFFUSIONS. BILATERAL LOWER LOBE AIRSPACE DISEASE, RIGHT GREATER THAN LEFT. MAY BE DUE TO PNEUMONIA, PARTICULARLY ON THE RIGHT. Assessment & Plan - Diagnosis (1) Congestive heart failure (CHF) Qualifiers: Heart failure type: diastolic Heart failure chronicity: acute on chronic Qualified Code(s): I50.33 - Acute on chronic diastolic (congestive) heart failure Is this a current diagnosis for this admission?: Yes (2) HTN (hypertension) Qualifiers: Hypertension type: essential hypertension Qualified Code(s): I10 - Essential (primary) hypertension Is this a current diagnosis for this admission?: Yes (3) CKD (chronic kidney disease) Qualifiers: Chronic kidney disease stage: stage 3 (moderate) Qualified Code(s): N18.3 - Chronic kidney disease, stage 3 (moderate) Is this a current diagnosis for this admission?: No (4) Diabetes Qualifiers: Diabetes mellitus type: type 2 Diabetes mellitus lobsterman insulin use: unspecified lobsterman insulin use status Chronic kidney disease stage: stage 3 (moderate) Is this a current diagnosis for this admission?: No - Notes Notes: Patient known to me from prior admission. However he has not followed up with my office. When patient seen, he was noted to be compensated. He has received adequate therapy for CHF with diuretics. Recommend BNP level discharge. Patient advised to report any worsening symptoms, sustained palpitations, syncop e, near syncope. Patient advised on aggressive risk factor modification in this regard he was advised on tobacco cessation, healthy lifestyle, low-salt diet etc. Management plan from the hospitalist reviewed and it was noted to be very satisfactory. I will be out of town over the weekend. I will be available on phone call. As usual I thank Dr. Fish very much for the kind referral. - Time Time Spent: 30 to 50 Minutes
[2019-11-06] MEDS: ATORVASTATIN CALCIUM 20 MG TABLET PO SCH (21:01)
[2019-11-06] MEDS: AMLODIPINE BESYLATE 5 MG TABLET PO SCH (21:01)
[2019-11-07] MEDS: HEPARIN SOD (PORCINE) 5,000 UNIT/ML 1 ML VIAL SUBCUT SCH ×3 (05:44→21:18)
[2019-11-07] MEDS: GABAPENTIN 300 MG CAPSULE PO SCH ×3 (05:44→21:17)
[2019-11-07 06:13] LABS: ABSOLUTE EOSINOPHILS # (AUTO) 0.2 10^3/uL (0.0-0.6); ABSOLUTE LYMPHOCYTES (AUTO) 3.6 10^3/uL (0.5-4.7); ABSOLUTE MONOCYTES (AUTO) 0.4 10^3/uL (0.1-1.4); ABSOLUTE NEUT (AUTO) 3.2 10^3/uL (1.7-8.2); BASOPHILS % (AUTO) 0.7 % (0-2); EOSINOPHILS % (AUTO) 2.1 % (0-6); HEMATOCRIT 32.7 % (37.9-51.0); LYMPHOCYTES % (AUTO) 48.5 % (13-45); MEAN CORPUSCULAR HEMOGLOBIN 28.9 pg (27.0-33.4); MEAN CORPUSCULAR HGB CONC 33.5 g/dL (32.0-36.0); MEAN CORPUSCULAR VOLUME 86 fl (80-97); MONOCYTES % (AUTO) 5.6 % (3-13); PLATELET COUNT 158 10^3/uL (150-450); RED CELL DISTRIBUTION WIDTH 17.1 % (11.5-14.0); SEGMENTED NEUTROPHILS % (AUTO) 43.1 % (42-78); TOTAL CELLS COUNTED % (AUTO) 100 %; WHITE BLOOD COUNT 7.5 10^3/uL (4.0-10.5)
[2019-11-07 06:29] LABS: ALBUMIN 2.6 g/dL (3.5-5.0); ALKALINE PHOSPHATASE 77 U/L (38-126); ANION GAP 6 (5-19); ASPARTATE AMINO TRANSFERASE 25 U/L (17-59); BILIRUBIN,TOTAL 0.2 mg/dL (0.2-1.3); BLOOD UREA NITROGEN 39 mg/dL (7-20); CALCIUM 8.9 mg/dL (8.4-10.2); CARBON DIOXIDE 19 mmol/L (22-30); CHLORIDE 112 mmol/L (98-107); GLUCOSE 110 mg/dL (75-110)
[2019-11-07] MEDS: INSULIN REG, HUMAN 100 UNIT/ML 3 ML VIAL (PYX) SUBCUT SCH ×4 (07:59→21:18)
--- NOTE | 2019-11-07 08:34 | PDOC PROGRESS REPORT ---
Subjective Progress Note for:: 11/07/19 Subjective:: 59 year old male with history of chronic diastolic heart failure, diabetes mellitus, hypertension, osteoarthritis on prednisone came to the emergency room with complaints of shortness of breath for the last 3 days. Uses 2-3 pillows to sleep at night in proper position. Denies any chest pains denies any palpitations denies any nausea vomiting diarrhea or abdominal pain. Denies any headaches dizzy spells. Complaining of chronic dry cough denies any fever chills. Work-up in the ER indicates chest x-ray with bilateral pleural effusions and questionable pneumonia. Cardiomegaly present. BNP is 81,000. Cardiac enzymes are negative. Rest of the labs are stable. WBC count within normal limits. Blood pressure is elevated in the ER. Patient said he is not on any Lasix at home. Requesting to be DNR/DNI 11/05/2019-no acute events in the last 24 hours. Comfortably in the bed laying flat. As per the patient his breathing is much better. Denies any chest pains. No complaints concerns sexes as per the patient. 11/06/[id number]-vpfx-old male admitted for shortness of breath differential diagnosis at the time of admission pneumonia/CHF exacerbation. Patient is receiving IV antibiotics, IV Lasix shortness of breath is resolving. Pulse ox is 99% on 1.5 L this morning. 11/07/[id number]-poda-old male admitted with acute on chronic exacerbation of the diastolic heart failure doing well. Pulse ox is 100% on 2 L. Came in with questionable pneumonia in the x-rays blood cultures are negative afebrile WBC count is normal pneumonia is ruled out. Patient is expressing desire to stay 1 more day. Reason For Visit: CONGESTIVE HEART FAILURE Physical Exam Vital Signs: Temp Pulse Resp BP Pulse Ox 98.2 F 70 20 149/107 H 100 11/07/19 07:32 11/07/19 07:32 11/07/19 07:32 11/07/19 07:32 11/07/19 07:32 Intake & Output 11/06/19 11/07/19 11/08/19 06:59 06:59 06:59 Intake Total 1772 684 Output Total 0 Balance 1772 684 Weight 71.4 kg 68.8 kg General appearance: PRESENT: no acute distress, well-developed Head exam: PRESENT: atraumatic Eye exam: PRESENT: PERRLA Mouth exam: PRESENT: moist, tongue midline Teeth exam: PRESENT: poor dentation Neck exam: ABSENT: carotid bruit, JVD, lymphadenopathy, thyromegaly Respiratory exam: PRESENT: decreased breath sounds Cardiovascular exam: PRESENT: RRR. ABSENT: diastolic murmur, rubs, systolic murmur Pulses: PRESENT: normal dorsalis pedis pul GI/Abdominal exam: PRESENT: normal bowel sounds, soft. ABSENT: distended, guarding, mass, organolmegaly, rebound, tenderness Rectal exam: PRESENT: deferred Extremities exam: PRESENT: full ROM. ABSENT: calf tenderness, clubbing, pedal edema Neurological exam: PRESENT: alert, awake, oriented to person, oriented to place, oriented to time, oriented to situation, CN II-XII grossly intact. ABSENT: motor sensory deficit Psychiatric exam: PRESENT: appropriate affect, normal mood. ABSENT: homicidal ideation, suicidal ideation Results Laboratory Results: 11/07/19 05:39 11/07/19 05:39 11/07/19 11/07/19 05:39 05:39 WBC 7.5 RBC 3.80 L Hgb 11.0 L Hct 32.7 L MCV 86 MCH 28.9 MCHC 33.5 RDW 17.1 H Plt Count 158 Seg Neutrophils % 43.1 Sodium 137.0 Potassium 4.0 Chloride 112 H Carbon Dioxide 19 L Anion Gap 6 BUN 39 H Creatinine 1.97 H Est GFR ( Amer) 42 L Glucose 110 Calcium 8.9 Magnesium 1.7 Total Bilirubin 0.2 AST 25 Alkaline Phosphatase 77 Total Protein 6.0 L Albumin 2.6 L 11/04/19 15:32 Clean Catch Midstream Urine Culture - Final NO GROWTH 2 DAYS 11/04/19 11/04/19 11/04/19 14:17 14:17 17:55 Creatine Kinase 121 Troponin I < 0.012 0.022 NT-Pro-B Natriuret Pep [id number] H 11/04/19 11/05/19 11/06/19 23:33 06:09 06:17 Creatine Kinase Troponin I < 0.012 < 0.012 NT-Pro-B Natriuret Pep 45747 H 00501 H Impressions: Chest X-Ray 11/04/19 14:10 IMPRESSION: CARDIOMEGALY WITH BILATERAL PLEURAL EFFUSIONS. BILATERAL LOWER LOBE AIRSPACE DISEASE, RIGHT GREATER THAN LEFT. MAY BE DUE TO PNEUMONIA, PARTICULARLY ON THE RIGHT. Assessment and Plan - Diagnosis (1) Congestive heart failure (CHF) Qualifiers: Heart failure type: diastolic Heart failure chronicity: acute on chronic Qualified Code(s): I50.33 - Acute on chronic diastolic (congestive) heart jigardaniela gaffney Is this a current diagnosis for this admission?: Yes Plan: 11/04/2019-patient is going to be admitted to [facility] as an inpatient for acute on chronic exacerbation of diastolic heart failure. Patient is started on Lasix 40 mg IV twice a day, to continue amlodipine, Coreg, BiDil, losartan. Placed on fluid restriction 1500 cc/day. Restarted his aspirin and Plavix. GI prophylaxis DVT prophylaxis initiated. Admission BNP is 81,000 chest x-ray shows cardiomegaly with bilateral pleural effusions and plan is to repeat the BNP tomorrow. 11/05/2019-admitted with acute on chronic diastolic heart failure. Echocardiogram done in June shows normal EF with diastolic dysfunction. Lasix 40 mg IV twice a day and that his shortness of breath is improving. BNP came down to 51,000. TSH is 4.78 within normal limits. Plan is to continue IV Lasix at this time. 11/06/2019-patient has history of chronic diastolic heart failure. Receiving IV Lasix 40 mg twice a day he is creatinine is slowly bumping up. Plan is to decrease the Lasix to 40 mg IV once a day. Patient is on fluid restriction. BNP improved to 32,600. Pulse ox is 99% on 1.5 L oxygen. 11/07/19-patient admitted with acute on chronic diastolic heart failure pulse ox is 100% on 2 L shortness of breath that is resolving. Creatinine is trending up today's creatinine is 1.97 yesterday Lasix dose is decreased from 40 mg IV twice a day to 40 mg IV once a day. Plan is to change IV Lasix to p.o. Lasix from today (2) CKD (chronic kidney disease) Qualifiers: Chronic kidney disease stage: stage 3 (moderate) Qualified Code(s): N18.3 - Chronic kidney disease, stage 3 (moderate) Is this a current diagnosis for this admission?: No Plan: 11/04/2019-patient has history of chronic kidney disease creatinine is 1.56. Stage II kidney disease. 11/05/2019-serum creatinine today is 1.75 patient has a stage II kidney disease. 11/06/2019-creatinine today is 1.96 receiving Lasix 40 mg IV twice a day plan is to decrease dose to 40 mg IV once a day. 11/07/2019-serum creatinine today 1.97 plan is to change IV Lasix to p.o. from today. (3) Diabetes Qualifiers: Diabetes mellitus type: type 2 Diabetes mellitus jail insulin use: unspecified supervisor mill insulin use status Chronic kidney disease stage: stage 3 (moderate) Is this a current diagnosis for this admission?: No Plan: 11/04/2019-patient has history of type 2 diabetes mellitus as per the patient he is taking Lantus 20 units in the daytime and insulin 70/30 60 units twice a day. He is to check hemoglobin A1c start him on insulin sliding scale before meals and at bedtime. To hold the Lantus and 70/30 insulin at this time. Blood sugars in the ER around 132. 11/05/19-hemoglobin A1c 7.0 blood sugar this morning is 200. Plan is to continue insulin sliding scale before meals and at bedtime at this time. lantus 10 unit bid 11/06/2019-blood sugar is 193. On insulin sliding scale before meals and at bedtime. Hemoglobin A1c 7.0. Plan to start him on Lantus 10 units twice a day. 11/07/19-blood sugar this morning is 110 presently on insulin sliding scale before meals and at bedtime, Lantus 10 units twice a day. (4) HTN (hypertension) Qualifiers: Hypertension type: essential hypertension Qualified Code(s): I10 - Essential (primary) hypertension Is this a current diagnosis for this admission?: Yes Plan: 11/04/2019-blood pressure is more than 200 to give his BiDil now and plan is to continue his home medications losartan, Coreg, BiDil and started on Lasix 40 mg IV twice a day. Plan is to check the blood pressures on regular basis. 11/05/19-blood pressure today is 167/78. Plan is to continue his home medications. 11/06/2019-blood pressure today is 155/80 improving. Plan is to continue the present management at this time. 11/07/2019-blood pressure today is 140/63 stable. Plan is to continue the present management at this time.
[2019-11-07] MEDS: FAMOTIDINE 20 MG TABLET PO SCH ×2 (09:05→21:17)
[2019-11-07] MEDS: CLOPIDOGREL BISULFATE 75 MG TABLET PO SCH (09:05)
[2019-11-07] MEDS: DOCUSATE SODIUM 100 MG/10 ML UDC PO SCH ×2 (09:05→17:12)
[2019-11-07] MEDS: LOSARTAN POTASSIUM 50 MG TABLET PO SCH (09:06)
[2019-11-07] MEDS: PREDNISONE 10 MG TABLET PO SCH (09:06)
[2019-11-07] MEDS: INSULIN GLARGINE,HUM.REC.ANLOG 1,000 UNIT/10 ML VIAL SUBCUT SCH ×2 (09:06→21:17)
[2019-11-07] MEDS: FUROSEMIDE 40 MG TABLET PO SCH (09:06)
[2019-11-07] MEDS: CARVEDILOL 12.5 MG TABLET PO SCH ×2 (09:06→21:17)
[2019-11-07] MEDS: ISOSORB DINIT/HYDRALAZINE HCL 20-37.5 MG TABLET PO SCH ×2 (09:06→17:12)
--- NOTE | 2019-11-07 13:47 | RADIOLOGY REPORT (SQ) ---
EXAM DESCRIPTION: CHEST 2 VIEWS IMAGES COMPLETED DATE/TIME: 11/07/2019 1:25 pm REASON FOR STUDY: dyspnea COMPARISON: 11/04/2019 EXAM PARAMETERS: NUMBER OF VIEWS: two views TECHNIQUE: Digital Frontal and Lateral radiographic views of the chest acquired. RADIATION DOSE: NA LIMITATIONS: none FINDINGS: LUNGS AND PLEURA: No opacities, masses or pneumothorax. No pleural effusion. MEDIASTINUM AND HILAR STRUCTURES: No masses or contour abnormalities. HEART AND VASCULAR STRUCTURES: Heart normal size. No evidence for failure. BONES: No acute findings. HARDWARE: None in the chest. OTHER: No other significant finding. IMPRESSION: NO ACUTE RADIOGRAPHIC FINDING IN THE CHEST. Clearing of the opacities. TECHNICAL DOCUMENTATION: JOB ID: [id number] [employer]- All Rights Reserved Reading location - IP/workstation name: [email or web address]
[2019-11-07] MEDS: ATORVASTATIN CALCIUM 20 MG TABLET PO SCH (21:17)
[2019-11-07] MEDS: AMLODIPINE BESYLATE 5 MG TABLET PO SCH (21:17)
[2019-11-08] MEDS: HEPARIN SOD (PORCINE) 5,000 UNIT/ML 1 ML VIAL SUBCUT SCH (05:37)
[2019-11-08] MEDS: GABAPENTIN 300 MG CAPSULE PO SCH (05:38)
[2019-11-08 06:54] LABS: ABSOLUTE EOSINOPHILS # (AUTO) 0.2 10^3/uL (0.0-0.6); ABSOLUTE LYMPHOCYTES (AUTO) 3.7 10^3/uL (0.5-4.7); ABSOLUTE MONOCYTES (AUTO) 0.4 10^3/uL (0.1-1.4); ABSOLUTE NEUT (AUTO) 2.8 10^3/uL (1.7-8.2); BASOPHILS % (AUTO) 0.6 % (0-2); EOSINOPHILS % (AUTO) 2.4 % (0-6); HEMATOCRIT 32.8 % (37.9-51.0); HEMOGLOBIN 11.1 g/dL (13.5-17.0); LYMPHOCYTES % (AUTO) 51.7 % (13-45); MEAN CORPUSCULAR HEMOGLOBIN 29.1 pg (27.0-33.4); MEAN CORPUSCULAR HGB CONC 33.8 g/dL (32.0-36.0); MEAN CORPUSCULAR VOLUME 86 fl (80-97); MONOCYTES % (AUTO) 5.8 % (3-13); PLATELET COUNT 156 10^3/uL (150-450); RED BLOOD COUNT 3.81 10^6/uL (4.35-5.55); RED CELL DISTRIBUTION WIDTH 17.2 % (11.5-14.0); SEGMENTED NEUTROPHILS % (AUTO) 39.5 % (42-78); TOTAL CELLS COUNTED % (AUTO) 100 %; WHITE BLOOD COUNT 7.2 10^3/uL (4.0-10.5)
[2019-11-08 07:37] LABS: ALBUMIN 2.7 g/dL (3.5-5.0); ALKALINE PHOSPHATASE 74 U/L (38-126); ANION GAP 6 (5-19); ASPARTATE AMINO TRANSFERASE 27 U/L (17-59); BILIRUBIN,TOTAL 0.3 mg/dL (0.2-1.3); BLOOD UREA NITROGEN 46 mg/dL (7-20); CALCIUM 8.8 mg/dL (8.4-10.2); CARBON DIOXIDE 19 mmol/L (22-30); CHLORIDE 112 mmol/L (98-107); GLUCOSE 81 mg/dL (75-110); POTASSIUM 4.1 mmol/L (3.6-5.0)
[2019-11-08] MEDS: INSULIN REG, HUMAN 100 UNIT/ML 3 ML VIAL (PYX) SUBCUT SCH (08:25)
[2019-11-08 08:36] VITALS: BP 145/71
[2019-11-08] MEDS: INSULIN GLARGINE,HUM.REC.ANLOG 1,000 UNIT/10 ML VIAL SUBCUT SCH (09:40)
[2019-11-08] MEDS: DOCUSATE SODIUM 100 MG/10 ML UDC PO SCH (09:40)
[2019-11-08] MEDS: ISOSORB DINIT/HYDRALAZINE HCL 20-37.5 MG TABLET PO SCH (09:42)
[2019-11-08] MEDS: CLOPIDOGREL BISULFATE 75 MG TABLET PO SCH (09:42)
[2019-11-08] MEDS: FUROSEMIDE 40 MG TABLET PO SCH (09:42)
[2019-11-08] MEDS: PREDNISONE 10 MG TABLET PO SCH (09:44)
[2019-11-08] MEDS: LOSARTAN POTASSIUM 50 MG TABLET PO SCH (09:44)
[2019-11-08] MEDS: FAMOTIDINE 20 MG TABLET PO SCH (09:44)
[2019-11-08] MEDS: CARVEDILOL 12.5 MG TABLET PO SCH (09:44)
--- NOTE | 2019-11-08 10:29 | PDOC DISCHARGE SUMMARY ---
Impression - Admit/DC Date/PCP Admission Date/Primary Care Provider: 11/04/19 16:50 GERALD HAMILTON MD Discharge Date: 11/08/19 - Discharge Diagnosis (1) Congestive heart failure (CHF) Is this a current diagnosis for this admission?: Yes (2) CKD (chronic kidney disease) Is this a current diagnosis for this admission?: No (3) Diabetes Is this a current diagnosis for this admission?: No (4) HTN (hypertension) Is this a current diagnosis for this admission?: Yes - Assessment Summary: (1) Congestive heart failure (CHF) Qualifiers: Heart failure type: diastolic Heart failure chronicity: acute on chronic Qualified Code(s): I50.33 - Acute on chronic diastolic (congestive) heart failure Is this a current diagnosis for this admission?: Yes Plan: 11/04/2019-patient is going to be admitted to [facility] as an inpatient for acute on chronic exacerbation of diastolic heart failure. Patient is started on Lasix 40 mg IV twice a day, to continue amlodipine, Coreg, BiDil, losartan. Placed on fluid restriction 1500 cc/day. Restarted his aspirin and Plavix. GI prophylaxis DVT prophylaxis initiated. Admission BNP is 81,000 chest x-ray shows cardiomegaly with bilateral pleural effusions and plan is to repeat the BNP tomorrow. 11/05/2019-admitted with acute on chronic diastolic heart failure. Echocardiogr am done in June shows normal EF with diastolic dysfunction. Lasix 40 mg IV twice a day and that his shortness of breath is improving. BNP came down to 51,000. TSH is 4.78 within normal limits. Plan is to continue IV Lasix at this time. 11/06/2019-patient has history of chronic diastolic heart failure. Receiving IV Lasix 40 mg twice a day he is creatinine is slowly bumping up. Plan is to d ecrease the Lasix to 40 mg IV once a day. Patient is on fluid restriction. BNP improved to 32,600. Pulse ox is 99% on 1.5 L oxygen. 11/07/19-patient admitted with acute on chronic diastolic heart failure pulse ox is 100% on 2 L shortness of breath that is resolving. Creatinine is trending up today's creatinine is 1.97 yesterday Lasix dose is decreased from 40 mg IV twice a day to 40 mg IV once a day. Plan is to change IV Lasix to p.o. Lasix from today 11/08/2019-patient admitted with acute on chronic diastolic heart failure. On examination chest bilateral entry was decreased very minimal crepitations at the bases. He lost significant amount of weight. Plan is to discharge him home on Lasix 40 mg p.o. daily. Patient is advised [facility]. (2) CKD (chronic kidney disease) Qualifiers: Chronic kidney disease stage: stage 3 (moderate) Qualified Code(s): N18.3 - Chronic kidney disease, stage 3 (moderate) Is this a current diagnosis for this admission?: No Plan: 11/04/2019-patient has history of chronic kidney disease creatinine is 1.56. Stage II kidney disease. 11/05/2019-serum creatinine today is 1.75 patient has a stage II kidney disease. 11/06/2019-creatinine today is 1.96 receiving Lasix 40 mg IV twice a day plan is to decrease dose to 40 mg IV once a day. 11/07/2019-serum creatinine today 1.97 plan is to change IV Lasix to p.o. from today. 11/08/19-serum creatinine today is 1.92 stabilized. Patient has a stage II kidney disease. 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 He is to check hemoglobin A1c start him on insulin sliding scale before meals and at bedtime. To hold the Lantus and 70/30 insulin at this time. Blood sugars in the ER around 132. 11/05/19-hemoglobin A1c 7.0 blood sugar this morning is 200. Plan is to continue insulin sliding scale before meals and at bedtime at this time. lantus 10 unit bid 11/06/2019-blood sugar is 193. On insulin sliding scale before meals and at bedtime. Hemoglobin A1c 7.0. Plan to start him on Lantus 10 units twice a day. 11/07/19-blood sugar this morning is 110 presently on insulin sliding scale before meals and at bedtime, Lantus 10 units twice a day. 11/08/2019-latest blood sugar is 100 today. Patient is advised to be compliant with his medications and follow-up with community care clinic this week. (4) HTN (hypertension) Qualifiers: Hypertension type: essential hypertension Qualified Code(s): I10 - Essential (primary) hypertension Is this a current diagnosis for this admission?: Yes Plan: 11/04/2019-blood pressure is more than 200 to give his BiDil now and plan is to continue his home medications losartan, Coreg, BiDil and started on Lasix 40 mg IV twice a day. Plan is to check the blood pressures on regular basis. 11/05/19-blood pressure today is 167/78. Plan is to continue his home medications. 11/06/2019-blood pressure today is 155/80 improving. Plan is to continue the present management at this time. 11/07/2019-blood pressure today is 140/63 stable. Plan is to continue the present management at this time. 11/08/19-blood pressure today is 149/74. Patient advised about compliance with medications. Prescription were given. He was advised to follow-up with community care clinic this week. - Additional Information Resuscitation Status: Do Not Resuscitate Discharge Diet: Cardiac, Diabetic Discharge Activity: Activity As Tolerated, Balance Activity w/Rest, Weigh Daily Referrals: GERALD HAMILTON MD [Primary Care Provider] - Follow up as needed Prescriptions: Isosorb Dinit/Hydralazine HCl [Bidil 20-37.5 mg Tablet] 1 tab PO BID 30 Days #30 tablet Losartan Potassium [Cozaar 50 mg Tablet] 50 mg PO DAILY 30 Days #30 tablet Insulin Glargine,Hum.rec.anlog [Lantus Insulin 100 Unit/1 ml 10 ml] 20 units SQ DAILY 30 Days #1 vial Furosemide [Lasix 40 mg Tablet] 40 mg PO DAILY 30 Days #30 tablet Atorvastatin Calcium [Lipitor 20 mg Tablet] 20 mg PO QHS 30 Days #30 tablet Gabapentin [Neurontin] 600 mg PO Q8 30 Days #30 Amlodipine Besylate [Norvasc 5 mg Tablet] 5 mg PO QHS 30 Days #30 tablet Clopidogrel Bisulfate [Plavix 75 mg Tablet] 75 mg PO DAILY 30 Days #30 tablet Metoprolol Succinate [Toprol Xl] 200 mg PO DAILY 30 Days #30 Home Medications: Amlodipine Besylate [Norvasc 5 mg Tablet] 5 mg PO QHS 30 Days #30 tablet 11/08/19 Atorvastatin Calcium [Lipitor 20 mg Tablet] 20 mg PO QHS 30 Days #30 tablet 11/08/19 Clopidogrel Bisulfate [Plavix 75 mg Tablet] 75 mg PO DAILY 30 Days #30 tablet 11/08/19 Furosemide [Lasix 40 mg Tablet] 40 mg PO DAILY 30 Days #30 tablet 11/08/19 Gabapentin [Neurontin] 600 mg PO Q8 30 Days #30 11/08/19 Insulin Glargine,Hum.rec.anlog [Lantus Insulin 100 Unit/1 ml 10 ml] 20 units SQ DAILY 30 Days #1 vial 11/08/19 Isosorb Dinit/Hydralazine HCl [Bidil 20-37.5 mg Tablet] 1 tab PO BID 30 Days #30 tablet 11/08/19 Losartan Potassium [Cozaar 50 mg Tablet] 50 mg PO DAILY 30 Days #30 tablet 11/08/19 Metoprolol Succinate [Toprol Xl] 200 mg PO DAILY 30 Days #30 11/08/19 History of Present Illiness History of Present Illness: STEVE ALDANA is a 59 year old male with history of chronic diastolic heart failure, diabetes mellitus, hypertension, osteoarthritis on prednisone came to the emergency room with complaints of shortness of breath for the last 3 days. Uses 2-3 pillows to sleep at night in proper position. Denies any chest pains denies any palpitations denies any nausea vomiting diarrhea or abdominal pain. Denies any headaches dizzy spells. Complaining of chronic dry cough denies any fever chills. Work-up in the ER indicates chest x-ray with bilateral pleural effusions and questionable pneumonia. Cardiomegaly present. BNP is 81,000. Cardiac enzymes are negative. Rest of the labs are stable. WBC count within normal limits. Blood pressure is elevated in the ER. Patient said he is not on any Lasix at home. Requesting to be DNR/DNI Hospital Course Hospital Course: 59 year old male with history of chronic diastolic heart failure, diabetes mellitus, hypertension, osteoarthritis on prednisone came to the emergency room with complaints of shortness of breath for the last 3 days. Uses 2-3 pillows to sleep at night in proper position. Denies any chest pains denies any palpitations denies any nausea vomiting diarrhea or abdominal pain. Denies any headaches dizzy spells. Complaining of chronic dry cough denies any fever chills. Work-up in the ER indicates chest x-ray with bilateral pleural effusions and questionable pneumonia. Cardiomegaly present. BNP is 81,000. Cardiac enzymes are negative. Rest of the labs are stable. WBC count within normal limits. Blood pressure is elevated in the ER. Patient said he is not on any Lasix at home. Requesting to be DNR/DNI 11/05/2019-no acute events in the last 24 hours. Comfortably in the bed laying flat. As per the patient his breathing is much better. Denies any chest pains. No complaints concerns sexes as per the patient. 11/06/[id number]-old male admitted for shortness of breath differential diagnosis at the time of admission pneumonia/CHF exacerbation. Patient is receiving IV antibiotics, IV Lasix shortness of breath is resolving. Pulse ox is 99% on 1.5 L this morning. 11/07/[id number]-old male admitted with acute on chronic exacerbation of the diastolic heart failure doing well. Pulse ox is 100% on 2 L. Came in with questionable pneumonia in the x-rays blood cultures are negative afebrile WBC count is normal pneumonia is ruled out. Patient is expressing desire to stay 1 more day. 11/08/2019-patient is comfortably in the bed communicating well. Not in distre ss. Last night he complained of confusion and still complaining of wooziness this morning. I recommended him to stay at least another day to be safe but he is willing to go home today with medications. Physical Exam Vital Signs: Temp Pulse Resp BP Pulse Ox 98.3 F 69 18 145/71 H 97 11/08/19 07:59 11/08/19 07:59 11/08/19 07:59 11/08/19 07:59 11/08/19 07:59 Intake & Output 11/07/19 11/08/19 11/09/19 06:59 06:59 06:59 Intake Total 684 1712 Output Total 0 0 Balance 684 1712 Weight 68.8 kg 72.1 kg General appearance: PRESENT: no acute distress, well-developed Head exam: PRESENT: atraumatic Eye exam: PRESENT: PERRLA Mouth exam: PRESENT: moist, tongue midline Teeth exam: PRESENT: poor dentation Neck exam: ABSENT: carotid bruit, JVD, lymphadenopathy, thyromegaly Respiratory exam: PRESENT: decreased breath sounds Cardiovascular exam: PRESENT: RRR. ABSENT: diastolic murmur, rubs, systolic murmur GI/Abdominal exam: PRESENT: normal bowel sounds, soft. ABSENT: distended, guarding, mass, organolmegaly, rebound, tenderness Rectal exam: PRESENT: deferred Neurological exam: PRESENT: alert, awake, oriented to person, oriented to place, oriented to time, oriented to situation, CN II-XII grossly intact. ABSENT: motor sensory deficit Psychiatric exam: PRESENT: appropriate affect, normal mood. ABSENT: homicidal ideation, suicidal ideation Results Laboratory Results: WBC 7.2 10^3/uL (4.0-10.5) 11/08/19 06:28 RBC 3.81 10^6/uL (4.35-5.55) L 11/08/19 06:28 Hgb 11.1 g/dL (13.5-17.0) L 11/08/19 06:28 Hct 32.8 % (37.9-51.0) L 11/08/19 06:28 MCV 86 fl (80-97) 11/08/19 06:28 MCH 29.1 pg (27.0-33.4) 11/08/19 06:28 MCHC 33.8 g/dL (32.0-36.0) 11/08/19 06:28 RDW 17.2 % (11.5-14.0) H 11/08/19 06:28 Plt Count 156 10^3/uL (150-450) 11/08/19 06:28 Lymph % (Auto) 51.7 % (13-45) H 11/08/19 06:28 [place] % (Auto) 5.8 % (3-13) 11/08/19 06:28 Eos % (Auto) 2.4 % (0-6) 11/08/19 06:28 Baso % (Auto) 0.6 % (0-2) 11/08/19 06:28 Absolute Neuts (auto) 2.8 10^3/uL (1.7-8.2) 11/08/19 06:28 Absolute Lymphs (auto) 3.7 10^3/uL (0.5-4.7) 11/08/19 06:28 Absolute Monos (auto) 0.4 10^3/uL (0.1-1.4) 11/08/19 06:28 Absolute Eos (auto) 0.2 10^3/uL (0.0-0.6) 11/08/19 06:28 Absolute Basos (auto) 0.0 10^3/uL (0.0-0.2) 11/08/19 06:28 Seg Neutrophils % 39.5 % (42-78) L 11/08/19 06:28 PT 14.2 SEC (11.4-15.4) 11/05/19 06:09 INR 1.09 11/05/19 06:09 Sodium 136.8 mmol/L (137-145) L 11/08/19 06:28 Potassium 4.1 mmol/L (3.6-5.0) 11/08/19 06:28 Chloride 112 mmol/L (98-107) H 11/08/19 06:28 Carbon Dioxide 19 mmol/L (22-30) L 11/08/19 06:28 Anion Gap 6 (5-19) 11/08/19 06:28 BUN 46 mg/dL (7-20) H 11/08/19 06:28 Creatinine 1.92 mg/dL (0.52-1.25) H 11/08/19 06:28 Est GFR ( Amer) 43 (>60) L 11/08/19 06:28 Est GFR (MDRD) Non-Af 36 (>60) L 11/08/19 06:28 Glucose 81 mg/dL (75-110) 11/08/19 06:28 POC Glucose 100 mg/dL (70-110) 11/08/19 08:00 Hemoglobin A1c % 7.0 % (4.7-6.0) H 11/05/19 06:09 Calcium 8.8 mg/dL (8.4-10.2) 11/08/19 06:28 Magnesium 1.8 mg/dL (1.6-2.3) 11/08/19 06:28 Total Bilirubin 0.3 mg/dL (0.2-1.3) 11/08/19 06:28 Direct Bilirubin 0.0 mg/dL (0.0-0.4) 11/08/19 06:28 Neonat Total Bilirubin Not Reportable 11/08/19 06:28 Neonat Direct Bilirubin Not Reportable 11/08/19 06:28 Neonat Indirect Bili Not Reportable 11/08/19 06:28 AST 27 U/L (17-59) 11/08/19 06:28 ALT 18 U/L (<50) 11/08/19 06:28 Alkaline Phosphatase 74 U/L (38-126) 11/08/19 06:28 Creatine Kinase 121 U/L (55-170) 11/04/19 14:17 Troponin I < 0.012 ng/mL 11/05/19 06:09 NT-Pro-B Natriuret Pep 6820 pg/mL (<125) H 11/08/19 06:28 Total Protein 6.0 g/dL (6.3-8.2) L 11/08/19 06:28 Albumin 2.7 g/dL (3.5-5.0) L 11/08/19 06:28 Triglycerides 182 mg/dL (<150) H 11/05/19 06:09 Cholesterol 152.76 mg/dL (0-200) 11/05/19 06:09 LDL Cholesterol Direct 64 mg/dL (<100) 11/05/19 06:09 VLDL Cholesterol 36.4 mg/dL (10-31) H 11/05/19 06:09 HDL Cholesterol 43 mg/dL (>40) 11/05/19 06:09 TSH 4.78 uIU/mL (0.47-4.68) H 11/05/19 06:09 Urine Color YELLOW 11/04/19 15:32 Urine Appearance CLEAR 11/04/19 15:32 Urine pH 6.0 (5.0-9.0) 11/04/19 15:32 Ur Specific [place] 1.016 11/04/19 15:32 Urine Protein >=500 mg/dL (NEGATIVE) H 11/04/19 15:32 Urine Glucose (UA) 50 mg/dL (NEGATIVE) H 11/04/19 15:32 Urine Ketones NEGATIVE mg/dL (NEGATIVE) 11/04/19 15:32 Urine Blood SMALL (NEGATIVE) H 11/04/19 15:32 Urine Nitrite NEGATIVE (NEGATIVE) 11/04/19 15:32 Urine Bilirubin NEGATIVE (NEGATIVE) 11/04/19 15:32 Urine Urobilinogen 4.0 mg/dL (<2.0) H 11/04/19 15:32 Ur Leukocyte Esterase NEGATIVE (NEGATIVE) 11/04/19 15:32 Urine WBC (Auto) 1 /HPF 11/04/19 15:32 Urine RBC (Auto) 3 /HPF 11/04/19 15:32 U Hyaline Cast (Auto) 1 /LPF 11/04/19 15:32 Urine Mucus (Auto) RARE /LPF 11/04/19 15:32 Urine Ascorbic Acid NEGATIVE (NEGATIVE) 11/04/19 15:32 Urine Opiates Screen NEGATIVE 11/04/19 15:32 Urine Methadone Screen NEGATIVE 11/04/19 15:32 Ur Barbiturates Screen NEGATIVE 11/04/19 15:32 Ur Phencyclidine Scrn NEGATIVE 11/04/19 15:32 Ur Amphetamines Screen NEGATIVE 11/04/19 15:32 U Benzodiazepines Scrn NEGATIVE 11/04/19 15:32 Urine Cocaine Screen NEGATIVE 11/04/19 15:32 U Marijuana (THC) Screen NEGATIVE 11/04/19 15:32 11/04/19 11/04/19 11/04/19 14:17 17:55 23:33 Troponin I < 0.012 0.022 < 0.012 NT-Pro-B Natriuret Pep 46314 H 11/05/19 11/06/19 11/08/19 06:09 06:17 06:28 Troponin I < 0.012 NT-Pro-B Natriuret Pep 53954 H 74389 H 6820 H Impressions: Chest X-Ray 11/04/19 14:10 IMPRESSION: CARDIOMEGALY WITH BILATERAL PLEURAL EFFUSIONS. BILATERAL LOWER LOBE AIRSPACE DISEASE, RIGHT GREATER THAN LEFT. MAY BE DUE TO PNEUMONIA, PARTICULARLY ON THE RIGHT. Chest X-Ray 11/07/19 00:00 IMPRESSION: NO ACUTE RADIOGRAPHIC FINDING IN THE CHEST. Clearing of the opacities. Plan Plan of Treatment: Patient is advised to be compliant with his medications, dietary advice was given prescriptions will be given to the patient to take home. He was strongly advised to follow-up with community care clinic in the next 1 week Time Spent: Greater than 30 Minutes Stroke Is this a Stroke Patient?: No Acute Heart Failure - Is this a Heart Failure Patient?: No
== END 2019-11-08 12:15 | disposition home or self-care (01) | DRG 291 ==
LOC: ER 12:41 → EH 16:50 → 3S 21:08
PROVIDERS: ADMIT Internal Medicine; ATTEND Internal Medicine
DX: I13.0 Hypertensive heart and chronic kidney disease with heart failure and stage 1 through stage 4 chronic kidney disease, or unspecified chronic kidney disease (principal); I50.33 Acute on chronic diastolic (congestive) heart failure; N18.3 Chronic kidney disease, stage 3 (moderate); E11.22 Type 2 diabetes mellitus with diabetic chronic kidney disease; E78.5 Hyperlipidemia, unspecified; K21.9 Gastro-esophageal reflux disease without esophagitis; F17.210 Nicotine dependence, cigarettes, uncomplicated; M19.90 Unspecified osteoarthritis, unspecified site; Z79.4 Long term (current) use of insulin; I25.2 Old myocardial infarction; Z79.02 Long term (current) use of antithrombotics/antiplatelets; Z90.49 Acquired absence of other specified parts of digestive tract; Z82.49 Family history of ischemic heart disease and other diseases of the circulatory system; Z83.3 Family history of diabetes mellitus; Z82.61 Family history of arthritis; Z83.438 Family history of other disorder of lipoprotein metabolism and other lipidemia; Z79.899 Other long term (current) drug therapy; Z91.013 Allergy to seafood; Z91.018 Allergy to other foods; Z79.82 Long term (current) use of aspirin; Z79.52 Long term (current) use of systemic steroids
CPT/HCPCS: 36415; 71045; 71046; 80053; 80061; 80307; 81001; 82550; 82962; 83036; 83735; 83880; 84443; 84484; 85025; 85610; 87040; 87086; 93005; 93010; 99285; J0456; J0696; J1644; J1815; J1940; J3490; J7060; J7512

== ENCOUNTER → 2019-11-26 | Outpatient (CLI) | payer OTHER ==
[2019-11-26 09:32] LABS: ANION GAP 5 (5-19); BLOOD UREA NITROGEN 23 mg/dL (7-20); CALCIUM 8.5 mg/dL (8.4-10.2); CARBON DIOXIDE 24 mmol/L (22-30); CHLORIDE 110 mmol/L (98-107); GLUCOSE 90 mg/dL (75-110)
== END ==
LOC: CCC 07:52
DX: E11.69 Type 2 diabetes mellitus with other specified complication (principal)
CPT/HCPCS: 36415; 80048; 82607; 83036; 84443; 85652

== ENCOUNTER → 2019-12-06 | Outpatient (CLI) | payer OTHER ==
--- NOTE | 2019-12-06 11:58 | RADIOLOGY REPORT (SQ) ---
EXAM DESCRIPTION: CHEST PA/LATERAL IMAGES COMPLETED DATE/TIME: 12/06/2019 11:51 am REASON FOR STUDY: SHORTNESS OF BREATH,UNSPECIFIED DIASTOLIC (CONGESTIVE) HEART FAILURE COMPARISON: 11/07/2019 EXAM PARAMETERS: NUMBER OF VIEWS: two views TECHNIQUE: Digital Frontal and Lateral radiographic views of the chest acquired. RADIATION DOSE: NA LIMITATIONS: none FINDINGS: LUNGS AND PLEURA: Stable linear atelectasis with scarring in the right midlung field. No consolidation or effusions. No pneumothorax. MEDIASTINUM AND HILAR STRUCTURES: No masses or contour abnormalities. HEART AND VASCULAR STRUCTURES: Heart normal size. No evidence for failure. BONES: No acute findings. HARDWARE: None in the chest. OTHER: No other significant finding. IMPRESSION: No interval change in the chest. TECHNICAL DOCUMENTATION: JOB ID: [id number] 2010 [employer]- All Rights Reserved Reading location - IP/workstation name: [email or web address]
[2019-12-06 12:19] LABS: ABSOLUTE EOSINOPHILS # (AUTO) 0.2 10^3/uL (0.0-0.6); ABSOLUTE LYMPHOCYTES (AUTO) 2.2 10^3/uL (0.5-4.7); ABSOLUTE MONOCYTES (AUTO) 0.3 10^3/uL (0.1-1.4); ABSOLUTE NEUT (AUTO) 2.5 10^3/uL (1.7-8.2); BASOPHILS % (AUTO) 0.6 % (0-2); EOSINOPHILS % (AUTO) 3.5 % (0-6); HEMOGLOBIN 9.9 g/dL (13.5-17.0); MEAN CORPUSCULAR HEMOGLOBIN 29.2 pg (27.0-33.4); MEAN CORPUSCULAR VOLUME 86 fl (80-97); MONOCYTES % (AUTO) 6.5 % (3-13); PLATELET COUNT 128 10^3/uL (150-450); RED BLOOD COUNT 3.38 10^6/uL (4.35-5.55); RED CELL DISTRIBUTION WIDTH 15.9 % (11.5-14.0); SEGMENTED NEUTROPHILS % (AUTO) 47.4 % (42-78); TOTAL CELLS COUNTED % (AUTO) 100 %; WHITE BLOOD COUNT 5.2 10^3/uL (4.0-10.5)
[2019-12-06 12:41] LABS: BLOOD UREA NITROGEN 22 mg/dL (7-20); CALCIUM 8.1 mg/dL (8.4-10.2); GLUCOSE 256 mg/dL (75-110); POTASSIUM 4.4 mmol/L (3.6-5.0)
[2019-12-06 12:47] LABS: CARBON DIOXIDE 24 mmol/L (22-30); CHLORIDE 109 mmol/L (98-107)
[2019-12-06 12:50] LABS: ANION GAP 3 (5-19)
== END ==
LOC: CCC 11:27
PROVIDERS: ATTEND Internal Medicine
DX: E11.8 Type 2 diabetes mellitus with unspecified complications (principal); D64.9 Anemia, unspecified; I50.30 Unspecified diastolic (congestive) heart failure; R06.02 Shortness of breath
CPT/HCPCS: 36415; 71046; 80048; 83880; 85025

== ENCOUNTER 2019-12-27 12:05 | Emergency (ER) | payer OTHER ==
--- NOTE | 2019-12-27 12:36 | ER Document Report ---
ED Medical Screen (RME) - General Chief Complaint: S/S of Possible Stroke Stated Complaint: POSSIBLE STROKE Time Seen by Provider: 12/27/19 12:34 Primary Care Provider: [facility] [Primary Care Provider] - Follow up as needed Mode of Arrival: Wheelchair Information source: Patient Notes: 59-year-old man presented to ED for complaint of a headache that started on Friday. He states he started not being able to close his eye his face drooped on Friday he states he also has a toothache on the left side. He states he started having some swelling to his mouth on Friday. Patient is alert oriented respirations regular nonlabored speaking in full sentences. He states sometimes he has garbled speech and sometimes it is clear. 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 He does not have any weakness to his left or right hands or feet. States he continues to have a headache but it moves from side to side I have greeted and performed a rapid initial assessment of this patient. A comprehensive ED assessment and evaluation of the patient, analysis of test re sults and completion of medical decision making process will be conducted by an additional ED providers. TRAVEL OUTSIDE OF THE [place] IN LAST 30 DAYS: No - Related Data Allergies/Adverse Reactions: shellfish derived [Shellfish Derived] Allergy (Unknown, Verified 12/27/19 12:29) michael Allergy (Uncoded 12/27/19 12:29) Past Medical History - Past Medical History Cardiac Medical History: Reports: Hx Congestive Heart Failure - diastolic dysfunction, preserved EF, Hx Heart Attack - NSTEMI May 2019, Hx Hypercholesterolemia, Hx Hypertension, Hx Heart Murmur Pulmonary Medical History: Denies: Hx Tuberculosis Neurological Medical History: Denies: Hx Seizures Endocrine Medical History: Reports: Hx Diabetes Mellitus Type 2 Renal/ Medical History: Reports: Hx Renal Insufficiency. Denies: Hx Peritoneal Dialysis GI Medical History: Reports: Hx Gastroesophageal Reflux Disease, Hx Irritable Bowel - with constipation linzess works but $ may-, Hx Colonoscopy, Hx Endoscopy Musculoskeltal Medical History: Denies Hx Systemic Lupus Erythematosus Psychiatric Medical History: Reports: Hx Depression Past Surgical History: Reports: Hx Appendectomy, Hx Cholecystectomy. Denies: Hx Pacemaker - Immunizations Hx Diphtheria, Pertussis, Tetanus Vaccination: Yes Physical Exam - Vital signs Vitals: Temp Pulse Resp BP Pulse Ox 98.5 F 70 16 151/74 H 98 12/27/19 12:10 12/27/19 12:10 12/27/19 12:10 12/27/19 12:10 12/27/19 12:10 Course - Vital Signs Vital signs: Temp Pulse Resp BP Pulse Ox 98.5 F 70 16 151/74 H 98 12/27/19 12:10 12/27/19 12:10 12/27/19 12:10 12/27/19 12:10 12/27/19 12:10 Doctor's Discharge - Discharge [facility]errals: [facility] [[facility]] - Follow up as needed
[2019-12-27 12:56] LABS: ABSOLUTE EOSINOPHILS # (AUTO) 0.2 10^3/uL (0.0-0.6); ABSOLUTE MONOCYTES (AUTO) 0.3 10^3/uL (0.1-1.4); ABSOLUTE NEUT (AUTO) 3.7 10^3/uL (1.7-8.2); BASOPHILS % (AUTO) 0.8 % (0-2); EOSINOPHILS % (AUTO) 2.4 % (0-6); HEMATOCRIT 30.5 % (37.9-51.0); LYMPHOCYTES % (AUTO) 32.8 % (13-45); MEAN CORPUSCULAR HEMOGLOBIN 27.9 pg (27.0-33.4); MEAN CORPUSCULAR HGB CONC 32.9 g/dL (32.0-36.0); MEAN CORPUSCULAR VOLUME 85 fl (80-97); MONOCYTES % (AUTO) 4.9 % (3-13); PLATELET COUNT 127 10^3/uL (150-450); RED BLOOD COUNT 3.59 10^6/uL (4.35-5.55); RED CELL DISTRIBUTION WIDTH 15.4 % (11.5-14.0); SEGMENTED NEUTROPHILS % (AUTO) 59.1 % (42-78); TOTAL CELLS COUNTED % (AUTO) 100 %; WHITE BLOOD COUNT 6.2 10^3/uL (4.0-10.5)
[2019-12-27 13:02] LABS: INTERNATIONAL RATION (INR) 0.98; PROTHROMBIN TIME 13.2 SEC (11.4-15.4)
[2019-12-27 13:03] LABS: PARTIAL THROMBOPLASTIN TIME 33.6 SEC (23.5-35.8)
--- NOTE | 2019-12-27 13:09 | RADIOLOGY REPORT (SQ) ---
EXAM DESCRIPTION: CT HEAD WITHOUT IMAGES COMPLETED DATE/TIME: 12/27/2019 12:55 pm REASON FOR STUDY: Severe headache COMPARISON: None. TECHNIQUE: Axial images acquired through the brain without intravenous contrast. Images reviewed wi th bone, brain and subdural windows. Additional sagittal and coronal reconstructions were generated. Images stored on PACS. All CT scanners at this facility use dose modulation, iterative reconstruction, and/or weight based d osing when appropriate to reduce radiation dose to as low as reasonably achievable (ALARA). [facility]: Dose Right [facility]: CareDose [facility]: Dose Right [facility]: Teradose 4D [facility]: Spectraseis RADIATION DOSE: CT Rad equipment meets quality standard of care and radiation dose reduction techniq ues were employed. CTDIvol: 53.2 mGy. DLP: 937 mGy-cm. LIMITATIONS: None. FINDINGS: VENTRICLES: Mildly prominent. The cisterns are patent. The ventricles are mildly Normal size and contour. CEREBRUM: No masses. No hemorrhage. No midline shift. No evidence for acute infarction. Normal gra y/white matter differentiation. No areas of low density in the white matter. CEREBELLUM: No masses. No hemorrhage. No alteration of density. No evidence for acute infarction. EXTRAAXIAL SPACES: No fluid collections. No masses. ORBITS AND GLOBE: No intra- or extraconal masses. Normal contour of globe without masses. CALVARIUM: No fracture. PARANASAL SINUSES: Small mucous retention cysts or polyps in the ethmoid sinus. No fluid. Slight d eviation of the nasal septum to the left of the midline. Nasal bony spur on the left. SOFT TISSUES: No mass or hematoma. OTHER: Atherosclerotic changes involving the cavernous portion of the internal carotid arteries. IMPRESSION: 1. No acute intracranial abnormality. EVIDENCE OF ACUTE STROKE: NO COMMENT: Quality ID # [id number]: Final reports with documentation of one or more dose reduction techniques (e.g., Automated exposure control, adjustment of the mA and/or kV according to patient size, use of iterative reconstruction technique) TECHNICAL DOCUMENTATION: JOB ID: [id number] 2010 [employer]- All Rights Reserved Reading location - IP/workstation name: [email or web address]
[2019-12-27 13:25] LABS: ALBUMIN 2.7 g/dL (3.5-5.0); ALKALINE PHOSPHATASE 97 U/L (38-126); ANION GAP 5 (5-19); ASPARTATE AMINO TRANSFERASE 24 U/L (17-59); BILIRUBIN,TOTAL 0.3 mg/dL (0.2-1.3); BLOOD UREA NITROGEN 33 mg/dL (7-20); CALCIUM 8.1 mg/dL (8.4-10.2); CARBON DIOXIDE 21 mmol/L (22-30); CHLORIDE 104 mmol/L (98-107); POTASSIUM 3.7 mmol/L (3.6-5.0); TOTAL PROTEIN 6.1 g/dL (6.3-8.2)
[2019-12-27 13:34] LABS: GLUCOSE 545 mg/dL (75-110)
[2019-12-27] MEDS ORDERED: NORMAL SALINE 1000 ML 1,000 ML IV ONE (19:35)
[2019-12-27] MEDS ORDERED: INSULIN REG, HUMAN 100 UNIT/ML 3 ML VIAL (PYX) IV ONE (19:35)
[2019-12-27 20:45] LABS: APPEARANCE,URINE CLEAR; BILIRUBIN,URINE NEGATIVE (NEGATIVE); COLOR,URINE YELLOW; GLUCOSE, URINE >=500 mg/dL (NEGATIVE); KETONES,URINE NEGATIVE (NEGATIVE); LEUKOCYTE ESTERASE,URINE NEGATIVE (NEGATIVE); NITRITE,URINE NEGATIVE (NEGATIVE); PROTEIN,URINE >=500 mg/dL (NEGATIVE); URINE SPECIFIC GRAVITY 1.016; UROBILINOGEN,URINE NEGATIVE mg/dL (<2.0)
--- NOTE | 2019-12-27 21:04 | ER Document Report ---
ED General - General Chief Complaint: Facial Droop Stated Complaint: POSSIBLE STROKE Time Seen by Provider: 12/27/19 12:34 Primary Care Provider: [facility] [Primary Care Provider] - Follow up as needed Mode of Arrival: Wheelchair Notes: This 59-year-old man presents to the emergency department with a history of facial droop and speech difficulty with facial numbness which began on 12/26/2019. He also notes that he has a toothache on the left side of his face and he is a diabetic. Evaluation of his symptoms in the front intake process reveals a negative CT scan and lab test which reveals a markedly elevated glucose. TRAVEL OUTSIDE OF THE [place] IN LAST 30 DAYS: No - Related Data Allergies/Adverse Reactions: shellfish derived [Shellfish Derived] Allergy (Unknown, Verified 12/27/19 12:29) michael Allergy (Uncoded 12/27/19 12:29) Home Medications: gabapentin. losartin. lasix. metformin. insulin. heart medication Past Medical History - General Information source: Patient - Social History Smoking Status: Current Every Day Smoker Chew tobacco use (# tins/day): No Frequency of alcohol use: None Drug Abuse: None Family History: Reviewed & Not Pertinent, Arthritis, CAD, DM, Hyperlipidemia, Hypertension, Malignancy Patient has homicidal ideation: No - Past Medical History Cardiac Medical History: Reports: Hx Congestive Heart Failure - diastolic dysfunction, preserved EF, Hx Heart Attack - NSTEMI May 2019, Hx Hypercholesterolemia, Hx Hypertension, Hx Heart Murmur Pulmonary Medical History: Denies: Hx Tuberculosis Neurological Medical History: Denies: Hx Seizures Endocrine Medical History: Reports: Hx Diabetes Mellitus Type 2 Renal/ Medical History: Reports: Hx Renal Insufficiency. Denies: Hx Peritoneal Dialysis GI Medical History: Reports: Hx Gastroesophageal Reflux Disease, Hx Irritable Bowel - with constipation linzess works but $ may-, Hx Colonoscopy, Hx Endoscopy Musculoskeletal Medical History: Denies Hx Systemic Lupus Erythematosus Psychiatric Medical History: Reports: Hx Depression Past Surgical History: Reports: Hx Appendectomy, Hx Cholecystectomy. Denies: Hx Pacemaker - Immunizations Hx Diphtheria, Pertussis, Tetanus Vaccination: Yes Review of Systems - Review of Systems Notes: Constitutional: Negative for fever. HENT: Right facial droop, + left upper jaw tooth ache Eyes: Negative for visual changes. Cardiovascular: Negative for chest pain. Respiratory: Negative for shortness of breath. Gastrointestinal: Negative for abdominal pain, vomiting or diarrhea. Genitourinary: Negative for dysuria. Musculoskeletal: Negative for back pain. Skin: Negative for rash. Neurological: + Facial droop right sided, speech slurred. -: Yes ROS unobtainable due to patient's medical condition - Constitutional: Negative for fever. HENT: Negative for sore throat. Eyes: Physical Exam - Vital signs Vitals: Temp Pulse Resp BP Pulse Ox 98.5 F 70 16 151/74 H 98 12/27/19 12:10 12/27/19 12:10 12/27/19 12:10 12/27/19 12:10 12/27/19 12:10 - Notes Notes: PHYSICAL EXAMINATION: Physical Exam: General: Well-nourished well-developed 59-year-old man in no acute distress HEENT: NC/AT, pupils equal round and reactive to light, MM moist,nares clear, oropharynx oral exam: Multiple decayed teeth. Left upper jaw with small nubs of the tooth noted on the gumline with erythema and swelling, no drainage is not ed., airway patent Neck: supple, no adenopathy, no masses. Good range of motion Lungs: clear, no wheezing, no rales no rhonchi CVS: Regular rate and rhythm no murmur gallop or rub Abdomen: Soft, active, nontender, no masses, no hepatosplenomegaly Ext: No edema, clubbing or cyanosis. Neuro: Alert and responsive, + right facial droop, increased nasal labial fold, right-sided lid lag, moving all 4 extremities on command, cranial nerves intact, no focal findings Skin: Intact no open lesions, no rash Course - Re-evaluation Re-evalutation: 12/27/19 21:[address] scan was negative and his lab studies revealed a markedly elevated blood sugar of 545. He has Warren's palsy, will be discharging him with antiviral, antibiotics for his dental infection and we will acutely manage his elevated blood sugar today. 12/27/19 21:55 - Vital Signs Vital signs: Temp Pulse Resp BP Pulse Ox 98.5 F 70 16 160/91 H 100 12/27/19 12:29 12/27/19 12:10 12/27/19 12:10 12/27/19 21:00 08/10/20 21:21 - Laboratory Result Diagrams: 12/27/19 12:45 12/27/19 12:45 Laboratory results interpreted by me: 12/27/19 12/27/19 12/27/19 12:45 12:45 20:25 RBC 3.59 L Hgb 10.0 L Hct 30.5 L RDW 15.4 H Plt Count 127 L Sodium 129.9 L Carbon Dioxide 21 L BUN 33 H Creatinine 1.86 H Est GFR ( Amer) 45 L Est GFR (MDRD) Non-Af 37 L Glucose 545 H* Calcium 8.1 L Total Protein 6.1 L Albumin 2.7 L Urine Protein >=500 H Urine Glucose (UA) >=500 H Urine Blood SMALL H - Diagnostic Test Radiology reviewed: Image reviewed, Reports reviewed Discharge - Discharge Clinical Impression: Warren's palsy, Dental infection, Dental decay Diabetes mellitus with hyperglycemia Qualifiers: Diabetes mellitus type: other specified (including LORIN) 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 He also was noted to have a dental infection and associated elevation glucose. You have been prescribed medications to manage the Warren's palsy and antibiotics for your dental infection. Please follow-up with your primary care doctor as needed If your symptoms are worsening or if you have other concerns you may return to the emergency department for further evaluation and treatment HOME CARE INSTRUCTIONS & INFORMATION: Thank you for choosing us for your medical needs. We hope you're satisfied with the care you received. After you leave, you must properly care for your problem and, at the same time, observe its progress. Any condition can change. Some illnesses can change rapidly over hours or days. If your condition worsens, return to the Emergency Department or see your physician promptly. ABOUT YOUR X-RAYS AND EKG'S: If you had an EKG or X-rays taken, they have been read by the Emergency Physician. The X-rays and EKG's will also be read by a Radiologist or Casino Floor Person within 24 hours. If discrepancies are noted, you will be notified by telephone. Please be certain the ED has a correct telephone number & address where you can be reached. Also, realize that some fractures or abnormalities do not show up on initial X-rays. If your symptoms continue, see your physician. ABOUT YOUR LABORATORY TEST: If you had laboratory tests, the results have been reviewed by the Emergency Physician. Some test results (for example cultures) may not be available for several days. You will be contacted if any test result shows you need additional treatment. Please be certain the ED has a correct telephone number and address where you can be reached. ABOUT YOUR MEDICATIONS: You will receive instructions on how to take your medicine on the prescription label you receive. Additional information may be provided by the Pharmacy. If you have questions afterwards, call the ED for clarification or further instructions. Some prescribed medications may cause drowsiness. Do not perform tasks such as driving a car or operating machinery without consulting your Pharmacist. If you feel you need a refill of pain medication, your condition will need re-evaluation. Please do not call for a refill of any medication. ABOUT YOUR SIGNATURE: Signature of this document acknowledges to followin. Understanding that you received emergency treatment and that you may be released before al medical problems are known or treated. Please be certain the ED has a correct phone number & address where you can be reached. 2. Acknowledgement that you will arrange for follow-up care as recommended. 3. Authorization for the Emergency Physician to provide information to your follow-up Physician in order to maximize your care. AT ANY TIME, IF YOUR SYMPTOMS CHANGE SIGNIFICANTLY OR WORSEN OR YOU DEVELOP NEW SYMPTOMS, RETURN TO THE EMERGENCY DEPARTMENT IMMEDIATELY FOR RE-EVALUATION. OUR GOAL IS TO PROVIDE EXCELLENT MEDICAL CARE! WE HOPE THAT WE HAVE MET YOUR EXPECTATIONS DURING YOUR EMERGENCY DEPARTMENT VISIT AND THAT YOU FEEL YOU HAVE RECEIVED EXCELLENT CARE! Prescriptions: Amoxicillin 1 tab PO TID #30 tab Ibuprofen [Motrin 800 mg Tablet] 800 mg PO Q8H PRN #30 tab PRN Reason: Valacyclovir HCl [Valtrex 500 Mg Tablet] 1,000 mg PO TID #21 tablet Referrals: [facility] [Primary Care Provider] - Follow up as needed
[2019-12-27] MEDS ORDERED: VALACYCLOVIR HCL 500 MG TABLET PO ONE (21:56)
[2019-12-27] MEDS ORDERED: AMOXICILLIN TRIHYDRATE 500 MG CAPSULE PO ONE (21:56)
[2019-12-27] MEDS ORDERED: NITROGLYCERIN 2% OINTMENT 1 GM PACKET TP ONE (22:24)
[2019-12-27] MEDS ORDERED: CLONIDINE HCL 0.2 MG TABLET PO ONE (22:24)
[2019-12-28 00:11] VITALS: BP 148/62
== END 2019-12-28 00:11 | disposition home or self-care (01) ==
LOC: ER 12:05
DX: G51.0 Bell's palsy (principal); E11.65 Type 2 diabetes mellitus with hyperglycemia; K04.7 Periapical abscess without sinus; K02.9 Dental caries, unspecified; K08.89 Other specified disorders of teeth and supporting structures; I11.0 Hypertensive heart disease with heart failure; I50.30 Unspecified diastolic (congestive) heart failure; I25.2 Old myocardial infarction; F17.200 Nicotine dependence, unspecified, uncomplicated; Z79.899 Other long term (current) drug therapy; Z79.4 Long term (current) use of insulin; Z91.013 Allergy to seafood; Z91.018 Allergy to other foods
CPT/HCPCS: 99285; 96374; 36415; 82962; 85025; 85610; 85730; 80053; 81001; 70450; J1815; J7030

== ENCOUNTER → 2020-01-11 | Outpatient (CLI) | payer OTHER ==
[2020-01-11 10:45] LABS: ABSOLUTE BASOPHILS # (AUTO) 0.1 10^3/uL (0.0-0.2); ABSOLUTE EOSINOPHILS # (AUTO) 0.2 10^3/uL (0.0-0.6); ABSOLUTE LYMPHOCYTES (AUTO) 2.3 10^3/uL (0.5-4.7); ABSOLUTE MONOCYTES (AUTO) 0.4 10^3/uL (0.1-1.4); ABSOLUTE NEUT (AUTO) 2.4 10^3/uL (1.7-8.2); BASOPHILS % (AUTO) 1.2 % (0-2); EOSINOPHILS % (AUTO) 3.7 % (0-6); HEMOGLOBIN 11.2 g/dL (13.5-17.0); LYMPHOCYTES % (AUTO) 43.3 % (13-45); MEAN CORPUSCULAR HEMOGLOBIN 28.8 pg (27.0-33.4); MEAN CORPUSCULAR HGB CONC 33.9 g/dL (32.0-36.0); MEAN CORPUSCULAR VOLUME 85 fl (80-97); PLATELET COUNT 108 10^3/uL (150-450); RED CELL DISTRIBUTION WIDTH 15.8 % (11.5-14.0); SEGMENTED NEUTROPHILS % (AUTO) 44.8 % (42-78); TOTAL CELLS COUNTED % (AUTO) 100 %; WHITE BLOOD COUNT 5.3 10^3/uL (4.0-10.5)
[2020-01-11 11:10] LABS: ANION GAP 9 (5-19); BLOOD UREA NITROGEN 32 mg/dL (7-20); CALCIUM 8.5 mg/dL (8.4-10.2); CARBON DIOXIDE 19 mmol/L (22-30); CHLORIDE 104 mmol/L (98-107)
[2020-01-11 11:39] LABS: GLUCOSE 630 mg/dL (75-110)
== END ==
LOC: CCC 09:13
PROVIDERS: ATTEND Internal Medicine
DX: I13.0 Hypertensive heart and chronic kidney disease with heart failure and stage 1 through stage 4 chronic kidney disease, or unspecified chronic kidney disease (principal); I50.9 Heart failure, unspecified; N18.2 Chronic kidney disease, stage 2 (mild); E11.22 Type 2 diabetes mellitus with diabetic chronic kidney disease; D64.9 Anemia, unspecified
CPT/HCPCS: 36415; 80048; 83880; 85025

== ENCOUNTER → 2020-01-21 | Outpatient (CLI) | payer OTHER ==
[2020-01-21 11:25] LABS: ABSOLUTE BASOPHILS # (AUTO) 0.1 10^3/uL (0.0-0.2); ABSOLUTE EOSINOPHILS # (AUTO) 0.2 10^3/uL (0.0-0.6); ABSOLUTE LYMPHOCYTES (AUTO) 3.3 10^3/uL (0.5-4.7); ABSOLUTE MONOCYTES (AUTO) 0.3 10^3/uL (0.1-1.4); ABSOLUTE NEUT (AUTO) 3.2 10^3/uL (1.7-8.2); BASOPHILS % (AUTO) 1.1 % (0-2); EOSINOPHILS % (AUTO) 3.1 % (0-6); HEMATOCRIT 33.8 % (37.9-51.0); HEMOGLOBIN 11.5 g/dL (13.5-17.0); LYMPHOCYTES % (AUTO) 46.7 % (13-45); MEAN CORPUSCULAR HEMOGLOBIN 28.1 pg (27.0-33.4); MEAN CORPUSCULAR HGB CONC 34.1 g/dL (32.0-36.0); MEAN CORPUSCULAR VOLUME 82 fl (80-97); MONOCYTES % (AUTO) 4.6 % (3-13); PLATELET COUNT 134 10^3/uL (150-450); RED BLOOD COUNT 4.11 10^6/uL (4.35-5.55); RED CELL DISTRIBUTION WIDTH 16.5 % (11.5-14.0); SEGMENTED NEUTROPHILS % (AUTO) 44.5 % (42-78); TOTAL CELLS COUNTED % (AUTO) 100 %; WHITE BLOOD COUNT 7.1 10^3/uL (4.0-10.5)
[2020-01-21 11:57] LABS: ANION GAP 9 (5-19); BLOOD UREA NITROGEN 24 mg/dL (7-20); CALCIUM 8.8 mg/dL (8.4-10.2); CARBON DIOXIDE 23 mmol/L (22-30); CHLORIDE 104 mmol/L (98-107); GLUCOSE 61 mg/dL (75-110); POTASSIUM 4.3 mmol/L (3.6-5.0)
== END ==
LOC: OD 09:59
PROVIDERS: ATTEND Internal Medicine
DX: E11.9 Type 2 diabetes mellitus without complications (principal); D50.9 Iron deficiency anemia, unspecified; D69.6 Thrombocytopenia, unspecified
CPT/HCPCS: 36415; 80048; 83880; 85025

== ENCOUNTER → 2020-02-02 | Outpatient (CLI) | payer OTHER ==
--- NOTE | 2020-02-02 09:27 | RADIOLOGY REPORT (SQ) ---
EXAM DESCRIPTION: CHEST PA/LATERAL IMAGES COMPLETED DATE/TIME: 02/02/2020 9:02 am REASON FOR STUDY: SOB; EXERTIONAL DYSPNEA COMPARISON: 12/06/2019 EXAM PARAMETERS: NUMBER OF VIEWS: two views TECHNIQUE: Digital Frontal and Lateral radiographic views of the chest acquired. RADIATION DOSE: NA LIMITATIONS: none FINDINGS: LUNGS AND PLEURA: Stable linear scar in the right midlung field. Mild hyperexpansion. No consolidation or effusions. MEDIASTINUM AND HILAR STRUCTURES: No masses or contour abnormalities. HEART AND VASCULAR STRUCTURES: Stable in appearance. BONES: No acute findings. HARDWARE: None in the chest. OTHER: No other significant finding. IMPRESSION: No interval change in chest. Scarring in the right midlung field. TECHNICAL DOCUMENTATION: JOB ID: [id number] 2010 [employer]- All Rights Reserved Reading location - IP/workstation name: [email or web address]
[2020-02-02 09:28] LABS: ABSOLUTE EOSINOPHILS # (AUTO) 0.3 10^3/uL (0.0-0.6); ABSOLUTE LYMPHOCYTES (AUTO) 2.1 10^3/uL (0.5-4.7); ABSOLUTE MONOCYTES (AUTO) 0.5 10^3/uL (0.1-1.4); ABSOLUTE NEUT (AUTO) 3.2 10^3/uL (1.7-8.2); BASOPHILS % (AUTO) 0.6 % (0-2); EOSINOPHILS % (AUTO) 4.5 % (0-6); HEMATOCRIT 32.4 % (37.9-51.0); HEMOGLOBIN 10.8 g/dL (13.5-17.0); LYMPHOCYTES % (AUTO) 34.3 % (13-45); MEAN CORPUSCULAR HEMOGLOBIN 27.4 pg (27.0-33.4); MEAN CORPUSCULAR HGB CONC 33.2 g/dL (32.0-36.0); MEAN CORPUSCULAR VOLUME 83 fl (80-97); MONOCYTES % (AUTO) 8.3 % (3-13); PLATELET COUNT 113 10^3/uL (150-450); RED BLOOD COUNT 3.93 10^6/uL (4.35-5.55); RED CELL DISTRIBUTION WIDTH 16.6 % (11.5-14.0); SEGMENTED NEUTROPHILS % (AUTO) 52.3 % (42-78); TOTAL CELLS COUNTED % (AUTO) 100 %; WHITE BLOOD COUNT 6.1 10^3/uL (4.0-10.5)
[2020-02-02 10:03] LABS: ANION GAP 8 (5-19); BLOOD UREA NITROGEN 41 mg/dL (7-20); CALCIUM 8.7 mg/dL (8.4-10.2); CARBON DIOXIDE 20 mmol/L (22-30); CHLORIDE 111 mmol/L (98-107); GLUCOSE 199 mg/dL (75-110); POTASSIUM 4.3 mmol/L (3.6-5.0)
== END ==
LOC: CCC 08:41
PROVIDERS: ATTEND Internal Medicine
DX: E11.22 Type 2 diabetes mellitus with diabetic chronic kidney disease (principal); N18.2 Chronic kidney disease, stage 2 (mild); I50.30 Unspecified diastolic (congestive) heart failure; R06.02 Shortness of breath; D64.9 Anemia, unspecified; D69.6 Thrombocytopenia, unspecified
CPT/HCPCS: 36415; 71046; 80048; 85025

== ENCOUNTER → 2020-02-08 | Outpatient (CLI) | payer OTHER ==
--- NOTE | 2020-02-10 00:56 | XCELERA REPORT ---
[address] [address] Transthoracic Echocardiogram Report Name: STEVE ALDANA Age: 59 yrs Gender: Male : 1960 Patient Status: Outpatient Patient Location: [facility] Study Date: 02/08/2020 10:12 AM Height: 65 in Weight: 150 lb BSA: 1.8 m2 Procedure: A two-dimensional transthoracic echocardiogram with color flow and Doppler was performed. Study Quality: Fair. Reason For Study: DYSPNEA History: DYSPNEA. Ordering Physician: SAMAN HAWKINS Performed By: Selin Vickers Interpretation Summary There is moderate to severe concentric left ventricular hypertrophy. LV EF is 55% Left ventricular systolic function is low normal. The left ventricular wall motion is normal. There is no thrombus. nO asd,vsd,OR pfo SEEN. The right atrium is normal. The left atrium is mildly dilated. There is no evidence of mitral valve prolapse. There is no vegetation seen on the mitral valve. There is no mitral valve stenosis. There is a trace to mild amount of mitral regurgitation There is no aortic valvular vegetation. There is no aortic valve stenosis No aortic regurgitation is present. There is no tricuspid stenosis. There is a trace amount of tricuspid regurgitation There is mild pulmonary hypertension by echo RVSP is 33 mm of HG , with RA mean of 10. There is no pulmonic valvular stenosis. There is no pulmonic valvular regurgitation. The aortic root is normal size. The inferior vena cava appeared normal and decreased > 50% with respiration (RAP 5-10 mmHg) Minimal pericardial effusion. MMode/2D Measurements & Calculations RVDd: 2.9 cm LVIDd: 5.6 cm FS: 28.9 % Ao root diam: 3.1 cm IVSd: 1.5 cm LVIDs: 4.0 cm EDV(Teich): LVPWd: 1.4 cm 152.1 ml Ao root area: ESV(Teich): 68.6 ml7.5 cm2 EF(Teich): 54.9 % EDV(MOD-sp4): SV(MOD-sp4): 84.2 ml 52.8 ml ESV(MOD-sp4): 31.3 ml EF(MOD-sp4): 62.8 % Doppler Measurements & Calculations MV E max francisco: MV dec slope: Ao V2 max: LV V1 max P.0 cm/sec 148.8 cm/sec 6.4 mmHg MV A max francisco: 223.0 cm/sec2 Ao max PG: LV V1 max: 109.5 cm/sec MV dec time: 0.22 sec8.9 mmHg 126.8 cm/sec MV E/A: 0.46 PA V2 max: TR max francisco: 97.4 cm/sec 238.8 cm/sec PA max P.8 mmHg TR max P.9 mmHg Left Ventricle The left ventricle is normal in size. There is moderate to severe concentric left ventricular hypertrophy. LV EF is 55%. Left ventricular systolic function is low normal. Doppler measurements suggest impaired left ventricular relaxation, which is associated with grade I/IV or mild diastolic dysfunction. The left ventricular wall motion is normal. There is no thrombus. nO asd,vsd,OR pfo SEEN. Right Ventricle The right ventricle is normal in size and function. Atria The right atrium is normal. The left atrium is mildly dilated. Mitral Valve There is no evidence of mitral valve prolapse. There is no vegetation seen on the mitral valve. There is no mitral valve stenosis. There is a trace to mild amount of mitral regurgitation. Aortic Valve There is no aortic valvular vegetation. There is no aortic valve stenosis. No aortic regurgitation is present. Tricuspid Valve There is no tricuspid stenosis. There is a trace amount of tricuspid regurgitation. There is mild pulmonary hypertension by echo. RVSP is 33 mm of HG , with RA mean of 10. Pulmonic Valve There is no pulmonic valvular stenosis. There is no pulmonic valvular regurgitation. Great Vessels The aortic root is normal size. The inferior vena cava appeared normal and decreased > 50% with respiration (RAP 5-10 mmHg). Effusions Minimal pericardial effusion. : SAMAN HAWKINS Lakshmi
== END ==
LOC: SP 10:53
PROVIDERS: ATTEND Internal Medicine
DX: R06.00 Dyspnea, unspecified (principal)
CPT/HCPCS: 93306

== ENCOUNTER → 2020-03-10 | Outpatient (CLI) | payer OTHER ==
--- NOTE | 2020-03-10 09:12 | RADIOLOGY REPORT (SQ) ---
EXAM DESCRIPTION: HIPS BILATERAL IMAGES COMPLETED DATE/TIME: 03/10/2020 9:03 am REASON FOR STUDY: SALO HIP PAIN; DORSALGIA; LOWER BACK PAIN M25.552 PAIN IN LEFT HIP M25.551 PAIN I N RIGHT HIP M54.9 DORSALGIA, UNSPECIFIED COMPARISON: None. NUMBER OF VIEWS: Two views TECHNIQUE: AP pelvis and additional frog-leg view of both hips. LIMITATIONS: None. FINDINGS: MINERALIZATION: Normal. HIPS: There is mild asymmetric joint space narrowing on the right. There is bilateral subchondral sc lerosis and small osteophytes. No acute fracture or dislocation. PELVIS AND SACRUM: No acute fracture or dislocation. No worrisome bone lesions. PUBIS AND ISCHIUM: No acute fracture. LOWER LUMBAR SPINE: No significant findings as visualized. SOFT TISSUES: No findings. OTHER: No other significant finding. IMPRESSION: Bilateral degenerative changes right slightly greater than left. Joint space narrowing with subchondral sclerosis. Small bilateral osteophytes. TECHNICAL DOCUMENTATION: JOB ID: [id number] 2010 [employer]- All Rights Reserved Reading location - IP/workstation name: [email or web address]
--- NOTE | 2020-03-10 09:14 | RADIOLOGY REPORT (SQ) ---
EXAM DESCRIPTION: LUMBAR SPINE W/FLEX/EXT IMAGES COMPLETED DATE/TIME: 03/10/2020 9:03 am REASON FOR STUDY: SALO HIP PAIN; DORSALGIA; LOWER BACK PAIN M25.552 PAIN IN LEFT HIP M25.551 PAIN I N RIGHT HIP M54.9 DORSALGIA, UNSPECIFIED COMPARISON: 07/22/2014 NUMBER OF VIEWS: Seven views. TECHNIQUE: AP, lateral, obliques, flexion, extension, and sacral radiographic images acquired. LIMITATIONS: None. FINDINGS: MINERALIZATION: Normal. SEGMENTATION: Normal. No transitional anatomy. ALIGNMENT: Normal. FLEXION/EXTENSION: There is slight anterior translation of L4 on L5 in both flexion and extension. N ormal alignment on neutral images. VERTEBRAE: Maintained height. No fracture or worrisome bone lesion. DISCS: Preserved height. No significant osteophytes or end plate irregularity. POSTERIOR ELEMENTS: Pedicles and facets are intact. No pars defect or posterior arch defects. HARDWARE: None in the spine. PARASPINAL SOFT TISSUES: Normal. PELVIS: Intact as visualized. No fractures or worrisome bone lesions. SI joints intact. OTHER: No other significant finding. IMPRESSION: NO SIGNIFICANT FINDING ON 7 VIEW SPINE SERIES. SLIGHT ANTERIOR TRANSLATION OF L4 ON L5 IN BOTH FLEXION AND EXTENSION. TECHNICAL DOCUMENTATION: JOB ID: [id number] 2010 [employer]- All Rights Reserved Reading location - IP/workstation name: [email or web address]
[2020-03-10 09:30] LABS: ABSOLUTE EOSINOPHILS # (AUTO) 0.2 10^3/uL (0.0-0.6); ABSOLUTE LYMPHOCYTES (AUTO) 2.2 10^3/uL (0.5-4.7); ABSOLUTE MONOCYTES (AUTO) 0.4 10^3/uL (0.1-1.4); ABSOLUTE NEUT (AUTO) 3.3 10^3/uL (1.7-8.2); BASOPHILS % (AUTO) 0.6 % (0-2); EOSINOPHILS % (AUTO) 3.8 % (0-6); HEMATOCRIT 31.7 % (37.9-51.0); HEMOGLOBIN 10.5 g/dL (13.5-17.0); MEAN CORPUSCULAR HEMOGLOBIN 27.5 pg (27.0-33.4); MEAN CORPUSCULAR HGB CONC 33.2 g/dL (32.0-36.0); MEAN CORPUSCULAR VOLUME 83 fl (80-97); PLATELET COUNT 127 10^3/uL (150-450); RED BLOOD COUNT 3.82 10^6/uL (4.35-5.55); RED CELL DISTRIBUTION WIDTH 18.8 % (11.5-14.0); SEGMENTED NEUTROPHILS % (AUTO) 52.6 % (42-78); TOTAL CELLS COUNTED % (AUTO) 100 %; WHITE BLOOD COUNT 6.2 10^3/uL (4.0-10.5)
[2020-03-10 09:59] LABS: ANION GAP 9 (5-19); BLOOD UREA NITROGEN 22 mg/dL (7-20); CALCIUM 8.9 mg/dL (8.4-10.2); CARBON DIOXIDE 19 mmol/L (22-30); CHLORIDE 112 mmol/L (98-107); GLUCOSE 119 mg/dL (75-110); POTASSIUM 4.4 mmol/L (3.6-5.0)
== END ==
LOC: CCC 08:28
PROVIDERS: ATTEND Internal Medicine
DX: M25.752 Osteophyte, left hip (principal); M25.751 Osteophyte, right hip; M25.552 Pain in left hip; M25.551 Pain in right hip; M54.5 Low back pain; E11.8 Type 2 diabetes mellitus with unspecified complications; D69.6 Thrombocytopenia, unspecified
CPT/HCPCS: 36415; 72114; 73522; 80048; 85025